=== PATIENT | male | born 1945 | race Caucasian/White ===

== ENCOUNTER → 2021-12-17 | Outpatient (CLI) | payer MEDICARE ==
--- NOTE | 2021-12-17 11:41 | XR ---
EXAMINATION TYPE: XR chest 2V DATE OF EXAM: 12/17/2021 11:12 AM COMPARISON: None TECHNIQUE: XR chest 2V Frontal and lateral views of the chest. CLINICAL INDICATION:Male, 76 years old with history of M545,M546,R05 LBP,THOR PAIN, COUGH; FINDINGS: Lungs/Pleura: There is no evidence of pleural effusion, focal consolidation, or pneumothorax. Pulmonary vascularity: Unremarkable. Heart/mediastinum: Cardiomediastinal silhouette is enlarged. Musculoskeletal: No acute osseous pathology. IMPRESSION: 1. No acute cardiopulmonary disease/process. 2. No evidence of fracture. 3. Mild cardiomegaly
--- NOTE | 2021-12-17 11:43 | XR ---
EXAMINATION TYPE: XR lumbar spine 2 or 3V DATE OF EXAM: 12/17/2021 11:12 AM INDICATION: Patient age:Male; 76 years old; Reason for study: M545,M546,R05 LBP,THOR PAIN,COUGH; . COMPARISON: None TECHNIQUE: Lateral and frontal view of the spine. FINDINGS: Post surgical changes to the lumbar spine with compensatory degeneration changes at T12-L2. Hardware extending from L3 to L5 appears intact. Discectomy changes at L3-L4. Mild levoscoliosis ape x L3. Multilevel disc space narrowing, osteophyte formation and facet joint arthropathy is present. N o evidence of acute fracture. IMPRESSION: Post fixation changes to the lower lumbar spine with compensatory degenerative changes changes from T 12 to L2 which is moderate to severe. Hardware appears intact.
--- NOTE | 2021-12-17 11:46 | XR ---
EXAMINATION TYPE: XR thoracic spine 2V DATE OF EXAM: 12/17/2021 11:12 AM INDICATION: Patient age:Male; 76 years old; Reason for study: M545,M546,R05 LBP,THOR PAIN, COUGH; COMPARISON: Same day radiographs TECHNIQUE: 2 views of the thoracic spine in Frontal and lateral projections. FINDINGS: Degeneration changes most pronounced from T12 to L2 which are felt to be compensatory from fixation hardware in the lower lumbar spine. No evidence of acute fracture. There is straightening of the thoracic spine with levoscoliosis of the lumbar spine. Multilevel disc space narrowing is presen t. IMPRESSION: Moderate to severe degeneration changes most pronounced at T12-L2 likely compensatory to lower lumbar spine fixation hardware. No evidence of acute fracture.
== END | disposition home or self-care (01) ==
LOC: RADXRYALE 10:41
PROVIDERS: ATTEND Physician Assistant
DX: M54.50 Low back pain, unspecified (principal); R05.4 Cough syncope; I51.7 Cardiomegaly; M51.35 Other intervertebral disc degeneration, thoracolumbar region
CPT/HCPCS: 71046; 72070; 72100

== ENCOUNTER → 2022-03-16 | Outpatient (CLI) | payer MEDICARE ==
--- NOTE | 2022-03-17 06:47 | MR ---
EXAMINATION TYPE: MR tspine/lspine wo con DATE OF EXAM: 03/16/2022 COMPARISON: Thoracic and lumbar spine x-rays December 17, 2021 HISTORY: LOW BACK PAIN, M546 THORACIC PAIN. Chronic mid and low back pain with history of prior surge ry for 2 years. Pain radiates into bilateral lower extremities. TECHNIQUE: Multiplanar, multisequence imaging of the thoracic and lumbar spine are performed without IV contrast. FINDINGS: T-SPINE: FINDINGS: Spinal cord shows normal course, caliber, and signal as it courses the thoracic spine. Slig ht scoliotic curvature on the coronal images most prominent near the thoracolumbar junction. Vertebra l body heights are satisfactory. Disc space heights fairly well maintained. There are small posterior disc herniation mildly effacing anterior thecal sac beginning at T7-T8 through the and T12-L1 level on sagittal image 9 for reference. Mild multilevel anterior spurring. Bone marrow signal intensity is maintained. Review of the axial images confirms disc herniations in the mid to lower thoracic spine mildly effaci ng the anterior thecal sac, largest are identified at T7-T8 level axial image 18 and T10-T11 level ax ial image 8. Some ligamentum flavum hypertrophy effaces posterior lateral thecal sac at T12-L1 level axial image 1. No suspicious incidental finding in the thorax or upper abdomen. IMPRESSION: Slight scoliotic curvature with multilevel degenerative changes in the mid to lower thora cic spine as detailed above. L-SPINE: Will use same counting system as plain films. There is persistent levoconvex scoliosis centered at L2 level with reactive dextroconvex scoliosis at the lumbosacral junction. Artifact from posterior inte rpedicular rods and screws at L3-L5 levels bilaterally is redemonstrated. Artifact from disc material at L3-L4 level is redemonstrated. Alignment remains straightened on sagittal images. There is grade 1 retrolisthesis L1 on L2 redemonstrated. There is slight grade 1 retrolisthesis L5 on S1 along poste rior vertebral body margin redemonstrated. Multilevel disc desiccation along with moderate to advance d disc space narrowing and spurring L1-L2 level. There is mild to moderate disc space narrowing L2-L3 level. There is moderate disc space narrowing with vacuum disc phenomenon at L5-S1 level. The conus medullaris is normal in position and signal ending superior L2 level. The bone marrow signal intens ity is within normal limits above and below surgical levels. Axial images are significantly degraded by artifact. Axial images at T12-L1 level grossly within norm al limits. Axial images at L1-L2 level show spondylolisthesis with right paracentral spur disc complex effacing the anterolateral thecal sac, there is asymmetric mild to moderate right-sided facet arthropathy liga ment flavum hypertrophy effacing posterior lateral thecal sac. Mild to Moderate right-sided neural fo raminal narrowing is present. Axial images at L2-L3 level show artifact from surgical change, there is subtle spondylolisthesis and right paracentral spur disc complex effacing right anterolateral thecal sac. Left-sided neural arcadio robert is patent. Right side is suboptimally evaluated due to artifact. Axial images at the L3-L4 level show posterior decompression changes with patent spinal canal and art ificial disc material. Right-sided neural foramen is patent. Axial images at L4-L5 level show artifact from surgical change. Posterior decompression changes noted . Spinal canal is preserved. Mild right-sided neural foraminal narrowing is seen. Left-sided neural f oramen is patent. Axial images at L5-S1 level show artifact from surgical change. There is uipa-yw-fynwuenl facet arthr opathy bilaterally. There is left paracentral disc protrusion effacing the anterolateral thecal sac a nd left lateral recess axial image 2. Bilateral neural foramina are patent. Paraspinal muscle bulk is preserved. IMPRESSION: Straightening of lumbar spine with scoliotic curvature. Postsurgical changes L3-L5 levels noted. Multilevel spondylolisthesis and degenerative changes are present as detailed above.
== END | disposition home or self-care (01) ==
LOC: RADMRIMAIN 08:54
PROVIDERS: ATTEND Family Medicine
DX: M54.50 Low back pain, unspecified (principal); M54.6 Pain in thoracic spine; G62.9 Polyneuropathy, unspecified
CPT/HCPCS: 72146; 72148

== ENCOUNTER → 2022-09-05 | Outpatient (CLI) | payer MEDICARE ==
--- NOTE | 2022-09-06 17:04 | MR ---
"EXAMINATION TYPE: MR brain wo con DATE OF EXAM: 09/05/2022 COMPARISON: None HISTORY: CVA. CONTRAST: Performed utilizing 0 mL intravenous Gadavist gadolinium contrast. TECHNIQUE: Multiplanar, multiecho imaging on a 3.0 Cintia magnet is performed through the brain. Stud y is performed within 24 hours of arrival to the hospital. The craniovertebral junction is normal. The pituitary is normal. Diffusion-weighted imaging is performed. There is a focus of hyperintensity within the right ramirez radiata can be compatible some acute ischemic change or lacunar infarct. Series 303 image 152, 160. T his area is hyperintense on T2-weighted sequences and measures approximately 1.0 cm. Series 401 image 20. Additional areas suspicious for acute ischemia are not evident. On inversion recovery weighted sequences there are some additional periventricular white matter hyper intensities may be old ischemic changes. Ventricles and sulci are prominent for the patient age. IMPRESSIONS: 1. 1 cm acute ischemic area or lacunar infarct posterior right ramirez radiata. 2. Additional mild chronic appearing periventricular white matter ischemic-type changes. A [place] level critical message alert has been initiated for Meño Reyez DO via the [employer] Communication [phone] | Critical Results System on 09/06/2022 5:01 PM. This message alert has been sent to Meño Reyez DO via the preferences provided by the clinician for the receipt of Radiology Critical Findings. [facility] ID [id number]."
== END | disposition home or self-care (01) ==
LOC: RADMRIMAIN 13:40
PROVIDERS: ATTEND Psychiatry & Neurology Neurology
DX: I63.81 Other cerebral infarction due to occlusion or stenosis of small artery (principal)
CPT/HCPCS: 70551

== ENCOUNTER 2022-09-07 17:22 | Inpatient (IN) | payer MEDICARE ==
--- NOTE | 2022-09-07 18:01 | ED ---
General Adult HPI - General Chief complaint: Neuro Symptoms/Deficit Stated complaint: abd labs Time Seen by Provider: 09/07/22 17:34 Source: patient Mode of arrival: ambulatory Limitations: no limitations - History of Present Illness Initial comments: This is a 77-year-old male with a past medical history including chronic back pain, previous PEs on Coumadin, hypertension presents emergency department from his neurologist for a positive finding on MRI scan. The patient had a large workup obtained by the neurologist over the last several weeks as he had decreased range of motion at home. Included in this workup, an MRI of the brain was obtained and was done on Wednesday. They received a phone call at home that the MRI was positive for an area on the right side of his brain so they were advised to come to the emergency department for further evaluation. The patient as well as his daughter was present and did state that there was no change the patient over the last several weeks including any weakness or altered mental status or confusion. The patient himself was an overall poor historian but was ANO 4. The patient denied any headache, blurry vision or any distress or pain. The patient was resting in bed comfortably. - Related Data Home Medications Medication Instructions Recorded Confirmed Atorvastatin [Lipitor] 10 mg PO DAILY 09/07/22 09/07/22 Carbidopa-Levodopa 25-100 mg 1 tab PO TID@0800,1300,1800 09/07/22 09/07/22 [Sinemet 25-100] Citalopram Hydrobromide 20 mg PO DAILY 09/07/22 09/07/22 [Citalopram HBr] DULoxetine HCL [Cymbalta] 60 mg PO DAILY 09/07/22 09/07/22 Diclofenac Sodium Gel [Voltaren 1 applic TOPICAL QID PRN 09/07/22 09/07/22 Gel] Donepezil [Aricept] 10 mg PO DAILY 09/07/22 09/07/22 Gabapentin 600 mg PO HS 09/07/22 09/07/22 HYDROcodone/APAP 5-325MG [Hinckley 1 tab PO TID PRN 09/07/22 09/07/22 5-325] Ibuprofen [Motrin] 800 mg PO Q8H PRN 09/07/22 09/07/22 Warfarin Sodium 2 mg PO DAILY 09/07/22 09/07/22 tiZANidine [Zanaflex] 4 mg PO DAILY PRN 09/07/22 09/07/22 Allergies Allergy/AdvReac Type Severity Reaction Status Date / Time No Known Allergies Allergy Verified 09/07/22 18:11 Review of Systems ROS Statement: Those systems with pertinent positive or pertinent negative responses have been documented in the HPI. ROS Other: All systems not noted in ROS Statement are negative. Past Medical History Past Medical History: CVA/TIA History of Any Multi-Drug Resistant Organisms: None Reported Past Surgical History: Back Surgery Smoking Status: Former smoker Past Alcohol Use History: None Reported Past Drug Use History: None Reported General Exam Limitations: no limitations, physical limitation (Decreased physical activity at baseline) General appearance: alert, in no apparent distress Head exam: Present: atraumatic, normocephalic, normal inspection Eye exam: Present: normal appearance, PERRL Pupils: Present: normal accommodation ENT exam: Present: normal exam, normal oropharynx, mucous membranes moist Neck exam: Present: normal inspection, full ROM Respiratory exam: Present: normal lung sounds bilaterally Cardiovascular Exam: Present: regular rate, normal rhythm, normal heart sounds GI/Abdominal exam: Present: soft, normal bowel sounds Extremities exam: Present: normal inspection, full ROM Back exam: Present: normal inspection, full ROM Neurological exam: Present: alert, oriented X3, CN II-XII intact Psychiatric exam: Present: normal mood, flat affect Skin exam: Present: warm, dry Course Vital Signs 09/07/22 17:28 Temperature 97.5 F L Pulse Rate 63 Respiratory 18 Rate Blood Pressure 134/74 O2 Sat by Pulse 96 Oximetry EKG Findings - EKG Comments: EKG Findings:: An EKG was obtained and was interpreted by myself showing a rate of 76, PA interval of 213, QR hinduism 174 and QTC of 449. This EKG did show a normal sinus rhythm with a first-degree block however there were also frequent PVCs and a right bundle branch block. There was no ST segment elevation or depression noted. Medical Decision Making - Medical Decision Making Was pt. sent in by a medical professional or institution (, PA, CLERK OPERATOR, urgent care, hospital, or alf...) When possible be specific @ -Yes, Dr. Perdue's office Did you speak to anyone other than the patient for history (EMS, parent, family, police, friend...)? What history was obtained from this source @ -Yes, patient's daughter Did you review nursing and triage notes (agree or disagree)? Why? @ -I reviewed and agree with nursing and triage notes Were old charts reviewed (outside hosp., previous admission, EMS record, old EKG, old radiological studies, urgent care reports/EKG's, alf records)? Report findings @ -Yes, outpatient MRI was reviewed Differential Diagnosis (chest pain, altered mental status, abdominal pain women, abdominal pain men, vaginal bleeding, weakness, fever, dyspnea, syncope, headache, dizziness, GI bleed, back pain, seizure, CVA, palpatations, mental health)? @ -CVA, UTI, failure to thrive EKG interpreted by me (3pts min.). @ -As above X-rays interpreted by me (1pt min.). @ -Chest x-ray was obtained and was interpreted by myself showing mild pulmonary for about acute changes. There is likely minimal subsegmental atelectasis the left lung base. There is no heart failure noted. CT interpreted by me (1pt min.). @ -None done U/S interpreted by me (1pt. min.). @ -None done What testing was considered but not performed or refused? (CT, X-rays, U/S, labs)? Why? @ -CTA of the head and neck was ordered per stroke pathway protocol was pending at this time. What meds were considered but not given or refused? Why? @ -None Did you discuss the management of the patient with other professionals (professionals i.e. DrSolis, PA, CLERK OPERATOR, lab, RT, psych nurse, delinquency prevention social worker, clinical study manager, teacher, tactical debriefer officer, casework manager)? Give summary @ -Admitting physician was contacted and accepted patient for admission. Was smoking cessation discussed for >3mins.? @ -No Was critical care preformed (if so, how long)? @ -No Were there social determinants of health that impacted care today? How? (Homelessness, low income, unemployed, alcoholism, drug addiction, tr ansportation, low edu. Level, literacy, decrease access to med. care, senior care, rehab)? @ -No Was there de-escalation of care discussed even if they declined (Discuss DNR or withdrawal of care, Hospice)? DNR status @ -No What co-morbidities impacted this encounter? (DM, HTN, Smoking, COPD, CAD, Cancer, CVA, ARF, Chemo, Hep., AIDS, mental health diagnosis, sleep apnea, morbid obesity)? @ -Decreased physical activity at home, hypertension, previous blood clots on Coumadin Was patient admitted / discharged? Hospital course, mention meds given and route, prescriptions, significant lab abnormalities, going to OR and other pertinent info. @ -The patient was seen and evaluated emergency department. Physical exam, the patient was resting in bed without any acute distress. Vital signs were stable. Per the family as well as the patient, there was no acute weakness, numbness or deficits noted. Due to the patient's MRI findings, the patient will be admitted under observation as the acuity of this CVA was unknown and the patient didn't have any active symptoms. The patient was accepted for observation by Dr. Jeffers and neurology was placed and consul. The family and patient was told of this plan and was agreeable. The patient was placed in observation in stable condition. Undiagnosed new problem with uncertain prognosis? @ -No Drug Therapy requiring intensive monitoring for toxicity (Heparin, Nitro, Insulin, Cardizem)? @ -No Were any procedures done? @ -No Diagnosis/symptom? @ -CVA, unknown acuity Acute, or Chronic, or Acute on Chronic? @ -Acute on chronic Uncomplicated (without systemic symptoms) or Complicated (systemic symptoms)? @ -Complicated Side effects of treatment? @ -No Exacerbation, Progression, or Severe Exacerbation? @ -No Poses a threat to life or bodily function? How? (Chest pain, [place], [place], pneumonia, PE, COPD, DKA, ARF, appy, cholecystitis, CVA, Diverticulitis, Homicidal, Suicidal, threat to staff... and all critical care pts) @ -Yes, acute CVA can lead to permanent damage and possible . - Lab Data Result diagrams: 09/07/22 18:11 09/07/22 18:11 Lab Results 09/07/22 09/07/22 Range/Units 18:11 18:11 WBC 7.6 (3.8-10.6) k/uL RBC 4.78 (4.30-5.90) m/uL Hgb 15.3 (13.0-17.5) gm/dL Hct 46.7 (39.0-53.0) % MCV 97.7 (80.0-100.0) fL MCH 32.0 (25.0-35.0) pg MCHC 32.8 (31.0-37.0) g/dL RDW 14.0 (11.5-15.5) % Plt Count 175 (150-450) k/uL MPV 8.7 Neutrophils % 65 % Lymphocytes % 22 % Monocytes % 7 % Eosinophils % 3 % Basophils % 1 % Neutrophils # 4.9 (1.3-7.7) k/uL Lymphocytes # 1.7 (1.0-4.8) k/uL Monocytes # 0.5 (0-1.0) k/uL Eosinophils # 0.2 (0-0.7) k/uL Basophils # 0.1 (0-0.2) k/uL Sodium 139 (137-145) mmol/L Potassium 4.6 (3.5-5.1) mmol/L Chloride 105 (98-107) mmol/L Carbon Dioxide 28 (22-30) mmol/L Anion Gap 6 mmol/L BUN 23 H (9-20) mg/dL Creatinine 0.89 (0.66-1.25) mg/dL Est GFR (CKD-EPI)AfAm >90 (>60 ml/min/1.73 sqM) Est GFR (CKD-EPI)NonAf 82 (>60 ml/min/1.73 sqM) Glucose 100 H (74-99) mg/dL Calcium 8.9 (8.4-10.2) mg/dL Magnesium 2.1 (1.6-2.3) mg/dL Total Bilirubin 0.5 (0.2-1.3) mg/dL AST 27 (17-59) U/L ALT 9 (4-49) U/L Alkaline Phosphatase 83 (38-126) U/L Total Protein 7.1 (6.3-8.2) g/dL Albumin 4.0 (3.5-5.0) g/dL Lipase 398 H (23-300) U/L Disposition Clinical Impression: Cerebrovascular accident (CVA) Disposition: ADMITTED IP TO THIS HOSP Condition: Stable Is patient prescribed a controlled substance at d/c from ED?: No Referrals: Starr Cardenas PAC [Primary Care Provider] - 1-2 days Time of Disposition: 17:30 Decision to Admit Reason: Admit from EC Decision Date: 09/07/22 (3) Decision Time: 17:30
[2022-09-07 18:23] LABS: Basophils # (A) 0.1 k/uL (0-0.2); Basophils % (A) 1 %; Eosinophils # (A) 0.2 k/uL (0-0.7); Eosinophils % (A) 3 %; HCT 46.7 % (39.0-53.0); HGB 15.3 gm/dL (13.0-17.5); Lymphocytes # (A) 1.7 k/uL (1.0-4.8); Lymphocytes % (A) 22 %; MCHC 32.8 g/dL (31.0-37.0); MCV 97.7 fL (80.0-100.0); Mean Platelet Volume 8.7; Monocytes # (A) 0.5 k/uL (0-1.0); Monocytes % (A) 7 %; Neutrophils # (A) 4.9 k/uL (1.3-7.7); Neutrophils % (A) 65 %; Platelet Count 175 k/uL (150-450); RBC 4.78 m/uL (4.30-5.90); WBC 7.6 k/uL (3.8-10.6)
[2022-09-07] MEDS ORDERED: NALOXONE 0.4 MG/ML 1 ML VIAL IV PRN (18:31)
[2022-09-07 18:32] LABS: ALT 9 U/L (4-49); AST 27 U/L (17-59); African American GFR (CKD) >90 (>60 ml/min/1.73 sqM); Alkaline Phosphatase 83 U/L (38-126); Anion Gap 6 mmol/L; Blood Urea Nitrogen 23 mg/dL (9-20); Calcium 8.9 mg/dL (8.4-10.2); Carbon Dioxide 28 mmol/L (22-30); Chloride 105 mmol/L (98-107); Glucose 100 mg/dL (74-99); Lipase 398 U/L (23-300); Magnesium 2.1 mg/dL (1.6-2.3); Non-African American GFR(CKD) 82 (>60 ml/min/1.73 sqM); Potassium 4.6 mmol/L (3.5-5.1); Sodium 139 mmol/L (137-145); Total Bilirubin 0.5 mg/dL (0.2-1.3); Total Protein 7.1 g/dL (6.3-8.2)
--- NOTE | 2022-09-07 18:33 | XR ---
EXAMINATION TYPE: XR chest 2V DATE OF EXAM: 09/07/2022 COMPARISON: 12/17/2021 HISTORY: Weakness TECHNIQUE: FINDINGS: There is no heart failure nor confluent pneumonic infiltrate. There is poor inspiration. No pleural effusion. There is mild coarsening of the interstitial markings. IMPRESSION: Mild pulmonary fibrotic changes. There is likely minimal subsegmental atelectasis left hosea ng base which is new compared to old exam. No heart failure.
--- NOTE | 2022-09-07 20:46 | CT ---
EXAMINATION TYPE: CT angio head neck DATE OF EXAM: 09/07/2022 COMPARISON: None HISTORY: ams, weakness. CT DLP: 1699.8 mGycm Automated exposure control for dose reduction was used. CONTRAST: Performed with IV Contrast, patient injected with 65ml mL of Isovue 370. Images obtained from the aortic arch to the vertex of the brain with the IV contrast. There are Three -D postprocessed images. There is normal branching pattern of the great vessels of the aortic arch. There is arterial flow in the subclavian arteries bilaterally. There is arterial flow in the common internal and external carot id arteries bilaterally. There is mild plaque formation at the carotid artery bifurcations without ev idence of stenosis. Lumen narrowing less than 5%. There is arterial flow in both vertebral arteries. There is arterial flow in the vertebral basilar artery system. Left vertebral artery is larger than t he right. There is no evidence of carotid or vertebral artery aneurysm or dissection. There is arterial flow in the anterior middle and posterior cerebral arteries bilaterally. No mass ef fect. No evidence of intracranial aneurysm or neovascularity. No evidence of hemodynamic stenosis. Th ere is normal enhancement of the venous sinuses. The noncontrast images show some cerebral atrophy. No mass effect or midline shift. No sign of intrac ranial hemorrhage. IMPRESSION: Cerebral atrophy. No acute intracranial abnormality. No significant angiographic abnormality of the head and neck.
[2022-09-07 21:18] LABS: Appearance,Urine Clear (Clear); Bilirubin,Urine Negative (Negative); Blood,Urine Negative (Negative); Color,Urine Yellow; Glucose,Urine (UA) Negative (Negative); Ketones,Urine Negative (Negative); Leukocyte Esterase,Urine Moderate (Negative); Mucus,Urine Rare /hpf; Nitrite,Urine Negative (Negative); PH, Urine 5.5 (5.0-8.0); Protein,Urine Negative (Negative); RBC,Urine 3 /hpf (0-5); Specific Gravity,Urine 1.037 (1.001-1.035); WBC,Urine 23 /hpf (0-5)
--- NOTE | 2022-09-08 00:24 | P.HPIM ---
History of Present Illness H&P Date: 09/07/22 The patient is a 77-year-old male with a PMH of chronic lower back pain, history of PE on Coumadin, hypertension, Parkinson's, and hyperlipidemia was sent to the emergency room for an abnormal MRI brain. The history was supplemented from the chart and from the ED provider at the patient was a poor historian. The patient was been following with a neurologist as an outpatient over the past several weeks underwent an MRI this past Wednesday. The patient was contacted and informed that his MRI was abnormal and that he needed to go to the emergency room. The patient states that he has been having difficulty walking over the past few weeks and now needs significant assistance which is new for him. He was slow to answer but was oriented 3. The patient denied any focal weakness. As per the family the patient reportedly had no acute weakness or significant changes. Denied visual disturbances or speech impairment. The patient underwent an extensive evaluation in the emergency room. CT angiogram of head and neck revealed cerebral atrophy but was otherwise unremarkable. Chest x-ray revealed mild pulmonary fibrotic changes. EKG revealed sinus rhythm with first-degree AV block with PVCs and a right bundle- branch block at 76 bpm as reviewed by me. Laboratory evaluation revealed a WBC count of 7.6, hemoglobin 15.3, platelets 175, sodium 139, potassium 4.6, BUN 23, creatinine 0.89, glucose 100, and lipase 398. Review of systems: Pertinent positives and negatives as discussed in HPI, a complete review of systems was performed and all other systems are negative. Physical examination: Vital signs reviewed General: non toxic, no distress, appears at stated age, normal weight Derm: no unusual rashes/lesions, warm Head: atraumatic, normocephalic, symmetric Eyes: EOMI, no lid lag, anicteric sclera, pupils equal round reactive to light ENT: Nose and ears atraumatic Neck: No cervical lymphadenopathy, trachea midline, supple Mouth: no lip lesion, mucus membranes moist Cardiovascular: S1S2 reg, no murmur, positive dorsalis pedis pulse bilateral, no edema Lungs: CTA bilateral, no rhonchi, no rales, no accessory muscle use Abdominal: soft, nontender to palpation, no guarding Ext: muscle strength 3 out of 5 of bilateral lower extremities, strength 4 out of 5 bilateral upper extremities, no gross muscle atrophy, no contractures Neuro: CN II-XI grossly intact, no gross focal neuro deficits Psych: Slow to answer, flat affect, oriented x3 Assessment: Abnormal MRI brain (not available for review in chart) Debility Chronic conditions: Parkinson's, history of PE, hypertension, hyperlipidemia Imaging: CT angiogram of head and neck revealed cerebral atrophy but was otherwise unremarkable. Chest x-ray revealed mild pulmonary fibrotic changes. EKG revealed sinus rhythm with first-degree AV block with PVCs and a right bundle- branch block at 76 bpm as reviewed by me. Data Review: Laboratory evaluation revealed a WBC count of 7.6, hemoglobin 15.3, platelets 175, sodium 139, potassium 4.6, BUN 23, creatinine 0.89, glucose 100, and lipase 398. Plan: Neurology consulted PT consult C/w home meds: -Coumadin 2 mg by mouth daily -Zanaflex 4 mg by mouth daily when necessary -Bland 5-325 3 times a day when necessary -Cymbalta 60 mg by mouth qd -Sinemet by mouth 3 times a day -Lipitor 10 mg by mouth daily DVT prophylaxis: Coumadin The patient is admitted with an anticipated less than 2 midnight stay for evaluation of Abnormal MRI CODE STATUS: Full Code Discussed with: Patient Anticipated discharge place: Home Past Medical History Past Medical History: CVA/TIA, Neurologic Disorder History of Any Multi-Drug Resistant Organisms: None Reported Past Surgical History: Back Surgery Past Anesthesia/Blood Transfusion Reactions: No Reported Reaction Past Psychological History: Depression Smoking Status: Former smoker Past Alcohol Use History: None Reported Past Drug Use History: Marijuana - Past Family History Father History Unknown: Yes Additional Family Medical History / Comment(s): pt and family is not aware of any past family medical history Medications and Allergies Home Medications Medication Instructions Recorded Confirmed Type Atorvastatin [Lipitor] 10 mg PO DAILY 09/07/22 09/07/22 History Carbidopa-Levodopa 25-100 mg 1 tab PO TID@0800,1300,1800 09/07/22 09/07/22 History [Sinemet 25-100] Citalopram Hydrobromide 20 mg PO DAILY 09/07/22 09/07/22 History [Citalopram HBr] DULoxetine HCL [Cymbalta] 60 mg PO DAILY 09/07/22 09/07/22 History Diclofenac Sodium Gel [Voltaren 1 applic TOPICAL QID PRN 09/07/22 09/07/22 History Gel] Donepezil [Aricept] 10 mg PO DAILY 09/07/22 09/07/22 History Gabapentin 600 mg PO HS 09/07/22 09/07/22 History HYDROcodone/APAP 5-325MG [Bland 1 tab PO TID PRN 09/07/22 09/07/22 History 5-325] Ibuprofen [Motrin] 800 mg PO Q8H PRN 09/07/22 09/07/22 History Warfarin Sodium 2 mg PO DAILY 09/07/22 09/07/22 History tiZANidine [Zanaflex] 4 mg PO DAILY PRN 09/07/22 09/07/22 History Allergies Allergy/AdvReac Type Severity Reaction Status Date / Time No Known Allergies Allergy Verified 09/07/22 18:11 Physical Exam Vitals: Vital Signs Temp Pulse Pulse Resp BP BP Pulse Ox 09/07/22 21:00 97.8 F 77 16 134/96 97 09/07/22 20:37 82 18 170/86 97 09/07/22 19:33 60 18 148/70 97 09/07/22 17:28 97.5 F L 63 18 134/74 96 Intake and Output 09/07/22 09/07/22 09/08/22 14:59 22:59 06:59 Other: Voiding Method External Catheter Weight 79.379 kg Results CBC & Chem 7: 09/07/22 18:11 09/07/22 18:11 Labs: Abnormal Lab Results - Last 24 Hours (Table) 09/07/22 09/07/22 Range/Units 17:50 18:11 BUN 23 H (9-20) mg/dL Glucose 100 H (74-99) mg/dL Lipase 398 H (23-300) U/L Ur Specific [place] 1.037 H (1.001-1.035) Ur Leukocyte Esterase Moderate H (Negative) Urine WBC 23 H (0-5) /hpf Urine Mucus Rare H (None) /hpf Thrombosis Risk Factor Assmnt - Choose All That Apply Any of the Below Risk Factors Present?: Yes Each Factor Represents 1 point: Obesity (BMI >25) Other Risk Factors: Yes Each Risk Factor Represents 3 Points: Age 75 years or older Each Risk Factor Represents 5 Points: Stroke (< 1 month) Thrombosis Risk Factor Assessment Total Risk Factor Score: 9 Thrombosis Risk Factor Assessment Level: High Risk
[2022-09-08] MEDS: HYDROcodone/APAP 5-325MG 1 EACH TAB PO PRN ×3 (01:04→20:16)
[2022-09-08] MEDS: tiZANidine 4 MG TAB PO PRN ×2 (03:47→17:35)
[2022-09-08 03:54] LABS: INR 1.3 (<1.2); Prothrombin Time 12.8 sec (9.0-12.0)
[2022-09-08] MEDS: ATORVASTATIN 10 MG TAB PO SCH (08:20)
[2022-09-08] MEDS: CARBIDOPA-LEVODOPA 25-100 MG 1 EACH TAB PO SCH ×3 (08:20→17:35)
[2022-09-08] MEDS: DONEPEZIL 10 MG TAB PO SCH (08:20)
[2022-09-08] MEDS: CITALOPRAM HYDROBROMIDE 20 MG TAB PO SCH (08:20)
[2022-09-08] MEDS: DULoxetine HCL 60 MG CAPSULE.DR PO SCH (08:20)
--- NOTE | 2022-09-08 11:27 | P.PN ---
Subjective Progress Note Date: 09/08/22 Hospital course: Patient is a very pleasant 77-year-old male with a past medical history of Parkinson's disease, chronic back pain, hypertension, and previous pulmonary emboli's on Coumadin. Documentation obtained from patient's chart as patient is a poor historian. Patient was reportedly sent to the emergency department from his neuropathy concerns of a acute/subacute ischemic stroke noted on MRI. Patient underwent full evaluation in the emergency department. CBC and BMP unre markable. Urinalysis negative for blood or infection. Coagulation profile revealed subtherapeutic INR of 1.3. EKG was completed showing sinus rhythm at 76 bpm with a first-degree AV block with PA interval of 213 ms and frequent PVCs. Chest x-ray completed in radiology report reviewed revealing mild pulmonary fibrotic changes with minimal subsegmental atelectasis at left lung base. CTA head revealed cerebral atrophy and negative for acute intercranial process. CTA neck showing no significant angiographic abnormality of the head or neck. Patient was admitted under our services with consultation to neurology. Reviewed MRI as outpatient visit completed on 09/05/22. MRI reporting a 1 cm acute ischemic area or lacunar infarct posterior right ramirez radiata and additional mild chronic appearing periventricular white matter ischemic type changes. Physical exam: Vital signs reviewed and stable. General: Nontoxic, no distress and appears stated age. Derm: Skin warm and dry, normal coloration for ethnicity. Head: Atraumatic, normocephalic and symmetric. Eyes: EOMs intact, no lid lag, and anicteric sclera Mouth: no lip lesions, mucus membranes moist Cardiovascular: regular rate and rhythm with normal S1S2, no murmur, positive posterior tibial pulses bilaterally, and cap refill < 2 seconds. Lungs: Respirations even, regular, and unlabored on room air. Lungs CTA bilaterally, no rhonchi, no rales, no wheezing, and no accessory muscle usage. Abdominal: soft, nontender to palpation, no guarding, no appreciable organomegaly Ext: Movement and sensation intact. No gross muscle atrophy, no edema, no contractures Neuro/Psych: Alert and oriented, slow to respond. Assessment and Plan of Care: Acute Lacunar ischemic infarct Parkinson's disease History of pulmonary emboli with subtherapeutic INR Chronic back pain Hypertension -Reviewed MRI as outpatient visit completed on 09/05/22. MRI reporting a 1 cm acute ischemic area or lacunar infarct posterior right ramirez radiata and additional mild chronic appearing periventricular white matter ischemic type changes. -Reviewed labs. INR subtherapeutic at 1.3. -Secondary to subtherapeutic INR Coumadin discontinued and patient started on anticoagulation with Eliquis to begin tonight. -Lipid profile to be completed -Echo -Discussed with neurologist, he recommends adding on aspirin 81 mg daily. -Continue carbidopa levodopa 25/100 mg tablets 3 times daily, Celexa 20 mg daily, Aricept 10 mg daily, Cymbalta 60 mg daily, and Neurontin 600 mg nightly. CODE STATUS: Full code DVT prophylaxis: Eliquis Discussed with: Patient, RN, and neurologist Anticipated discharge date: Clinical course to determine Patient was seen independently by Nurse Pracitioner. This document was prepared using [employer] 3D dictation software. Please allow for errors in director corporate, while rare they do occur. Objective - Vital Signs Vital signs: Vital Signs Temp 97.8 F 09/08/22 04:00 Pulse 67 09/08/22 04:00 Resp 18 09/08/22 04:00 BP 115/70 09/08/22 04:00 Pulse Ox 95 09/08/22 04:00 FiO2 Intake & Output 09/07/22 09/08/22 09/08/22 18:59 06:59 18:59 Output Total 300 Balance -300 Weight 79.379 kg 79.379 kg Output: Urine 300 Other: Voiding Method External Catheter - Labs CBC & Chem 7: 09/07/22 18:11 09/07/22 18:11 Labs: Abnormal Lab Results - Last 24 Hours (Table) 09/07/22 09/07/22 09/08/22 Range/Units 17:50 18:11 02:55 PT 12.8 H (9.0-12.0) sec INR 1.3 H (<1.2) BUN 23 H (9-20) mg/dL Glucose 100 H (74-99) mg/dL Lipase 398 H (23-300) U/L Ur Specific [place] 1.037 H (1.001-1.035) Ur Leukocyte Esterase Moderate H (Negative) Urine WBC 23 H (0-5) /hpf Urine Mucus Rare H (None) /hpf Microbiology - Last 24 Hours (Table) 09/07/22 17:50 Urine Culture - Preliminary Urine,Voided
--- NOTE | 2022-09-08 12:50 | P.CNNES ---
History of Present Illness Consult date: 09/08/22 Requesting physician: Ede Hodge Reason for Consult: CVA, unknown acuity History of Present Illness: This is a 77-year-old gentleman with history of old stroke about 10 years ago, Probable Parkinson's disease, pulmonary embolism on Coumadin, hypertension who presented to the emergency department as abnormal MRI. History is obtained from the patient's daughter was at bedside as well as medical record. It seems that the patient is following up with a neurologist, Dr. Reyez who ordered MRI of the brain because of the his workup for Parkinson's disease and the patient underwent MRI this past Wednesday and it seems that he there is abnormality on MRI and he was notified to come to the emergency department. According to the patient as well as the daughter the patient is a very slow but he's oriented 3 but no new focal deficits. It seems the MRI is reported as 1 cm acute ischemic area of lacunar infarct pos terior right ramirez radiata. Additional mild chronic-appearing periventricular white matter ischemic type changes. Current to the daughter she states the Coumadin has been fluctuating and that for 2 weeks was subtherapeutic but then was able to be normalized. He stated that his neurologist is modifying his carbidopa levodopa medication and currently on 25-100 1 tab tid. She did not get IV TPA in our facility since he presented with a stroke seen on imaging beyond window for tpa. Unknown last normal. The risk of given tpa outweigh the benefit. Some other workup during his hospital visit consisted of: CT angiography of the head and neck was reported as cerebral atrophy. No acute intracranial abnormality. No significant angiographic abnormality of the head and neck. Possibly the patient has underlying acute urinary tract infection. INR is 1.3 I Personally reviewed MRI of the brain that was done on 09/05/2022 and I feel it acute to subacute ischemic stroke lacunar over the right ramirez radiata. Review of Systems Review of system: The 12 point system was reviewed and apparent positive and negative per HPI. Past Medical History Past Medical History: CVA/TIA, Neurologic Disorder History of Any Multi-Drug Resistant Organisms: None Reported Past Surgical History: Back Surgery Past Anesthesia/Blood Transfusion Reactions: No Reported Reaction Past Psychological History: Depression Smoking Status: Former smoker Past Alcohol Use History: None Reported Past Drug Use History: Marijuana - Past Family History Father History Unknown: Yes Additional Family Medical History / Comment(s): pt and family is not aware of any past family medical history Medications and Allergies Home Medications Medication Instructions Recorded Confirmed Type Atorvastatin [Lipitor] 10 mg PO DAILY 09/07/22 09/07/22 History Carbidopa-Levodopa 25-100 mg 1 tab PO TID@0800,1300,1800 09/07/22 09/07/22 Histo ry [Sinemet 25-100] Citalopram Hydrobromide 20 mg PO DAILY 09/07/22 09/07/22 History [Citalopram HBr] DULoxetine HCL [Cymbalta] 60 mg PO DAILY 09/07/22 09/07/22 History Diclofenac Sodium Gel [Voltaren 1 applic TOPICAL QID PRN 09/07/22 09/07/22 History Gel] Donepezil [Aricept] 10 mg PO DAILY 09/07/22 09/07/22 History Gabapentin 600 mg PO HS 09/07/22 09/07/22 History HYDROcodone/APAP 5-325MG [[place] 1 tab PO TID PRN 09/07/22 09/07/22 History 5-325] Ibuprofen [Motrin] 800 mg PO Q8H PRN 09/07/22 09/07/22 History Warfarin Sodium 2 mg PO DAILY 09/07/22 09/07/22 History tiZANidine [Zanaflex] 4 mg PO DAILY PRN 09/07/22 09/07/22 History Allergies Allergy/AdvReac Type Severity Reaction Status Date / Time No Known Allergies Allergy Verified 09/07/22 18:11 Physical Examination - Vital Signs Vital Signs: Vital Signs Temp Pulse Pulse Pulse Resp BP BP 09/08/22 08:20 74 16 09/08/22 08:00 98.5 F 74 16 114/73 09/08/22 04:00 97.8 F 67 18 115/70 09/08/22 02:00 69 14 09/08/22 00:00 97.7 F 69 14 117/72 09/07/22 21:00 97.8 F 77 16 134/96 09/07/22 20:37 82 18 170/86 09/07/22 19:33 60 18 148/70 09/07/22 17:28 97.5 F L 63 18 134/74 Pulse Ox 09/08/22 08:20 09/08/22 08:00 93 L 09/08/22 04:00 95 09/08/22 02:00 09/08/22 00:00 96 09/07/22 21:00 97 09/07/22 20:37 97 09/07/22 19:33 97 09/07/22 17:28 96 Intake and Output 09/07/22 09/08/22 09/08/22 22:59 06:59 14:59 Output Total 300 Balance -300 Output: Urine 300 Other: Voiding Method External Catheter External Catheter External Catheter Weight 79.379 kg GENERAL: The patient is sitting in a recliner chair and is not in acute distress. CHEST: The heart rate is regular rate rhythm. No murmurs to auscultation. LUNG: Clear to auscultation bilaterally no wheezing noted throughout. Not l abored breathing. ABDOMEN/GI: Bowel sounds present in all 4 quadrants. No tenderness to palpation throughout. NEUROLOGICAL: Higher mental function: The patient is awake, alert, oriented to self, place and time. He is very slow responding (baseline). Patient is following commands but slow. No aphasia and no neglect. Cranial nerves: The pupils are round, equal and reactive to light and accommod ation. Visual dutta are full to confrontation throughout. Extraocular movement is intact no nystagmus is noted. Facial sensation is normal to touch throughout. Has mask like face but otherwise no facial weakness. . Hearing is mildly decrease bilaterally to hand rub. Tongue is midline and moved [id number] without any difficulty. No dysarthria is noted. Shoulder shrug is normal bilaterally. Motor: The strength is 5 over 5 throughout uppers. Lowers is limited but lifting above gravity and it seems lifting the left more the right (baseline). Normal tone. Cerebellum: Normal finger to nose bilaterally. Sensation: Sensation is normal to touch throughout. Reflexes (right/left): 1+ throughout. Plantars are mute bilaterally. Results - Laboratory Findings CBC and BMP: 09/07/22 18:11 09/07/22 18:11 Abnormal Lab Findings: Abnormal Labs 09/07/22 09/07/22 09/08/22 17:50 18:11 02:55 PT 12.8 H INR 1.3 H BUN 23 H Glucose 100 H Lipase 398 H Ur Specific [place] 1.037 H Ur Leukocyte Esterase Moderate H Urine WBC 23 H Urine Mucus Rare H Assessment and Plan Assessment: This is a 77-year-old gentleman who was sent by his neurologist because of abnormal MRI that revealed stroke on the right ramirez radiata on 09/05/2022 Subacute stroke (Right ramirez radiate on MRI on 09/05/22) and denies any focal weakness or other neurological deficit. His INR is subtherapeutic (1.3) History of stroke about 10 years ago Probable Parkinson's History of PE on Coumadin. But INR has been fluctuating according to daughter History of lower back pain Hypertension Plan: I recommend a possible switching the Coumadin to a different anticoagulation since his INR was subtherapeutic and he has been having issues with his INR. Can add aspirin 81 mg for 21 days after 21 days.. Is on Lipitor 10mg daily. 2-D echo, lipid panel is ordered pending Continue neuro checks PT OT are consulted We'll defer the rest of the medical management to primary team For DVT prophylaxis the patient is on Coumadin Upon discharge recommend the patient to follow-up with his neurologist as an outpatient within 1-2 weeks (Dr. Reyez). The plan was discussed with the patient's daughter was at bedside as well as the primary team. Thank you for the consult. Time with Patient: Greater than 30
[2022-09-08 14:58] LABS: Chol/HDL Ratio 2.83 Ratio; LDL Cholesterol,Calculated 60.4 mg/dL (0.0-131.0)
[2022-09-08] MEDS: ASPIRIN 81 MG PO SCH (17:35)
[2022-09-08] MEDS ORDERED: WARFARIN 3 MG TAB PO ONE (18:00)
[2022-09-08] MEDS ORDERED: WARFARIN 2.5 MG TAB PO SCH (18:00)
[2022-09-08] MEDS: APIXABAN 5 MG TAB PO SCH (20:16)
[2022-09-08] MEDS: GABAPENTIN 300 MG CAP PO SCH (20:16)
[2022-09-09] MEDS: HYDROcodone/APAP 5-325MG 1 EACH TAB PO PRN ×4 (04:05→20:23)
[2022-09-09 09:24] LABS: INR 1.2 (<1.2); Prothrombin Time 12.2 sec (9.0-12.0)
[2022-09-09] MEDS: ASPIRIN 81 MG PO SCH (09:28)
[2022-09-09] MEDS: APIXABAN 5 MG TAB PO SCH ×2 (09:28→20:23)
[2022-09-09] MEDS: CARBIDOPA-LEVODOPA 25-100 MG 1 EACH TAB PO SCH ×3 (09:28→17:13)
[2022-09-09] MEDS: ATORVASTATIN 10 MG TAB PO SCH (09:28)
[2022-09-09] MEDS: DONEPEZIL 10 MG TAB PO SCH (09:28)
[2022-09-09] MEDS: DULoxetine HCL 60 MG CAPSULE.DR PO SCH (09:28)
[2022-09-09] MEDS: CITALOPRAM HYDROBROMIDE 20 MG TAB PO SCH (09:28)
--- NOTE | 2022-09-09 09:54 | CA ---
Transthoracic Echo Report Name: Caesar Vines Age: 77 Gender: M : 1945 Exam Date: 09/09/2022 07:30 Exam Location: [facility] Ht (in): 68 Wt (lb): 175 Ordering Physician: Imtiaz Gonzalez Attending/Referring Phys: Starr Cardenas PAC Photocopier Technician Ottoniel Marx RDCS Procedure CPT: Indications: need echo for cva Cardiac Hx: Technical Quality: Fair Contrast 1: Total Dose (mL): Contrast 2: Total Dose (mL): MEASUREMENTS (Male / Female) Normal Values 2D ECHO LV Diastolic Diameter PLAX 4.6 cm 4.2 - 5.9 / 3.9 - 5.3 cm LV Systolic Diameter PLAX 3.4 cm LV Fractional Shortening PLAX 26.3 % IVS Diastolic Thickness 1.3 cm 0.6 - 1.0 / 0.6 - 0.9 cm IVS Systolic Thickness 1.9 cm LVPW Diastolic Thickness 1.3 cm 0.6 - 1.0 / 0.6 - 0.9 cm LVPW Systolic Thickness 1.7 cm LV Relative Wall Thickness 0.6 RV Internal Dim ED PLAX 3.0 cm LVOT Diameter 2.2 cm LA Systolic Diameter LX 3.6 cm 3.0 - 4.0 / 2.7 - 3.8 cm LV Diastolic Volume MOD BP 60.9 cm??? 67 - 155 / 56 - 104 cm??? LV Systolic Volume MOD BP 35.8 cm??? 22 - 58 / 19 - 49 cm??? LV Ejection Fraction MOD BP 41.2 % >= 55 % LV Stroke Volume MOD BP 25.1 cm??? LV Cardiac Output MOD BP 2160.6 cm???/min LV Cardiac Index MOD BP 1099.1 cm???/min???m??? LV Diastolic Volume MOD 4C 51.5 cm??? LV Systolic Volume MOD 4C 38.6 cm??? LV Ejection Fraction MOD 4C 25.1 % LV Stroke Volume MOD 4C 12.9 cm??? LV Cardiac Output MOD 4C 1112.0 cm???/min LV Cardiac Index MOD 4C 565.7 cm???/min???m??? LV Diastolic Length 4C 7.1 cm LV Systolic Length 4C 6.4 cm LV Diastolic Volume MOD 2C 71.3 cm??? LV Systolic Volume MOD 2C 30.7 cm??? LV Ejection Fraction MOD 2C 56.9 % LV Stroke Volume MOD 2C 40.6 cm??? LV Cardiac Output MOD 2C 3492.7 cm???/min LV Cardiac Index MOD 2C 1776.8 cm???/min???m??? LV Diastolic Length 2C 7.0 cm LV Systolic Length 2C 5.9 cm Ascending Aorta Diameter 3.4 cm M-MODE Aortic Root Diameter MM 3.8 cm LA Systolic Diameter MM 3.0 cm LA Ao Ratio MM 0.8 MV E Point Septal Separation 1.1 cm AV Cusp Separation MM 1.8 cm DOPPLER AV Peak Velocity 84.4 cm/s AV Peak Gradient 2.8 mmHg AI Peak Velocity 102.8 cm/s AI Peak Gradient 4.2 mmHg AI Deceleration Rooks 35.3 cm/s??? AI Pressure Half Time 845.9 ms MV Deceleration Rooks 155.8 cm/s??? Mitral E Point Velocity 37.8 cm/s Mitral A Point Velocity 59.7 cm/s Mitral E to A Ratio 0.6 MV Deceleration Time 242.7 ms MV E' Velocity 7.7 cm/s Mitral E to MV E' Ratio 4.9 TR Peak Velocity 118.9 cm/s TR Peak Gradient 5.7 mmHg Right Ventricular Systolic Press 10.7 mmHg PV Peak Velocity 93.9 cm/s PV Peak Gradient 3.5 mmHg FINDINGS Left Ventricle Borderline left ventricular hypertrophy. Grade 1 diastolic dysfunction. Reduced global left ventricular systolic function. Left ventricular ejection fraction is estimated at 40-45 %. Right Ventricle Mild right ventricular dilatation. Right Atrium Mild right atrial dilatation. Left Atrium Normal left atrial size. Mitral Valve Mitral valve thickened. Trace to mild mitral regurgitation. Aortic Valve Trileaflet aortic valve. Diffuse thickening (sclerosis) of the aortic valve cusps without reduced excursion. Trace to mild aortic regurgitation. Tricuspid Valve Trace to mild tricuspid regurgitation. Pulmonic Valve Trace to mild pulmonic regurgitation. Pericardium Small pericardial effusion. Aorta Mild aortic dilatation at the level of the sinuses of valsalva (root). Mild aortic dilatation at the level of the sinotubular junction. Mildly dilated proximal ascending aorta (tube). CONCLUSIONS Left ventricular ejection fraction 40-45% Borderline left ventricular hypertrophy Trace to mild mitral regurgitation Chest mild aortic regurgitation Trace to mild tricuspid regurgitation Small pericardial effusion Previewed by: Dr. Atul Pro DO (Electronically Signed) Final Date: 09 September 2022 09:53
--- NOTE | 2022-09-09 10:44 | P.PN ---
Subjective Progress Note Date: 09/09/22 Hospital Course: 77-year-old male with a past medical history of Parkinson's disease, chronic back pain, hypertension, and previous pulmonary emboli's on Coumadin. Patient was reportedly sent to the emergency department by his neurologist with concerns of a acute/subacute ischemic stroke noted on MRI. Initial CBC and BMP unremarkable. Urinalysis negative for blood or infection. Coagulation profile revealed subtherapeutic INR of 1.3. EKG was completed showing sinus rhythm at 76 bpm with a first-degree AV block with AK interval of 213 ms and frequent PVCs. Chest x-ray completed in radiology report reviewed revealing mild pulmonary fibrotic changes with minimal subsegmental atelectasis at left lung base. CTA head revealed cerebral atrophy and negative for acute intercranial process. CTA neck showing no significant angiographic abnormality of the head or neck. Patient was admitted under our services with consultation to neurology. Reviewed MRI as outpatient visit completed on 09/05/22. MRI reporting a 1 cm acute ischemic area or lacunar infarct posterior right ramirez radiata and additional mild chronic appearing periventricular white matter ischemic type changes. Echo did not show any significant valvular abnormalities, LVEF 40-45%. Subjective: Patient seen and examined at bedside. No acute events overnight. He denies any chest pain, shortness of breath, abdominal pain, nausea, vomiting, urinary complaints. He claims that he is constipated. He had 1 bowel movement yesterday. He is also complaining of difficulty swallowing. Pertinent positives and negatives as discussed above, a complete review of systems was performed and all other systems are negative. Vitals Signs Reviewed. General: nontoxic, no distress, appears at stated age Derm: warm, dry Head: atraumatic, normocephalic, symmetric Eyes: EOMI, no lid lag, anicteric sclera Mouth: no lip lesion, mucus membranes moist Cardiovascular: S1S2 reg, no murmur Lungs: CTA bilateral, no rhonchi, no rales , no accessory muscle use Abdominal: soft, nontender to palpation, no guarding, no appreciable organomegaly Ext: no gross muscle atrophy, no edema, no contractures, strength 5/5 in upper extremities, lower extremities left 4/5, right 3/5 strength Neuro: CN II-XI grossly intact, Psych: Alert, oriented, appropriate affect Data Reviewed Today: Pertinent Labs: Total cholesterol 141, LDL 60, triglycerides 154, INR 1.2 Echocardiogram report reviewed, shows LVEF 40-45%, borderline LVH, small pericardial effusion, mild MR, AR, TR Assessment and Plan: Subacute ischemic/embolic infarct, no significant deficits History of pulmonary emboli with subtherapeutic INR on warfarin Dysphagia, likely oropharyngeal Constipation -Neurology following, recommended aspirin 81 mg for 21 days -Anticoagulation switched from warfarin to Eliquis -Atorvastatin 10 mg daily -PT/OT -Speech therapy consult ordered -Senna 8.6 daily ordered Chronic: Chronic back pain Hypertension Parkinson's disease DVT ppx: Eliquis Code status: Full code Anticipated discharge place: Subacute rehab versus home with home care Anticipated discharge time: Pending clinical course Objective - Vital Signs Vital signs: Vital Signs Temp 97.9 F 09/09/22 08:00 Pulse 69 09/09/22 08:00 Resp 16 09/09/22 08:00 BP 127/65 09/09/22 08:00 Pulse Ox 94 L 09/09/22 08:00 FiO2 Intake & Output 09/08/22 09/09/22 09/09/22 18:59 06:59 18:59 Intake Total 118 Output Total 300 600 300 Balance -300 -600 -182 Intake: Oral 118 Output: Urine 300 600 300 Other: Voiding Method External Catheter External Catheter # Voids 1 # Bowel Movements 1 - Labs CBC & Chem 7: 09/07/22 18:11 09/07/22 18:11 Labs: Abnormal Lab Results - Last 24 Hours (Table) 09/08/22 09/09/22 Range/Units 08:32 08:57 PT 12.2 H (9.0-12.0) sec INR 1.2 H (<1.2) Triglycerides 154.00 H (0.00-149.00) mg/dL Microbiology - Last 24 Hours (Table) 09/07/22 17:50 Urine Culture - Final Urine,Voided
--- NOTE | 2022-09-09 12:38 | P.PN ---
Subjective Progress Note Date: 09/09/22 The patient was seen at bedside and he is accompanied by his daughter and granddaughter. They feel the patient is a about the same since yesterday. Objective - Vital Signs Vital signs: Vital Signs Temp 97.9 F 09/09/22 08:00 Pulse 69 09/09/22 08:00 Resp 16 09/09/22 08:00 BP 127/65 09/09/22 08:00 Pulse Ox 94 L 09/09/22 08:00 FiO2 Intake & Output 09/08/22 09/09/22 09/09/22 18:59 06:59 18:59 Intake Total 118 Output Total 300 600 300 Balance -300 -600 -182 Intake: Oral 118 Output: Urine 300 600 300 Other: Voiding Method External Catheter External Catheter # Voids 1 # Bowel Movements 1 - Exam GENERAL: The patient is laying in bed and is not in acute distress. NEUROLOGICAL: Higher mental function: The patient is awake, alert, oriented to self, place and time. He is very slow responding (baseline). Patient is following commands but slow. No aphasia and no neglect. Cranial nerves: The pupils are round, equal and reactive to light and accommodation. Visual dutta are full to confrontation throughout. Extraocular movement is intact no nystagmus is noted. Facial sensation is normal to touch throughout. Has mask like face but otherwise no facial weakness. . Hearing is mildly decrease bilaterally to hand rub. Tongue is midline and moved [id number] without any difficulty. No dysarthria is noted. Shoulder shrug is normal bilaterally. Motor: The strength is 5 over 5 throughout uppers. Lowers is limited but lifting above gravity and it seems lifting the left more the right (baseline). Normal tone. Cerebellum: Normal finger to nose bilaterally. Sensation: Sensation is normal to touch throughout. Reflexes (right/left): 1+ throughout. Plantars are mute bilaterally. Some other workup during his hospital visit consisted of: Lipid panels triglyceride 154, cholesterol 141, LDL 60 and HDL is 49. CT angiography of the head and neck was reported as cerebral atrophy. No acute intracranial abnormality. No significant angiographic abnormality of the head and neck. Possibly the patient has underlying acute urinary tract infection. INR is 1.3 on presentation. 2-D echo was reported as left ventricle ejection fraction of 40-45%. Trace to mild mitral regurgitation. Small pericardial effusion. - Labs CBC & Chem 7: 09/07/22 18:11 09/07/22 18:11 Labs: Abnormal Lab Results - Last 24 Hours (Table) 09/08/22 09/09/22 Range/Units 08:32 08:57 PT 12.2 H (9.0-12.0) sec INR 1.2 H (<1.2) Triglycerides 154.00 H (0.00-149.00) mg/dL Microbiology - Last 24 Hours (Table) 09/07/22 17:50 Urine Culture - Final Urine,Voided Assessment and Plan Assessment: This is a 77-year-old gentleman who was sent by his neurologist because of abnormal MRI that revealed stroke on the right ramirez radiata on 09/05/2022 Subacute stroke (Right ramirez radiate on MRI on 09/05/22) and denies any focal weakness or other neurological deficit. His INR is subtherapeutic (1.3) History of stroke about 10 years ago Probable Parkinson's History of PE on Coumadin. But INR has been fluctuating according to daughter History of lower back pain Hypertension Plan: I recommend a possible switching the Coumadin to a different anticoagulation since his INR was subtherapeutic and he has been having issues with his INR. Added aspirin 81 mg for 21 days after 21 days stop ASA. Is on Lipitor 10mg thor y. Continue neuro checks PT OT are consulted We'll defer the rest of the medical management to primary team For DVT prophylaxis the patient is on Coumadin Upon discharge recommend the patient to follow-up with his neurologist as an outpatient within 1-2 weeks (Dr. Reyez). The plan was discussed with the patient's daughter was at bedside Time with Patient: Less than 30
[2022-09-09] MEDS: SENNOSIDES 8.6 MG TAB PO SCH (12:46)
--- NOTE | 2022-09-09 14:45 | FL ---
EXAMINATION TYPE: FL barium swallow w video DATE OF EXAM: 09/09/2022 COMPARISON: NONE HISTORY: Failed bedside exam TECHNIQUE: Fluoroscopy. FINDINGS: Fluoroscopic guidance was provided for the procedure performed in conjunction with the [facility] pathology department. Please see complete report forthcoming from the Speech Pathology departmen t. Various consistencies from thin liquid to solids were administered. Fluoroscopy time 1 minute 55 seconds. Number of images: 0. The AP colon 199.85 Silent Aspiration occurred at the end of the examination with thin liquids. Delayed coughing with not ed. Note is made of free spill through the hypopharynx with filling of the vallecula and piriform sin uses. IMPRESSION: 1. Aspiration with thin liquids. 2. Mild pooling within the vallecula
[2022-09-09] MEDS: tiZANidine 4 MG TAB PO PRN (17:15)
[2022-09-09] MEDS: GABAPENTIN 300 MG CAP PO SCH (20:23)
[2022-09-10 04:11] VITALS: RESP 18
[2022-09-10 07:05] LABS: INR 1.1 (<1.2); Prothrombin Time 11.5 sec (9.0-12.0)
[2022-09-10 08:12] VITALS: TEMP 97.6
[2022-09-10] MEDS: DONEPEZIL 10 MG TAB PO SCH (08:13)
[2022-09-10] MEDS: CARBIDOPA-LEVODOPA 25-100 MG 1 EACH TAB PO SCH (08:13)
[2022-09-10] MEDS: CITALOPRAM HYDROBROMIDE 20 MG TAB PO SCH (08:13)
[2022-09-10] MEDS: SENNOSIDES 8.6 MG TAB PO SCH (08:13)
[2022-09-10] MEDS: APIXABAN 5 MG TAB PO SCH (08:13)
[2022-09-10] MEDS: ASPIRIN 81 MG PO SCH (08:13)
[2022-09-10] MEDS: DULoxetine HCL 60 MG CAPSULE.DR PO SCH (08:13)
[2022-09-10] MEDS ORDERED: ATORVASTATIN 20 MG TAB PO SCH (09:00)
[2022-09-10] MEDS: HYDROcodone/APAP 5-325MG 1 EACH TAB PO PRN (09:02)
[2022-09-10] MEDS ORDERED: CARBIDOPA-LEVODOPA 25-100 MG 1 EACH TAB PO SCH (12:00)
--- NOTE | 2022-09-10 12:00 | P.PN ---
Subjective Progress Note Date: 09/10/22 The patient seen at bedside and feels about the same. Denies of any other new neurological issues. Objective - Vital Signs Vital signs: Vital Signs Temp 97.6 F 09/10/22 08:11 Pulse 69 09/10/22 08:11 Resp 18 09/10/22 08:11 BP 112/79 09/10/22 08:11 Pulse Ox 96 09/10/22 08:11 FiO2 Intake & Output 09/09/22 09/10/22 09/10/22 18:59 06:59 18:59 Intake Total 704 128 Output Total 300 450 Balance 404 -450 128 Intake: IV 10 Invasive Line 1 10 Oral 704 118 Output: Urine 300 450 Other: Voiding Method External Catheter External Catheter External Catheter - Exam GENERAL: The patient is laying in bed and is not in acute distress. NEUROLOGICAL: Higher mental function: The patient is awake, alert, oriented to self, place and time. He is very slow responding (baseline). Patient is following commands but slow. No aphasia and no neglect. Cranial nerves: The pupils are round, equal and reactive to light and acco mmodation. Visual dutta are full to confrontation throughout. Extraocular movement is intact no nystagmus is noted. Facial sensation is normal to touch throughout. Has mask like face but otherwise no facial weakness. . Hearing is mildly decrease bilaterally to hand rub. Tongue is midline and moved [id number] without any difficulty. No dysarthria is noted. Shoulder shrug is normal bilaterally. Motor: The strength is 5 over 5 throughout uppers. Lowers is limited but lifting above gravity and it seems lifting the left more the right (baseline). Normal tone. Cerebellum: Normal finger to nose bilaterally. Sensation: Sensation is normal to touch throughout. Reflexes (right/left): 1+ throughout. Plantars are mute bilaterally. Some other workup during his hospital visit consisted of: Lipid panels triglyceride 154, cholesterol 141, LDL 60 and HDL is 49. CT angiography of the head and neck was reported as cerebral atrophy. No acute intracranial abnormality. No significant angiographic abnormality of the head and neck. Possibly the patient has underlying acute urinary tract infection. INR is 1.3 on presentation. 2-D echo was reported as left ventricle ejection fraction of 40-45%. Trace to mild mitral regurgitation. Small pericardial effusion. Serum study is reported as aspiration with the thin liquids. Mild pooling within the vallecula. - Labs CBC & Chem 7: 09/07/22 18:11 09/07/22 18:11 Labs: Microbiology - Last 24 Hours (Table) 09/07/22 17:50 Urine Culture - Final Urine,Voided Assessment and Plan Assessment: This is a 77-year-old gentleman who was sent by his neurologist because of abnormal MRI that revealed stroke on the right ramirez radiata on 09/05/2022 Subacute stroke (Right ramirez radiate on MRI on 09/05/22) and denies any focal weakness or other neurological deficit. His INR is subtherapeutic (1.3) History of stroke about 10 years ago Probable Parkinson's History of PE on Coumadin. But INR has been fluctuating according to daughter History of lower back pain Hypertension Plan: The patient was changed from Coumadin to Eliquis 5mg 1 tab bid by primary team since having fluctuation of INR and does not have diet modification. Added aspirin 81 mg for 21 days (today is day 09/01) after 21 days stop ASA. Is on Lipitor 10mg daily. I went on Sinemet from 1 tab tid to QID for his Parkinson's disease. If there is improvement but weaning effect then consider higher dose 25-250 tablet 1 tablet bid to tid. Continue neuro checks PT OT are consulted We'll defer the rest of the medical management to primary team For DVT prophylaxis the patient is on Eliquis Upon discharge recommend the patient to follow-up with his neurologist as an outpatient within 1-2 weeks (Dr. Reyez). Otherwise no additional neurological work-up. Time with Patient: Less than 30
--- NOTE | 2022-09-10 12:11 | P.DS ---
Providers Date of admission: 09/07/22 19:31 Expected date of discharge: 09/10/22 Attending physician: Sonu Jeffers MD Consults: 09/07/22 18:31 Consult Physician Routine Consulting Provider: Mac Amaya Consult Reason/Comments: CVA, unkown acuity Do you want consulting provider notified?: Yes, Notify in am [facility] Course: Discharge Diagnosis: Subacute CVA (right ramirez radiata on MRI) Dysphasia Probable Parkinson's disease Subtherapeutic INR, on Coumadin for prior pulmonary embolism History of low back pain Hypertension Hospital Course: Patient is a 77-year-old male with Parkinson's disease, chronic back pain, hypertension, and previous PE on Coumadin therapy who was sent by his neurologist to the emergency department due to concerns of stroke on MRI. In the ER he underwent an extensive evaluation. Laboratory analysis was remarkable for a subtherapeutic INR at 1.3. He was admitted for possible recent CVA. As outpatient MRI was reviewed which showed a 1 cm area of ischemic or lacunar infarct in the ramirez radiata. He was seen by neurology who recommended aspirin for 21 days and then continuing anticoagulation therapy. Due to difficulties with his INR over the past several weeks the decision was made to switch him from Coumadin to Eliquis. Echocardiogram did reveal a mildly decreased ejection fraction of 40-45%. He had a video swallow study completed which showed moderate impaired swallow and speech therapy recommended a mechanical soft diet with nectar thick liquids. He conitnued to do well and was determined stable for discharge. Imaging: Video swallow study: Aspiration with thin liquids, mild pooling in the vallecula Echocardiogram: Grade 1 diastolic dysfunction, reduced global left ventricular systolic function with ejection fraction 40-45% mild aortic dilatation CTA head and neck: Cerebral atrophy, no acute intracranial abnormality, no significant angiographic abnormality of the head and neck Chest x-ray: Mild pulmonary fibrotic changes with minimal subsegmental atelectasis EKG: Sinus rhythm with frequent PVCs consistent with ventricular trigeminy MRI brain from 09/05/22 as outpatient: 1 cm acute ischemic area or lacunar infarct posterior right carotid radiata, mild chronic appearing periventricular white matter ischemic type changes. Follow-up: Primary care practitioner upon discharge from rehab, Dr. Reyez in 1-2 weeks, he has been transitioned from Coumadin to Eliquis, he will continue with aspirin 81 mg for the next 21 days and can then stop. Mechanical soft diet with nectar thick liquids. Patient seen and examined at bedside with daughter present. He has no complaints and is feeling well. All questions answered Vital signs reviewed and stable. General: nontoxic, no distress, appears at stated age Derm: warm, dry Head: atraumatic, normocephalic, symmetric Eyes: EOMI, no lid lag, anicteric sclera Mouth: no lip lesion, mucus membranes moist Cardiovascular: S1S2 reg, no murmur, positive posterior tibial pulse bilateral, Lungs: CTA bilateral, no rhonchi, no rales , no accessory muscle use Abdominal: soft, nontender to palpation, no guarding, no appreciable organomegaly Ext: no gross muscle atrophy, no edema, no contractures Psych: Alert, oriented, Flat affect A total of 42 minutes of time were spent preparing this complex discharge summary. Patient was discharged on 09/10/22. This dictation was prepared using [employer] voice recognition software. Though every attempt is made to correct errors during during dictation some may still exist. Patient Condition at Discharge: Stable Plan - Discharge Summary Discharge Rx Participant: No New Discharge Prescriptions: New Aspirin 81 mg PO DAILY 21 Days tab Apixaban [Eliquis] 5 mg PO BID tab Atorvastatin [Lipitor] 20 mg PO DAILY tab Sennosides [Senokot] 8.6 mg PO DAILY tab Continue Donepezil [Aricept] 10 mg PO DAILY Ibuprofen [Motrin] 800 mg PO Q8H PRN PRN Reason: Pain Or Fever > 100.5 DULoxetine HCL [Cymbalta] 60 mg PO DAILY tiZANidine [Zanaflex] 4 mg PO DAILY PRN PRN Reason: Muscle Pain Gabapentin 600 mg PO HS #3 tab Diclofenac Sodium Gel [Voltaren Gel] 1 applic TOPICAL QID PRN PRN Reason: Pain Citalopram Hydrobromide [Citalopram HBr] 20 mg PO DAILY Carbidopa-Levodopa 25-100 mg [Sinemet 25-100 mg] 1 tab PO TID@0800,1300,1800 HYDROcodone/APAP 5-325MG [[place] 5-325] 1 tab PO TID PRN #9 tab PRN Reason: Pain Discontinued Atorvastatin [Lipitor] 10 mg PO DAILY Warfarin Sodium 2 mg PO DAILY Discharge Medication List Carbidopa-Levodopa 25-100 mg [Sinemet 25-100 mg] 1 tab PO TID@0800,1300,1800 09/07/22 [History] Citalopram Hydrobromide [Citalopram HBr] 20 mg PO DAILY 09/07/22 [History] DULoxetine HCL [Cymbalta] 60 mg PO DAILY 09/07/22 [History] Diclofenac Sodium Gel [Voltaren Gel] 1 applic TOPICAL QID PRN 09/07/22 [History] Donepezil [Aricept] 10 mg PO DAILY 09/07/22 [History] Ibuprofen [Motrin] 800 mg PO Q8H PRN 09/07/22 [History] tiZANidine [Zanaflex] 4 mg PO DAILY PRN 09/07/22 [History] Apixaban [Eliquis] 5 mg PO BID tab 09/10/22 [Rx] Aspirin 81 mg PO DAILY 21 Days tab 09/10/22 [Rx] Atorvastatin [Lipitor] 20 mg PO DAILY tab 09/10/22 [Rx] Gabapentin 600 mg PO HS #3 tab 09/10/22 [Rx] HYDROcodone/APAP 5-325MG [[place] 5-325] 1 tab PO TID PRN #9 tab 09/10/22 [Rx] Sennosides [Senokot] 8.6 mg PO DAILY tab 09/10/22 [Rx] Follow up Appointment(s)/Referral(s): Starr Cardenas PAC [REFERRING] - 1-2 days Meño Reyez DO [Family Provider] - 1 Week Activity/Diet/Wound Care/Special Instructions: Activity: As tolerated Fall precautions Diet: Heart healthy mechanical soft diet with nectar thick liquids
[2022-09-10 12:14] VITALS: BP 116/79; PULSE 79
== END 2022-09-10 15:21 | DRG 65 ==
LOC: EC 17:22 → 3SCARD 19:31 → OBSVTOIN 19:31 → 3SCARD 20:01
PROVIDERS: ADMIT Internal Medicine; ATTEND Internal Medicine
PROC: B246ZZ4 Ultrasonography of Right and Left Heart, Transesophageal (ICD-10-PCS; principal; 2022-09-09)
DX: I63.81 Other cerebral infarction due to occlusion or stenosis of small artery (principal); I31.39 Other pericardial effusion (noninflammatory); N39.0 Urinary tract infection, site not specified; G20 Parkinson's disease; I44.0 Atrioventricular block, first degree; E78.5 Hyperlipidemia, unspecified; G89.29 Other chronic pain; M54.9 Dorsalgia, unspecified; F32.A Depression, unspecified; G62.9 Polyneuropathy, unspecified; I08.3 Combined rheumatic disorders of mitral, aortic and tricuspid valves; I77.810 Thoracic aortic ectasia; I10 Essential (primary) hypertension; Z86.718 Personal history of other venous thrombosis and embolism; Z86.711 Personal history of pulmonary embolism; Z79.01 Long term (current) use of anticoagulants; F17.200 Nicotine dependence, unspecified, uncomplicated; K59.00 Constipation, unspecified; G31.89 Other specified degenerative diseases of nervous system; R13.12 Dysphagia, oropharyngeal phase; R79.1 Abnormal coagulation profile; Z79.899 Other long term (current) drug therapy; Z86.73 Personal history of transient ischemic attack (TIA), and cerebral infarction without residual deficits; R47.02 Dysphasia
CPT/HCPCS: 36415; 70496; 70498; 71046; 74230; 80053; 80061; 81001; 83690; 83735; 85025; 85610; 87086; 93005; 93306; 99285

== ENCOUNTER 2022-11-28 12:04 | Emergency (ER) | payer MEDICARE ==
--- NOTE | 2022-11-28 12:19 | ED ---
General Adult HPI - General Source: patient, EMS, RN notes reviewed, old records reviewed Mode of arrival: EMS <Molina Whitaker - Last Filed: 11/28/22 13:52> <Jona Rashid - Last Filed: 12/05/22 07:27> - General Chief complaint: Psychiatric Symptoms Stated complaint: overdose Time Seen by Provider: 11/28/22 12:10 - History of Present Illness Initial comments: This is a 77-year-old male who presents emergency department stating that he took at least 8 hydrocodone to try to attempt to kill himself. Patient states he feels he is too much of a bird on the people that take care of him. Patient states he felt tired but other night he feels it.Patient denies any physical complaintstoday. Patient denies any history of suicide. Patient states she still feels suicidal at this time per patient. Patient denies any recent fever or ch ills. Patient denies headache patient denies numbness weakness. Patient denies any back pain or abdominal pain. Patient states took the hydrocodone at 10:18 AM (Molina Whitaker) - Related Data Home Medications Medication Instructions Recorded Confirmed Carbidopa-Levodopa 25-100 mg 1 tab PO TID@0800,1300,1800 09/07/22 11/29/22 [Sinemet 25-100 mg] Citalopram Hydrobromide 20 mg PO DAILY 09/07/22 11/29/22 [Citalopram HBr] DULoxetine HCL [Cymbalta] 60 mg PO DAILY 09/07/22 11/29/22 Diclofenac Sodium Gel [Voltaren 1 applic TOPICAL QID PRN 09/07/22 11/29/22 Gel] Donepezil [Aricept] 10 mg PO DAILY 09/07/22 11/29/22 Ibuprofen [Motrin] 800 mg PO Q8H PRN 09/07/22 11/29/22 tiZANidine [Zanaflex] 4 mg PO DAILY PRN 09/07/22 11/29/22 Previous Rx's Medication Instructions Recorded Apixaban [Eliquis] 5 mg PO BID tab 09/10/22 Aspirin 81 mg PO DAILY 21 Days tab 09/10/22 Atorvastatin [Lipitor] 20 mg PO DAILY tab 09/10/22 Gabapentin 600 mg PO HS #3 tab 09/10/22 HYDROcodone/APAP 5-325MG [[place] 1 tab PO TID PRN #9 tab 09/10/22 5-325] Sennosides [Senokot] 8.6 mg PO DAILY tab 09/10/22 Allergies Allergy/AdvReac Type Severity Reaction Status Date / Time No Known Allergies Allergy Verified 11/28/22 12:15 Review of Systems ROS Other: All systems not noted in ROS Statement are negative. <Molina Whitaker - Last Filed: 11/28/22 13:52> ROS Other: All systems not noted in ROS Statement are negative. <Jona Rashid - Last Filed: 12/05/22 07:27> ROS Statement: Those systems with pertinent positive or pertinent negative responses have been documented in the HPI. Past Medical History Past Medical History: CVA/TIA, Neurologic Disorder History of Any Multi-Drug Resistant Organisms: None Reported Past Surgical History: Back Surgery Past Anesthesia/Blood Transfusion Reactions: No Reported Reaction Past Psychological History: Depression Smoking Status: Former smoker Past Alcohol Use History: None Reported Past Drug Use History: Marijuana - Past Family History Father History Unknown: Yes Additional Family Medical History / Comment(s): pt and family is not aware of any past family medical history <Molina Whitaker - Last Filed: 11/28/22 13:52> General Exam <Molina Whitaker - Last Filed: 11/28/22 13:52> - General Exam Comments Initial Comments: GENERAL: Patient is well-developed and well-nourished. Patient is nontoxic and well- hydrated and is in no acute distress. ENT: Neck is soft and supple. No significant lymphadenopathy is noted. Oropharynx is clear. Moist mucous membranes. Neck has full range of motion without eliciting any pain. EYES: The sclera were anicteric and conjunctiva were pink and moist. Extraocular movements were intact and pupils were equal round and reactive to light. Eyelids were unremarkable. PULMONARY: Unlabored respirations. Good breath sounds bilaterally. No audible rales rhonchi or wheezing was noted. CARDIOVASCULAR: There is a regular rate and rhythm without any murmurs gallops or rubs. ABDOMEN: Soft and nontender with normal bowel sounds. SKIN: Skin is clear with no lesions or rashes and otherwise unremarkable. NEUROLOGIC: Patient is alert and oriented x3. Cranial nerves II through XII are grossly intact. Motor and sensory are also intact. Normal speech, volume and content. Symmetrical smile. MUSCULOSKELETAL: Normal extremities with adequate strength and full range of motion. No lower extremity swelling or edema. No calf tenderness. LYMPHATICS: No significant lymphadenopathy is noted PSYCHIATRIC: Patient states he suicidal because the people he lives with her being overwhelmed taking care of him. (Molina Whitaker) Course Vital Signs 11/28/22 11/28/22 11/28/22 12:12 13:51 17:25 Temperature 98.9 F 98.2 F Pulse Rate 79 97 77 Respiratory 18 18 Rate Blood Pressure 164/73 154/90 115/81 O2 Sat by Pulse 96 93 L 92 L Oximetry 11/29/22 11/29/22 11/29/22 06:38 12:00 16:00 Temperature 98.0 F Pulse Rate 85 87 72 Respiratory 18 18 20 Rate Blood Pressure 131/75 168/92 116/80 O2 Sat by Pulse 96 97 97 Oximetry 11/29/22 11/29/22 11/29/22 17:09 17:17 21:00 Temperature 97.8 F 97.7 F 97.8 F Pulse Rate 82 87 87 Respiratory 20 20 20 Rate Blood Pressure 168/91 172/91 136/80 O2 Sat by Pulse 97 97 97 Oximetry 11/29/22 22:06 Temperature 97.8 F Pulse Rate 78 Respiratory 18 Rate Blood Pressure 113/84 O2 Sat by Pulse 98 Oximetry Medical Decision Making - Lab Data Result diagrams: 11/28/22 12:30 11/28/22 12:30 <Molina Whitaker - Last Filed: 11/28/22 13:52> - Lab Data Result diagrams: 11/28/22 12:30 11/28/22 12:30 <Jona Rashid - Last Filed: 12/05/22 07:27> - Medical Decision Making EKG as interpreted by myself. EKG shows sinus rhythm with occasional PVC at 74 bpm VA interval 2:30 QRS is 162 QT interval 420 QTC is 448. Patient's EKG shows no ST segment elevation or depression. Was pt. sent in by a medical professional or institution (, PA, WH[facility]ER, urgent care, hospital, or fdc...) When possible be specific @ -[No] Did you speak to anyone other than the patient for history (EMS, parent, family, police, friend...)? What history was obtained from this source @ -[No] Did you review nursing and triage notes (agree or disagree)? Why? @ -[I reviewed and agree with nursing and triage notes] Were old charts reviewed (outside hosp., previous admission, EMS record, old EKG, old radiological studies, urgent care reports/EKG's, fdc records)? Report findings @ -[No old charts were reviewed] Differential Diagnosis (chest pain, altered mental status, abdominal pain women, abdominal pain men, vaginal bleeding, weakness, fever, dyspnea, syncope, headache, dizziness, GI bleed, back pain, seizure, CVA, palpatations, mental health, musculoskeletal)? @ -Differential Mental Health Depression, anxiety, bipolar, psychosis, schizophrenia, borderline personality, situational depression, adjustment disorder, behavioral disorder, brain tumor, malingering, substance abuse, encephalopathy, medication reaction, dementia, hypothyroidism, degenerative neurologic disorder, lupus.... This is not meant to be all-inclusive list EKG interpreted by me (3pts min.). @ -[As above] X-rays interpreted by me (1pt min.). @ -[None done] CT interpreted by me (1pt min.). @ -[None done] U/S interpreted by me (1pt. min.). @ -[None done] What testing was considered but not performed or refused? (CT, X-rays, U/S, labs)? Why? @ -[None] What meds were considered but not given or refused? Why? @ -[None] Did you discuss the management of the patient with other professionals (professionals i.e. , PA, [facility]ER, lab, RT, psych nurse, social sciences department chair, barker peeler, teacher, chief informatics officer, case specialist)? Give summary @ -[No] Was smoking cessation discussed for >3mins.? @ -[No] Was critical care preformed (if so, how long)? @ -[No] Were there social determinants of health that impacted care today? How? (Homelessness, low income, unemployed, alcoholism, drug addiction, transportation, low edu. Level, literacy, decrease access to med. care, detention, rehab)? @ -[No] Was there de-escalation of care discussed even if they declined (Discuss DNR or withdrawal of care, Hospice)? DNR status @ -[No] What co-morbidities impacted this encounter? (DM, HTN, Smoking, COPD, CAD, Cancer, CVA, ARF, Chemo, Hep., AIDS, mental health diagnosis, sleep apnea, morbid obesity)? @ -[None] Was patient admitted / discharged? Hospital course, mention meds given and route, prescriptions, significant lab abnormalities, going to OR and other pertinent info. @ -He came in stating he took 8 hydrocodone we did the laboratory did show positive opioids and did show a Tylenol level of almost in therapeutic range. Patient was having no symptoms at this time he was still stating he was suicidal EPS is been contacted to evaluate the patient and the patient will be signed out to Dr. Rashid at 3 PM (Molina Whitaker) Patient signed out to me pending EPS evaluation. Patient attempted suicide by taking a hydrocodone tablets. Has no acute complaints but does seem depressed. Patient is medically cleared by the prior physician. I evaluated the patient, and he is currently in no distress. EPS evaluated the patient determined that he does meet inpatient criteria, however patient will be admitted to geriatric site and is pending placement. Clinical certificate was treated by myself. Petition was completed by family member. Patient was updated and in agreement w ith the plan. Undiagnosed new problem with uncertain prognosis? @ -No Drug Therapy requiring intensive monitoring for toxicity (Heparin, Nitro, Insulin, Cardizem)? @ -No Were any procedures done? @ -No Diagnosis/symptom? @ -Encounter for psychiatric evaluation, depression, suicidal Acute, or Chronic, or Acute on Chronic? @ -Acute Uncomplicated (without systemic symptoms) or Complicated (systemic symptoms)? @ -Complicated Side effects of treatment? @ -No Exacerbation, Progression, or Severe Exacerbation? @ -No Poses a threat to life or bodily function? How? (Chest pain, USA, MD, pneumonia, PE, COPD, DKA, ARF, appy, cholecystitis, CVA, Diverticulitis, Homicidal, Suicidal, threat to staff... and all critical care pts) @ -Yes (Jona Rashid) - Lab Data Lab Results 11/28/22 11/28/22 11/28/22 Range/Units 12:30 12:30 12:30 WBC 7.7 (3.8-10.6) k/uL RBC 4.49 (4.30-5.90) m/uL Hgb 14.4 (13.0-17.5) gm/dL Hct 45.6 (39.0-53.0) % MCV 101.6 H (80.0-100.0) fL MCH 32.0 (25.0-35.0) pg MCHC 31.5 (31.0-37.0) g/dL RDW 13.5 (11.5-15.5) % Plt Count 153 (150-450) k/uL MPV 9.1 Neutrophils % 73 % Lymphocytes % 18 % Monocytes % 6 % Eosinophils % 1 % Basophils % 0 % Neutrophils # 5.6 (1.3-7.7) k/uL Lymphocytes # 1.4 (1.0-4.8) k/uL Monocytes # 0.5 (0-1.0) k/uL Eosinophils # 0.1 (0-0.7) k/uL Basophils # 0.0 (0-0.2) k/uL Macrocytosis Slight Sodium 139 (137-145) mmol/L Potassium 4.7 (3.5-5.1) mmol/L Chloride 108 H (98-107) mmol/L Carbon Dioxide 27 (22-30) mmol/L Anion Gap 4 mmol/L BUN 24 H (9-20) mg/dL Creatinine 0.97 (0.66-1.25) mg/dL Est GFR (CKD-EPI)AfAm 86 (>60 ml/min/1.73 sqM) Est GFR (CKD-EPI)NonAf 75 (>60 ml/min/1.73 sqM) Glucose 106 H (74-99) mg/dL Calcium 8.7 (8.4-10.2) mg/dL Total Bilirubin 0.7 (0.2-1.3) mg/dL AST 19 (17-59) U/L ALT 16 (4-49) U/L Alkaline Phosphatase 77 (38-126) U/L Total Protein 6.6 (6.3-8.2) g/dL Albumin 3.8 (3.5-5.0) g/dL Salicylates <1.0 mg/dL Urine Opiates Screen Detected H (NotDetected) Ur Oxycodone Screen Not Detected (NotDetected) Urine Methadone Screen Not Detected (NotDetected) Ur Propoxyphene Screen Not Detected (NotDetected) Acetaminophen 31.4 ug/mL Ur Barbiturates Screen Not Detected (NotDetected) U Tricyclic Antidepress Not Detected (NotDetected) Ur Phencyclidine Scrn Not Detected (NotDetected) Ur Amphetamines Screen Detected H (NotDetected) U Methamphetamines Scrn Not Detected (NotDetected) U Benzodiazepines Scrn Not Detected (NotDetected) Urine Cocaine Screen Not Detected (NotDetected) U Marijuana (THC) Screen Not Detected (NotDetected) Serum Alcohol <10 mg/dL Coronavirus (PCR) (Not Detectd) 11/28/22 11/28/22 Range/Units 14:25 21:09 WBC (3.8-10.6) k/uL RBC (4.30-5.90) m/uL Hgb (13.0-17.5) gm/dL Hct (39.0-53.0) % MCV (80.0-100.0) fL MCH (25.0-35.0) pg MCHC (31.0-37.0) g/dL RDW (11.5-15.5) % Plt Count (150-450) k/uL MPV Neutrophils % % Lymphocytes % % Monocytes % % Eosinophils % % Basophils % % Neutrophils # (1.3-7.7) k/uL Lymphocytes # (1.0-4.8) k/uL Monocytes # (0-1.0) k/uL Eosinophils # (0-0.7) k/uL Basophils # (0-0.2) k/uL Macrocytosis Sodium (137-145) mmol/L Potassium (3.5-5.1) mmol/L Chloride (98-107) mmol/L Carbon Dioxide (22-30) mmol/L Anion Gap mmol/L BUN (9-20) mg/dL Creatinine (0.66-1.25) mg/dL Est GFR (CKD-EPI)AfAm (>60 ml/min/1.73 sqM) Est GFR (CKD-EPI)NonAf (>60 ml/min/1.73 sqM) Glucose (74-99) mg/dL Calcium (8.4-10.2) mg/dL Total Bilirubin (0.2-1.3) mg/dL AST (17-59) U/L ALT (4-49) U/L Alkaline Phosphatase (38-126) U/L Total Protein (6.3-8.2) g/dL Albumin (3.5-5.0) g/dL Salicylates mg/dL Urine Opiates Screen (NotDetected) Ur Oxycodone Screen (NotDetected) Urine Methadone Screen (NotDetected) Ur Propoxyphene Screen (NotDetected) Acetaminophen 25.3 ug/mL Ur Barbiturates Screen (NotDetected) U Tricyclic Antidepress (NotDetected) Ur Phencyclidine Scrn (NotDetected) Ur Amphetamines Screen (NotDetected) U Methamphetamines Scrn (NotDetected) U Benzodiazepines Scrn (NotDetected) Urine Cocaine Screen (NotDetected) U Marijuana (THC) Screen (NotDetected) Serum Alcohol mg/dL Coronavirus (PCR) Not Detected (Not Detectd) Disposition <Molina Whitaker - Last Filed: 11/28/22 13:52> <Jona Rashid - Last Filed: 12/05/22 07:27> Clinical Impression: Depression, Suicidal ideation, Encounter for psychological evaluation Disposition: TRANSFER TO PSYCH HOSP/UNIT Condition: Stable Referrals: Charlie Yanez DO [Primary Care Provider] - 1-2 days
[2022-11-28 12:38] LABS: Basophils % (A) 0 %; Eosinophils # (A) 0.1 k/uL (0-0.7); Eosinophils % (A) 1 %; HCT 45.6 % (39.0-53.0); HGB 14.4 gm/dL (13.0-17.5); Lymphocytes # (A) 1.4 k/uL (1.0-4.8); Lymphocytes % (A) 18 %; MCHC 31.5 g/dL (31.0-37.0); MCV 101.6 fL (80.0-100.0); Macrocytosis Slight; Mean Platelet Volume 9.1; Monocytes # (A) 0.5 k/uL (0-1.0); Monocytes % (A) 6 %; Neutrophils # (A) 5.6 k/uL (1.3-7.7); Neutrophils % (A) 73 %; Platelet Count 153 k/uL (150-450); RBC 4.49 m/uL (4.30-5.90); RDW 13.5 % (11.5-15.5); WBC 7.7 k/uL (3.8-10.6)
[2022-11-28 12:51] LABS: ALT 16 U/L (4-49); AST 19 U/L (17-59); Acetaminophen 31.4 ug/mL; African American GFR (CKD) 86 (>60 ml/min/1.73 sqM); Albumin 3.8 g/dL (3.5-5.0); Alcohol <10 mg/dL; Alkaline Phosphatase 77 U/L (38-126); Anion Gap 4 mmol/L; Blood Urea Nitrogen 24 mg/dL (9-20); Calcium 8.7 mg/dL (8.4-10.2); Carbon Dioxide 27 mmol/L (22-30); Chloride 108 mmol/L (98-107); Glucose 106 mg/dL (74-99); Non-African American GFR(CKD) 75 (>60 ml/min/1.73 sqM); Potassium 4.7 mmol/L (3.5-5.1); Salicylate <1.0 mg/dL; Sodium 139 mmol/L (137-145); Total Bilirubin 0.7 mg/dL (0.2-1.3); Total Protein 6.6 g/dL (6.3-8.2)
[2022-11-28 13:10] LABS: Amphetamine Screen,Urine Detected (NotDetected); Barbiturate Screen,Urine Not Detected (NotDetected); Benzodiazepines Screen,Urine Not Detected (NotDetected); Cocaine Screen,Urine Not Detected (NotDetected); Methadone Screen, Urine Not Detected (NotDetected); Opiate Screen,Urine Detected (NotDetected); Oxycodone Screen, Urine Not Detected (NotDetected); Phencyclidine Screen,Urine Not Detected (NotDetected); Tricyclic Antidepressant,Urine Not Detected (NotDetected); Urn Cannabinoid Scrn Not Detected (NotDetected)
[2022-11-29] MEDS ORDERED: HYDROcodone/APAP 5-325MG 1 EACH TAB PO PRN (08:41)
[2022-11-29] MEDS ORDERED: IBUPROFEN 800 MG TAB PO PRN (08:41)
[2022-11-29] MEDS ORDERED: tiZANidine 4 MG TAB PO PRN (08:41)
[2022-11-29] MEDS ORDERED: ASPIRIN 81 MG PO SCH (09:00)
[2022-11-29] MEDS ORDERED: DONEPEZIL 10 MG TAB PO SCH (09:00)
[2022-11-29] MEDS ORDERED: SENNOSIDES 8.6 MG TAB PO SCH (09:00)
[2022-11-29] MEDS ORDERED: DULoxetine HCL 60 MG CAPSULE.DR PO SCH (09:00)
[2022-11-29] MEDS ORDERED: ATORVASTATIN 20 MG TAB PO SCH (09:00)
[2022-11-29] MEDS ORDERED: CITALOPRAM HYDROBROMIDE 20 MG TAB PO SCH (09:00)
[2022-11-29] MEDS: CARBIDOPA-LEVODOPA 25-100 MG 1 EACH TAB PO SCH ×2 (17:08→20:59)
[2022-11-29] MEDS ORDERED: GABAPENTIN 300 MG CAP PO SCH (21:00)
[2022-11-29 22:12] VITALS: BP 113/84; PULSE 78; RESP 18; TEMP 97.8
== END 2022-11-29 22:36 ==
LOC: EC 12:04
DX: Z00.8 Encounter for other general examination (principal); R45.851 Suicidal ideations; F32.A Depression, unspecified; Z86.73 Personal history of transient ischemic attack (TIA), and cerebral infarction without residual deficits; Z87.891 Personal history of nicotine dependence; F12.90 Cannabis use, unspecified, uncomplicated; Z79.899 Other long term (current) drug therapy; Z20.822 Contact with and (suspected) exposure to COVID-19
CPT/HCPCS: 36415; 80053; 80143; 80179; 80306; 80320; 82075; 85025; 87635; 93005; 99285

== ENCOUNTER 2023-05-12 20:33 | Emergency (ER) | payer MEDICARE ==
[2023-05-12 20:43] VITALS: TEMP 97.5
[2023-05-12] MEDS ORDERED: SODIUM CHLORIDE 0.9% 1,000 ML IV ONE (21:26)
[2023-05-12 21:32] LABS: Glucose,Whole Blood 109 mg/dL (70-110)
--- NOTE | 2023-05-12 21:48 | ED ---
General Adult HPI - General Chief complaint: Neuro Symptoms/Deficit Stated complaint: Fall Time Seen by Provider: 05/12/23 21:11 Source: family, RN notes reviewed, old records reviewed Mode of arrival: ambulatory Limitations: no limitations - History of Present Illness Initial comments: Patient is a 78-year-old male who presents emergency Department with his family for an episode of unresponsiveness at home. Has a history of stroke. Her to. Of time at home earlier today that lasted approximately 5-10 minutes. Received his medications at 6:45 PM by a family member. When they went to check on him at approximate 7 PM, he was standing over the bed and was not talking. Was supporting himself. Ultimately on the bed and then he became back to baseline. He currently is at his baseline. Patient is on blood thinners. May have hit his head. Denies any fevers or chills. Has a history of Parkinson's and recently had medication changes. No history of seizures. Patient has a history of multiple strokes, with residual bilateral weakness, somewhat left worse than right particularly in his legs. He lives with a walker at baseline. Family is at bedside and states he is currently at his baseline. No other acute complaints at this time. Denies chest pain or shortness of breath. Denies fevers or chills. Denies any cough, congestion. Presents for further evaluation. - Related Data Home Medications Medication Instructions Recorded Confirmed Diclofenac Sodium Gel [Voltaren 1% 1 applic TOPICAL QID PRN 09/07/22 05/12/23 Gel] Donepezil [Aricept] 10 mg PO DAILY 09/07/22 05/12/23 Ibuprofen [Motrin] 800 mg PO BID PRN 09/07/22 05/12/23 Atorvastatin [Lipitor] 20 mg PO HS 05/12/23 05/12/23 Carbidopa-Levodopa 25-250 mg 1 tab PO TID@0730,1230,1730 05/12/23 05/12/23 [Sinemet 25-250 mg] DULoxetine HCL [Cymbalta] 90 mg PO DAILY 05/12/23 05/12/23 Previous Rx's Medication Instructions Recorded Apixaban [Eliquis] 5 mg PO BID tab 09/10/22 Gabapentin 600 mg PO HS #3 tab 09/10/22 HYDROcodone/APAP 5-325MG [[facility]ia 1 tab PO TID PRN #9 tab 09/10/22 5-325] Allergies Allergy/AdvReac Type Severity Reaction Status Date / Time No Known Allergies Allergy Verified 05/12/23 22:22 Review of Systems ROS Statement: Those systems with pertinent positive or pertinent negative responses have been documented in the HPI. Review of Systems: CONST: Denies fever EYES: Denies blurry vision ENT: Denies nasal congestion C/V: Denies Chest pain RESP: Denies shortness of breath GI: Denies abdominal pain : Denies dysuria SKIN: Denies rash. MSK: Denies joint pain. NEURO: Denies headache ROS Other: All systems not noted in ROS Statement are negative. Past Medical History Past Medical History: CVA/TIA, Neurologic Disorder History of Any Multi-Drug Resistant Organisms: None Reported Past Surgical History: Back Surgery Past Anesthesia/Blood Transfusion Reactions: No Reported Reaction Past Psychological History: Depression Smoking Status: Former smoker Past Alcohol Use History: None Reported Past Drug Use History: Marijuana - Past Family History Father History Unknown: Yes Additional Family Medical History / Comment(s): pt and family is not aware of any past family medical history General Exam - General Exam Comments Initial Comments: General: Appears in no acute distress. HEAD: Normal with no signs of head trauma. Negative sterling sign. Negative ra ccoon eyes. EYES: PERRLA, EOMI, conjunctiva normal, no discharge. Pupils are 2 mm and equal bilaterally. ENT: Hearing grossly intact, normal oropharynx. RESPIRATORY: Clear breath sounds bilaterally. No wheezes, rales, or rhonchi. C/V: Regular rate and rhythm. S1 and S2 auscultated, peripheral pulses 2+ and intact throughout ABD: Abd is soft, nontender, nondistended EXT: Normal range of motion, no obvious deformity SKIN: No rashes or lesions observed on exposed skin. NEURO: Alert and oriented x 4. Cranial nerves II-XII intact. No acute focal sensory or strength deficits. NIH is 0 for new symptoms. Has chronic lower extremity weakness bilaterally, left slightly worse than right. He rates with a walker at baseline. Normal cerebellar function as evident by normal finger to nose testing. Patient has a chronic baseline stutter. Limitations: no limitations Course Vital Signs 05/12/23 05/12/23 05/12/23 20:36 21:04 21:10 Temperature 97.5 F L Pulse Rate 40 L 75 84 Respiratory 16 18 14 Rate Blood Pressure 165/77 182/81 182/81 O2 Sat by Pulse 98 Oximetry 05/12/23 05/12/23 05/12/23 21:30 22:00 22:30 Temperature Pulse Rate 75 77 76 Respiratory 19 15 10 L Rate Blood Pressure 165/103 171/103 172/78 O2 Sat by Pulse Oximetry 05/12/23 23:00 Temperature Pulse Rate 74 Respiratory 9 L Rate Blood Pressure 171/87 O2 Sat by Pulse Oximetry Medical Decision Making - Medical Decision Making Was pt. sent in by a medical professional or institution (, [facility], [facility], urgent care, hospital, or senior living...) When possible be specific @ -No Did you speak to anyone other than the patient for history (EMS, parent, family, police, friend...)? What history was obtained from this source @ -Only provides additional information regarding the patient's baseline as well as past medical history and recent mental status change Did you review nursing and triage notes (agree or disagree)? Why? @ -I reviewed and agree with nursing and triage notes Were old charts reviewed (outside hosp., previous admission, EMS record, old EKG, old radiological studies, urgent care reports/EKG's, senior living records)? Report findings @ -Old charts reviewed Differential Diagnosis (chest pain, altered mental status, abdominal pain women, abdominal pain men, vaginal bleeding, weakness, fever, dyspnea, syncope, headache, dizziness, GI bleed, back pain, seizure, CVA, palpatations, mental health, musculoskeletal)? @ -Differential Altered Mental Status: Hypoglycemia, DKA, hypercapnia, ETOH, overdose, CO poisoning, trauma, myxedema coma, HTN encephalopathy, infection, encephalitis, psychosis, intercranial hemorrhage, hepatic encephalopathy, meningitis, CVA, this is not meant to be an all-inclusive list EKG interpreted by me (3pts min.). @ -As above X-rays interpreted by me (1pt min.). @ -Patient's chest x-ray shows no obvious acute cardio pulmonary process. CT interpreted by me (1pt min.). @ -CT brain reveals no obvious acute intracranial process. U/S interpreted by me (1pt. min.). @ -None done What testing was considered but not performed or refused? (CT, X-rays, U/S, labs)? Why? @ -None What meds were considered but not given or refused? Why? @ -None Did you discuss the management of the patient with other professionals (professionals i.e. , [facility], [facility], lab, RT, psych nurse, social service director, day haul or farm charter bus driver, teacher, consular officer, case advocate)? Give summary @ -No Was smoking cessation discussed for >3mins.? @ -No Was critical care preformed (if so, how long)? @ -No Were there social determinants of health that impacted care today? How? (Homelessness, low income, unemployed, alcoholism, drug addiction, transportation, low edu. Level, literacy, decrease access to med. care, prison, rehab)? @ -No Was there de-escalation of care discussed even if they declined (Discuss DNR or withdrawal of care, Hospice)? DNR status @ -No What co-morbidities impacted this encounter? (DM, HTN, Smoking, COPD, CAD, Cancer, CVA, ARF, Chemo, Hep., AIDS, mental health diagnosis, sleep apnea, morbid obesity)? @ -None Was patient admitted / discharged? Hospital course, mention meds given and route, prescriptions, significant lab abnormalities, going to OR and other pertinent info. @ -Patient is an 78-year-old male who had a transient episode of altered mental status at home earlier this evening. Currently is at baseline. Has a history of Parkinson's. Family believes symptoms may be related to recent change in medications however brought him in for further evaluation. Patient currently at his baseline. We will obtain altered mental status workup. He will receive a 1 L fluid bolus. Vital signs within acceptable limits. Patient agreement this plan. EKG shows no signs of acute ischemia.Imaging unremarkable. Patient's laboratory studies are also unremarkable. UDS positive for opiates the patient is prescribed Arcadia. On reevaluation, patient remains unchanged. At his baseline. Discussed with family as well as patient and he would like to go home. I did offer admission for observation however patient like to go home at this time. I do believe this is reasonable. They will follow-up with their neurologist. If they did serous changes Parkinson's medication doses today, we discussed going back to old dosing which they will do until he can follow-up with the patient's neurologist. Strict return precautions discussed. I instructed the patient to follow up with their PCP in the next 1-3 days. I explained that the patient should return to the emergency department if they experience any worsening symptoms. Strict return precautions were discussed with the patient. The patient expressed understanding of these instructions. I answered all questions that the patient had. The patient was discharged home in good condition with their prescriptions and follow up information. Undiagnosed new problem with uncertain prognosis? @ -No Drug Therapy requiring intensive monitoring for toxicity (Heparin, Nitro, Insulin, Cardizem)? @ -No Were any procedures done? @ -No Diagnosis/symptom? @ -Confusion episode Acute, or Chronic, or Acute on Chronic? @ -Acute Uncomplicated (without systemic symptoms) or Complicated (systemic symptoms)? @ -Complicated Side effects of treatment? @ -none Exacerbation, Progression, or Severe Exacerbation] @ -no Poses a threat to life or bodily function? @ -Unlikely Diagnosis/symptom? @ -Parkinson's disease Acute, or Chronic, or Acute on Chronic? @ -Chronic Uncomplicated (without systemic symptoms) or Complicated (systemic symptoms)? @ -Complicated Side effects of treatment? @ -none Exacerbation, Progression, or Severe Exacerbation] @ -no Poses a threat to life or bodily function? @ -no - Lab Data Result diagrams: 05/12/23 21:26 05/12/23 22:11 Lab Results 05/12/23 05/12/23 05/12/23 Range/Units 21:26 21:26 21:31 WBC 10.9 H (3.8-10.6) k/uL RBC 4.60 (4.30-5.90) m/uL Hgb 15.1 (13.0-17.5) gm/dL Hct 46.7 (39.0-53.0) % MCV 101.7 H (80.0-100.0) fL MCH 32.8 (25.0-35.0) pg MCHC 32.2 (31.0-37.0) g/dL RDW 13.4 (11.5-15.5) % Plt Count 140 L (150-450) k/uL MPV 9.8 Neutrophils % 76 % Lymphocytes % 15 % Monocytes % 6 % Eosinophils % 1 % Basophils % 0 % Neutrophils # 8.3 H (1.3-7.7) k/uL Lymphocytes # 1.7 (1.0-4.8) k/uL Monocytes # 0.6 (0-1.0) k/uL Eosinophils # 0.1 (0-0.7) k/uL Basophils # 0.0 (0-0.2) k/uL Hypochromasia Slight Macrocytosis Slight PT 11.4 (10.0-12.5) sec INR 1.1 (<1.2) APTT 27.2 (22.0-30.0) sec Sodium (137-145) mmol/L Potassium (3.5-5.1) mmol/L Chloride (98-107) mmol/L Carbon Dioxide (22-30) mmol/L Anion Gap mmol/L BUN (9-20) mg/dL Creatinine (0.66-1.25) mg/dL Est GFR (CKD-EPI)AfAm (>60 ml/min/1.73 sqM) Est GFR (CKD-EPI)NonAf (>60 ml/min/1.73 sqM) Glucose (74-99) mg/dL POC Glucose (mg/dL) 109 (70-110) mg/dL POC Glu Low Pressure Firer ID Sherley Pritchard Plasma Lactic Acid Wil (0.7-2.0) mmol/L Calcium (8.4-10.2) mg/dL Total Bilirubin (0.2-1.3) mg/dL AST (17-59) U/L ALT (4-49) U/L Alkaline Phosphatase (38-126) U/L Total Protein (6.3-8.2) g/dL Albumin (3.5-5.0) g/dL Urine Color Urine Appearance (Clear) Urine pH (5.0-8.0) Ur Specific [place] (1.001-1.035) Urine Protein (Negative) Urine Glucose (UA) (Negative) Urine Ketones (Negative) Urine Blood (Negative) Urine Nitrite (Negative) Urine Bilirubin (Negative) Urine Urobilinogen (<2.0) mg/dL Ur Leukocyte Esterase (Negative) Urine Opiates Screen (NotDetected) Ur Oxycodone Screen (NotDetected) Urine Methadone Screen (NotDetected) Ur Propoxyphene Screen (NotDetected) Ur Barbiturates Screen (NotDetected) U Tricyclic Antidepress (NotDetected) Ur Phencyclidine Scrn (NotDetected) Ur Amphetamines Screen (NotDetected) U Methamphetamines Scrn (NotDetected) U Benzodiazepines Scrn (NotDetected) Urine Cocaine Screen (NotDetected) U Marijuana (THC) Screen (NotDetected) Serum Alcohol mg/dL Influenza Type A (PCR) (Not Detectd) Influenza Type B (PCR) (Not Detectd) RSV (PCR) (Not Detectd) SARS-CoV-2 (PCR) (Not Detectd) 05/12/23 05/12/23 05/12/23 Range/Units 21:33 21:33 21:33 WBC (3.8-10.6) k/uL RBC (4.30-5.90) m/uL Hgb (13.0-17.5) gm/dL Hct (39.0-53.0) % MCV (80.0-100.0) fL MCH (25.0-35.0) pg MCHC (31.0-37.0) g/dL RDW (11.5-15.5) % Plt Count (150-450) k/uL MPV Neutrophils % % Lymphocytes % % Monocytes % % Eosinophils % % Basophils % % Neutrophils # (1.3-7.7) k/uL Lymphocytes # (1.0-4.8) k/uL Monocytes # (0-1.0) k/uL Eosinophils # (0-0.7) k/uL Basophils # (0-0.2) k/uL Hypochromasia Macrocytosis PT (10.0-12.5) sec INR (<1.2) APTT (22.0-30.0) sec Sodium (137-145) mmol/L Potassium (3.5-5.1) mmol/L Chloride (98-107) mmol/L Carbon Dioxide (22-30) mmol/L Anion Gap mmol/L BUN (9-20) mg/dL Creatinine (0.66-1.25) mg/dL Est GFR (CKD-EPI)AfAm (>60 ml/min/1.73 sqM) Est GFR (CKD-EPI)NonAf (>60 ml/min/1.73 sqM) Glucose (74-99) mg/dL POC Glucose (mg/dL) (70-110) mg/dL POC Glu Low Pressure Firer ID Plasma Lactic Acid Wil (0.7-2.0) mmol/L Calcium (8.4-10.2) mg/dL Total Bilirubin (0.2-1.3) mg/dL AST (17-59) U/L ALT (4-49) U/L Alkaline Phosphatase (38-126) U/L Total Protein (6.3-8.2) g/dL Albumin (3.5-5.0) g/dL Urine Color Light Yellow Urine Appearance Clear (Clear) Urine pH 6.5 (5.0-8.0) Ur Specific [place] 1.017 (1.001-1.035) Urine Protein Negative (Negative) Urine Glucose (UA) Negative (Negative) Urine Ketones Negative (Negative) Urine Blood Negative (Negative) Urine Nitrite Negative (Negative) Urine Bilirubin Negative (Negative) Urine Urobilinogen <2.0 (<2.0) mg/dL Ur Leukocyte Esterase Negative (Negative) Urine Opiates Screen Detected H (NotDetected) Ur Oxycodone Screen Not Detected (NotDetected) Urine Methadone Screen Not Detected (NotDetected) Ur Propoxyphene Screen Not Detected (NotDetected) Ur Barbiturates Screen Not Detected (NotDetected) U Tricyclic Antidepress Not Detected (NotDetected) Ur Phencyclidine Scrn Not Detected (NotDetected) Ur Amphetamines Screen Not Detected (NotDetected) U Methamphetamines Scrn Not Detected (NotDetected) U Benzodiazepines Scrn Not Detected (NotDetected) Urine Cocaine Screen Not Detected (NotDetected) U Marijuana (THC) Screen Not Detected (NotDetected) Serum Alcohol mg/dL Influenza Type A (PCR) Not Detected (Not Detectd) Influenza Type B (PCR) Not Detected (Not Detectd) RSV (PCR) Not Detected (Not Detectd) SARS-CoV-2 (PCR) Not Detected (Not Detectd) 05/12/23 05/12/23 Range/Units 22:11 22:11 WBC (3.8-10.6) k/uL RBC (4.30-5.90) m/uL Hgb (13.0-17.5) gm/dL Hct (39.0-53.0) % MCV (80.0-100.0) fL MCH (25.0-35.0) pg MCHC (31.0-37.0) g/dL RDW (11.5-15.5) % Plt Count (150-450) k/uL MPV Neutrophils % % Lymphocytes % % Monocytes % % Eosinophils % % Basophils % % Neutrophils # (1.3-7.7) k/uL Lymphocytes # (1.0-4.8) k/uL Monocytes # (0-1.0) k/uL Eosinophils # (0-0.7) k/uL Basophils # (0-0.2) k/uL Hypochromasia Macrocytosis PT (10.0-12.5) sec INR (<1.2) APTT (22.0-30.0) sec Sodium 140 (137-145) mmol/L Potassium 4.6 (3.5-5.1) mmol/L Chloride 106 (98-107) mmol/L Carbon Dioxide 24 (22-30) mmol/L Anion Gap 10 mmol/L BUN 25 H (9-20) mg/dL Creatinine 1.02 (0.66-1.25) mg/dL Est GFR (CKD-EPI)AfAm 80 (>60 ml/min/1.73 sqM) Est GFR (CKD-EPI)NonAf 69 (>60 ml/min/1.73 sqM) Glucose 92 (74-99) mg/dL POC Glucose (mg/dL) (70-110) mg/dL POC Glu Low Pressure Firer ID Plasma Lactic Acid Wil 1.7 (0.7-2.0) mmol/L Calcium 9.1 (8.4-10.2) mg/dL Total Bilirubin 0.5 (0.2-1.3) mg/dL AST 26 (17-59) U/L ALT 9 (4-49) U/L Alkaline Phosphatase 96 (38-126) U/L Total Protein 6.9 (6.3-8.2) g/dL Albumin 4.0 (3.5-5.0) g/dL Urine Color Urine Appearance (Clear) Urine pH (5.0-8.0) Ur Specific [place] (1.001-1.035) Urine Protein (Negative) Urine Glucose (UA) (Negative) Urine Ketones (Negative) Urine Blood (Negative) Urine Nitrite (Negative) Urine Bilirubin (Negative) Urine Urobilinogen (<2.0) mg/dL Ur Leukocyte Esterase (Negative) Urine Opiates Screen (NotDetected) Ur Oxycodone Screen (NotDetected) Urine Methadone Screen (NotDetected) Ur Propoxyphene Screen (NotDetected) Ur Barbiturates Screen (NotDetected) U Tricyclic Antidepress (NotDetected) Ur Phencyclidine Scrn (NotDetected) Ur Amphetamines Screen (NotDetected) U Methamphetamines Scrn (NotDetected) U Benzodiazepines Scrn (NotDetected) Urine Cocaine Screen (NotDetected) U Marijuana (THC) Screen (NotDetected) Serum Alcohol <10 mg/dL Influenza Type A (PCR) (Not Detectd) Influenza Type B (PCR) (Not Detectd) RSV (PCR) (Not Detectd) SARS-CoV-2 (PCR) (Not Detectd) - EKG Data -: EKG Interpreted by Me EKG Comments: 12-lead Electrocardiogram Interpretation Note EKG was reviewed and interpreted by myself. 12-lead ECG performed at 2125 is interpreted by me as revealing normal sinus rhythm with first-degree AV block and frequent PVCs at a rate of 82 beats per minute.. Left axis deviation. TX interval is 247 ms, QRS durations 156 ms, QTc is 451 ms.. There were no ST or T wave abnormalities to suggest myocardial ischemia or injury. R wave progression across the precordium was satisfactory. By my interpretation this EKG is non- diagnostic for acute ischemia. Disposition Clinical Impression: Confusion, Parkinsons disease Disposition: HOME SELF-CARE Condition: Good Is patient prescribed a controlled substance at d/c from ED?: No Referrals: Charlie Yanez DO [Primary Care Provider] - 1-2 days Time of Disposition: 23:48
[2023-05-12 21:50] LABS: Basophils % (A) 0 %; Eosinophils # (A) 0.1 k/uL (0-0.7); Eosinophils % (A) 1 %; HCT 46.7 % (39.0-53.0); HGB 15.1 gm/dL (13.0-17.5); Hypochromasia Slight; Lymphocytes # (A) 1.7 k/uL (1.0-4.8); Lymphocytes % (A) 15 %; MCH 32.8 pg (25.0-35.0); MCHC 32.2 g/dL (31.0-37.0); MCV 101.7 fL (80.0-100.0); Macrocytosis Slight; Mean Platelet Volume 9.8; Monocytes # (A) 0.6 k/uL (0-1.0); Monocytes % (A) 6 %; Neutrophils # (A) 8.3 k/uL (1.3-7.7); Neutrophils % (A) 76 %; Platelet Count 140 k/uL (150-450); RDW 13.4 % (11.5-15.5); WBC 10.9 k/uL (3.8-10.6)
--- NOTE | 2023-05-12 21:58 | CT ---
EXAMINATION TYPE: CT brain wo con CT DLP: 1109.4 mGycm, Automated exposure control for dose reduction was used. DATE OF EXAM: 05/12/2023 9:46 PM COMPARISON: 09/07/2022. CLINICAL INDICATION:Male, 78 years old with history of Altered mental status, AMS TECHNIQUE: Brain: Axial CT images of the brain were obtained with coronal and sagittal reformats created and rev iewed. Contrast used: None. Oral contrast used: None. FINDINGS: Brain: Extra-axial spaces: No abnormal extra-axial fluid collections. Ventricular system: Dilatation in proportion to cerebral atrophy. Cerebral parenchyma: Cerebral atrophy. No acute intraparenchymal hemorrhage or mass effect. The vences -white junction is well differentiated. Scattered hypoattenuating areas are seen within the white mat ter. Cerebellum: Unremarkable. Mass effect: No evidence of midline shift. Intracranial vasculature: Atherosclerotic calcifications of the intracranial vessels. Soft tissues: Normal. Calvarium/osseous structures: No depressed skull fracture. Paranasal sinuses and mastoid air cells: Mild scattered paranasal sinus disease. Visualized orbits: Orbital contents are intact. IMPRESSION: 1. No acute intracranial process. 2. Nonspecific white matter changes, likely secondary to chronic small vessel ischemic disease.
--- NOTE | 2023-05-12 22:03 | XR ---
EXAMINATION TYPE: XR chest 2V DATE OF EXAM: 05/12/2023 9:51 PM CLINICAL INDICATION:Male, 78 years old with history of altered mental status; COMPARISON: Chest radiographs from 09/07/2022 TECHNIQUE: XR chest 2V Frontal and lateral views of the chest. FINDINGS: Lungs/Pleura: Prominent interstitial lung markings are seen scattered throughout the lungs. No eviden ce of focal consolidation, pneumothorax or pleural effusion. Pulmonary vascularity: Unremarkable. Heart/mediastinum: Cardiomediastinal silhouette is unremarkable. Musculoskeletal: No acute osseous pathology. IMPRESSION: Chronic changes without acute pulmonary process. No significant change from prior.
[2023-05-12 22:20] LABS: INR 1.1 (<1.2); Partial Thromboplastin Time 27.2 sec (22.0-30.0); Prothrombin Time 11.4 sec (10.0-12.5)
[2023-05-12 22:47] LABS: ALT 9 U/L (4-49); AST 26 U/L (17-59); African American GFR (CKD) 80 (>60 ml/min/1.73 sqM); Alcohol <10 mg/dL; Alkaline Phosphatase 96 U/L (38-126); Anion Gap 10 mmol/L; Blood Urea Nitrogen 25 mg/dL (9-20); Calcium 9.1 mg/dL (8.4-10.2); Carbon Dioxide 24 mmol/L (22-30); Chloride 106 mmol/L (98-107); Glucose 92 mg/dL (74-99); Non-African American GFR(CKD) 69 (>60 ml/min/1.73 sqM); Potassium 4.6 mmol/L (3.5-5.1); Sodium 140 mmol/L (137-145); Total Bilirubin 0.5 mg/dL (0.2-1.3); Total Protein 6.9 g/dL (6.3-8.2)
[2023-05-12 23:31] LABS: Appearance,Urine Clear (Clear); Bilirubin,Urine Negative (Negative); Blood,Urine Negative (Negative); Color,Urine Light Yellow; Glucose,Urine (UA) Negative (Negative); Ketones,Urine Negative (Negative); Leukocyte Esterase,Urine Negative (Negative); Nitrite,Urine Negative (Negative); PH, Urine 6.5 (5.0-8.0); Protein,Urine Negative (Negative); Specific Gravity,Urine 1.017 (1.001-1.035); Urobilinogen,Urine <2.0 mg/dL (<2.0)
[2023-05-12 23:43] LABS: Amphetamine Screen,Urine Not Detected (NotDetected); Barbiturate Screen,Urine Not Detected (NotDetected); Benzodiazepines Screen,Urine Not Detected (NotDetected); Cocaine Screen,Urine Not Detected (NotDetected); Methadone Screen, Urine Not Detected (NotDetected); Opiate Screen,Urine Detected (NotDetected); Oxycodone Screen, Urine Not Detected (NotDetected); Phencyclidine Screen,Urine Not Detected (NotDetected); Tricyclic Antidepressant,Urine Not Detected (NotDetected); Urn Cannabinoid Scrn Not Detected (NotDetected)
[2023-05-12] MEDS ORDERED: HYDROcodone/APAP 5-325MG 1 EACH TAB PO STA (23:52)
[2023-05-13 00:33] VITALS: BP 173/83; PULSE 88; RESP 18
== END 2023-05-13 00:30 | disposition home or self-care (01) ==
LOC: EC 20:33
DX: R41.0 Disorientation, unspecified (principal); G20.A1 Parkinson's disease without dyskinesia, without mention of fluctuations; I44.0 Atrioventricular block, first degree; Z86.73 Personal history of transient ischemic attack (TIA), and cerebral infarction without residual deficits; F32.A Depression, unspecified; Z87.891 Personal history of nicotine dependence; F12.90 Cannabis use, unspecified, uncomplicated; Z79.899 Other long term (current) drug therapy; W19.XXXA Unspecified fall, initial encounter; Z20.822 Contact with and (suspected) exposure to COVID-19
CPT/HCPCS: 36415; 70450; 71046; 80053; 80306; 80320; 81003; 83605; 85025; 85610; 85730; 87636; 93005; 96360; 96361; 99285

== ENCOUNTER 2024-04-14 21:13 | Inpatient (IN) | payer MEDICARE ==
[2024-04-14] MEDS: MORPHINE SULFATE 4 MG/ML SYRINGE IVP STA (22:06)
--- NOTE | 2024-04-14 22:24 | XR ---
EXAMINATION TYPE: XR Hip Complete LT DATE OF EXAM: 04/14/2024 CLINICAL HISTORY: Fall with pain TECHNIQUE: AP and frogleg views of the left hip are obtained. COMPARISON: None. FINDINGS: Osseous structures are demineralized. There is acute displaced comminuted basicervical fra cture through the femoral neck of the left hip. Advanced narrowing is present without dislocation. Pa rtial visualization of surgical change in the lumbar spine is noted. Pubic symphysis is intact. IMPRESSION: There is acute comminuted impacted displaced basicervical fracture through the femoral n kaylie of the left hip. [facility], , 04/14/2024 10:22 PM
--- NOTE | 2024-04-14 22:29 | ED ---
Fall HPI - General Chief Complaint: Fall Stated Complaint: Fall, Hip Injury Time Seen by Provider: 04/14/24 21:30 Source: EMS Mode of arrival: EMS - History of Present Illness Initial Comments: This is an 79-year-old male with a history of CVA on Eliquis presenting to the emergency department via EMS for chief complaint of a fall. It is reported that patient was using the restroom when he went to stand up and his legs gave way and he fell onto his left hip. Patient denies hitting his head at the time of this event. He denies loss of consciousness. Patient's daughter is at bedside and states that she called EMS after this fall. Currently patient is endorsing left hip pain. He denies headache, blurry or double vision, chest pain, heart palpitations, dizziness or lightheadedness. Patient denies presyncopal symptoms before time of the fall. States that his legs gave way and he fell. - Related Data Home Medications Medication Instructions Recorded Confirmed Diclofenac Sodium Gel [Voltaren 1% 1 applic TOPICAL QID PRN 09/07/22 05/12/23 Gel] Donepezil [Aricept] 10 mg PO DAILY 09/07/22 05/12/23 Ibuprofen [Motrin] 800 mg PO BID PRN 09/07/22 05/12/23 Atorvastatin [Lipitor] 20 mg PO HS 05/12/23 05/12/23 Carbidopa-Levodopa 25-250 mg 1 tab PO TID@0730,1230,1730 05/12/23 05/12/23 [Sinemet 25-250 mg] DULoxetine HCL [Cymbalta] 90 mg PO DAILY 05/12/23 05/12/23 Previous Rx's Medication Instructions Recorded Apixaban [Eliquis] 5 mg PO BID tab 09/10/22 Gabapentin 600 mg PO HS #3 tab 09/10/22 HYDROcodone/APAP 5-325MG [[place] 1 tab PO TID PRN #9 tab 09/10/22 5-325] Allergies Allergy/AdvReac Type Severity Reaction Status Date / Time No Known Allergies Allergy Verified 05/12/23 22:22 Review of Systems ROS Statement: Those systems with pertinent positive or pertinent negative responses have been documented in the HPI. ROS Other: All systems not noted in ROS Statement are negative. Past Medical History Past Medical History: CVA/TIA, Neurologic Disorder History of Any Multi-Drug Resistant Organisms: None Reported Past Surgical History: Back Surgery Past Anesthesia/Blood Transfusion Reactions: No Reported Reaction Past Psychological History: Depression Smoking Status: Former smoker Past Alcohol Use History: None Reported Past Drug Use History: Marijuana - Past Family History Father History Unknown: Yes Additional Family Medical History / Comment(s): pt and family is not aware of any past family medical history General Exam Limitations: no limitations, physical limitation (mild global weakness due to history TIA/CVA) Head exam: Present: atraumatic, normocephalic, normal inspection Eye exam: Present: normal appearance, PERRL, EOMI. Absent: scleral icterus, conjunctival injection, periorbital swelling Neck exam: Present: normal inspection. Absent: tenderness, meningismus, lymphadenopathy Respiratory exam: Present: normal lung sounds bilaterally. Absent: respiratory distress, wheezes, rales, rhonchi, stridor Cardiovascular Exam: Present: regular rate, normal rhythm, normal heart sounds. Absent: systolic murmur, diastolic murmur, rubs, gallop, clicks GI/Abdominal exam: Present: soft, normal bowel sounds. Absent: distended, tenderness, guarding, rebound, rigid Left Hip exam: Present: tenderness, swelling, deformity. Absent: normal inspection, full ROM Neurovascular tendon exam: Present: no vascular compromise. Absent: pulse deficit Gait: not tested/not observed Back exam: Present: normal inspection Skin exam: Present: warm, dry, intact, normal color. Absent: rash Course Vital Signs 04/14/24 04/14/24 04/15/24 21:24 23:52 01:30 Temperature 97.2 F L Pulse Rate 80 90 52 L Respiratory 18 18 18 Rate Blood Pressure 164/80 129/82 96/75 O2 Sat by Pulse 97 93 L 96 Oximetry 04/15/24 02:08 Temperature Pulse Rate 50 L Respiratory 18 Rate Blood Pressure 119/83 O2 Sat by Pulse 92 L Oximetry Medical Decision Making - Medical Decision Making Was pt. sent in by a medical professional or institution (, PA, PERFORMANCE TEST ENGINEER, urgent care, hospital, or skilled nursing...) When possible be specific @ -No Did you speak to anyone other than the patient for history (EMS, parent, family, police, friend...)? What history was obtained from this source @ -No Did you review nursing and triage notes (agree or disagree)? Why? @ -I reviewed and agree with nursing and triage notes Were old charts reviewed (outside hosp., previous admission, EMS record, old EKG, old radiological studies, urgent care reports/EKG's, skilled nursing records)? Report findings @ -No old charts were reviewed Differential Diagnosis (chest pain, altered mental status, abdominal pain women, abdominal pain men, vaginal bleeding, weakness, fever, dyspnea, syncope, headache, dizziness, GI bleed, back pain, seizure, CVA, palpatations, mental health, musculoskeletal)? @ -Differential Musculoskeletal Muscular strain, contusion, ligament sprain, fracture, arthritis, septic arthritis, bursitis, cellulitis, muscle spasm, nerve compression, DVT, arterial occlusion, herpes zoster, electrolyte abnormality, tumor.... This is not meant to be in all inclusive list EKG interpreted by me (3pts min.). @ -compleated at 2258 sinus tachycardia with frequent PVCs, ventricular 100, DE interval 204, QRS 174, QTc 457. X-rays interpreted by me (1pt min.). @ -chest X-ray reveals chronic changes with mild cardiomegaly without acute pulmonary process X-ray of the left hip reveals a acute comminuted impacted displaced cervical fracture through the femoral neck of the left hip CT interpreted by me (1pt min.). @ -CT of the brain and C-spine without contrast reveals no evidence of intracranial hemorrhage or acute fracture of the cervical spine U/S interpreted by me (1pt. min.). @ -None done What testing was considered but not performed or refused? (CT, X-rays, U/S, labs)? Why? @ -None What meds were considered but not given or refused? Why? @ -None Did you discuss the management of the patient with other professionals (professionals i.e. , PA, PERFORMANCE TEST ENGINEER, lab, RT, psych nurse, social problems specialist, air press operator, teacher, data officer, case management assistant)? Give summary @ -i spoke with director of consumer affairs ortho specialist, Dr. Dawkins, in regard to the patient's hip x-ray concerning for a fracture through the femoral neck. Patient is accepted for admission with internal medicine on consult for presurgical clearance. I spoke with on-call internal medicine physician with [facility], Dr. Rodriguez, who agrees to accept the patient for admission Was smoking cessation discussed for >3mins.? @ -No Was critical care preformed (if so, how long)? @ -No Were there social determinants of health that impacted care today? How? (Homelessness, low income, unemployed, alcoholism, drug addiction, transportation, low edu. Level, literacy, decrease access to med. care, [facility], rehab)? @ -No Was there de-escalation of care discussed even if they declined (Discuss DNR or withdrawal of care, Hospice)? DNR status @ -No What co-morbidities impacted this encounter? (DM, HTN, Smoking, COPD, CAD, Ca ncer, CVA, ARF, Chemo, Hep., AIDS, mental health diagnosis, sleep apnea, morbid obesity)? @ -CVA Was patient admitted / discharged? Hospital course, mention meds given and route, prescriptions, significant lab abnormalities, going to OR and other pertinent info. @ -Admitted. 79-year-old male with mechanical fall. On my evaluation the patient he is noted to have a c-collar in place from EMS. He states that this c-collar is bothering him. Patient is endorsing left hip pain. He is neuro vastly intact to the left lower extremity. There is deformity of the left hip. Patient is provided with pain medication. CT of the brain and C-spine negative, chest x-ray reveals chronic changes, x-ray left hip reveals a fracture through the femoral neck. Patient will be admitted to internal medicine with orthopedics on consult for further evaluation. Case discussed with my attending Dr. Pearl Undiagnosed new problem with uncertain prognosis? @ -No Drug Therapy requiring intensive monitoring for toxicity (Heparin, Nitro, Insulin, Cardizem)? @ -No Were any procedures done? @ -No Diagnosis/symptom? @ -mechanical fall, left femoral neck fracture Acute, or Chronic, or Acute on Chronic? @ -acute Uncomplicated (without systemic symptoms) or Complicated (systemic symptoms)? @ -uncomplicated Side effects of treatment? @ -No Exacerbation, Progression, or Severe Exacerbation? @ -No Poses a threat to life or bodily function? How? (Chest pain, [place], HI, pneumonia, PE, COPD, DKA, ARF, appy, cholecystitis, CVA, Diverticulitis, Homicidal, Suicidal, threat to staff... and all critical care pts) @ -No - Lab Data Result diagrams: 04/14/24 23:01 04/14/24 23:01 Lab Results 04/14/24 04/14/24 04/14/24 Range/Units 23:01 23:01 23:50 WBC 12.9 H (3.8-10.6) k/uL RBC 4.30 (4.30-5.90) m/uL Hgb 13.8 (13.0-17.5) gm/dL Hct 44.0 (39.0-53.0) % MCV 102.2 H (80.0-100.0) fL MCH 32.1 (25.0-35.0) pg MCHC 31.5 (31.0-37.0) g/dL RDW 13.9 (11.5-15.5) % Plt Count 168 (150-450) k/uL MPV 8.6 Neutrophils % 85 % Lymphocytes % 10 % Monocytes % 4 % Eosinophils % 1 % Basophils % 0 % Neutrophils # 11.0 H (1.3-7.7) k/uL Lymphocytes # 1.2 (1.0-4.8) k/uL Monocytes # 0.5 (0-1.0) k/uL Eosinophils # 0.1 (0-0.7) k/uL Basophils # 0.0 (0-0.2) k/uL Hypochromasia Slight Macrocytosis Slight PT 11.9 (10.0-12.5) sec INR 1.1 (<1.2) APTT 28.3 (22.0-30.0) sec Sodium 140 (137-145) mmol/L Potassium 4.6 (3.5-5.1) mmol/L Chloride 110 H (98-107) mmol/L Carbon Dioxide 27 (22-30) mmol/L Anion Gap 3 mmol/L BUN 32 H (9-20) mg/dL Creatinine 0.93 (0.66-1.25) mg/dL Est GFR (CKD-EPI)AfAm 89 (>60 ml/min/1.73 sqM) Est GFR (CKD-EPI)NonAf 77 (>60 ml/min/1.73 sqM) Glucose 127 H (74-99) mg/dL Calcium 8.5 (8.4-10.2) mg/dL Magnesium (1.6-2.3) mg/dL Total Bilirubin 0.4 (0.2-1.3) mg/dL AST 31 (17-59) U/L ALT 7 (4-49) U/L Alkaline Phosphatase 96 (38-126) U/L Troponin I (0.000-0.034) ng/mL Total Protein 6.0 L (6.3-8.2) g/dL Albumin 3.3 L (3.5-5.0) g/dL 04/14/24 04/14/24 Range/Units 23:50 23:55 WBC (3.8-10.6) k/uL RBC (4.30-5.90) m/uL Hgb (13.0-17.5) gm/dL Hct (39.0-53.0) % MCV (80.0-100.0) fL MCH (25.0-35.0) pg MCHC (31.0-37.0) g/dL RDW (11.5-15.5) % Plt Count (150-450) k/uL MPV Neutrophils % % Lymphocytes % % Monocytes % % Eosinophils % % Basophils % % Neutrophils # (1.3-7.7) k/uL Lymphocytes # (1.0-4.8) k/uL Monocytes # (0-1.0) k/uL Eosinophils # (0-0.7) k/uL Basophils # (0-0.2) k/uL Hypochromasia Macrocytosis PT (10.0-12.5) sec INR (<1.2) APTT (22.0-30.0) sec Sodium (137-145) mmol/L Potassium (3.5-5.1) mmol/L Chloride (98-107) mmol/L Carbon Dioxide (22-30) mmol/L Anion Gap mmol/L BUN (9-20) mg/dL Creatinine (0.66-1.25) mg/dL Est GFR (CKD-EPI)AfAm (>60 ml/min/1.73 sqM) Est GFR (CKD-EPI)NonAf (>60 ml/min/1.73 sqM) Glucose (74-99) mg/dL Calcium (8.4-10.2) mg/dL Magnesium 2.0 (1.6-2.3) mg/dL Total Bilirubin (0.2-1.3) mg/dL AST (17-59) U/L ALT (4-49) U/L Alkaline Phosphatase (38-126) U/L Troponin I 0.034 (0.000-0.034) ng/mL Total Protein (6.3-8.2) g/dL Albumin (3.5-5.0) g/dL Disposition Clinical Impression: Hip fracture, left Disposition: ADMITTED IP TO THIS [facility] Condition: Serious Decision to Admit Reason: Admit from EC Decision Date: 04/15/24 Decision Time: 01:21
--- NOTE | 2024-04-14 22:57 | XR ---
EXAMINATION TYPE: XR chest 1V portable DATE OF EXAM: 04/14/2024 COMPARISON: Prior chest x-rays May 12, 2023 HISTORY: Surgical clearance. TECHNIQUE: Single frontal view of the chest is obtained. FINDINGS: There is chronic parenchymal changes bilaterally without suspicious new focal air space op acity, pleural effusion, or pneumothorax seen. Mild cardiomegaly with ectatic thoracic aorta is rede monstrated. Osseous structures are demineralized. IMPRESSION: Chronic changes and mild cardiomegaly without acute pulmonary process. [facility], , 04/14/2024 10:54 PM
--- NOTE | 2024-04-14 23:07 | CT ---
EXAMINATION TYPE: CT brain mindy sánchez DATE OF EXAM: 04/14/2024 COMPARISON: CT brain May 12, 2023 HISTORY: In by EMS reporting a fall at home 90 minutes prior to arrival. Patient is AOx4, states he w as in the bathroom getting off the toilet when his left hip "gave out". Patient fell to floor, denies hitting head, loss of consciousness. Patient is taking eliquis daily. History of CVA per EMS. EMS re ports initial oxygen saturation was in the mid 80s, patient upper 90s on 2LPM via [place] CT DLP: 1421.1 mGycm. Automated Exposure Control for Dose Reduction was Utilized. TECHNIQUE: CT scan of the head and cervical spine are performed without contrast. FINDINGS: There is no acute intracranial hemorrhage or midline shift identified. Mild to moderate v entricular and sulcal prominence. Mild to moderate low-attenuation in the periventricular white matte r is redemonstrated. Bilateral scleral calcifications are redemonstrated. The calvarium is intact. Th e paranasal sinuses are grossly clear Cervical spine is visualized in its entirety from C1 through upper thoracic levels and demonstrates c onvex scoliotic curvature positioning centered in the upper thoracic spine with grade 1 retrolisthesi s C3 on C4. Prevertebral soft tissue appears within normal limits. The C1-C2 articulation is within normal limits on the coronal images. Vertebral body heights are maintained. Moderate to severe mult ilevel disc space narrowing most prominent at C6-C7 level. Axial images show multilevel uncovertebral facet degenerative changes bilaterally. Thyroid gland appears within normal limits. Lung apices show emphysematous change along with scattered bilateral small calcified nodules are benign granulomas an d posterior left apical calcified pleural plaque. Correlate for prior asbestos exposure. IMPRESSION: 1. There is no acute fracture or dislocation evident in the cervical spine. 2. No acute intracranial hemorrhage or midline shift is seen. [facility], , 04/14/2024 11:05 PM
[2024-04-14 23:26] LABS: Basophils % (A) 0 %; Eosinophils # (A) 0.1 k/uL (0-0.7); Eosinophils % (A) 1 %; HGB 13.8 gm/dL (13.0-17.5); Hypochromasia Slight; Lymphocytes # (A) 1.2 k/uL (1.0-4.8); Lymphocytes % (A) 10 %; MCH 32.1 pg (25.0-35.0); MCHC 31.5 g/dL (31.0-37.0); MCV 102.2 fL (80.0-100.0); Macrocytosis Slight; Mean Platelet Volume 8.6; Monocytes # (A) 0.5 k/uL (0-1.0); Monocytes % (A) 4 %; Neutrophils % (A) 85 %; Platelet Count 168 k/uL (150-450); RDW 13.9 % (11.5-15.5); WBC 12.9 k/uL (3.8-10.6)
[2024-04-14] MEDS: MAGNESIUM SULFATE-D5W PMX 1 GM in DEXTROSE/WATER 1 100ML.BAG IVPB SCH (23:59)
[2024-04-15 00:06] LABS: ALT 7 U/L (4-49); AST 31 U/L (17-59); African American GFR (CKD) 89 (>60 ml/min/1.73 sqM); Albumin 3.3 g/dL (3.5-5.0); Alkaline Phosphatase 96 U/L (38-126); Anion Gap 3 mmol/L; Blood Urea Nitrogen 32 mg/dL (9-20); Calcium 8.5 mg/dL (8.4-10.2); Carbon Dioxide 27 mmol/L (22-30); Chloride 110 mmol/L (98-107); Glucose 127 mg/dL (74-99); Non-African American GFR(CKD) 77 (>60 ml/min/1.73 sqM); Potassium 4.6 mmol/L (3.5-5.1); Sodium 140 mmol/L (137-145); Total Bilirubin 0.4 mg/dL (0.2-1.3)
[2024-04-15 00:16] LABS: INR 1.1 (<1.2); Partial Thromboplastin Time 28.3 sec (22.0-30.0); Prothrombin Time 11.9 sec (10.0-12.5)
[2024-04-15] MEDS: MORPHINE SULFATE 4 MG/ML SYRINGE IVP STA (00:19)
[2024-04-15] MEDS ORDERED: NALOXONE 0.4 MG/ML 1 ML VIAL IV PRN (01:21)
[2024-04-15] MEDS ORDERED: ACETAMINOPHEN TAB 325 MG TAB PO PRN (01:21)
--- NOTE | 2024-04-15 01:52 | P.CONS ---
History of Present Illness - Reason for Consult Consult date: 04/15/24 Medical management - History of Present Illness Reason for consult: Medical management History of present illness; 79-year-old male with a history of CVA/TIA (on Eliquis) who is presenting status post mechanical fall onto his left side. Patient reports he was getting off the toilet and fell onto his left side when he felt significant pain in his left hip. Patient states he came to the ED where he received a hip x-ray showing an acute impacted displaced fracture through the femoral neck of the left hip. Patient is now preop and pending medical clearance. Patient is laying in bed resting with no current complaints of pain. Patient reports absence of fever, chills, weight loss, chest pain, palpitations, diaphoresis, dyspnea, cough, nausea, vomiting, constipation, diarrhea, abdominal pain, weakness, myalgia, dizziness, headache, and dysuria. Internal medicine was consulted for medical management. Chest x-ray done independently interpreted in the ER showed chronic changes and mild cardiomegaly without acute pulmonary process. CT head and cervical spine: No acute fracture or dislocation evident in the cervical spine, and no acute intracranial hemorrhage or midline shift seen. REVIEW OF SYSTEMS: All systems reviewed, pertinent positives and negatives noted in HPI. All other symptoms are negative. PHYSICAL EXAMINATION: Vitals reviewed GENERAL: No acute distress. Well developed, well nourished. HEENT: Pupils are round and equally reacting to light, No scleral icterus. Normocephalic, atraumatic CARDIOVASCULAR: S1 and S2 present. No murmurs, rubs, or gallops. PULMONARY: Chest is clear to auscultation, no wheezing, rhonchi, or crackles. ABDOMEN: Soft, nontender, nondistended, normoactive bowel sounds. No palpable organomegaly. MUSCULOSKELETAL: No apparent joint swelling Significant tenderness in the left hip. EXTREMITIES: No apparent cyanosis, clubbing, or pedal edema. NEUROLOGICAL: The patient is alert and oriented x3, Gross neurological examination did not reveal any focal deficits. SKIN: No apparent rashes. Assessment and plan patient is 79 year old Male/Female, presetned with left hip pain after a fall resulting in left femoral neck fracture . Patient denies any recent history or symptoms of congestive heart failure, mycardial infarction, syncope, arrhythmia, palpitation, or exertional dyspnea. Patient reports history of stroke , denies any history of CAD, CHF, CKD, or DM. unable to assess functional capacity due to sedantry life style and walker Patient labs reviewed, EKG reviewed showing frequent PVCs , right bundle branch block and first degree AV block unchanged compared to before Patient is scheduled for orthopedic surgery to fix left hip fracture. This is of moderate risk, patient has history of CVA and advanced age, puts him at moderate high risk (6%) for perioperative cardiovascular risk . Patient can proceed to s urgery with moderately-high but acceptable perioperative cardiovascular risk factors. This has been explained to the patient , all questions answered, patient verbalized understanding and agreement. Cr 0.93 K 4.6 Mg 2.0 unremarkable patient is not on any BB at home. keep NPO IVF with normal saline ordered Hold ELiquis Chronic Medical Conditions #History of CVA/TIA Hold Eliquis for surgery in the morning # Left hip femoral neck fracture -Pain management and DVT prophylaxis per primary surgical team F: 75 cc / hr NaCl 0.9% E: Replete as needed N: NPO DVT ppx: per primary surgical team Code status: Full code Past Medical History Past Medical History: CVA/TIA, Neurologic Disorder History of Any Multi-Drug Resistant Organisms: None Reported Past Surgical History: Back Surgery Past Anesthesia/Blood Transfusion Reactions: No Reported Reaction Past Psychological History: Depression Smoking Status: Former smoker Past Alcohol Use History: None Reported Past Drug Use History: Marijuana - Past Family History Father History Unknown: Yes Additional Family Medical History / Comment(s): pt and family is not aware of any past family medical history Medications and Allergies Home Medications Medication Instructions Recorded Confirmed Type Diclofenac Sodium Gel [Voltaren 1% 1 applic TOPICAL QID PRN 09/07/22 05/12/23 History Gel] Donepezil [Aricept] 10 mg PO DAILY 09/07/22 05/12/23 History Ibuprofen [Motrin] 800 mg PO BID PRN 09/07/22 05/12/23 History Apixaban [Eliquis] 5 mg PO BID tab 09/10/22 05/12/23 Rx Gabapentin 600 mg PO HS #3 tab 09/10/22 05/12/23 Rx HYDROcodone/APAP 5-325MG [[place] 1 tab PO TID PRN #9 tab 09/10/22 05/12/23 Rx 5-325] Atorvastatin [Lipitor] 20 mg PO HS 05/12/23 05/12/23 History Carbidopa-Levodopa 25-250 mg 1 tab PO TID@0730,1230,1730 05/12/23 05/12/23 History [Sinemet 25-250 mg] DULoxetine HCL [Cymbalta] 90 mg PO DAILY 05/12/23 05/12/23 History Allergies Allergy/AdvReac Type Severity Reaction Status Date / Time No Known Allergies Allergy Verified 05/12/23 22:22 Physical Exam Vitals: Vital Signs Temp Pulse Resp BP Pulse Ox 04/15/24 01:30 52 L 18 96/75 96 04/14/24 23:52 90 18 129/82 93 L 04/14/24 21:24 97.2 F L 80 18 164/80 97 Intake and Output 04/14/24 04/14/24 04/15/24 14:59 22:59 06:59 Other: Weight 68.039 kg Results CBC & Chem 7: 04/14/24 23:01 04/14/24 23:01 Labs: Abnormal Lab Results - Last 24 Hours (Table) 04/14/24 04/14/24 Range/Units 23:01 23:01 WBC 12.9 H (3.8-10.6) k/uL MCV 102.2 H (80.0-100.0) fL Neutrophils # 11.0 H (1.3-7.7) k/uL Chloride 110 H (98-107) mmol/L BUN 32 H (9-20) mg/dL Glucose 127 H (74-99) mg/dL Total Protein 6.0 L (6.3-8.2) g/dL Albumin 3.3 L (3.5-5.0) g/dL Assessment and Plan Assessment: I have seen and evaluated the patient today. I Discussed the case with the re sident and agree with the resident's findings I edited the assessment and plan as necessary as documented in the resident's note.
[2024-04-15] MEDS: MORPHINE SULFATE 4 MG/ML SYRINGE IV PRN (02:16)
[2024-04-15] MEDS: SODIUM CHLORIDE 0.9% 1,000 ML IV SCH (04:38)
[2024-04-15] MEDS: CARBIDOPA-LEVODOPA 25-250 MG 1 EACH TAB PO SCH (10:30)
--- NOTE | 2024-04-15 11:22 | CT ---
EXAMINATION TYPE: CT hip LT wo con DATE OF EXAM: 04/15/2024 11:05 AM COMPARISON: . Extremity radiograph 04/14/2024 CLINICAL INDICATION: Male, 79 years old with history of fracture; PHH, fracture, pt unable to extend leg TECHNIQUE: Axial images were obtained of the CT hip LT wo con, Additional coronal and sagittal reform atted images and soft tissue and bone window were obtained for review. 3-D reconstruction was created on a separate workstation. Contrast used: mL of , (None if empty) Oral contrast used: (None if empty) CT DLP: 355.5 mGycm, Automated exposure control for dose reduction was used. FINDINGS: Acute left proximal femur basicervical fracture with varus deformity. No additional fractur es. Moderate degeneration with joint space narrowing and osteophyte formation. I discussed the arteri al vasculature. IMPRESSION: Acute left basicervical femoral neck fracture. [facility], , 04/15/2024 11:19 AM
[2024-04-15] MEDS ORDERED: NA PHOS,M-B/NA PHOS,DI-BA 133 ML ENEMA RECTAL PRN (12:38)
[2024-04-15] MEDS ORDERED: HYDROmorphone 0.5 MG/0.5 ML SYRINGE IVP PRN ×2 (12:38)
[2024-04-15] MEDS ORDERED: ONDANSETRON 4 MG/2 ML VIAL IVP PRN (12:38)
[2024-04-15] MEDS ORDERED: MAGNESIUM HYDROXIDE 2,400 MG/30 ML CUP PO PRN (12:38)
[2024-04-15] MEDS ORDERED: bisacodyL 10 MG SUPP RECTAL PRN (12:38)
[2024-04-15] MEDS: diazePAM 5 MG TAB PO PRN (13:16)
[2024-04-15] MEDS: HYDROmorphone 0.5 MG/0.5 ML SYRINGE IVP PRN (13:16)
--- NOTE | 2024-04-15 13:41 | P.CNOR ---
History of Present Illness - [facility] Consult date: 04/15/24 Consult reason: fracture History of present illness: Left femoral neck fracture s/p fall Patient is an 79-year-old male seen at bedside today with his daughter present. He has a history of CVA on Eliquis and presented to the emergency department via EMS for chief complaint of a fall last evening 04/14/24. It is reported that patient was using the restroom when he went to stand up and his legs gave way and he fell onto his left hip. Patient denies hitting his head at the time of this event. He denies loss of consciousness. Patient's daughter is at bedside and states that she called EMS after this fall. He complains of left hip pain. He denies numbness. He denies headache, blurry or double vision, chest pain, heart palpitations, dizziness or lightheadedness. Patient denies presyncopal symptoms before time of the fall. Review of Systems All systems: negative Constitutional: Denies chills, Denies fever Eyes: denies blurred vision, denies pain Ears, nose, mouth and throat: Denies headache, Denies sore throat Cardiovascular: Denies chest pain, Denies shortness of breath Respiratory: Denies cough Gastrointestinal: Denies abdominal pain, Denies diarrhea, Denies nausea, Denies vomiting Musculoskeletal: Denies myalgias Integumentary: Denies pruritus, Denies rash Neurological: Denies numbness, Denies weakness Psychiatric: Denies anxiety, Denies depression Endocrine: Denies fatigue, Denies weight change Past Medical History Past Medical History: CVA/TIA, Neurologic Disorder History of Any Multi-Drug Resistant Organisms: None Reported Past Surgical History: Back Surgery Past Anesthesia/Blood Transfusion Reactions: No Reported Reaction Past Psychological History: Depression Smoking Status: Former smoker Past Alcohol Use History: None Reported Past Drug Use History: Marijuana - Past Family History Father History Unknown: Yes Additional Family Medical History / Comment(s): pt and family is not aware of any past family medical history Medications and Allergies Home Medications Medication Instructions Recorded Confirmed Type Diclofenac Sodium Gel [Voltaren 1% 2 - 4 gm TOPICAL QID PRN 09/07/22 04/15/24 History Gel] Donepezil [Aricept] 10 mg PO DAILY 09/07/22 04/15/24 History Apixaban [Eliquis] 5 mg PO BID tab 09/10/22 04/15/24 Rx Gabapentin 600 mg PO HS #3 tab 09/10/22 04/15/24 Rx HYDROcodone/APAP 5-325MG [[place] 1 tab PO TID PRN #9 tab 09/10/22 04/15/24 Rx 5-325] Atorvastatin [Lipitor] 20 mg PO HS 05/12/23 04/15/24 History Carbidopa-Levodopa 25-250 mg 1 tab PO TID@0730,1230,1730 05/12/23 04/15/24 History [Sinemet 25-250 mg] DULoxetine HCL [Cymbalta] 90 mg PO DAILY 05/12/23 04/15/24 History Meloxicam [Mobic] 7.5 mg PO DAILY 04/15/24 04/15/24 History Meloxicam [Mobic] 7.5 mg PO DAILY PRN 04/15/24 04/15/24 History tiZANidine [Zanaflex] 4 mg PO DAILY PRN 04/15/24 04/15/24 History Allergies Allergy/AdvReac Type Severity Reaction Status Date / Time No Known Allergies Allergy Verified 04/15/24 10:45 Physical Examination GEN:Uncomfortable but NAD, AOx3 Inspection of the lower extremities shows a shortened externally rotated left lower extremity. There are no wounds, erythema or ecchymoses. The knee is nontender without effusion. He has painless range of motion of the knee, ankle, foot and toes. Range of motion of the left hip is not tested due to fracture. Neurovascular status is intact throughout the lower extremity with motor and sensation fully intact. Calf is soft and nontender. 2+ dorsalis pedis pulse and less than 2 second cap refill is present. Results - Labs Labs: Abnormal Lab Results - Last 24 Hours (Table) 04/14/24 04/14/24 Range/Units 23:01 23:01 WBC 12.9 H (3.8-10.6) k/uL MCV 102.2 H (80.0-100.0) fL Neutrophils # 11.0 H (1.3-7.7) k/uL Chloride 110 H (98-107) mmol/L BUN 32 H (9-20) mg/dL Glucose 127 H (74-99) mg/dL Total Protein 6.0 L (6.3-8.2) g/dL Albumin 3.3 L (3.5-5.0) g/dL H & H 04/14/24 Range/Units 23:01 Hgb 13.8 (13.0-17.5) gm/dL Hct 44.0 (39.0-53.0) % Coagulation 04/14/24 Range/Units 23:50 INR 1.1 (<1.2) Result Diagrams: 04/14/24 23:01 04/14/24 23:01 - Diagnostic results Hip x-ray: report reviewed, image reviewed (left basicervical femoral neck fracture) Assessment and Plan (1) Hip fracture, left Narrative/Plan: Patient has been reviewed with Dr. Guerrero and Dr. Rizvi. Plan is to proceed with Left hip hemiarthroplasty 04/16/24 in am. He is to be NPO after MN. Continue Pain control, medical management, DVT prophylaxis. Current Visit: Yes Status: Acute Priority: Medium Code(s): S72.002A - FRACTURE OF UNSP PART OF NECK OF LEFT FEMUR, INIT SNOMED Code(s): 384757329 Time with Patient: Less than 30
[2024-04-15] MEDS: ATORVASTATIN 20 MG TAB PO SCH (20:38)
[2024-04-15] MEDS: SENNOSIDES-DOCUSATE SODIUM 1 EACH TAB PO SCH (20:38)
[2024-04-15] MEDS: HYDROcodone/APAP 10-325MG 1 EACH TAB PO PRN (23:38)
[2024-04-16] MEDS ORDERED: guaiFENesin SYRUP 100MG/5ML 200 MG/10 ML CUP PO PRN (00:11)
--- NOTE | 2024-04-16 08:36 | P.CRDCN ---
History of Present Illness Consult date: 04/16/24 History of present illness: This is an 79-year-old gentleman who is known to our service from before with a past medical history significant for cardiomyopathy with an echo was performed in 2022 showing an EF between 40 to 45% as well as history of stroke who with subsequent impairment functional capacity and the patient walks using a walker at home and currently he is on oral anticoagulation because of stroke. Beside that he does have dyslipidemia. The patient is a somewhat poor historian and history was taken from the daughter. Apparently we requested to see the patient for an urgent consult for preop cardiac assessment before noncardiac surgery including left hip surgery/fracture. The patient was walking earlier today and he fell and fractured his left hip. We consulted to see the patient for preop cardiac assessment. The patient does have extremely poor functional capacity but up to the level of activity is doing he reports no cardiovascular symptoms of any pain in the chest or shortness of breath or any dizziness or lightheadedness or any feeling of heart racing or fluttering or presyncope or syncope. During this episode when he fractured his hip he did not have any change in mental status. He underwent further evaluation including an EKG and that showed sinus mechanism with frequent PVCs and also short runs of nonsustained ventricular tachycardia. History of CAD or any hospital admission recently with heart failure and no documentation of any cardiac arrhythmia at this point including any atrial fibrillation or atrial flutter. He has been maintaining normal sinus mechanism during his hospital stay. 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 We will continue following up with the patient Past Medical History Past Medical History: CVA/TIA, Neurologic Disorder History of Any Multi-Drug Resistant Organisms: None Reported Past Surgical History: Back Surgery Past Anesthesia/Blood Transfusion Reactions: No Reported Reaction Past Psychological History: Depression Smoking Status: Former smoker Past Alcohol Use History: None Reported Past Drug Use History: Marijuana - Past Family History Father History Unknown: Yes Additional Family Medical History / Comment(s): pt and family is not aware of any past family medical history Medications and Allergies Home Medications Medication Instructions Recorded Confirmed Type Diclofenac Sodium Gel [Voltaren 1% 2 - 4 gm TOPICAL QID PRN 09/07/22 04/15/24 History Gel] Donepezil [Aricept] 10 mg PO DAILY 09/07/22 04/15/24 History Apixaban [Eliquis] 5 mg PO BID tab 09/10/22 04/15/24 Rx Gabapentin 600 mg PO HS #3 tab 09/10/22 04/15/24 Rx HYDROcodone/APAP 5-325MG [[place] 1 tab PO TID PRN #9 tab 09/10/22 04/15/24 Rx 5-325] Atorvastatin [Lipitor] 20 mg PO HS 05/12/23 04/15/24 History Carbidopa-Levodopa 25-250 mg 1 tab PO TID@0730,1230,1730 05/12/23 04/15/24 History [Sinemet 25-250 mg] DULoxetine HCL [Cymbalta] 90 mg PO DAILY 05/12/23 04/15/24 History Meloxicam [Mobic] 7.5 mg PO DAILY 04/15/24 04/15/24 History Meloxicam [Mobic] 7.5 mg PO DAILY PRN 04/15/24 04/15/24 History tiZANidine [Zanaflex] 4 mg PO DAILY PRN 04/15/24 04/15/24 History Allergies Allergy/AdvReac Type Severity Reaction Status Date / Time No Known Allergies Allergy Verified 04/15/24 10:45 Physical Exam Vitals: Vital Signs Temp Pulse Resp BP Pulse Ox 04/16/24 07:00 52 L 16 118/72 90 L 04/16/24 01:48 EDT 98.9 F 65 16 107/65 93 L 04/15/24 19:05 98.3 F 51 L 17 103/68 92 L 04/15/24 14:38 97.7 F 46 L 18 118/78 92 L Intake and Output 04/15/24 04/16/24 04/16/24 23:59 06:59 14:59 Intake Total Output Total Balance Intake: Intake, IV Titration Amount Sodium Chloride 0.9% 1, 000 ml @ 75 mls/hr IV . [id number] [facility] Rx#:[id number] Output: Urine Other: Voiding Method Results 04/14/24 23:01 04/14/24 23:01 Current Medications Generic Name Dose Route Start Last Admin Trade Name Freq PRN Reason Stop Dose Admin Acetaminophen 650 mg 04/15/24 01:21 Acetaminophen Tab 325 Mg Tab PO Q6HR PRN Mild Pain or Fever > 100.5 Hydrocodone Bitart/Acetaminophen 1 each 04/15/24 12:38 Hydrocodone/Apap 5-325mg 1 Each Tab PO Q6HR PRN Pain Scale 1 to 5 Hydrocodone Bitart/Acetaminophen 1 each 04/15/24 12:38 04/15/24 23:38 Hydrocodone/Apap 10-325mg 1 Each Tab PO 1 each Q6H PRN Administration Pain Scale 6 to 10 Atorvastatin Calcium 20 mg 04/15/24 21:00 04/15/24 20:38 Atorvastatin 20 Mg Tab PO 20 mg HS [facility] Administration Bisacodyl 10 mg 04/15/24 12:38 Bisacodyl 10 Mg Supp RECTAL DAILY PRN Constipation Carbidopa/Levodopa 1 each 04/15/24 07:30 04/16/24 07:38 Carbidopa-Levodopa 25-250 Mg 1 Each Tab PO Not Given TID@0730,1230,1730 [facility] Diazepam 2.5 mg 04/15/24 12:38 04/16/24 01:50 EST Diazepam 5 Mg Tab PO 2.5 mg Q8HR PRN Administration Mild Spasms Donepezil HCl 10 mg 04/16/24 09:00 Donepezil 10 Mg Tab PO DAILY [facility] Duloxetine HCl 90 mg 04/16/24 09:00 Duloxetine Hcl 30 Mg Capsule.Dr PO DAILY [facility] Guaifenesin 200 mg 04/16/24 00:11 Guaifenesin Syrup 100mg/5ml 200 Mg/10 Ml Cup PO Q6HR PRN Cough Hydromorphone HCl 0.125 mg 04/15/24 12:38 Hydromorphone 0.5 Mg/0.5 Ml Syringe IVP Q3HR PRN Pain Scale 1 to 3 Hydromorphone HCl 0.5 mg 04/15/24 12:38 04/16/24 06:45 Hydromorphone 0.5 Mg/0.5 Ml Syringe IVP 0.5 mg Q3HR PRN Administration Pain Scale 7 to 10 Hydromorphone HCl 0.25 mg 04/15/24 12:38 Hydromorphone 0.5 Mg/0.5 Ml Syringe IVP Q3HR PRN Pain Scale 4 to 6 Sodium Chloride 1,000 mls @ 75 mls/hr 04/15/24 04:45 04/16/24 06:46 Saline 0.9% IV 75 mls/hr .[id number] [place] Administration Magnesium Hydroxide 2,400 mg 04/15/24 12:38 Magnesium Hydroxide 2,400 Mg/30 Ml Cup PO DAILY PRN Constipation Morphine Sulfate 4 mg 04/15/24 01:21 04/15/24 10:29 Morphine Sulfate 4 Mg/Ml Syringe IV 4 mg Q4HR PRN Administration Severe Pain (Scale 7 to 10) Multivitamins 1 each 04/16/24 12:00 Multivitamins, Thera 1 Each Tab PO DAILY@1200 [facility] Naloxone HCl 0.2 mg 04/15/24 01:21 Naloxone 0.4 Mg/Ml 1 Ml Vial IV Q2M PRN Opioid Reversal Ondansetron HCl 4 mg 04/15/24 12:38 Ondansetron 4 Mg/2 Ml Vial IVP Q8HR PRN Nausea And Vomiting Senna/Docusate Sodium 2 each 04/15/24 21:00 04/15/24 20:38 Sennosides-Docusate Sodium 1 Each Tab PO 2 each HS [facility] Administration Sodium Biphosphate/Sodium Phosphate 133 ml 04/15/24 12:38 Na Phos,M-B/Na Phos,Di-Ba 133 Ml Enema RECTAL DAILY PRN Constipation Tramadol HCl 50 mg 04/15/24 12:38 Tramadol 50 Mg Tab PO Q6HR PRN Pain Scale 1 to 5 Intake and Output 04/15/24 04/16/24 04/16/24 23:59 06:59 14:59 Intake Total Output Total Balance Intake: Intake, IV Titration Amount Sodium Chloride 0.9% 1, 000 ml @ 75 mls/hr IV . [id number] [facility] Rx#:[id number] Output: Urine Other: Voiding Method 04/14/24 23:01 04/14/24 23:01
[2024-04-16 09:09] LABS: ALT 9 U/L (10-49); AST 21 U/L (14-35); Albumin 3.4 g/dL (3.8-4.9); Albumin/Globulin Ratio 1.42 Ratio (1.60-3.17); Alkaline Phosphatase 83 U/L (41-126); BUN/Creat Ratio 23.64 Ratio (12.00-20.00); Basophils # (A) 0.08 X 10*3/uL (0.00-0.10); Basophils % (A) 0.5 %; Calcium 8.5 mg/dL (8.7-10.3); Carbon Dioxide 21.2 mmol/L (21.6-31.8); Chloride 110 mmol/L (96-109); Eosinophils # (A) 0.29 X 10*3/uL (0.04-0.35); Eosinophils % (A) 1.9 %; Globulin 2.4 g/dL (1.6-3.3); Glucose 124 mg/dL (70-110); HCT 40.6 % (39.6-50.0); Lymphocytes # (A) 1.14 X 10*3/uL (0.90-5.00); Lymphocytes % (A) 7.5 %; MCH 32.1 pg (27.0-32.0); MCV 100.2 FL (80.0-97.0); Mean Platelet Volume 11.6 FL (9.5-12.2); Monocytes % (A) 7.2 %; NRBC Per 100 WBC 0 X 10*3/uL (0.00-0.01); Neutrophils # (A) 12.55 X 10*3/uL (1.80-7.70); Neutrophils % (A) 82.4 %; Platelet Count 141 X 10*3/uL (140-440); Potassium 4.6 mmol/L (3.5-5.5); RBC 4.05 X 10*6/uL (4.40-5.60); RDW 14.1 % (11.5-14.5); Sodium 143 mmol/L (135-145); Total Bilirubin 0.8 mg/dL (0.3-1.2); Total Protein 5.8 g/dL (6.2-8.2); WBC 15.23 X 10*3/uL (4.50-10.00)
[2024-04-16] MEDS: MULTIVITAMINS, THERA 1 EACH TAB PO SCH (11:22)
[2024-04-16] MEDS: DULoxetine HCL 30 MG CAPSULE.DR PO SCH (11:22)
[2024-04-16] MEDS: DONEPEZIL 10 MG TAB PO SCH (11:22)
--- NOTE | 2024-04-16 11:49 | P.PN ---
Subjective Progress Note Date: 04/16/24 Hospital course 79-year-old male with a history of CVA/TIA (on Eliquis) who is presenting status post mechanical fall onto his left side. Patient reports he was getting off the toilet and fell onto his left side when he felt significant pain in his left hip. Patient states he came to the ED where he received a hip x-ray showing an acute impacted displaced fracture through the femoral neck of the left hip. Patient seen by cardiology who cleared the patient with intermediate to high risk. Patient is scheduled for surgery today. Patient seen this morning. He is a poor historian. Daughter was at bedside. Daughter states that she is aware that her father is intermediate to high risk. Patient currently complaining of hip pain. 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 daily History of CVA Hold Eliquis for surgery and restart once cleared by primary team Continue with atorvastatin 20 mg p.o. at bedtime History of cardiomyopathy Echocardiogram in 2022 showed an EF around 40% Patient currently appears euvolemic Patient is not on any diuretics at home Anxiety and depression Continue with Cymbalta 90 mg p.o. daily Chronic pain Hold gabapentin and tizanidine as patient is receiving IV pain medications. Left hip femoral neck fracture Avoid opioids in elderly patients with dementia Patient scheduled for surgery today DVT prophylaxis: As per primary team Objective - Vital Signs Vital signs: Vital Signs Temp 98.9 F 04/16/24 01:48 EDT Pulse 52 L 04/16/24 07:00 Resp 16 04/16/24 07:00 BP 118/72 04/16/24 07:00 Pulse Ox 90 L 04/16/24 07:00 FiO2 Intake & Output 04/15/24 04/16/24 04/16/24 19:59 06:59 18:59 Intake Total Output Total Balance Intake: Intake, IV Titration Amount Sodium Chloride 0.9% 1, 000 ml @ 75 mls/hr IV . [id number] [facility] Rx#:[id number] Output: Urine Other: Voiding Method Indwelling Catheter - Labs CBC & Chem 7: 04/16/24 04:51 04/16/24 04:51 Labs: Abnormal Lab Results - Last 24 Hours (Table) 04/16/24 04/16/24 Range/Units 04:51 04:51 WBC 15.23 H (4.50-10.00) X 10*3/uL RBC 4.05 L (4.40-5.60) X 10*6/uL MCV 100.2 H (80.0-97.0) FL MCH 32.1 H (27.0-32.0) pg Immature Gran # 0.07 H (0.00-0.04) X 10*3/uL Neutrophils # 12.55 H (1.80-7.70) X 10*3/uL Monocytes # 1.10 H (0.20-1.00) X 10*3/uL Chloride 110 H (96-109) mmol/L Carbon Dioxide 21.2 L (21.6-31.8) mmol/L BUN/Creatinine Ratio 23.64 H (12.00-20.00) Ratio Glucose 124 H (70-110) mg/dL Calcium 8.5 L (8.7-10.3) mg/dL ALT 9 L (10-49) U/L Total Protein 5.8 L (6.2-8.2) g/dL Albumin 3.4 L (3.8-4.9) g/dL Albumin/Globulin Ratio 1.42 L (1.60-3.17) Ratio
[2024-04-16] MEDS ORDERED: KETAMINE HCL IN 0.9 % NACL 50 MG/5 ML SYRINGE ONE (13:08)
[2024-04-16] MEDS ORDERED: PHENYLEPHRINE 10 MG/ML VIAL ONE (13:08)
[2024-04-16] MEDS: LACTATED RINGERS 1,000 ML IV ONE (13:11)
[2024-04-16] MEDS: SODIUM CHLORIDE 0.9% 1,000 ML IV ONE (13:11)
[2024-04-16] MEDS: SODIUM CHLORIDE 0.9% 100 ML with ceFAZolin 2,000 MG IV ONE (13:40)
--- NOTE | 2024-04-16 14:47 | FL ---
Fluoroscopy INDICATION: Left hip IT nail FINDINGS: Fluoroscopy time: 55.6 seconds. Total dose area product (DAP) in uGy*m?, mGy*cm? (or similar): 1.8375 Images obtained: 5. Sequential images demonstrate left hip placement. IMPRESSION: 1. Documentation of fluoroscopy. [facility], Workstation: [facility], 04/16/2024 2:45 PM
--- NOTE | 2024-04-16 15:20 | XR ---
EXAMINATION TYPE: XR Hip Limited LT DATE OF EXAM: 04/16/2024 COMPARISON: None HISTORY: Postop alignment TECHNIQUE: AP left hip FINDINGS: There is a hip pin with medullary rosario fixating a intertrochanteric fracture. Postsurgical s oft tissue changes are evident. IMPRESSION: 1. No new fracture post left hip intertrochanteric fracture repair [facility], Workstation: [facility], 04/16/2024 3:18 PM
[2024-04-16] MEDS: FUROSEMIDE 10 MG/ML 4 ML VIAL IV STA (16:09)
[2024-04-16] MEDS: IPRATROPIUM-ALBUTEROL 3 ML NEB INHALATION STA (16:11)
--- NOTE | 2024-04-16 16:28 | XR ---
EXAMINATION TYPE: XR chest 1V portable DATE OF EXAM: 04/16/2024 COMPARISON: 04/14/2024 INDICATION: Short of breath Higher O2 requirements TECHNIQUE: Single frontal view of the chest is obtained. FINDINGS: The heart size is normal. The pulmonary vasculature is normal. Mild diffuse increased lung markings are present. This is nonspecific and can be related to pulmonary fibrosis. Findings appear similar to comparison IMPRESSION: 1. No acute pulmonary process. 2. Chronic appearing pulmonary fibrosis type changes upper lung dutta. Some emphysematous change may be present. [facility], Workstation: [facility], 04/16/2024 4:26 PM
[2024-04-16] MEDS: FUROSEMIDE 10 MG/ML 2 ML VIAL IV STA (17:07)
[2024-04-16] MEDS: ASPIRIN 81 MG PO SCH (20:56)
[2024-04-17 08:06] LABS: Basophils % (A) 0 %; Eosinophils # (A) 0.1 k/uL (0-0.7); Eosinophils % (A) 0 %; HCT 41.2 % (39.0-53.0); HGB 13.1 gm/dL (13.0-17.5); Hypochromasia Slight; Lymphocytes # (A) 0.8 k/uL (1.0-4.8); Lymphocytes % (A) 5 %; MCH 32.5 pg (25.0-35.0); MCHC 31.7 g/dL (31.0-37.0); MCV 102.3 fL (80.0-100.0); Macrocytosis Slight; Mean Platelet Volume 9.4; Monocytes # (A) 0.8 k/uL (0-1.0); Monocytes % (A) 5 %; Neutrophils # (A) 16.2 k/uL (1.3-7.7); Neutrophils % (A) 90 %; Platelet Count 116 k/uL (150-450); RBC 4.03 m/uL (4.30-5.90)
[2024-04-17 09:38] LABS: African American GFR (CKD) 72 (>60 ml/min/1.73 sqM); Anion Gap 7 mmol/L; Blood Urea Nitrogen 33 mg/dL (9-20); Calcium 8.4 mg/dL (8.4-10.2); Carbon Dioxide 25 mmol/L (22-30); Chloride 110 mmol/L (98-107); Glucose 143 mg/dL (74-99); Non-African American GFR(CKD) 62 (>60 ml/min/1.73 sqM); Potassium 4.2 mmol/L (3.5-5.1); Sodium 142 mmol/L (137-145)
--- NOTE | 2024-04-17 09:46 | P.PN ---
Subjective Progress Note Date: 04/17/24 Principal diagnosis: Status post left hip IT nail This is an 79 year-old male post left hip IT nail. This is post-op day 1. The patient was evaluated at the bedside today. The patient denies nausea, vomiting, abdominal pain, chest pain, or shortness of breath this morning. He states his pain is moderately controlled at this time. The patient has not been up with physical therapy yet this morning. He is currently on high flow O2, previously in bipap overnight. Objective - Vital Signs Vital signs: Vital Signs Temp 98.0 F 04/17/24 09:00 Pulse 99 04/17/24 09:00 Resp 18 04/17/24 09:00 BP 118/81 04/17/24 09:00 Pulse Ox 98 04/17/24 09:09 FiO2 45 04/17/24 03:39 Intake & Output 04/16/24 04/17/24 04/17/24 18:59 06:59 18:59 Intake Total 500 30 60 Output Total 450 600 Balance 50 -570 60 Intake: IV 500 30 Invasive Line 2 20 Invasive Line 3 10 Oral 0 60 Output: Urine 250 600 Estimated Blood Loss 200 Other: Voiding Method Indwelling Catheter Indwelling Catheter - Exam The patient does not appear in acute distress. Alert and orientated x1. Dressings are clean dry and intact. Incision appears fine with no erythema or active drainage. Calf is soft and nontender. Good foot and ankle motion without difficulty. Sensation and circulatory status is intact. - Labs CBC & Chem 7: 04/17/24 07:45 04/17/24 09:00 Labs: Abnormal Lab Results - Last 24 Hours (Table) 04/17/24 04/17/24 Range/Units 07:45 09:00 WBC 18.0 H (3.8-10.6) k/uL RBC 4.03 L (4.30-5.90) m/uL MCV 102.3 H (80.0-100.0) fL Plt Count 116 L (150-450) k/uL Neutrophils # 16.2 H (1.3-7.7) k/uL Lymphocytes # 0.8 L (1.0-4.8) k/uL Chloride 110 H (98-107) mmol/L BUN 33 H (9-20) mg/dL Glucose 143 H (74-99) mg/dL Assessment and Plan (1) Status post hip surgery Current Visit: Yes Status: Acute Code(s): Z98.890 - OTHER SPECIFIED POSTPROCEDURAL STATES SNOMED Code(s): 081833857 (2) Hip fracture, left Current Visit: Yes Status: Acute Priority: Medium Code(s): S72.002A - FRACTURE OF UNSP PART OF NECK OF LEFT FEMUR, INIT SNOMED Code(s): 677414725 Plan: 1. Continue pain control 2. Anticoagulation with Eliquis, restart today. 3. Start physical therapy and ambulation when medically stable. Weightbearing as tolerated. 4. Anticipate discharge to skilled rehab most likely.
--- NOTE | 2024-04-17 12:12 | P.OP ---
Date of Procedure: 04/16/24 Preoperative Diagnosis: Left basicervical femoral neck fracture Postoperative Diagnosis: same Procedure(s) Performed: Left hip IM nail Implants: Cher Short Gamma nail with 100mm lag screw, static locked [id number] Anesthesia: spinal Surgeon: Mimi Dawkins Recycling Operations Manager #1: Jalen Rizvi Estimated Blood Loss (ml): 200 Pathology: none sent Condition: stable Disposition: PACU Indications for Procedure: The patient had a ground level fall sustaining a left hip fracture. It is a basicervical femoral neck fracture that is displaced. We discussed treatment options and have decided to proceed with IMN. Description of Procedure: The patient, operative extremity, and procedure were identified in the pre-op holding area. After informed consent was obtained. The patient was brought back to the OR. The patient was then positioned on the [place] table. Both feet were placed in well padded boots and the well leg was scissored with traction unlocked. All bony prominences were well padded. A reduction was performed with abduction and traction followed by adduction and internal rotation. This was confirmed on fluoroscopy. The operative site was then prepped and draped in normal sterile fashion. A 5cm incision was made posterior and proximal to the greater trochanter. The awl was introduced and used to hold the start point for the guide wire. The guide wire was then inserted. The position of the guide wire was confirmed on orthogonal views. The awl was substituted for the opening reamer. The ball tip guide wire was then introduced across the fracture and once placement was confirmed, the 12.5mm reamer was threaded over the wire and removed. The short nail was then placed over the wire and seated to the proper depth. The guide wire was removed. The triple cannula was then utilized to place the femoral neck guide pin. An incision was made to seat the triple cannula. Wire placement was checked on orthogonal views. The measuring guide showed that a 100mm screw would be appropriate for a tip to apex distance of less than 25mm. A anti-rotational guide wire was placed. The reamer was set and utilized. The lag screw was then inserted. The superior locking screw was then tightened and loosened a quarter turn. The triple sleeve was removed and the jig was reset for the locking screw distally. The triple sleeve was inserted through an incision through skin and IT band. The hole was drilled and a 37.5mm screw was selected and inserted. Final views showed acceptable reduction and placement of the hardware. Wounds were irrigated and closed with 2.0 vycril and 4.0 monocryl and skin glue. Wounds were dressed with dry dressings. Patient was aroused by the anesthesia team and brought back to PACU in stable condition.
--- NOTE | 2024-04-17 12:37 | P.PN ---
Subjective Progress Note Date: 04/17/24 66 year old M with PMH of CVA/TIA, Parkinsons, Dementia presents to the ED after a mechanical fall. He underwent extensive workup in the ED. BP 164/80, HR 80, T 97.2F, RR 18, 97% on 3L NC. CBC, Coag panel, CMP significant for WBC 12.9, MCV 102.2, Cl 110, BUN 32, glu 127, alb 3.3. Trop 0.034. Mag 2. Hip XR acute displaced fracture through the femoral neck of the left hip. CXR chronic changes and mild cardiomegaly. CT brain and C-spine negative for acute pathology. EKG sinus tachycardia with PVCs and RBBB. Hip CT confirmed femoral neck facture. Cardiology consulted, intermediate to high risk perioperative cardiovascular complication. Patient underwent surgery on 04/16. 04/17: Patient was seen and examined. RN reports coughing with thickened liquids. CBC WBC 18, RBC 4.03, MCV 102.3, Plt 116. BMP Cl 110, BUN 33, glu 143. POD 1 Left hip IM nail. General: non toxic, no distress, appears at stated age Derm: warm, dry Head: atraumatic, normocephalic, symmetric Eyes: EOMI, no lid lag, anicteric sclera Mouth: no lip lesion, mucus membranes moist Cardiovascular: S1S2 reg, no murmur Lungs: Clear to auscultation bilaterally, no rhonchi, no rales , no accessory muscle use Neuro: no focal neuro deficits Psych: Alert, oriented, appropriate affect Based on my assessment of this patient, this patient meets a high complexity level of care. Leukocytosis: Likely reactive. No obvious signs of infection. Monitor fever profile. Dysphagia: Speech consult for formal swallow eval. Macrocytosis: Check B12 and Folate. Parkinson's disease: Continue with Sinemet 1 tab 3 times daily Parkinson's dementia: Continue with Aricept 10 mg p.o. daily History of CVA: Continue with atorvastatin 20 mg p.o. at bedtime. Unsure when patient is on Eliquis to be restarted by primary team once cleared. History of cardiomyopathy: Echocardiogram in 2022 showed an EF around 40%. Patient currently appears euvolemic. Patient is not on any diuretics at home Anxiety and depression: Continue with Cymbalta 90 mg p.o. daily Chronic pain: Hold gabapentin and tizanidine as patient is receiving IV pain medications. Left hip femoral neck fracture: Fall precautions. Management per Ortho. CODE STATUS: FULL CODE. DVT Prophylaxis: ASA 81 mg PO BID. GI Prophylaxis: Designated medical POA if patient is not able to make medical decisions for themselves: I have reviewed the following bi consultant notes: Operative note. I have reviewed the results of the following tests: CBC, BMP. I have ordered the following tests: I have discussed the care of this patient with the following independent historian: RN. Case management. Family. I have independently interpreted the following test below: I have discussed the management of this patient with the following physician: Objective - Vital Signs Vital signs: Vital Signs Temp 98.5 F 04/17/24 03:20 Pulse 78 04/17/24 03:20 Resp 36 H 04/17/24 03:20 BP 128/81 04/17/24 03:20 Pulse Ox 96 04/17/24 03:20 FiO2 45 04/17/24 03:39 Intake & Output 04/16/24 04/17/24 04/17/24 18:59 06:59 18:59 Intake Total 500 30 60 Output Total 450 600 Balance 50 -570 60 Intake: IV 500 30 Invasive Line 2 20 Invasive Line 3 10 Oral 0 60 Output: Urine 250 600 Estimated Blood Loss 200 Other: Voiding Method Indwelling Catheter Indwelling Catheter - Labs CBC & Chem 7: 04/17/24 07:45 04/17/24 09:00 Labs: Abnormal Lab Results - Last 24 Hours (Table) 04/16/24 04/16/24 04/17/24 Range/Units 04:51 04:51 07:45 WBC 15.23 H 18.0 H (4.50-10.00) X 10*3/uL RBC 4.05 L 4.03 L (4.40-5.60) X 10*6/uL MCV 100.2 H 102.3 H (80.0-97.0) FL MCH 32.1 H (27.0-32.0) pg Plt Count 116 L (150-450) k/uL Immature Gran # 0.07 H (0.00-0.04) X 10*3/uL Neutrophils # 12.55 H 16.2 H (1.80-7.70) X 10*3/uL Lymphocytes # 0.8 L (1.0-4.8) k/uL Monocytes # 1.10 H (0.20-1.00) X 10*3/uL Chloride 110 H (96-109) mmol/L Carbon Dioxide 21.2 L (21.6-31.8) mmol/L BUN/Creatinine Ratio 23.64 H (12.00-20.00) Ratio Glucose 124 H (70-110) mg/dL Calcium 8.5 L (8.7-10.3) mg/dL ALT 9 L (10-49) U/L Total Protein 5.8 L (6.2-8.2) g/dL Albumin 3.4 L (3.8-4.9) g/dL Albumin/Globulin Ratio 1.42 L (1.60-3.17) Ratio
[2024-04-17] MEDS: HYDROcodone/APAP 5-325MG 1 EACH TAB PO PRN (13:41)
--- NOTE | 2024-04-17 14:44 | P.PN ---
Subjective Progress Note Date: 04/17/24 History of present illness: This is an 79-year-old gentleman who is known to our service from before with a past medical history significant for cardiomyopathy with an echo was performed in 2022 showing an EF between 40 to 45% as well as history of stroke who with subsequent impairment functional capacity and the patient walks using a walker at home and currently he is on oral anticoagulation because of stroke. Beside that he does have dyslipidemia. The patient is a somewhat poor historian and history was taken from the daughter. Apparently we requested to see the patient for an urgent consult for preop cardiac assessment before noncardiac surgery including left hip surgery/fracture. The patient was walking earlier today and he fell and fractured his left hip. We consulted to see the patient for preop cardiac assessment. The patient does have extremely poor functional capacity but up to the level of activity is doing he reports no cardiovascular symptoms of any pain in the chest or shortness of breath or any dizziness or lightheadedness or any feeling of heart racing or fluttering or presyncope or syncope. During this episode when he fractured his hip he did not have any change in mental status. He underwent further evaluation including an EKG and that showed sinus mechanism with frequent PVCs and also short runs of nonsustained ventricular tachycardia. History of CAD or any hospital admission recently with heart failure and no documentation of any cardiac arrhythmia at this point including any atrial fibrillation or atrial flutter. He has been maintaining normal sinus mechanism during his hospital stay. Examination is remarkable for very distant heart sounds with clear breathing sounds bilaterally and no edema was noted in the lower extremities 04/17 Patient is seen and examined. Yesterday he underwent left hip IM nail. Orthopedics has ordered for Eliquis to be resumed this evening. Blood pressure 128/81, heart rate 78, pulse ox 96% on 10 L high flow nasal cannula. Yesterday afternoon and through the evening, oxygen need was increased and patient was placed on BiPAP and transition to high flow nasal cannula this morning. 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 Patient will follow-up with Dr. Smith. Cardiology will sign off this case and follow on an as-needed basis. Please r econsult for any new concerns. Patient may follow-up in the office in one to 2 weeks. Nurse practitioner note has been reviewed, I agree with documented findings and plan of care. Patient was seen and examined. Objective - Vital Signs Vital signs: Vital Signs Temp 98.5 F 04/17/24 03:20 Pulse 78 04/17/24 03:20 Resp 36 H 04/17/24 03:20 BP 128/81 04/17/24 03:20 Pulse Ox 96 04/17/24 03:20 FiO2 45 04/17/24 03:39 Intake & Output 04/16/24 04/17/24 04/17/24 18:59 06:59 18:59 Intake Total 500 30 60 Output Total 450 600 Balance 50 -570 60 Intake: IV 500 30 Invasive Line 2 20 Invasive Line 3 10 Oral 0 60 Output: Urine 250 600 Estimated Blood Loss 200 Other: Voiding Method Indwelling Catheter Indwelling Catheter - Labs CBC & Chem 7: 04/17/24 07:45 04/17/24 09:00 Labs: Abnormal Lab Results - Last 24 Hours (Table) 04/16/24 04/16/24 04/17/24 Range/Units 04:51 04:51 07:45 WBC 15.23 H 18.0 H (4.50-10.00) X 10*3/uL RBC 4.05 L 4.03 L (4.40-5.60) X 10*6/uL MCV 100.2 H 102.3 H (80.0-97.0) FL MCH 32.1 H (27.0-32.0) pg Plt Count 116 L (150-450) k/uL Immature Gran # 0.07 H (0.00-0.04) X 10*3/uL Neutrophils # 12.55 H 16.2 H (1.80-7.70) X 10*3/uL Lymphocytes # 0.8 L (1.0-4.8) k/uL Monocytes # 1.10 H (0.20-1.00) X 10*3/uL Chloride 110 H (96-109) mmol/L Carbon Dioxide 21.2 L (21.6-31.8) mmol/L BUN/Creatinine Ratio 23.64 H (12.00-20.00) Ratio Glucose 124 H (70-110) mg/dL Calcium 8.5 L (8.7-10.3) mg/dL ALT 9 L (10-49) U/L Total Protein 5.8 L (6.2-8.2) g/dL Albumin 3.4 L (3.8-4.9) g/dL Albumin/Globulin Ratio 1.42 L (1.60-3.17) Ratio
[2024-04-17] MEDS: APIXABAN 5 MG TAB PO SCH (20:22)
[2024-04-18 03:55] LABS: Glucose,Whole Blood 126 mg/dL (70-110)
[2024-04-18 07:35] LABS: Basophils % (A) 0 %; Eosinophils # (A) 0.4 k/uL (0-0.7); Eosinophils % (A) 2 %; HGB 12.7 gm/dL (13.0-17.5); Hypochromasia Moderate; Lymphocytes # (A) 1.1 k/uL (1.0-4.8); Lymphocytes % (A) 7 %; MCH 32.8 pg (25.0-35.0); MCHC 31.6 g/dL (31.0-37.0); MCV 103.9 fL (80.0-100.0); Macrocytosis Slight; Mean Platelet Volume 9.9; Monocytes # (A) 0.8 k/uL (0-1.0); Monocytes % (A) 5 %; Neutrophils % (A) 84 %; Platelet Count 117 k/uL (150-450); RBC 3.85 m/uL (4.30-5.90); RDW 14.1 % (11.5-15.5); WBC 15.4 k/uL (3.8-10.6)
[2024-04-18 10:14] LABS: African American GFR (CKD) >90 (>60 ml/min/1.73 sqM); Anion Gap 3 mmol/L; Blood Urea Nitrogen 30 mg/dL (9-20); Carbon Dioxide 24 mmol/L (22-30); Chloride 113 mmol/L (98-107); Glucose 117 mg/dL (74-99); Non-African American GFR(CKD) 82 (>60 ml/min/1.73 sqM); Potassium 4.1 mmol/L (3.5-5.1); Sodium 140 mmol/L (137-145)
--- NOTE | 2024-04-18 10:22 | XR ---
EXAMINATION TYPE: XR chest 1V portable DATE OF EXAM: 04/18/2024 9:24 AM COMPARISON: 04/16/2024 CLINICAL INDICATION: Male, 79 years old with history of hypoxia, TECHNIQUE: XR chest 1V portable view(s) obtained. FINDINGS: The heart size is normal. The pulmonary vasculature is prominent. Increased lung markings are right upper lung field. Correlate for pulmonary fibrosis. IMPRESSION: 1. Correlate for mild volume overload. 2. Right upper lobe infiltrate may be present. Correlate for [place] fibrosis. [facility], , 04/18/2024 10:19 AM
--- NOTE | 2024-04-18 10:24 | P.PN ---
Subjective Progress Note Date: 04/18/24 Principal diagnosis: Status post left hip IT nail This is an 79 year-old male post left hip IT nail. This is post-op day 2. The patient was evaluated at the bedside today with his daughter present. The patient denies nausea, vomiting, abdominal pain, chest pain, or shortness of breath this morning. The daughter states his pain is better controlled today. The patient has not been up with physical therapy yet this morning. He is currently on high flow O2, previously on bipap again overnight. Objective - Vital Signs Vital signs: Vital Signs Temp 98.4 F 04/18/24 07:25 Pulse 91 04/18/24 07:25 Resp 18 04/18/24 07:25 BP 134/76 04/18/24 07:25 Pulse Ox 94 L 04/18/24 07:25 FiO2 45 04/17/24 23:51 Intake & Output 04/17/24 04/18/24 04/18/24 18:59 06:59 18:59 Intake Total 160 20 Output Total 400 Balance 160 -380 Weight 93.2 kg Intake: IV 20 Invasive Line 3 20 Oral 160 Output: Urine 400 Other: Voiding Method Indwelling Catheter Indwelling Catheter Indwelling Catheter - Exam The patient does not appear in acute distress. Alert and orientated x1. Dressings are clean dry and intact. Incision appears fine with no erythema or active drainage. Calf is soft and nontender. Good foot and ankle motion without difficulty. Sensation and circulatory status is intact. - Labs CBC & Chem 7: 04/18/24 05:50 04/18/24 09:30 Labs: Abnormal Lab Results - Last 24 Hours (Table) 04/18/24 04/18/24 04/18/24 Range/Units 03:54 05:50 09:30 WBC 15.4 H (3.8-10.6) k/uL RBC 3.85 L (4.30-5.90) m/uL Hgb 12.7 L (13.0-17.5) gm/dL MCV 103.9 H (80.0-100.0) fL Plt Count 117 L (150-450) k/uL Neutrophils # 13.0 H (1.3-7.7) k/uL Chloride 113 H (98-107) mmol/L BUN 30 H (9-20) mg/dL Glucose 117 H (74-99) mg/dL POC Glucose (mg/dL) 126 H (70-110) mg/dL Calcium 8.0 L (8.4-10.2) mg/dL Assessment and Plan (1) Status post hip surgery Current Visit: Yes Status: Acute Code(s): Z98.890 - OTHER SPECIFIED POSTPROCEDURAL STATES SNOMED Code(s): 284567747 (2) Hip fracture, left Current Visit: Yes Status: Acute Priority: Medium Code(s): S72.002A - FRACTURE OF UNSP PART OF NECK OF LEFT FEMUR, INIT SNOMED Code(s): 037222407 Plan: 1. Continue pain control 2. Anticoagulation with Eliquis. 3. Start physical therapy and ambulation today hopefull. Weightbearing as tolerated. 4. Anticipate discharge to skilled rehab when medically stable. He is orthopedically stable for discharge.
--- NOTE | 2024-04-18 16:57 | P.PN ---
Subjective Progress Note Date: 04/18/24 66 year old M with PMH of CVA/TIA, Parkinsons, Dementia presents to the ED after a mechanical fall. He underwent extensive workup in the ED. BP 164/80, HR 80, T 97.2F, RR 18, 97% on 3L NC. CBC, Coag panel, CMP significant for WBC 12.9, MCV 102.2, Cl 110, BUN 32, glu 127, alb 3.3. Trop 0.034. Mag 2. Hip XR acute displaced fracture through the femoral neck of the left hip. CXR chronic changes and mild cardiomegaly. CT brain and C-spine negative for acute pathology. EKG sinus tachycardia with PVCs and RBBB. Hip CT confirmed femoral neck facture. Cardiology consulted, intermediate to high risk perioperative cardiovascular complication. Patient underwent surgery on 04/16. 04/17 Patient was seen and examined. RN reports coughing with thickened liquids. CBC WBC 18, RBC 4.03, MCV 102.3, Plt 116. BMP Cl 110, BUN 33, glu 143. POD 1 Left hip IM nail. 04/18 Patient was seen and examined. Currently on 6L NC, he was 87% overnight. Given reports of coughing with thickened liquids, CXR is ordered. ST evaluated, recommends NDD2, upright positioning, no straws. CBC WBC 15.4, RBC 3.85, Hg 12.7, MCV 103.9, Plt 117. BMP Cl 113, BUN 30, glu 117, Ca 8. General: non toxic, no distress, appears at stated age Derm: warm, dry Head: atraumatic, normocephalic, symmetric Eyes: EOMI, no lid lag, anicteric sclera Mouth: no lip lesion, mucus membranes moist Cardiovascular: S1S2 reg, no murmur Lungs: Clear to auscultation bilaterally, no rhonchi, no rales , no accessory muscle use Neuro: no focal neuro deficits Psych: Alert, oriented, appropriate affect Based on my assessment of this patient, this patient meets a high complexity level of care. SIRS with hypoxia: Possibly reactive. Leukocytosis, tachycardia, hypoxia. CXR ordered this morning shows signs of fluid overload and possible R sided infiltrate. Start Zosyn 3.75g IV TID. One dose of Lasix 40 mg IV x 1 today. Obtain Pro-elba. Dysphagia: Due to Parkinsons. ST evaluated, recommends NDD2, upright positioning, no straws. Macrocytosis: Check B12 and Folate. Parkinson's disease: Continue with Sinemet 1 tab PO TID. Parkinson's dementia: Continue with Aricept 10 mg PO QD. History of CVA: Continue with atorvastatin 20 mg PO QHS. Unsure when patient is on Eliquis to be restarted by primary team once cleared. History of cardiomyopathy: Echocardiogram in 2022 showed an EF around 40%. Patient currently appears euvolemic. Patient is not on any diuretics at home Anxiety and depression: Continue with Cymbalta 90 mg PO QD. Chronic pain: Hold gabapentin and tizanidine as patient is receiving IV pain medications. Left hip femoral neck fracture: Fall precautions. Management per Ortho. CODE STATUS: FULL CODE. DVT Prophylaxis: ASA 81 mg PO BID. GI Prophylaxis: Designated medical POA if patient is not able to make medical decisions for themselves: I have reviewed the following product development consultant notes: Cardiology note, outpatient 7 day Holter monitor. I have reviewed the results of the following tests: CBC. I have ordered the following tests: BMP, B12, Folate, Procal. I have discussed the care of this patient with the following independent historian: I have independently interpreted the following test below: CXR I have discussed the management of this patient with the following physician: Objective - Vital Signs Vital signs: Vital Signs Temp 98.4 F 04/18/24 07:25 Pulse 91 04/18/24 07:25 Resp 18 04/18/24 07:25 BP 134/76 04/18/24 07:25 Pulse Ox 94 L 04/18/24 07:25 FiO2 45 04/17/24 23:51 Intake & Output 04/17/24 04/18/24 04/18/24 18:59 06:59 18:59 Intake Total 160 20 Output Total 400 Balance 160 -380 Weight 93.2 kg Intake: IV 20 Invasive Line 3 20 Oral 160 Output: Urine 400 Other: Voiding Method Indwelling Catheter Indwelling Catheter - Labs CBC & Chem 7: 04/18/24 05:50 04/18/24 09:30 Labs: Abnormal Lab Results - Last 24 Hours (Table) 04/17/24 04/18/24 04/18/24 Range/Units 09:00 03:54 05:50 WBC 15.4 H (3.8-10.6) k/uL RBC 3.85 L (4.30-5.90) m/uL Hgb 12.7 L (13.0-17.5) gm/dL MCV 103.9 H (80.0-100.0) fL Plt Count 117 L (150-450) k/uL Neutrophils # 13.0 H (1.3-7.7) k/uL Chloride 110 H (98-107) mmol/L BUN 33 H (9-20) mg/dL Glucose 143 H (74-99) mg/dL POC Glucose (mg/dL) 126 H (70-110) mg/dL
[2024-04-18] MEDS: PIPERACILLIN-TAZOBACTAM 3.375 GM in SODIUM CHLORIDE 0.9% 100 ML IVPB SCH (17:31)
[2024-04-18] MEDS: FUROSEMIDE 10 MG/ML 4 ML VIAL IV STA (17:31)
[2024-04-19 07:58] LABS: Basophils % (A) 0 %; Eosinophils # (A) 0.4 k/uL (0-0.7); Eosinophils % (A) 3 %; HCT 38.8 % (39.0-53.0); HGB 12.1 gm/dL (13.0-17.5); Hypochromasia Slight; Lymphocytes % (A) 9 %; MCH 31.9 pg (25.0-35.0); MCHC 31.3 g/dL (31.0-37.0); Macrocytosis Slight; Mean Platelet Volume 9.2; Monocytes # (A) 0.7 k/uL (0-1.0); Monocytes % (A) 6 %; Neutrophils # (A) 9.1 k/uL (1.3-7.7); Neutrophils % (A) 80 %; Platelet Count 145 k/uL (150-450); RDW 14.1 % (11.5-15.5); WBC 11.3 k/uL (3.8-10.6)
[2024-04-19 08:11] LABS: African American GFR (CKD) 80 (>60 ml/min/1.73 sqM); Anion Gap 4 mmol/L; Blood Urea Nitrogen 29 mg/dL (9-20); Calcium 8.2 mg/dL (8.4-10.2); Carbon Dioxide 30 mmol/L (22-30); Chloride 107 mmol/L (98-107); Glucose 113 mg/dL (74-99); Non-African American GFR(CKD) 69 (>60 ml/min/1.73 sqM); Potassium 3.9 mmol/L (3.5-5.1); Sodium 141 mmol/L (137-145)
--- NOTE | 2024-04-19 10:19 | P.PN ---
Subjective Progress Note Date: 04/19/24 Principal diagnosis: Status post left hip IT nail This is an 79 year-old male post left hip IT nail. This is post-op day 3. The patient was evaluated at the bedside today with a sitter present. The patient is currently sleeping and on bipap at this time. Objective - Vital Signs Vital signs: Vital Signs Temp 98.1 F 04/19/24 09:02 Pulse 70 04/19/24 07:40 Resp 14 04/19/24 07:40 BP 125/67 04/19/24 07:40 Pulse Ox 99 04/19/24 07:40 FiO2 45 04/19/24 04:31 Intake & Output 04/18/24 04/19/24 04/19/24 18:59 06:59 18:59 Intake Total 180 Output Total 550 1925 Balance -370 -1925 Weight 70 kg Intake: Oral 180 Output: Urine 550 1925 Other: Voiding Method Indwelling Catheter Indwelling Catheter - Exam The patient does not appear in acute distress. He is sleeping. Dressings are clean dry and intact. - Labs CBC & Chem 7: 04/19/24 06:59 04/19/24 06:59 Labs: Abnormal Lab Results - Last 24 Hours (Table) 04/19/24 04/19/24 Range/Units 06:59 06:59 WBC 11.3 H (3.8-10.6) k/uL RBC 3.80 L (4.30-5.90) m/uL Hgb 12.1 L (13.0-17.5) gm/dL Hct 38.8 L (39.0-53.0) % MCV 102.0 H (80.0-100.0) fL Plt Count 145 L (150-450) k/uL Neutrophils # 9.1 H (1.3-7.7) k/uL BUN 29 H (9-20) mg/dL Glucose 113 H (74-99) mg/dL Calcium 8.2 L (8.4-10.2) mg/dL Assessment and Plan (1) Status post hip surgery Current Visit: Yes Status: Acute Code(s): Z98.890 - OTHER SPECIFIED POSTPROCEDURAL STATES SNOMED Code(s): 030704597 (2) Hip fracture, left Current Visit: Yes Status: Acute Priority: Medium Code(s): S72.002A - FRACTURE OF UNSP PART OF NECK OF LEFT FEMUR, INIT SNOMED Code(s): 809990305 Plan: 1. Continue pain control 2. Anticoagulation with Eliquis. 3. Continue physical therapy and ambulation today hopefull. Weightbearing as tolerated. 4. Anticipate discharge to skilled rehab when medically stable. He is orthopedically stable for discharge. We will continue to follow peripherally.
--- NOTE | 2024-04-19 13:31 | P.PN ---
Subjective Progress Note Date: 04/19/24 66 year old M with PMH of CVA/TIA, Parkinsons, Dementia presents to the ED after a mechanical fall. He underwent extensive workup in the ED. BP 164/80, HR 80, T 97.2F, RR 18, 97% on 3L NC. CBC, Coag panel, CMP significant for WBC 12.9, MCV 102.2, Cl 110, BUN 32, glu 127, alb 3.3. Trop 0.034. Mag 2. Hip XR acute displaced fracture through the femoral neck of the left hip. CXR chronic changes and mild cardiomegaly. CT brain and C-spine negative for acute pathology. EKG sinus tachycardia with PVCs and RBBB. Hip CT confirmed femoral neck facture. Cardiology consulted, intermediate to high risk perioperative cardiovascular complication. Patient underwent surgery on 04/16. 04/17 Patient was seen and examined. RN reports coughing with thickened liquids. CBC WBC 18, RBC 4.03, MCV 102.3, Plt 116. BMP Cl 110, BUN 33, glu 143. POD 1 Left hip IM nail. 04/18 Patient was seen and examined. Currently on 6L NC, he was 87% overnight. Given reports of coughing with thickened liquids, CXR is ordered. ST evaluated, recommends NDD2, upright positioning, no straws. CBC WBC 15.4, RBC 3.85, Hg 12.7, MCV 103.9, Plt 117. BMP Cl 113, BUN 30, glu 117, Ca 8. 04/19 Patient was seen and examined. Currently on 6L NC saturating high 90s. Yesterday, CXR was done which showed a possible right sided infiltrate and he was started on Zosyn. He was also given a dose of Lasix 40 mg IV x 1. His procal is 0.28, aspiration is less likely. He does have an EF of 40-45%. Today, I started him on Lasix 40 mg IV QD and ordered BNP + Echo. CBC and BMP significant for WBC 11.3, RBC 3.8, Hg 12.1, Hc 38.8, MCV 102, BUN 29, glu 113, Ca 8.2. General: non toxic, no distress, appears at stated age Derm: warm, dry Head: atraumatic, normocephalic, symmetric Eyes: EOMI, no lid lag, anicteric sclera Mouth: no lip lesion, mucus membranes moist Cardiovascular: S1S2 reg, no murmur Lungs: Decreased BS bilaterally, no rhonchi, no rales , no accessory muscle use Neuro: no focal neuro deficits Psych: Alert, oriented, appropriate affect No lower extremity edema Based on my assessment of this patient, this patient meets a high complexity level of care. SIRS with hypoxia: Possibly reactive. Leukocytosis, tachycardia, hypoxia. CXR ordered this morning shows signs of fluid overload and possible R sided infiltrate. Procal negative, discontinue Zosyn. Started on Lasix 40 mg IV QD and BNP + Echo ordered. Systolic CHF exacerbation: Management as above. Daily monitoring of renal function and electrolytes while on Lasix. Dysphagia: Due to Parkinsons. ST evaluated, recommends NDD2, upright positioning, no straws. Macrocytosis: B12 546, Folate 7.9. Parkinson's disease: Continue with Sinemet 1 tab PO TID. Parkinson's dementia: Continue with Aricept 10 mg PO QD. History of CVA: Continue with atorvastatin 20 mg PO QHS. Unsure when patient is on Eliquis to be restarted by primary team once cleared. Anxiety and depression: Continue with Cymbalta 90 mg PO QD. Chronic pain: Hold gabapentin and tizanidine as patient is receiving IV pain medications. Left hip femoral neck fracture: Fall precautions. Management per Ortho. CODE STATUS: FULL CODE. DVT Prophylaxis: Eliquis. GI Prophylaxis: Designated medical POA if patient is not able to make medical decisions for themselves: I have reviewed the following program evaluation consultant notes: Ortho note. I have reviewed the results of the following tests: CBC, BMP, Procal, B12, Folate. I have ordered the following tests: BMP in the AM. BNP. Echo. I have discussed the care of this patient with the following independent historian: Family at bedside, RN to attempt to wean O2. I have independently interpreted the following test below: I have discussed the management of this patient with the following physician: Objective - Vital Signs Vital signs: Vital Signs Temp 98.2 F 04/19/24 10:40 Pulse 67 04/19/24 10:40 Resp 16 04/19/24 10:40 BP 127/82 04/19/24 10:40 Pulse Ox 99 04/19/24 10:40 FiO2 45 04/19/24 04:31 Intake & Output 1104/19/24 04/19/24 18:59 06:59 18:59 Intake Total 180 Output Total 550 1925 200 Balance -370 -1925 -200 Weight 70 kg Intake: Oral 180 Output: Urine 550 1925 200 [place] ([place]) 200 Other: Voiding Method Indwelling Catheter Indwelling Catheter Indwelling Catheter - Labs CBC & Chem 7: 04/19/24 06:59 04/19/24 06:59 Labs: Abnormal Lab Results - Last 24 Hours (Table) 04/19/24 04/19/24 Range/Units 06:59 06:59 WBC 11.3 H (3.8-10.6) k/uL RBC 3.80 L (4.30-5.90) m/uL Hgb 12.1 L (13.0-17.5) gm/dL Hct 38.8 L (39.0-53.0) % MCV 102.0 H (80.0-100.0) fL Plt Count 145 L (150-450) k/uL Neutrophils # 9.1 H (1.3-7.7) k/uL BUN 29 H (9-20) mg/dL Glucose 113 H (74-99) mg/dL Calcium 8.2 L (8.4-10.2) mg/dL
[2024-04-19] MEDS: FUROSEMIDE 10 MG/ML 4 ML VIAL IV SCH (15:09)
--- NOTE | 2024-04-20 16:12 | P.PN ---
Subjective Progress Note Date: 04/20/24 66 year old M with PMH of CVA/TIA, Parkinsons, Dementia presents to the ED after a mechanical fall. He underwent extensive workup in the ED. BP 164/80, HR 80, T 97.2F, RR 18, 97% on 3L NC. CBC, Coag panel, CMP significant for WBC 12.9, MCV 102.2, Cl 110, BUN 32, glu 127, alb 3.3. Trop 0.034. Mag 2. Hip XR acute displaced fracture through the femoral neck of the left hip. CXR chronic changes and mild cardiomegaly. CT brain and C-spine negative for acute pathology. EKG sinus tachycardia with PVCs and RBBB. Hip CT confirmed femoral neck facture. Cardiology consulted, intermediate to high risk perioperative cardiovascular complication. Patient underwent surgery on 04/16. 04/17 Patient was seen and examined. RN reports coughing with thickened liquids. CBC WBC 18, RBC 4.03, MCV 102.3, Plt 116. BMP Cl 110, BUN 33, glu 143. POD 1 Left hip IM nail. 04/18 Patient was seen and examined. Currently on 6L NC, he was 87% overnight. Given reports of coughing with thickened liquids, CXR is ordered. ST evaluated, recommends NDD2, upright positioning, no straws. CBC WBC 15.4, RBC 3.85, Hg 12.7, MCV 103.9, Plt 117. BMP Cl 113, BUN 30, glu 117, Ca 8. 04/19 Patient was seen and examined. Currently on 6L NC saturating high 90s. Yesterday, CXR was done which showed a possible right sided infiltrate and he was started on Zosyn. He was also given a dose of Lasix 40 mg IV x 1. His procal is 0.28, aspiration is less likely. He does have an EF of 40-45%. Today, I started him on Lasix 40 mg IV QD and ordered BNP + Echo. CBC and BMP significant for WBC 11.3, RBC 3.8, Hg 12.1, Hc 38.8, MCV 102, BUN 29, glu 113, Ca 8.2. 04/20 Patient was seen and examined. Currently on 2.5L [place]. [place] [address]12, Lasix increased to 40 mg IV BID, Echo ordered and Cardiology reconsulted. No new labs done today. General: non toxic, no distress, appears at stated age Derm: warm, dry Head: atraumatic, normocephalic, symmetric Eyes: EOMI, no lid lag, anicteric sclera Mouth: no lip lesion, mucus membranes moist Cardiovascular: S1S2 reg, no murmur Lungs: Decreased BS bilaterally, no rhonchi, no rales , no accessory muscle use Neuro: no focal neuro deficits Psych: Alert, oriented, appropriate affect No lower extremity edema Based on my assessment of this patient, this patient meets a high complexity level of care. SIRS with hypoxia: Possibly reactive. Leukocytosis, tachycardia, hypoxia. CXR ordered this morning shows signs of fluid overload and possible R sided infiltrate. Procal negative, discontinue Zosyn. BNP elevated, started on Lasix 40 mg IV BID + Echo ordered. Systolic CHF exacerbation: Management as above. Daily monitoring of renal function and electrolytes while on Lasix. Dysphagia: Due to Parkinsons. ST evaluated, recommends NDD2, upright positioning, no straws. Macrocytosis: B12 546, Folate 7.9. Parkinson's disease: Continue with Sinemet 1 tab PO TID. Parkinson's dementia: Continue with Aricept 10 mg PO QD. History of CVA: Continue with atorvastatin 20 mg PO QHS. Unsure when patient is on Eliquis to be restarted by primary team once cleared. Anxiety and depression: Continue with Cymbalta 90 mg PO QD. Chronic pain: Hold gabapentin and tizanidine as patient is receiving IV pain medications. Left hip femoral neck fracture: Fall precautions. Management per Ortho. CODE STATUS: FULL CODE. DVT Prophylaxis: Eliquis. GI Prophylaxis: Designated medical POA if patient is not able to make medical decisions for themselves: I have reviewed the following customer care voice consultant notes: I have reviewed the results of the following tests: BNP. I have ordered the following tests: BMP and Mag in the AM. Echo. I have discussed the care of this patient with the following independent historian: Family at bedside, RN to attempt to wean O2. I have independently interpreted the following test below: I have discussed the management of this patient with the following physician: Objective - Vital Signs Vital signs: Vital Signs Temp 97.9 F 04/20/24 11:05 Pulse 84 04/20/24 14:00 Resp 21 04/20/24 14:00 BP 96/57 04/20/24 11:05 Pulse Ox 96 04/20/24 11:05 FiO2 45 04/20/24 04:45 Intake & Output 04/19/24 04/20/24 04/20/24 18:59 06:59 18:59 Intake Total 118 Output Total 1250 3400 900 Balance -1250 -1710 -782 Weight 71 kg Intake: Oral 118 Output: Urine 1250 3400 900 Uretheral (West) 400 2100 Other: Voiding Method Indwelling Catheter Indwelling Catheter Indwelling Catheter - Labs CBC & Chem 7: 04/19/24 06:59 04/19/24 06:59
--- NOTE | 2024-04-20 17:32 | CA ---
Transthoracic Echo Report Name: Caesar Vines Age: 79 Gender: M : 1945 Exam Date: 04/20/2024 09:26 Exam Location: [facility] Ht (in): 68 Wt (lb): 154 Ordering Physician: Florecita Bergman MD Attending/Referring Phys: [employer]lic Fabricator Natalie Dillon RDCS Procedure CPT: Indications: chf Cardiac Hx: Technical Quality: Fair Contrast 1: Total Dose (mL): Contrast 2: Total Dose (mL): MEASUREMENTS (Male / Female) Normal Values 2D ECHO LV Diastolic Diameter PLAX 5.5 cm 4.2 - 5.9 / 3.9 - 5.3 cm LV Systolic Diameter PLAX 4.4 cm IVS Diastolic Thickness 1.0 cm 0.6 - 1.0 / 0.6 - 0.9 cm LVPW Diastolic Thickness 1.0 cm 0.6 - 1.0 / 0.6 - 0.9 cm LV Relative Wall Thickness 0.4 RV Internal Dim ED PLAX 1.9 cm LA Systolic Diameter LX 3.2 cm 3.0 - 4.0 / 2.7 - 3.8 cm LV Diastolic Volume MOD BP 47.6 cm??? 67 - 155 / 56 - 104 cm??? LV Systolic Volume MOD BP 26.9 cm??? 22 - 58 / 19 - 49 cm??? LV Ejection Fraction MOD BP 43.6 % >= 55 % LV Cardiac Index MOD BP 1108.4 cm???/min???m??? LV Diastolic Volume MOD 4C 59.0 cm??? LV Systolic Volume MOD 4C 37.0 cm??? LV Ejection Fraction MOD 4C 37.2 % LV Cardiac Index MOD 4C 1172.0 cm???/min???m??? LV Diastolic Length 4C 7.4 cm LV Systolic Length 4C 6.4 cm LV Diastolic Volume MOD 2C 30.1 cm??? LV Systolic Volume MOD 2C 16.5 cm??? LV Ejection Fraction MOD 2C 45.0 % LV Cardiac Index MOD 2C 723.3 cm???/min???m??? LV Diastolic Length 2C 5.8 cm LV Systolic Length 2C 5.2 cm M-MODE Aortic Root Diameter MM 3.7 cm LA Systolic Diameter MM 3.1 cm LA Ao Ratio MM 0.8 AV Cusp Separation MM 2.3 cm DOPPLER AI Peak Velocity 224.5 cm/s AI Peak Gradient 20.2 mmHg AI Pressure Half Time 1001.0 ms MV Area PHT 3.6 cm??? Mitral E Point Velocity 48.2 cm/s Mitral A Point Velocity 75.4 cm/s Mitral E to A Ratio 0.6 MV Deceleration Time 210.5 ms TR Peak Velocity 177.9 cm/s TR Peak Gradient 12.7 mmHg Right Ventricular Systolic Press 17.7 mmHg FINDINGS Left Ventricle Left ventricular ejection fraction is estimated at 30-35 %. Moderately decreased left ventricular ejection fraction. Left ventricular cavity size normal. Left ventricular wall thickness normal. Moderately reduced global left ventricular systolic function. Right Ventricle Moderate right ventricular dilatation. Right ventricular systolic pressure within normal limits. Right Atrium Normal right atrial size. Left Atrium Normal left atrial size. Mitral Valve Structurally normal mitral valve. Mild mitral regurgitation. No mitral stenosis. Aortic Valve Trileaflet aortic valve. Mild aortic regurgitation. No aortic stenosis. Tricuspid Valve Structurally normal tricuspid valve. Mild tricuspid regurgitation. No tricuspid stenosis. Pulmonic Valve Structurally normal pulmonic valve. Trace pulmonic regurgitation. No pulmonic stenosis. Pericardium No pericardial or pleural effusion. Aorta Aorta at upper limits of normal. CONCLUSIONS Severe LV systolic dysfunction with an ejection fraction of 30-35% Mild mitral and tricuspid regurgitation Previewed by: Dr. Mario Curtis MD (Electronically Signed) Final Date: 20 April 2024 17:32
[2024-04-20] MEDS: FUROSEMIDE 10 MG/ML 4 ML VIAL IV SCH (20:56)
--- NOTE | 2024-04-21 07:54 | XR ---
EXAMINATION TYPE: XR chest 1V portable DATE OF EXAM: 04/21/2024 6:34 AM COMPARISON: None. CLINICAL INDICATION: Male, 79 years old with history of CHF, TECHNIQUE: XR chest 1V portable view(s) obtained. FINDINGS: The heart size is normal. The pulmonary vasculature is normal. Diffuse increased lung might present. This may be slightly greater along the right lateral lung. Kelsea elate for pneumonia. Consider atypical pneumonia. IMPRESSION: 1. Continued follow up lung infiltrates. Consider pneumonia and atypical pneumonia. Atypical pulmonar y edema is considered less likely. [facility], , 04/21/2024 7:51 AM
[2024-04-21 08:12] LABS: African American GFR (CKD) 81 (>60 ml/min/1.73 sqM); Anion Gap 5 mmol/L; Blood Urea Nitrogen 25 mg/dL (9-20); Calcium 8.6 mg/dL (8.4-10.2); Carbon Dioxide 35 mmol/L (22-30); Chloride 100 mmol/L (98-107); Glucose 111 mg/dL (74-99); Magnesium 1.8 mg/dL (1.6-2.3); Non-African American GFR(CKD) 70 (>60 ml/min/1.73 sqM); Potassium 3.6 mmol/L (3.5-5.1); Sodium 140 mmol/L (137-145)
[2024-04-21] MEDS: traMADol 50 MG TAB PO PRN (08:47)
[2024-04-21 08:49] LABS: HCT 41.5 % (39.0-53.0); HGB 13.2 gm/dL (13.0-17.5); Hypochromasia Slight; MCH 32.4 pg (25.0-35.0); MCHC 31.7 g/dL (31.0-37.0); Macrocytosis Slight; Platelet Count 202 k/uL (150-450); RBC 4.06 m/uL (4.30-5.90); WBC 12.1 k/uL (3.8-10.6)
[2024-04-21] MEDS: PIPERACILLIN-TAZOBACTAM 3.375 GM in SODIUM CHLORIDE 0.9% 100 ML IVPB SCH (08:54)
[2024-04-21] MEDS: METOPROLOL SUCCINATE (ER) 25 MG TAB.ER.24H PO SCH (09:30)
[2024-04-21] MEDS: MAGNESIUM OXIDE 400 MG TAB PO SCH (09:30)
--- NOTE | 2024-04-21 11:52 | P.PN ---
Subjective Progress Note Date: 04/21/24 History of present illness: This is an 79-year-old gentleman who is known to our service from before with a past medical history significant for cardiomyopathy with an echo was performed in 2022 showing an EF between 40 to 45% as well as history of stroke who with subsequent impairment functional capacity and the patient walks using a walker at home and currently he is on oral anticoagulation because of stroke. Beside that he does have dyslipidemia. The patient is a somewhat poor historian and history was taken from the daughter. Apparently we requested to see the patient for an urgent consult for preop cardiac assessment before noncardiac surgery including left hip surgery/fracture. The patient was walking earlier today and he fell and fractured his left hip. We consulted to see the patient for preop cardiac assessment. The patient does have extremely poor functional capacity but up to the level of activity is doing he reports no cardiovascular symptoms of any pain in the chest or shortness of breath or any dizziness or lightheadedness or any feeling of heart racing or fluttering or presyncope or syncope. During this episode when he fractured his hip he did not have any change in mental status. He underwent further evaluation including an EKG and that showed sinus mechanism with frequent PVCs and also short runs of nonsustained ventricular tachycardia. History of CAD or any hospital admission recently with heart failure and no documentation of any cardiac arrhythmia at this point including any atrial fibrillation or atrial flutter. He has been maintaining normal sinus mechanism during his hospital stay. Examination is remarkable for very distant heart sounds with clear breathing sounds bilaterally and no edema was noted in the lower extremities 04/17 Patient is seen and examined. Yesterday he underwent left hip IM nail. Orthopedics has ordered for Eliquis to be resumed this evening. Blood pressure 128/81, heart rate 78, pulse ox 96% on 10 L high flow nasal cannula. Yesterday afternoon and through the evening, oxygen need was increased and patient was placed on BiPAP and transition to high flow nasal cannula this morning. 04/21 Cardiology signed off this case on 04/17. We have been asked to reevaluate the patient for CHF. Patient has been started on IV Lasix 40 mg every 12 hours. Blood pressure 105/65, heart rate 76, pulse ox 94% on 2 L nasal cannula. Patient has a negative fluid balance and documented weight loss. Patient's daughter is at the bedside and states that he slept all night for the first time last night. She feels that he is eating and drinking okay. He did wake up with more pain but she was glad that he slept well. Telemetry reviewed and patient has sinus rhythm with ectopy. Chest x-ray reviewed and no significant change from prior. 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 Patient will follow-up with Dr. Smith. Nurse practitioner note has been reviewed, I agree with documented findings and plan of care. Patient was seen and examined. Objective - Vital Signs Vital signs: Vital Signs Temp 97.6 F 04/21/24 07:28 Pulse 74 04/21/24 07:28 Resp 24 04/21/24 08:33 BP 157/77 04/21/24 07:28 Pulse Ox 95 04/21/24 08:33 FiO2 45 04/20/24 04:45 Intake & Output 04/20/24 04/21/24 04/21/24 18:59 06:59 18:59 Intake Total 118 Output Total 1225 1525 300 Balance -1107 -1525 -300 Weight 66.5 kg Intake: Oral 118 Output: Urine 1225 1525 300 Other: Voiding Method Indwelling Catheter Indwelling Catheter Indwelling Catheter - Labs CBC & Chem 7: 04/21/24 06:52 04/21/24 06:52 Labs: Abnormal Lab Results - Last 24 Hours (Table) 04/21/24 04/21/24 Range/Units 06:52 06:52 WBC 12.1 H (3.8-10.6) k/uL RBC 4.06 L (4.30-5.90) m/uL MCV 102.0 H (80.0-100.0) fL Carbon Dioxide 35 H (22-30) mmol/L BUN 25 H (9-20) mg/dL Glucose 111 H (74-99) mg/dL
--- NOTE | 2024-04-21 13:16 | P.PN ---
Subjective Progress Note Date: 04/21/24 66 year old M with PMH of CVA/TIA, Parkinsons, Dementia presents to the ED after a mechanical fall. He underwent extensive workup in the ED. BP 164/80, HR 80, T 97.2F, RR 18, 97% on 3L NC. CBC, Coag panel, CMP significant for WBC 12.9, MCV 102.2, Cl 110, BUN 32, glu 127, alb 3.3. Trop 0.034. Mag 2. Hip XR acute displaced fracture through the femoral neck of the left hip. CXR chronic changes and mild cardiomegaly. CT brain and C-spine negative for acute pathology. EKG sinus tachycardia with PVCs and RBBB. Hip CT confirmed femoral neck facture. Cardiology consulted, intermediate to high risk perioperative cardiovascular complication. Patient underwent surgery on 04/16. Post operatively patient was no luis carlos to be hypoxic. He did have episodes of coughing with thickened liquids giving concerns for aspiration. CXR showed concerns of pneumonia. Patient was started on Zosyn and Lasix IV. Echocardiogram was ordered which showed EF 30-35% with mild MR/TR. 04/17 Patient was seen and examined. RN reports coughing with thickened liquids. CBC WBC 18, RBC 4.03, MCV 102.3, Plt 116. BMP Cl 110, BUN 33, glu 143. POD 1 Left hip IM nail. 04/18 Patient was seen and examined. Currently on 6L NC, he was 87% overnight. Given reports of coughing with thickened liquids, CXR is ordered. ST evaluated, recommends NDD2, upright positioning, no straws. CBC WBC 15.4, RBC 3.85, Hg 12.7, MCV 103.9, Plt 117. BMP Cl 113, BUN 30, glu 117, Ca 8. 04/19 Patient was seen and examined. Currently on 6L NC saturating high 90s. Ye sterday, CXR was done which showed a possible right sided infiltrate and he was started on Zosyn. He was also given a dose of Lasix 40 mg IV x 1. His procal is 0.28, aspiration is less likely. He does have an EF of 40-45%. Today, I started him on Lasix 40 mg IV QD and ordered BNP + Echo. CBC and BMP significant for WBC 11.3, RBC 3.8, Hg 12.1, Hc 38.8, MCV 102, BUN 29, glu 113, Ca 8.2. 04/20 Patient was seen and examined. Currently on 2.5L [place] [id number], Lasix increased to 40 mg IV BID, Echo ordered and Cardiology reconsulted. No new labs done today. 04/21 Patient was seen and examined. Currently on 3L NC. CXR done today shows increased right sided infiltrate. Echo shows ED 30-35% decreased from 40-45% previously. Cardiology is reconsulted and Pulmonary is consulted. BMP shows bicarb 35, BUN 25, glu 111. Mag 1.8. CBC is pending. General: non toxic, no distress, appears at stated age Derm: warm, dry Head: atraumatic, normocephalic, symmetric Eyes: EOMI, no lid lag, anicteric sclera Mouth: no lip lesion, mucus membranes moist Cardiovascular: S1S2 reg, no murmur Lungs: Decreased BS bilaterally, no rhonchi, no rales , no accessory muscle use Neuro: no focal neuro deficits Psych: Alert, oriented, appropriate affect No lower extremity edema Based on my assessment of this patient, this patient meets a high complexity level of care. SIRS with hypoxia: Leukocytosis, possibly reactive, trending down. Leukocytosis, tachycardia, tachpnea, hypoxia. CXR ordered this morning shows signs of fluid overload and possible R sided infiltrate. Procal negative but concerns for aspiration, continue Zosyn 3.75 g IV TID. BNP elevated, EF 30-35%, continued on Lasix 40 mg IV BID, Cardiology consulted. Systolic CHF exacerbation: Management as above. Daily monitoring of renal function and electrolytes while on Lasix. Dysphagia: Due to Parkinsons. ST evaluated, recommends NDD2, upright posit ioning, no straws. Metabolic alkalosis and prerenal azotemia due to forced diuresis. Acute blood loss anemia: Expected result of surgery. B12 546, Folate 7.9. Transfuse if Hg < 7. Parkinson's disease: Continue with Sinemet 1 tab PO TID. Parkinson's dementia: Continue with Aricept 10 mg PO QD. History of CVA: Continue with atorvastatin 20 mg PO QHS. Eliquis 5 mg PO BID. Anxiety and depression: Continue with Cymbalta 90 mg PO QD. Chronic pain: Hold gabapentin and tizanidine as patient is receiving IV pain medications. Left hip femoral neck fracture: Fall precautions. Management per Ortho. CODE STATUS: FULL CODE. DVT Prophylaxis: Eliquis. GI Prophylaxis: Designated medical POA if patient is not able to make medical decisions for themselves: I have reviewed the following supply chain consultant notes: Ortho note. I have reviewed the results of the following tests: BMP, Mag, Echo. I have ordered the following tests: CBC pending. BMP in the AM. I have discussed the care of this patient with the following independent historian: Daughter. I have independently interpreted the following test below: CXR. I have discussed the management of this patient with the following physician: Objective - Vital Signs Vital signs: Vital Signs Temp 97.6 F 04/21/24 07:28 Pulse 74 04/21/24 07:28 Resp 44 H 04/21/24 07:30 BP 157/77 04/21/24 07:28 Pulse Ox 95 04/21/24 07:28 FiO2 45 04/20/24 04:45 Intake & Output 04/20/24 04/21/24 04/21/24 18:59 06:59 18:59 Intake Total 118 Output Total 1225 1525 Balance -1107 -1525 Weight 66.5 kg Intake: Oral 118 Output: Urine 1225 1525 Other: Voiding Method Indwelling Catheter Indwelling Catheter Indwelling Catheter - Labs CBC & Chem 7: 04/21/24 06:52 04/21/24 06:52
[2024-04-21 14:19] VITALS: BMI 22.3
--- NOTE | 2024-04-21 15:08 | P.CNPUL ---
History of Present Illness Consult date: 04/21/24 Reason for consult: dyspnea History of present illness: This is a 79-year-old female patient who has been in the hospital following a fall and a hip fracture. The patient was taken to the operating room on 04/17/2024 and the patient had a left hip IM nailing for a femoral neck fracture. Currently, the patient is on 2 L of oxygen by nasal cannula and this was weaned down to 2 L and I was asked to evaluate this patient for pneumonia. He has a weak cough. Is not producing any sputum. I reviewed the chest x-ray and shows some pulm vessel congestion. The white cell count is at 12.1. Rest of the electrolytes are all within normal limits. He has a serum bicarb of 35 and the patient has developed some metabolic alkalosis probably due to diuresis. BUN is 25 with a creatinine of 1.0. proBNP level is 13,200. Procalcitonin level is at 0.28. The echocardiogram was done on 04/20/2024 and the patient was found to have impaired LV function with an ejection fraction of 30 to 35%, there is moderate reduced global LV function. Mild mitral regurgitation was also noted. The patient was started on antibiotics with IV Zosyn. He is also on Lasix 20 mg p.o. daily. He is on tramadol for pain control. He remains on anticoagulation with Eliquis 5 mg p.o. twice daily. His cardiac rhythm is sinus and the patient is having multiple frequent premature ectopies. 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 He has history of coronary artery disease. He has previous history of cardiac arrhythmias including frequent PVCs and NSVT. He is status post stroke x 2. Overall performance status is extremely poor. He is an ex-smoker. He quit smoking many years back. No home O2. No maintenance respiratory medications on outpatient basis. No reported aspiration. Review of Systems Constitutional: Reports fatigue, Reports weakness Eyes: denies as per HPI, denies blurred vision, denies bulging eye, denies decreased vision, denies diplopia, denies discharge, denies dry eye, denies irritation, denies itching, denies pain, denies photophobia, denies loss of peripheral vision, denies loss of vision, denies tunnel vision/blind spots Ears: deny: decreased hearing, ear discharge, earache, tinnitus Ears, nose, mouth and throat: Reports as per HPI Breasts: absent: as per HPI, gynecomastia Cardiovascular: Reports decreased exercise tolerance, Reports irregular heart beat Respiratory: Reports as per HPI Gastrointestinal: Reports as per HPI Genitourinary: Reports as per HPI Musculoskeletal: Reports as per HPI (Fall and left femur fracture) Musculoskeletal: absent: ankle pain, ankle stiffness, ankle swelling, as per HPI, elbow pain, elbow stiffness, elbow swelling, foot pain, foot stiffness, foot swelling, hand pain, hand stiffness, hand swelling, hip pain, hip stiffness, hip swelling, knee pain, knee stiffness, knee swelling, shoulder pain, shoulder stiffness, shoulder swelling, wrist pain, wrist stiffness, wrist swelling Integumentary: Reports as per HPI Neurological: Reports balance difficulties, Reports gait dysfunction, Reports weakness Psychiatric: Reports as per HPI Endocrine: Reports as per HPI Hematologic/Lymphatic: Reports as per HPI Allergic/Immunologic: Reports as per HPI Past Medical History Past Medical History: Coronary Artery Disease (CAD), Heart Failure, CVA/TIA, Hyperlipidemia, Neurologic Disorder (Parkinson's disease, dementia) History of Any Multi-Drug Resistant Organisms: None Reported Past Surgical History: Back Surgery Past Anesthesia/Blood Transfusion Reactions: No Reported Reaction Past Psychological History: Depression Smoking Status: Former smoker Past Alcohol Use History: None Reported Past Drug Use History: Marijuana - Past Family History Father History Unknown: Yes Additional Family Medical History / Comment(s): pt and family is not aware of any past family medical history Medications and Allergies Home Medications Medication Instructions Recorded Confirmed Type Diclofenac Sodium Gel [Voltaren 1% 2 - 4 gm TOPICAL QID PRN 09/07/22 04/15/24 History Gel] Donepezil [Aricept] 10 mg PO DAILY 09/07/22 04/15/24 History Apixaban [Eliquis] 5 mg PO BID tab 09/10/22 04/15/24 Rx Gabapentin 600 mg PO HS #3 tab 09/10/22 04/15/24 Rx HYDROcodone/APAP 5-325MG [Horicon 1 tab PO TID PRN #9 tab 09/10/22 04/15/24 Rx 5-325] Atorvastatin [Lipitor] 20 mg PO HS 05/12/23 04/15/24 History Carbidopa-Levodopa 25-250 mg 1 tab PO TID@0730,1230,1730 05/12/23 04/15/24 History [Sinemet 25-250 mg] DULoxetine HCL [Cymbalta] 90 mg PO DAILY 05/12/23 04/15/24 History Meloxicam [Mobic] 7.5 mg PO DAILY 04/15/24 04/15/24 History Meloxicam [Mobic] 7.5 mg PO DAILY PRN 04/15/24 04/15/24 History tiZANidine [Zanaflex] 4 mg PO DAILY PRN 04/15/24 04/15/24 History HYDROcodone/APAP 10-325MG [Horicon 1 tab PO Q4-6H PRN #20 tab 04/18/24 Rx 10-325] Sennosides-Docusate Sodium 2 tab PO DAILY #30 tablet 04/19/24 Rx [Senokot-S] Allergies Allergy/AdvReac Type Severity Reaction Status Date / Time No Known Allergies Allergy Verified 04/15/24 10:45 Physical Exam Vitals: Vital Signs Temp Pulse Resp BP BP Pulse Ox 04/21/24 10:56 98.1 F 76 24 105/65 94 L 04/21/24 08:33 24 95 04/21/24 08:18 94 L 04/21/24 07:30 44 H 04/21/24 07:28 97.6 F 74 44 H 157/77 95 04/21/24 04:31 98.7 F 89 20 134/75 91 L 04/20/24 23:39 97.5 F L 65 20 121/60 95 04/20/24 20:07 97.8 F 77 20 141/84 97 04/20/24 16:18 97.8 F 93 20 132/60 93 L 04/20/24 14:00 84 21 Intake and Output 04/20/24 04/21/24 04/21/24 22:59 06:59 14:59 Output Total 1025 825 300 Balance -1025 -825 -300 Output: Urine 1025 825 300 Other: Voiding Method Indwelling Catheter Indwelling Catheter Indwelling Catheter Weight 66.5 kg The patient appeared well nourished and normally developed. Vital signs as documented. Comfortable on 2 L of oxygen by nasal cannula Head exam is unremarkable. No scleral icterus or corneal arcus noted. Neck is positive jugular venous distension, thyromegaly, or carotid bruits. Carotid upstrokes are brisk bilaterally. Lungs are clear to auscultation and percussion. Crackles in the lung bases more so on the right lung base. Cardiac exam reveals the PMI to be normally sized and situated. Irregular with frequent ectopies. First and second heart sounds normal. No murmurs, rubs or gallops. Abdominal exam reveals normal bowel sounds, no masses, no organomegaly and no aortic enlargement. Extremities are nonedematous and both femoral and pedal pulses are normal. The surgical wound site over the left hip area is dry clean and intact Examination of the skin revealed no evidence of significant rashes, suspicious appearing nevi or other concerning lesions. Neurologically, the patient is awake and alert and the patient does not have any focal neurological deficit. Cranial nerves are essentially intact. The patient is weak and has difficulty with mobility and gait. He has motor weakness in lower extremities bilaterally. He may have also an underlying dementia. Some resting tremors are also present. Results - Laboratory Findings CBC and BMP: 04/21/24 06:52 04/21/24 06:52 PT/INR, D-dimer PT 11.9 sec (10.0-12.5) 04/14/24 23:50 INR 1.1 (<1.2) 04/14/24 23:50 Abnormal lab findings: Abnormal Labs 04/14/24 04/14/24 04/16/24 23:01 23:01 04:51 WBC 12.9 H 15.23 H RBC 4.05 L Hgb Hct MCV 102.2 H 100.2 H MCH 32.1 H Plt Count Immature Gran # 0.07 H Neutrophils # 11.0 H 12.55 H Lymphocytes # Monocytes # 1.10 H Chloride 110 H Carbon Dioxide BUN 32 H BUN/Creatinine Ratio Glucose 127 H POC Glucose (mg/dL) Calcium ALT Total Protein 6.0 L Albumin 3.3 L Albumin/Globulin Ratio 04/16/24 04/17/24 04/17/24 04:51 07:45 09:00 WBC 18.0 H RBC 4.03 L Hgb Hct MCV 102.3 H MCH Plt Count 116 L Immature Gran # Neutrophils # 16.2 H Lymphocytes # 0.8 L Monocytes # Chloride 110 H 110 H Carbon Dioxide 21.2 L BUN 33 H BUN/Creatinine Ratio 23.64 H Glucose 124 H 143 H POC Glucose (mg/dL) Calcium 8.5 L ALT 9 L Total Protein 5.8 L Albumin 3.4 L Albumin/Globulin Ratio 1.42 L 04/18/24 04/18/24 04/18/24 03:54 05:50 09:30 WBC 15.4 H RBC 3.85 L Hgb 12.7 L Hct MCV 103.9 H MCH Plt Count 117 L Immature Gran # Neutrophils # 13.0 H Lymphocytes # Monocytes # Chloride 113 H Carbon Dioxide BUN 30 H BUN/Creatinine Ratio Glucose 117 H POC Glucose (mg/dL) 126 H Calcium 8.0 L ALT Total Protein Albumin Albumin/Globulin Ratio 04/19/24 04/19/24 04/21/24 06:59 06:59 06:52 WBC 11.3 H RBC 3.80 L Hgb 12.1 L Hct 38.8 L MCV 102.0 H MCH Plt Count 145 L Immature Gran # Neutrophils # 9.1 H Lymphocytes # Monocytes # Chloride Carbon Dioxide 35 H BUN 29 H 25 H BUN/Creatinine Ratio Glucose 113 H 111 H POC Glucose (mg/dL) Calcium 8.2 L ALT Total Protein Albumin Albumin/Globulin Ratio 04/21/24 06:52 WBC 12.1 H RBC 4.06 L Hgb Hct MCV 102.0 H MCH Plt Count Immature Gran # Neutrophils # Lymphocytes # Monocytes # Chloride Carbon Dioxide BUN BUN/Creatinine Ratio Glucose POC Glucose (mg/dL) Calcium ALT Total Protein Albumin Albumin/Globulin Ratio - Diagnostic Findings Chest x-ray: image reviewed Assessment and Plan Plan: Acute hypoxic respiratory failure, currently on 2 L of oxygen by nasal cannula. Highly doubt pneumonia. The pulmonary infiltrates noted on the chest x-ray are more consistent with pulm vascular congestion and CHF. No airspace disease. No consolidation. No reported aspiration. No sputum production. Procalcitonin level is low. No leukocytosis. CHF with systolic heart failure with an EF of around 30 to 35% Irregular heartbeat with premature ventricular beats and ectopies, current rhythm is sinus Parkinson's disease Dementia Weak cough History of CVA Hyperlipidemia Chronic pain Chronic anxiety/depression Fall with a left femoral neck fracture status post ORIF Chronic debility and generalized weakness and increased risk of falling Plan Antibiotic coverage essentially empiric Continue weaning down the FiO2 as tolerated to maintain saturation above 90% Aspiration precautions Provide incentive spirometer May discontinue antibiotics as there is no clear indication for underlying pneumonia Work with physical therapy Continue diuretics and the patient is better on Lasix 20 mg p.o. daily Patient is chronically debilitated. No signs of sepsis or pneumonia at this point in time.
--- NOTE | 2024-04-21 15:46 | XR ---
KUB. HISTORY: Constipation. COMPARISON: None. TECHNIQUE: 2 supine views of the abdomen and pelvis are obtained. FINDINGS: There are postsurgical changes of laminectomy and fusion in the lower lumbar spine. There is advanced degenerative disc disease at the L1 to an L2-3 levels with advanced disc space narrowing and vacuum phenomena. There is moderate levoscoliosis of the lumbar spine. Bowel gas pattern is nonspecific and there is no evidence of obstruction. There is moderate to marked dense stool within the rectum. No suspicious abdominal or pelvic calcifications are seen. The lung bases are clear. There are postsurgical changes of open reduction internal fixation of a left intertrochanteric fractu re. IMPRESSION: 1. Post surgical changes as described above. 2. nonspecific bowel gas pattern. 3. Moderate to marked dense stool within the rectum. [facility], Workstation: [email or web address] 04/21/2024 3:43 PM
--- NOTE | 2024-04-22 08:40 | P.PN ---
Subjective Progress Note Date: 04/22/24 66 year old M with PMH of CVA/TIA, Parkinsons, Dementia presents to the ED after a mechanical fall. He underwent extensive workup in the ED. BP 164/80, HR 80, T 97.2F, RR 18, 97% on 3L NC. CBC, Coag panel, CMP significant for WBC 12.9, MCV 102.2, Cl 110, BUN 32, glu 127, alb 3.3. Trop 0.034. Mag 2. Hip XR acute displaced fracture through the femoral neck of the left hip. CXR chronic changes and mild cardiomegaly. CT brain and C-spine negative for acute pathology. EKG sinus tachycardia with PVCs and RBBB. Hip CT confirmed femoral neck facture. Cardiology consulted, intermediate to high risk perioperative cardiovascular complication. Patient underwent surgery on 04/16. Post operatively patient was no luis carlos to be hypoxic. He did have episodes of coughing with thickened liquids giving concerns for aspiration. CXR showed concerns of pneumonia. Patient was started on Zosyn and Lasix IV. Echocardiogram was ordered which showed EF 30-35% with mild MR/TR. Cardiology re-consulted, switched to PO Lasix on 04/21. Pulmonary consulted, antibiotics discontinued, low concerns for pneumonia. 04/22 Patient was seen and examined. Currently on 3L NC. KUB done yesterday shows moderate stool in the rectum. Cardiology switched Lasix to PO yesterday. Pulmonary discontinued Zosyn yesterday. CBC and BMP pending this morning. General: non toxic, no distress, appears at stated age Derm: warm, dry Head: atraumatic, normocephalic, symmetric Eyes: EOMI, no lid lag, anicteric sclera Mouth: no lip lesion, mucus membranes moist Cardiovascular: S1S2 reg, no murmur Lungs: Decreased BS bilaterally, no rhonchi, no rales , no accessory muscle use Neuro: no focal neuro deficits Psych: Alert, oriented, appropriate affect No lower extremity edema Based on my assessment of this patient, this patient meets a high complexity level of care. SIRS with hypoxia: Leukocytosis, possibly reactive, trending down. Leukocytosis, tachycardia, tachpnea, hypoxia. CXR shows signs of fluid overload and possible R sided infiltrate. Procal negative, Zosyn discontinued by Pulmonary 04/21. BNP elevated, EF 30-35%, diuresed with Lasix IV, switched to PO by Cardiology 04/21. Systolic CHF exacerbation: Management as above. Patient would benefit from ACEi + potassium sparing diuretic + beta shahana. Will defer to Cardiology. Constipation: Start Miralax daily. Per RN having BM today. Dysphagia: Due to Parkinsons. ST evaluated, recommends NDD2, upright positioning, no straws. Metabolic alkalosis and prerenal azotemia due to forced diuresis. Acute blood loss anemia: Expected result of surgery. B12 546, Folate 7.9. Transfuse if Hg < 7. Parkinson's disease: Continue with Sinemet 1 tab PO TID. Parkinson's dementia: Continue with Aricept 10 mg PO QD. History of CVA: Continue with atorvastatin 20 mg PO QHS. Eliquis 5 mg PO BID. Anxiety and depression: Continue with Cymbalta 90 mg PO QD. Chronic pain: Hold gabapentin and tizanidine as patient is receiving IV pain medications. Left hip femoral neck fracture: Fall precautions. Management per Ortho. CODE STATUS: FULL CODE. DVT Prophylaxis: Eliquis. GI Prophylaxis: Designated medical POA if patient is not able to make medical decisions for themselves: I have reviewed the following wound care center consultant notes: Cardiology, Pulmonary note. I have reviewed the results of the following tests: I have ordered the following tests: CBC and BMP pending this morning. I have discussed the care of this patient with the following independent historian: Daughter. I have independently interpreted the following test below: KUB. I have discussed the management of this patient with the following physician: Objective - Vital Signs Vital signs: Vital Signs Temp 97.8 F 04/22/24 04:00 Pulse 61 04/22/24 04:00 Resp 21 04/22/24 04:00 BP 104/93 04/22/24 04:00 Pulse Ox 95 04/22/24 04:00 FiO2 45 04/20/24 04:45 Intake & Output 04/21/24 04/21/24 04/22/24 06:59 18:59 06:59 Intake Total 140 Output Total 1525 1075 Balance -6735 -866 Weight 66.5 kg 66.5 kg 70 kg Intake: Oral 140 Output: Urine 1525 1075 Other: Voiding Method Indwelling Catheter Indwelling Catheter Indwelling Catheter # Bowel Movements 6 - Labs CBC & Chem 7: 04/21/24 06:52 04/21/24 06:52 Labs: Abnormal Lab Results - Last 24 Hours (Table) 04/21/24 04/21/24 Range/Units 06:52 06:52 WBC 12.1 H (3.8-10.6) k/uL RBC 4.06 L (4.30-5.90) m/uL MCV 102.0 H (80.0-100.0) fL Carbon Dioxide 35 H (22-30) mmol/L BUN 25 H (9-20) mg/dL Glucose 111 H (74-99) mg/dL
[2024-04-22] MEDS: polyethylene glycoL 3350 17 GM POWD.PACK PO SCH (08:49)
[2024-04-22] MEDS: FUROSEMIDE 20 MG TAB PO SCH (08:50)
[2024-04-22 09:28] LABS: HCT 39.5 % (39.0-53.0); HGB 12.4 gm/dL (13.0-17.5); Hypochromasia Slight; MCHC 31.4 g/dL (31.0-37.0); Macrocytosis Slight; Mean Platelet Volume 8.7; Platelet Count 204 k/uL (150-450); RBC 3.87 m/uL (4.30-5.90); RDW 14.2 % (11.5-15.5); WBC 12.9 k/uL (3.8-10.6)
[2024-04-22 09:43] LABS: African American GFR (CKD) 80 (>60 ml/min/1.73 sqM); Anion Gap 5 mmol/L; Blood Urea Nitrogen 27 mg/dL (9-20); Calcium 8.6 mg/dL (8.4-10.2); Carbon Dioxide 34 mmol/L (22-30); Chloride 100 mmol/L (98-107); Glucose 122 mg/dL (74-99); Non-African American GFR(CKD) 69 (>60 ml/min/1.73 sqM); Potassium 3.5 mmol/L (3.5-5.1); Sodium 139 mmol/L (137-145)
--- NOTE | 2024-04-22 14:35 | P.PN ---
Subjective Progress Note Date: 04/22/24 This is a 79-year-old female patient who has been in the hospital following a fall and a hip fracture. The patient was taken to the operating room on 04/17/2024 and the patient had a left hip IM nailing for a femoral neck fracture. Currently, the patient is on 2 L of oxygen by nasal cannula and this was weaned down to 2 L and I was asked to evaluate this patient for pneumonia. He has a weak cough. Is not producing any sputum. I reviewed the chest x-ray and shows some pulm vessel congestion. The white cell count is at 12.1. Rest of the electrolytes are all within normal limits. He has a serum bicarb of 35 and the patient has developed some metabolic alkalosis probably due to diuresis. BUN is 25 with a creatinine of 1.0. proBNP level is 13,200. Procalcitonin level is at 0.28. The echocardiogram was done on 04/20/2024 and the patient was found to have impaired LV function with an ejection fraction of 30 to 35%, there is moderate reduced global LV function. Mild mitral regurgitation was also noted. The patient was started on antibiotics with IV Zosyn. He is also on Lasix 20 mg p.o. daily. He is on tramadol for pain control. He remains on anticoagulation with Eliquis 5 mg p.o. twice daily. His cardiac rhythm is sinus and the patient is having multiple frequent premature ectopies. 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 He has history of coronary artery disease. He has previous history of cardiac arrhythmias including frequent PVCs and NSVT. He is status post stroke x 2. Overall performance status is extremely poor. He is an ex-smoker. He quit smoking many years back. No home O2. No maintenance respiratory medications on outpatient basis. No reported aspiration. On 04/22/2024, the patient remains on oxygen at 3 L/min nasal cannula. No cough. No sputum production. Procalcitonin level is at 0.28. Electrolytes are stable, BUN is 27 with a creatinine of 1.02 and the white cell count of 12.9 with a hemoglobin of 12.4. A KUB from yesterday showed postsurgical changes and nonspecific bowel gas pattern and there is stool in the rectum. Objective - Vital Signs Vital signs: Vital Signs Temp 97.6 F 04/22/24 08:48 Pulse 50 L 04/22/24 08:48 Resp 17 04/22/24 08:48 BP 156/74 04/22/24 08:48 Pulse Ox 94 L 04/22/24 08:48 FiO2 45 04/20/24 04:45 Intake & Output 04/21/24 04/22/24 04/22/24 18:59 06:59 18:59 Intake Total 140 110 Output Total 1075 Balance -935 110 Weight 66.5 kg 70 kg Intake: IV 10 Invasive Line 3 10 Oral 140 100 Output: Urine 1075 Other: Voiding Method Indwelling Catheter Indwelling Catheter Indwelling Catheter # Bowel Movements 6 1 - Exam The patient appeared well nourished and normally developed. Vital signs as documented. Comfortable on 3L of oxygen by nasal cannula Head exam is unremarkable. No scleral icterus or corneal arcus noted. Neck is positive jugular venous distension, thyromegaly, or carotid bruits. Carotid upstrokes are brisk bilaterally. Lungs are clear to auscultation and percussion. Crackles in the lung bases more so on the right lung base. Cardiac exam reveals the PMI to be normally sized and situated. Irregular with frequent ectopies. First and second heart sounds normal. No murmurs, rubs or gallops. Abdominal exam reveals normal bowel sounds, no masses, no organomegaly and no aortic enlargement. Extremities are nonedematous and both femoral and pedal pulses are normal. The surgical wound site over the left hip area is dry clean and intact Examination of the skin revealed no evidence of significant rashes, suspicious appearing nevi or other concerning lesions. Neurologically, the patient is awake and alert and the patient does not have any focal neurological deficit. Cranial nerves are essentially intact. The patient is weak and has difficulty with mobility and gait. He has motor weakness in lower extremities bilaterally. He may have also an underlying dementia. Some resting tremors are also present. - Labs CBC & Chem 7: 04/22/24 08:56 04/22/24 08:56 Labs: Abnormal Lab Results - Last 24 Hours (Table) 04/22/24 04/22/24 Range/Units 08:56 08:56 WBC 12.9 H (3.8-10.6) k/uL RBC 3.87 L (4.30-5.90) m/uL Hgb 12.4 L (13.0-17.5) gm/dL MCV 102.0 H (80.0-100.0) fL Carbon Dioxide 34 H (22-30) mmol/L BUN 27 H (9-20) mg/dL Glucose 122 H (74-99) mg/dL Assessment and Plan Plan: Acute hypoxic respiratory failure, currently on3 L of oxygen by nasal cannula. Highly doubt pneumonia. The pulmonary infiltrates noted on the chest x-ray are more consistent with pulm vascular congestion and CHF. No airspace disease. No consolidation. No reported aspiration. No sputum production. Procalcitonin level is low. No leukocytosis. CHF with systolic heart failure with an EF of around 30 to 35% Irregular heartbeat with premature ventricular beats and ectopies, current rhythm is sinus Parkinson's disease Dementia Weak cough History of CVA Hyperlipidemia Chronic pain Chronic anxiety/depression Fall with a left femoral neck fracture status post ORIF Chronic debility and generalized weakness and increased risk of falling Plan Antibiotic coverage essentially empiric, it can be discontinued Continue weaning down the FiO2 as tolerated to maintain saturation above 90% Aspiration precautions Provide incentive spirometer Work with physical therapy Continue diuretics and the patient is better on Lasix 20 mg p.o. daily Patient is chronically debilitated. No signs of sepsis or pneumonia at this point in time.
[2024-04-22] MEDS: ZINC OXIDE PASTE (Z-GUARD) 1 APPLIC TOPICAL SCH (20:14)
[2024-04-23 08:43] LABS: HCT 37.5 % (39.0-53.0); HGB 11.7 gm/dL (13.0-17.5); Hypochromasia Moderate; MCH 31.8 pg (25.0-35.0); MCHC 31.2 g/dL (31.0-37.0); Macrocytosis Slight; Mean Platelet Volume 8.1; Platelet Count 213 k/uL (150-450); RBC 3.68 m/uL (4.30-5.90); RDW 13.9 % (11.5-15.5); WBC 11.9 k/uL (3.8-10.6)
[2024-04-23 08:55] LABS: African American GFR (CKD) >90 (>60 ml/min/1.73 sqM); Anion Gap 5 mmol/L; Blood Urea Nitrogen 21 mg/dL (9-20); Calcium 8.5 mg/dL (8.4-10.2); Carbon Dioxide 33 mmol/L (22-30); Chloride 102 mmol/L (98-107); Glucose 121 mg/dL (74-99); Non-African American GFR(CKD) 80 (>60 ml/min/1.73 sqM); Potassium 3.1 mmol/L (3.5-5.1); Sodium 140 mmol/L (137-145)
--- NOTE | 2024-04-23 09:37 | P.PN ---
Subjective Progress Note Date: 04/23/24 Principal diagnosis: Status post left hip IT nail This is an 79 year-old male post left hip IT nail. This is post-op day 7. The patient was evaluated in the recliner chair at the bedside. The patient denies nausea, vomiting, abdominal pain, shortness of breath, and chest pain this morning. He states his pain is moderately controlled at this time. The patient has been up with physical therapy. Objective - Vital Signs Vital signs: Vital Signs Temp 98.1 F 04/23/24 08:42 Pulse 59 L 04/23/24 08:42 Resp 17 04/23/24 08:42 BP 124/58 04/23/24 08:42 Pulse Ox 95 04/23/24 08:42 FiO2 45 04/20/24 04:45 Intake & Output 04/22/24 04/23/24 04/23/24 18:59 06:59 18:59 Intake Total 468 10 Output Total 500 400 Balance -32 -400 10 Weight 65.4 kg Intake: IV 10 10 Invasive Line 3 10 Invasive Line 4 10 Oral 458 Output: Urine 500 400 Other: Voiding Method Indwelling Catheter Indwelling Catheter # Bowel Movements 2 2 - Exam The patient does not appear in acute distress. Alert and orientated x2. Incisions appears fine with no erythema or active drainage. Calf is soft and nontender. Good foot and ankle motion without difficulty. Sensation and circulatory status is intact. - Labs CBC & Chem 7: 04/23/24 07:57 04/23/24 07:57 Labs: Abnormal Lab Results - Last 24 Hours (Table) 04/22/24 04/23/24 04/23/24 Range/Units 08:56 07:57 07:57 WBC 11.9 H (3.8-10.6) k/uL RBC 3.68 L (4.30-5.90) m/uL Hgb 11.7 L (13.0-17.5) gm/dL Hct 37.5 L (39.0-53.0) % MCV 102.0 H (80.0-100.0) fL Potassium 3.1 L (3.5-5.1) mmol/L Carbon Dioxide 34 H 33 H (22-30) mmol/L BUN 27 H 21 H (9-20) mg/dL Glucose 122 H 121 H (74-99) mg/dL Assessment and Plan (1) Status post hip surgery Current Visit: Yes Status: Acute Code(s): Z98.890 - OTHER SPECIFIED POSTPROC EDURAL STATES SNOMED Code(s): 450430727 (2) Hip fracture, left Current Visit: Yes Status: Acute Priority: Medium Code(s): S72.002A - FRACTURE OF UNSP PART OF NECK OF LEFT FEMUR, INIT SNOMED Code(s): 231877535 Plan: 1. Continue pain control 2. Anticoagulation with Eliquis. 3. Continue physical therapy and ambulation.Weightbearing as tolerated. 4. Anticipate discharge to skilled rehab when medically stable. He is orthopedically stable for discharge. We will continue to follow peripherally.
[2024-04-23] MEDS: POTASSIUM CHLORIDE ER 20 MEQ TAB.ER PO STA (09:46)
--- NOTE | 2024-04-23 11:40 | P.PN ---
Subjective Progress Note Date: 04/23/24 66 year old M with PMH of CVA/TIA, Parkinsons, Dementia presents to the ED after a mechanical fall. He underwent extensive workup in the ED. BP 164/80, HR 80, T 97.2F, RR 18, 97% on 3L NC. CBC, Coag panel, CMP significant for WBC 12.9, MCV 102.2, Cl 110, BUN 32, glu 127, alb 3.3. Trop 0.034. Mag 2. Hip XR acute displaced fracture through the femoral neck of the left hip. CXR chronic changes and mild cardiomegaly. CT brain and C-spine negative for acute pathology. EKG sinus tachycardia with PVCs and RBBB. Hip CT confirmed femoral neck facture. Cardiology consulted, intermediate to high risk perioperative cardiovascular complication. Patient underwent surgery on 04/16. Post operatively patient was no luis carlos to be hypoxic. He did have episodes of coughing with thickened liquids giving concerns for aspiration. CXR showed concerns of pneumonia. Patient was started on Zosyn and Lasix IV. Echocardiogram was ordered which showed EF 30-35% with mild MR/TR. Cardiology re-consulted, switched to PO Lasix on 04/21. Pulmonary consulted, antibiotics discontinued, low concerns for pneumonia. 04/23 Patient was seen and examined. Currently on RA. Sleeping comfortably. He has been having multiple bowel movements since 04/21. CBC and BMP done yesterday shows WBC 11.9, RBC 3.68, Hg 11.7, Hct 37.5, MCV 102, K 3.1, bicarb 33, BUN 21, glu 121. General: non toxic, no distress, appears at stated age Derm: warm, dry Head: atraumatic, normocephalic, symmetric Eyes: EOMI, no lid lag, anicteric sclera Mouth: no lip lesion, mucus membranes moist Cardiovascular: S1S2 reg, no murmur Lungs: Decreased BS bilaterally, no rhonchi, no rales , no accessory muscle use Neuro: no focal neuro deficits Psych: Alert, oriented, appropriate affect No lower extremity edema Based on my assessment of this patient, this patient meets a moderate complexity level of care. SIRS with hypoxia: Leukocytosis, possibly reactive, trending down. Leukocytosis, tachycardia, tachpnea, hypoxia. CXR shows signs of fluid overload and possible R sided infiltrate. Procal negative, Zosyn discontinued by Pulmonary 11/[place] [address], EF 30-35%, diuresed with Lasix IV, switched to PO by Cardiology 04/21. Systolic CHF exacerbation: Management as above. Patient would benefit from ACEi + potassium sparing diuretic + beta shahana. Will defer to Cardiology. Dysphagia: Due to Parkinsons. ST evaluated, recommends NDD2, upright positi oning, no straws. Aspiration precautions. Elevated HOB. Hypokalemia: KCl 40 meq PO x 1 todays. Repeat BMP and Mag tomorrow. Metabolic alkalosis and prerenal azotemia due to forced diuresis. Acute blood loss anemia: Expected result of surgery. B12 546, Folate 7.9. Transfuse if Hg < 7. Parkinson's disease: Continue with Sinemet 1 tab PO TID. Parkinson's dementia: Continue with Aricept 10 mg PO QD. History of CVA: Continue with atorvastatin 20 mg PO QHS. Eliquis 5 mg PO BID. Anxiety and depression: Continue with Cymbalta 90 mg PO QD. Chronic pain: Hold gabapentin and tizanidine as patient is receiving IV pain medications. Left hip femoral neck fracture status post Left hip IM nail with Dr. Dawkins on 04/17/2024: Fall precautions. Management per Ortho. Resolved: Constipation. CODE STATUS: FULL CODE. DVT Prophylaxis: Eliquis. GI Prophylaxis: Designated medical POA if patient is not able to make medical decisions for themselves: I have reviewed the following corporate consultant notes: Pulmonary note. I have reviewed the results of the following tests: CBC, BMP. I have ordered the following tests: CBC, BMP, Mag in the AM. I have discussed the care of this patient with the following independent hist orian: Daughter. I have independently interpreted the following test below: I have discussed the management of this patient with the following physician: Patient has been weaned off oxygen. Having bowel movements. Appears quite debilitated. Hopeful discharge to SNF tomorrow. Objective - Vital Signs Vital signs: Vital Signs Temp 98.1 F 04/23/24 08:42 Pulse 59 L 04/23/24 08:42 Resp 17 04/23/24 08:42 BP 124/58 04/23/24 08:42 Pulse Ox 95 04/23/24 08:42 FiO2 45 04/20/24 04:45 Intake & Output 04/22/24 04/23/2424 18:59 06:59 18:59 Intake Total 468 Output Total 500 400 Balance -32 -400 Weight 65.4 kg Intake: IV 10 Invasive Line 3 10 Oral 458 Output: Urine 500 400 Other: Voiding Method Indwelling Catheter Indwelling Catheter # Bowel Movements 2 2 - Labs CBC & Chem 7: 04/23/24 07:57 04/23/24 07:57 Labs: Abnormal Lab Results - Last 24 Hours (Table) 04/22/24 04/22/24 04/23/24 Range/Units 08:56 08:56 07:57 WBC 12.9 H 11.9 H (3.8-10.6) k/uL RBC 3.87 L 3.68 L (4.30-5.90) m/uL Hgb 12.4 L 11.7 L (13.0-17.5) gm/dL Hct 37.5 L (39.0-53.0) % MCV 102.0 H 102.0 H (80.0-100.0) fL Potassium (3.5-5.1) mmol/L Carbon Dioxide 34 H (22-30) mmol/L BUN 27 H (9-20) mg/dL Glucose 122 H (74-99) mg/dL 04/23/24 Range/Units 07:57 WBC (3.8-10.6) k/uL RBC (4.30-5.90) m/uL Hgb (13.0-17.5) gm/dL Hct (39.0-53.0) % MCV (80.0-100.0) fL Potassium 3.1 L (3.5-5.1) mmol/L Carbon Dioxide 33 H (22-30) mmol/L BUN 21 H (9-20) mg/dL Glucose 121 H (74-99) mg/dL
--- NOTE | 2024-04-23 12:05 | P.PN ---
Subjective Progress Note Date: 04/23/24 This is a 79-year-old female patient who has been in the hospital following a fall and a hip fracture. The patient was taken to the operating room on 04/17/2024 and the patient had a left hip IM nailing for a femoral neck fracture. Currently, the patient is on 2 L of oxygen by nasal cannula and this was weaned down to 2 L and I was asked to evaluate this patient for pneumonia. He has a weak cough. Is not producing any sputum. I reviewed the chest x-ray and shows some pulm vessel congestion. The white cell count is at 12.1. Rest of the electrolytes are all within normal limits. He has a serum bicarb of 35 and the patient has developed some metabolic alkalosis probably due to diuresis. BUN is 25 with a creatinine of 1.0. proBNP level is 13,200. Procalcitonin level is at 0.28. The echocardiogram was done on 04/20/2024 and the patient was found to have impaired LV function with an ejection fraction of 30 to 35%, there is moderate reduced global LV function. Mild mitral regurgitation was also noted. The patient was started on antibiotics with IV Zosyn. He is also on Lasix 20 mg p.o. daily. He is on tramadol for pain control. He remains on anticoagulation with Eliquis 5 mg p.o. twice daily. His cardiac rhythm is sinus and the patient is having multiple frequent premature ectopies. 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 He has history of coronary artery disease. He has previous history of cardiac arrhythmias including frequent PVCs and NSVT. He is status post stroke x 2. Overall performance status is extremely poor. He is an ex-smoker. He quit smoking many years back. No home O2. No maintenance respiratory medications on outpatient basis. No reported aspiration. On 04/22/2024, the patient remains on oxygen at 3 L/min nasal cannula. No cough. No sputum production. Procalcitonin level is at 0.28. Electrolytes are stable, BUN is 27 with a creatinine of 1.02 and the white cell count of 12.9 with a hemoglobin of 12.4. A KUB from yesterday showed postsurgical changes and nonspecific bowel gas pattern and there is stool in the rectum. On 04/23/2024, the patient is resting comfortably on a chair, is on room air oxygen. Denies having any specific complaints. WBC count is 11.9, hemoglobin 11.7 and platelet count is 213. BUN is 20 with a creatinine of 0.8 and a sodium levels at 140. No other significant events overnight. The patient is postop day #1 following a left hip IT nailing. No sputum production. Remains overall weak. Objective - Vital Signs Vital signs: Vital Signs Temp 98.1 F 04/23/24 08:42 Pulse 59 L 04/23/24 08:42 Resp 17 04/23/24 08:42 BP 124/58 04/23/24 08:42 Pulse Ox 95 04/23/24 08:42 FiO2 45 04/20/24 04:45 Intake & Output 04/22/24 04/23/24 04/23/24 18:59 06:59 18:59 Intake Total 468 10 Output Total 500 400 Balance -32 -400 10 Weight 65.4 kg Intake: IV 10 10 Invasive Line 3 10 Invasive Line 4 10 Oral 458 Output: Urine 500 400 Other: Voiding Method Indwelling Catheter Indwelling Catheter Indwelling Catheter # Bowel Movements 2 2 - Exam The patient appeared well nourished and normally developed. Vital signs as documented. Comfortable on 3L of oxygen by nasal cannula Head exam is unremarkable. No scleral icterus or corneal arcus noted. Neck is positive jugular venous distension, thyromegaly, or carotid bruits. Carotid upstrokes are brisk bilaterally. Lungs are clear to auscultation and percussion. Crackles in the lung bases more so on the right lung base. Cardiac exam reveals the PMI to be normally sized and situated. Irregular with frequent ectopies. First and second heart sounds normal. No murmurs, rubs or g allops. Abdominal exam reveals normal bowel sounds, no masses, no organomegaly and no aortic enlargement. Extremities are nonedematous and both femoral and pedal pulses are normal. The surgical wound site over the left hip area is dry clean and intact Examination of the skin revealed no evidence of significant rashes, suspicious appearing nevi or other concerning lesions. Neurologically, the patient is awake and alert and the patient does not have any focal neurological deficit. Cranial nerves are essentially intact. The patient is weak and has difficulty with mobility and gait. He has motor weakness in lower extremities bilaterally. He may have also an underlying dementia. Some resting tremors are also present. - Labs CBC & Chem 7: 04/23/24 07:57 04/23/24 07:57 Labs: Abnormal Lab Results - Last 24 Hours (Table) 04/23/24 04/23/24 Range/Units 07:57 07:57 WBC 11.9 H (3.8-10.6) k/uL RBC 3.68 L (4.30-5.90) m/uL Hgb 11.7 L (13.0-17.5) gm/dL Hct 37.5 L (39.0-53.0) % MCV 102.0 H (80.0-100.0) fL Potassium 3.1 L (3.5-5.1) mmol/L Carbon Dioxide 33 H (22-30) mmol/L BUN 21 H (9-20) mg/dL Glucose 121 H (74-99) mg/dL Assessment and Plan Plan: Acute hypoxic respiratory failure, currently improved on room air oxygen. Highly doubt pneumonia. The pulmonary infiltrates noted on the chest x-ray are more consistent with pulm vascular congestion and CHF. No airspace disease. No consolidation. No reported aspiration. No sputum production. Procalcitonin level is low. No leukocytosis. CHF with systolic heart failure with an EF of around 30 to 35% Irregular heartbeat with premature ventricular beats and ectopies, current rhythm is sinus Parkinson's disease Dementia Weak cough History of CVA Hyperlipidemia Chronic pain Chronic anxiety/depression Fall with a left femoral neck fracture status post ORIF Chronic debility and generalized weakness and increased risk of falling Plan Oxygenation is improved and the patient is currently on room air oxygen Antibiotic were discontinued Aspiration precautions Provide incentive spirometer Work with physical therapy Continue diuretics and the patient is better on Lasix 20 mg p.o. daily Patient is chronically debilitated. No signs of sepsis or pneumonia at this point in time. Follow-up with the medical team and neurosurgical team
--- NOTE | 2024-04-23 14:01 | P.PN ---
Subjective Progress Note Date: 04/23/24 This is an 79-year-old gentleman who is known to our service from before with a past medical history significant for cardiomyopathy with an echo was performed in 2022 showing an EF between 40 to 45% as well as history of stroke who with subsequent impairment functional capacity and the patient walks using a walker at home and currently he is on oral anticoagulation because of stroke. Beside that he does have dyslipidemia. The patient is a somewhat poor historian and history was taken from the daughter. Apparently we requested to see the patient for an urgent consult for preop cardiac assessment before noncardiac surgery including left hip surgery/fracture. The patient was walking earlier today and he fell and fractured his left hip. We consulted to see the patient for preop cardiac assessment. The patient does have extremely poor functional capacity but up to the level of activity is doing he reports no cardiovascular symptoms of any pain in the chest or shortness of breath or any dizziness or lightheadedness or any feeling of heart racing or fluttering or presyncope or syncope. During this episode when he fractured his hip he did not have any change in mental status. He underwent further evaluation including an EKG and that showed sinus mechanism with frequent PVCs and also short runs of nonsustained ventricular tachycardia. History of CAD or any hospital admission recently with heart failure and no documentation of any cardiac arrhythmia at this point including any atrial fibrillation or atrial flutter. He has been maintaining normal sinus mechanism during his hospital stay. Examination is remarkable for very distant heart sounds with clear breathing sounds bilaterally and no edema was noted in the lower extremities 04/17 Patient is seen and examined. Yesterday he underwent left hip IM nail. Orthopedics has ordered for Eliquis to be resumed this evening. Blood pressure 128/81, heart rate 78, pulse ox 96% on 10 L high flow nasal cannula. Yesterday afternoon and through the evening, oxygen need was increased and patient was placed on BiPAP and transition to high flow nasal cannula this morning. 04/21 Cardiology signed off this case on 04/17. We have been asked to reevaluate the patient for CHF. Patient has been started on IV Lasix 40 mg every 12 hours. Blood pressure 105/65, heart rate 76, pulse ox 94% on 2 L nasal cannula. Patient has a negative fluid balance and documented weight loss. Patient's daughter is at the bedside and states that he slept all night for the first time last night. She feels that he is eating and drinking okay. He did wake up with more pain but she was glad that he slept well. Telemetry reviewed and patient has sinus rhythm with ectopy. Chest x-ray reviewed and no significant change from prior. April 23, 2024 Patient is seen and examined at bedside this a.m. Patient is coming along well. Tolerating p.o. blood pressure and heart rate is optimally controlled. 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 Patient will follow-up with Dr. Smith. At this time patient is stable from cardiac standpoint. Cardiology team will sign off. Please reconsult us in case of any questions Objective - Vital Signs Vital signs: Vital Signs Temp 98.1 F 04/23/24 12:00 Pulse 60 04/23/24 12:00 Resp 16 04/23/24 12:00 BP 112/62 04/23/24 12:00 Pulse Ox 95 04/23/24 12:00 FiO2 45 04/20/24 04:45 Intake & Output 04/22/24 04/23/24 04/23/24 18:59 06:59 18:59 Intake Total 468 10 Output Total 500 400 Balance -32 -400 10 Weight 65.4 kg Intake: IV 10 10 Invasive Line 3 10 Invasive Line 4 10 Oral 458 Output: Urine 500 400 Other: Voiding Method Indwelling Catheter Indwelling Catheter Indwelling Catheter # Bowel Movements 2 2 1 - Labs CBC & Chem 7: 04/23/24 07:57 04/23/24 07:57 Labs: Abnormal Lab Results - Last 24 Hours (Table) 04/23/24 04/23/24 Range/Units 07:57 07:57 WBC 11.9 H (3.8-10.6) k/uL RBC 3.68 L (4.30-5.90) m/uL Hgb 11.7 L (13.0-17.5) gm/dL Hct 37.5 L (39.0-53.0) % MCV 102.0 H (80.0-100.0) fL Potassium 3.1 L (3.5-5.1) mmol/L Carbon Dioxide 33 H (22-30) mmol/L BUN 21 H (9-20) mg/dL Glucose 121 H (74-99) mg/dL
[2024-04-24 02:28] VITALS: RESP 18
[2024-04-24 03:53] LABS: African American GFR (CKD) >90 (>60 ml/min/1.73 sqM); Anion Gap 2 mmol/L; Blood Urea Nitrogen 19 mg/dL (9-20); Calcium 8.6 mg/dL (8.4-10.2); Carbon Dioxide 33 mmol/L (22-30); Chloride 104 mmol/L (98-107); Glucose 114 mg/dL (74-99); Magnesium 2.1 mg/dL (1.6-2.3); Non-African American GFR(CKD) 80 (>60 ml/min/1.73 sqM); Potassium 3.6 mmol/L (3.5-5.1); Sodium 139 mmol/L (137-145)
[2024-04-24 03:55] LABS: HCT 38.2 % (39.0-53.0); HGB 12.3 gm/dL (13.0-17.5); Hypochromasia Moderate; MCH 32.3 pg (25.0-35.0); MCHC 32.1 g/dL (31.0-37.0); MCV 100.7 fL (80.0-100.0); Macrocytosis Slight; Mean Platelet Volume 8.3; Platelet Count 203 k/uL (150-450); RBC 3.79 m/uL (4.30-5.90); WBC 10.1 k/uL (3.8-10.6)
--- NOTE | 2024-04-24 09:16 | CDI ---
Documentation Clarification Form Date: 04/24/1014 From: Melissa Castillo RN CCDS Phone: [phone] Admit Date: 04/15/2024 01:23:00 AM Patient Name: Caesar Vines Visit Number: [id number] Discharge Date: ATTENTION: The Clinical Documentation Specialists (CDI) and [facility] Coding Staff appreciate your assistance in clarifying documentation. Please respond to the clarification below the line at the bottom and electronically sign. The CDI & [facility] Coding staff will review the response and follow-up if needed. Please note: Queries are made part of the Legal Health Record. If you have any questions, please contact the author of this message via ITS. Dr. Ana Farnsworth MD: Respiratory failure post operatively is documented in the IM progress note 04/21. Additional clarification regarding the cause of the post op respiratory failure is requested. History/Risk Factors: 79-year-old male with a history of ex-smoker, CAD, CVA/TIA, Parkinson's, Dementia who presented after fall and found to have acute displaced fracture of the left hip, s/p IM nail on 04/16 Clinical Indicators: 04/14 Triage VS: 164/80, 97.2, 80, 18, 97% on 3 liters nasal cannula 04/17 IM PN, Subjective: SIRS with hypoxia" 04/21 IM PN: Patient underwent surgery on 04/16.Post operatively patient was noted to be hypoxic. He did have episodes of coughing with thickened liquids giving concerns for aspiration. CXR showed concerns of pneumonia. Patient was started on Zosyn and Lasix IV. Systolic CHF exacerbation." 04/21 Pulmonology Consult, Plan: "Acute hypoxic respiratory failure, currently on 2 L of oxygen by nasal cannula. Highly doubt pneumonia. The pulmonary infiltrates noted on the chest x-ray are more consistent with pulm vascular congestion and CHF. No airspace disease. No consolidation. No reported aspiration. No sputum production." 04/14, 04/16, 04/17-04/19, 04/21-04/24 Carbon dioxide: 27, 21.2, 25.24, 30, 35, 34, 33, 33 04/19 BNP: 13,200 04/19 Procalcitonin: 0.28 04/20 ECHO, EF: 30-35% 11/3 Chest X Ray, Impression: "1. No acute pulmonary process." 04/18 Chest X Ray, Impression: "1. Correlated for mild volume overload" 04/21 Chest X Ray, Impression: "1. Continued follow up lung infiltrates. Consider pneumonia and atypical pneumonia. Atypical pulmonary edema is considered less likely." Treatment: O2 per nasal cannula 04/15-04/16, switched to Nonrebreather 04/16, then Bipap on 04/16-04/17, then high flow nasal cannula morning of 04/17 with BiPAP used at night until 04/19 Room air 04/22-04/24 Lasix 10mg IV once 04/16 then 40mg IV once 04/18 then daily 04/19-04/20 Lasix 40mg IV [id number] 04/20-04/21 Lasix 20mg oral daily start 04/22 Zosyn 3.375gram IV [id number] 04/21-04/22 Please clarify the documentation related to post op respiratory failure, if known: [ ] Acute respiratory failure is a complication of the surgical procedure [ x ] Acute respiratory failure is related to patients co-morbidities of Systolic CHF & not a complication of the procedure [ x ] Acute respiratory failure is an expected outcome of the patients procedure [ ] Other please specify [ ] Unable to determine MTDD
--- NOTE | 2024-04-24 11:48 | P.DS ---
Providers Date of admission: 04/15/24 01:23 Expected date of discharge: 04/24/24 Attending physician: Damaso Rodriguez MD Consults: 04/15/24 01:50 Consult Physician Routine Consulting Provider: Mimi Dawkins Consult Reason/Comments: fracture left hip Do you want consulting provider notified?: Yes, Notify in am 04/16/24 07:52 Consult Physician Urgent Consulting Provider: Mateo Slater Consult Reason/Comments: CARDIAC CLEARANCE FOR SURGERY TODAY, MULTIPLE PVC'S Do you want consulting provider notified?: Yes 04/20/24 12:26 Consult Physician Routine Consulting Provider: Josh Sparrow Consult Reason/Comments: CHF Do you want consulting provider notified?: Yes 04/21/24 08:07 Consult Physician Routine Consulting Provider: Ana Farnsworth Consult Reason/Comments: PNA Do you want consulting provider notified?: Yes Primary care physician: [facility] Course: 66 year old M with PMH of CVA/TIA, Parkinsons, Dementia presents to the ED after a mechanical fall. He underwent extensive workup in the ED. BP 164/80, HR 80, T 97.2F, RR 18, 97% on 3L NC. CBC, Coag panel, CMP significant for WBC 12.9, MCV 102.2, Cl 110, BUN 32, glu 127, alb 3.3. Trop 0.034. Mag 2. Hip XR acute displaced fracture through the femoral neck of the left hip. CXR chronic changes and mild cardiomegaly. CT brain and C-spine negative for acute pathology. EKG sinus tachycardia with PVCs and RBBB. Hip CT confirmed femoral neck facture. Cardiology consulted, intermediate to high risk perioperative cardiovascular complication. Patient underwent surgery on 04/16. Post operatively patient was noted to be hypoxic. He did have episodes of coughing with thickened liquids giving concerns for aspiration. CXR showed concerns of pneumonia. Patient was started on Zosyn and Lasix IV. Echocardiogram was ordered which showed EF 30-35% with mild MR/TR. Cardiology re-consulted, switched to PO Lasix on 04/21. Pulmonary consulted, antibiotics discontinued, low concerns for pneumonia. KUB done 04/21 showed moderate stool in the rectum. He has had multiple bowel movements since. 04/24 Patient was seen and examined. Currently on RA. No complaints. Hopeful plans for SNF today. Plans to discontinue [facility] and attempt voiding trial. Discharge Plans: Diet: NDD2, upright positioning, no straws. Aspiration precautions. Elevated HOB. Weightbearing as tolerated with a walker. May shower with incision uncovered No soaking incisions for 2 weeks. Follow up with Dr. Dawkins in 4 weeks. Follow up with PCP within 1-2 days of discharge. Follow up with Dr. Smith (Cardiology) within 1 week of discharge. General: non toxic, no distress, appears at stated age Derm: warm, dry Head: atraumatic, normocephalic, symmetric Eyes: EOMI, no lid lag, anicteric sclera Mouth: no lip lesion, mucus membranes moist Cardiovascular: S1S2 reg, no murmur Lungs: Decreased BS bilaterally, no rhonchi, no rales , no accessory muscle use Neuro: no focal neuro deficits Psych: Alert, oriented, appropriate affect No lower extremity edema Discharge Diagnosis: SIRS with hypoxia Systolic CHF exacerbation Dysphagia Hypokalemia Constipation Metabolic alkalosis and prerenal azotemia due to forced diuresis. Acute blood loss anemia Parkinson's disease Parkinson's dementia History of CVA Anxiety and depression Chronic pain Left hip femoral neck fracture status post Left hip IM nail with Dr. Dawkins on 04/17/2024 This complex discharge took 35 minutes to complete. Patient Condition at Discharge: Stable Plan - Discharge Summary Discharge Rx Participant: No New Discharge Prescriptions: New HYDROcodone/APAP 10-325MG [[place] 10-325] 1 tab PO Q4-6H PRN #20 tab PRN Reason: Pain Sennosides-Docusate Sodium [Senokot-S] 2 tab PO DAILY #30 tablet Furosemide [Lasix] 20 mg PO DAILY tab Metoprolol Succinate (ER) [Toprol XL] 25 mg PO DAILY tab Magnesium Oxide [Mag-Ox] 400 mg PO BID tab polyethylene glycoL 3350 [Miralax] 17 gm PO DAILY packet Acetaminophen Tab [Tylenol] 650 mg PO Q6HR PRN tab PRN Reason: Mild Pain Or Fever > 100.5 Continue Donepezil [Aricept] 10 mg PO DAILY Apixaban [Eliquis] 5 mg PO BID tab Gabapentin 600 mg PO HS #3 tab Carbidopa-Levodopa 25-250 mg [Sinemet 25-250 mg] 1 tab PO TID@0730,1230,1730 Atorvastatin [Lipitor] 20 mg PO HS Diclofenac Sodium Gel [Voltaren 1% Gel] 2 - 4 gm TOPICAL QID PRN PRN Reason: Pain HYDROcodone/APAP 5-325MG [[place] 5-325] 1 tab PO TID PRN #9 tab PRN Reason: Pain DULoxetine HCL [Cymbalta] 90 mg PO DAILY tiZANidine [Zanaflex] 4 mg PO DAILY PRN PRN Reason: Muscle Spasm Discontinued Meloxicam [Mobic] 7.5 mg PO DAILY PRN PRN Reason: Pain Meloxicam [Mobic] 7.5 mg PO DAILY Discharge Medication List Diclofenac Sodium Gel [Voltaren 1% Gel] 2 - 4 gm TOPICAL QID PRN 09/07/22 [History] Donepezil [Aricept] 10 mg PO DAILY 09/07/22 [History] Apixaban [Eliquis] 5 mg PO BID tab 09/10/22 [Rx] Gabapentin 600 mg PO HS #3 tab 09/10/22 [Rx] HYDROcodone/APAP 5-325MG [[place] 5-325] 1 tab PO TID PRN #9 tab 09/10/22 [Rx] Atorvastatin [Lipitor] 20 mg PO HS 05/12/23 [History] Carbidopa-Levodopa 25-250 mg [Sinemet 25-250 mg] 1 tab PO TID@0730,1230,1730 05/12/23 [History] DULoxetine HCL [Cymbalta] 90 mg PO DAILY 05/12/23 [History] tiZANidine [Zanaflex] 4 mg PO DAILY PRN 04/15/24 [History] HYDROcodone/APAP 10-325MG [[place] 10-325] 1 tab PO Q4-6H PRN #20 tab 04/18/24 [Rx] Sennosides-Docusate Sodium [Senokot-S] 2 tab PO DAILY #30 tablet 04/19/24 [Rx] Acetaminophen Tab [Tylenol] 650 mg PO Q6HR PRN tab 04/24/24 [Rx] Furosemide [Lasix] 20 mg PO DAILY tab 04/24/24 [Rx] Magnesium Oxide [Mag-Ox] 400 mg PO BID tab 04/24/24 [Rx] Metoprolol Succinate (ER) [Toprol XL] 25 mg PO DAILY tab 04/24/24 [Rx] polyethylene glycoL 3350 [Miralax] 17 gm PO DAILY packet 04/24/24 [Rx] Follow up Appointment(s)/Referral(s): Jose Smith MD [STAFF PHYSICIAN] - 2 Weeks Mimi Dawkins DO [Doctor of Osteopathic Medicine] - 4 Weeks Charlie Yanez DO [Primary Care Provider] - 1-2 days Activity/Diet/Wound Care/Special Instructions: Weightbearing as tolerated with a walker. May shower with incision uncovered No soaking incisions for 2 weeks. Follow up with Dr. Dawkins in 4 weeks. Call [facility] with any questions or concerns, . Discharge Disposition: TRANSFER TO SNF/ECF
[2024-04-24 15:34] VITALS: BP 120/60; PULSE 43; TEMP 97.4
[2024-04-25] MEDS ORDERED: lisinopriL 5 MG TAB PO SCH (09:00)
== END 2024-04-24 16:39 | DRG 480 ==
LOC: EC 21:13 → 4SSUR 04-15 01:23 → 3SCARD 04-16 16:16 → 4SSUR 04-23 17:07
PROVIDERS: ADMIT Internal Medicine; ATTEND Internal Medicine
PROC: 0QH706Z Insertion of Intramedullary Internal Fixation Device into Left Upper Femur, Open Approach (ICD-10-PCS; principal; 2024-04-16 12:00)
PROC: 5A09357 Assistance with Respiratory Ventilation, Less than 24 Consecutive Hours, Continuous Positive Airway Pressure (ICD-10-PCS; 2024-04-17)
PROC: 5A09357 Assistance with Respiratory Ventilation, Less than 24 Consecutive Hours, Continuous Positive Airway Pressure (ICD-10-PCS; 2024-04-18)
PROC: 5A09357 Assistance with Respiratory Ventilation, Less than 24 Consecutive Hours, Continuous Positive Airway Pressure (ICD-10-PCS; 2024-04-19)
DX: S72.092A Other fracture of head and neck of left femur, initial encounter for closed fracture (principal); I50.23 Acute on chronic systolic (congestive) heart failure; J96.01 Acute respiratory failure with hypoxia; I42.9 Cardiomyopathy, unspecified; F02.84 Dementia in other diseases classified elsewhere, unspecified severity, with anxiety; R65.10 Systemic inflammatory response syndrome (SIRS) of non-infectious origin without acute organ dysfunction; E87.3 Alkalosis; F02.83 Dementia in other diseases classified elsewhere, unspecified severity, with mood disturbance; G20.A1 Parkinson's disease without dyskinesia, without mention of fluctuations; E78.5 Hyperlipidemia, unspecified; G89.29 Other chronic pain; I44.0 Atrioventricular block, first degree; I45.10 Unspecified right bundle-branch block; D75.89 Other specified diseases of blood and blood-forming organs; E87.6 Hypokalemia; F32.A Depression, unspecified; I25.10 Atherosclerotic heart disease of native coronary artery without angina pectoris; I69.328 Other speech and language deficits following cerebral infarction; K59.00 Constipation, unspecified; W01.0XXA Fall on same level from slipping, tripping and stumbling without subsequent striking against object, initial encounter; Y92.002 Bathroom of unspecified non-institutional (private) residence as the place of occurrence of the external cause; Y99.8 Other external cause status; Z79.01 Long term (current) use of anticoagulants; Z79.1 Long term (current) use of non-steroidal anti-inflammatories (NSAID); Z79.899 Other long term (current) drug therapy; Z87.891 Personal history of nicotine dependence
CPT/HCPCS: 36415; 70450; 71045; 72125; 73501; 73502; 74018; 80048; 80053; 82607; 82746; 83735; 83880; 84145; 84484; 85025; 85027; 85610; 85730; 93005; 93306; 94660; 94760; 96365; 96375; 96376; 99285

== ENCOUNTER 2024-05-04 15:29 | Inpatient (IN) | payer MEDICARE ==
[2024-05-04 15:55] LABS: Glucose,Whole Blood 157 mg/dL (70-110)
--- NOTE | 2024-05-04 16:04 | ED ---
General Adult HPI - General Chief complaint: Altered Mental Status Stated complaint: AMS Time Seen by Provider: 05/04/24 15:31 Source: patient, EMS, RN notes reviewed, old records reviewed Mode of arrival: EMS Limitations: altered mental status - History of Present Illness Initial comments: 79-year-old male presents from long-term for evaluation of dyspnea, hypoxia, and increasing confusion. Baseline mental status is not known by the paramedics transporting the patient. Patient does state he is bedbound and is able to answer simple questions. He denies pain complaints. He does report cough and was noted to be hypoxic requiring supplemental oxygen during transport. Paramedics report patient has low-grade fever. - Related Data Home Medications Medication Instructions Recorded Confirmed Diclofenac Sodium Gel [Voltaren 1% 2 - 4 gm TOPICAL QID PRN 09/07/22 04/15/24 Gel] Donepezil [Aricept] 10 mg PO DAILY 09/07/22 04/15/24 Atorvastatin [Lipitor] 20 mg PO HS 05/12/23 04/15/24 Carbidopa-Levodopa 25-250 mg 1 tab PO TID@0730,1230,1730 05/12/23 04/15/24 [Sinemet 25-250 mg] DULoxetine HCL [Cymbalta] 90 mg PO DAILY 05/12/23 04/15/24 tiZANidine [Zanaflex] 4 mg PO DAILY PRN 04/15/24 04/15/24 Previous Rx's Medication Instructions Recorded Apixaban [Eliquis] 5 mg PO BID tab 09/10/22 Gabapentin 600 mg PO HS #3 tab 09/10/22 HYDROcodone/APAP 5-325MG [[place] 1 tab PO TID PRN #9 tab 09/10/22 5-325] HYDROcodone/APAP 10-325MG [[place] 1 tab PO Q4-6H PRN #20 tab 04/18/24 10-325] Sennosides-Docusate Sodium 2 tab PO DAILY #30 tablet 04/19/24 [Senokot-S] Acetaminophen Tab [Tylenol] 650 mg PO Q6HR PRN tab 04/24/24 Furosemide [Lasix] 20 mg PO DAILY tab 04/24/24 Magnesium Oxide [Mag-Ox] 400 mg PO BID tab 04/24/24 Metoprolol Succinate (ER) [Toprol 25 mg PO DAILY tab 04/24/24 XL] lisinopriL [Zestril] 5 mg PO DAILY tab 04/24/24 polyethylene glycoL 3350 [Miralax] 17 gm PO DAILY packet 04/24/24 Allergies Allergy/AdvReac Type Severity Reaction Status Date / Time No Known Allergies Allergy Verified 05/04/24 15:40 Review of Systems ROS Statement: Those systems with pertinent positive or pertinent negative responses have been documented in the HPI. ROS Other: All systems not noted in ROS Statement are negative. Past Medical History Past Medical History: Coronary Artery Disease (CAD), Heart Failure, CVA/TIA, Hyperlipidemia, Neurologic Disorder History of Any Multi-Drug Resistant Organisms: None Reported Past Surgical History: Back Surgery Past Anesthesia/Blood Transfusion Reactions: No Reported Reaction Past Psychological History: Depression Smoking Status: Former smoker Past Alcohol Use History: None Reported Past Drug Use History: Marijuana - Past Family History Father History Unknown: Yes Additional Family Medical History / Comment(s): pt and family is not aware of any past family medical history General Exam Limitations: altered mental status General appearance: lethargic Head exam: Present: atraumatic, normocephalic Eye exam: Present: normal appearance, PERRL Respiratory exam: Present: rhonchi, decreased breath sounds. Absent: respiratory distress Cardiovascular Exam: Present: regular rate, irregular rhythm GI/Abdominal exam: Present: soft. Absent: distended, tenderness Extremities exam: Present: pedal edema. Absent: calf tenderness Neurological exam: Present: alert. Absent: oriented X3 Psychiatric exam: Present: normal affect, normal mood Skin exam: Present: pallor Course Vital Signs 05/04/24 15:32 Temperature 98.6 F Pulse Rate 62 Respiratory 20 Rate Blood Pressure 109/90 O2 Sat by Pulse 94 L Oximetry Medical Decision Making - Medical Decision Making Was pt. sent in by a medical professional or institution (, PA, TERRAZZO TILE SETTER, urgent care, hospital, or long-term...) When possible be specific @ -No Did you speak to anyone other than the patient for history (EMS, parent, family, police, friend...)? What history was obtained from this source @ -No Did you review nursing and triage notes (agree or disagree)? Why? @ -I reviewed and agree with nursing and triage notes Were old charts reviewed (outside hosp., previous admission, EMS record, old EKG, old radiological studies, urgent care reports/EKG's, long-term records)? Report findings @ -No old charts were reviewed Differential Diagnosis (chest pain, altered mental status, abdominal pain women, abdominal pain men, vaginal bleeding, weakness, fever, dyspnea, syncope, headache, dizziness, GI bleed, back pain, seizure, CVA, palpatations, mental health, musculoskeletal)? @ -Not applicable EKG interpreted by me (3pts min.). @ -Underlying sinus rhythm with frequent PVC right bundle branch block, no ST segment elevation, rate of 64, NV interval 254, QRS duration 161, QTc 472 X-rays interpreted by me (1pt min.). @ -Chest x-ray concerning for right midlung opacity, consolidated pneumonia CT interpreted by me (1pt min.). @ -None done U/S interpreted by me (1pt. min.). @ -None done What testing was considered but not performed or refused? (CT, X-rays, U/S, labs)? Why? @ -None What meds were considered but not given or refused? Why? @ -None Did you discuss the management of the patient with other professionals (professionals i.e. , PA, TERRAZZO TILE SETTER, lab, RT, psych nurse, social work program coordinator, thinner sprayer, teacher, evp and chief operating officer, counseling case manager)? Give summary @[facility] physician group, Dr. Davey will admit Was smoking cessation discussed for >3mins.? @ -No Was critical care preformed (if so, how long)? @ -Yes, 35 minutes, sepsis, pneumonia, hypoxia Were there social determinants of health that impacted care today? How? (Homelessness, low income, unemployed, alcoholism, drug addiction, transportation, low edu. Level, literacy, decrease access to med. care, long-term, rehab)? @ -No Was there de-escalation of care discussed even if they declined (Discuss DNR or withdrawal of care, Hospice)? DNR status @ -No What co-morbidities impacted this encounter? (DM, HTN, Smoking, COPD, CAD, Cancer, CVA, ARF, Chemo, Hep., AIDS, mental health diagnosis, sleep apnea, morbid obesity)? @ -None Was patient admitted / discharged? Hospital course, mention meds given and route, prescriptions, significant lab abnormalities, going to OR and other pertinent info. @ -79-year-old male presenting with confusion, dyspnea, hypoxia. Patient has right-sided pneumonia with significant leukocytosis and lactic acidosis. He st arted on IV fluids and IV antibiotics in the emergency department. Patient admitted to internal medicine with pulmonology on consult. Undiagnosed new problem with uncertain prognosis? @ -No Drug Therapy requiring intensive monitoring for toxicity (Heparin, Nitro, Insulin, Cardizem)? @ -No Were any procedures done? @ -No Diagnosis/symptom? @ -[Pneumonia, sepsis, hypoxia Acute, or Chronic, or Acute on Chronic? @Acute Uncomplicated (without systemic symptoms) or Complicated (systemic symptoms)? @ -Default Side effects of treatment? @ -No Exacerbation, Progression, or Severe Exacerbation? @ -No Poses a threat to life or bodily function? How? (Chest pain, [place], [place], pneumonia, PE, COPD, DKA, ARF, appy, cholecystitis, CVA, Diverticulitis, Homicidal, Suicidal, threat to staff... and all critical care pts) @ -Yes, sepsis, respiratory failure, hypoxia - Lab Data Result diagrams: 05/04/24 15:38 05/04/24 15:38 Lab Results 05/04/24 05/04/24 05/04/24 Range/Units 15:38 15:38 15:38 WBC 19.8 H (3.8-10.6) k/uL RBC 3.76 L (4.30-5.90) m/uL Hgb 11.8 L (13.0-17.5) gm/dL Hct 37.7 L (39.0-53.0) % MCV 100.5 H (80.0-100.0) fL MCH 31.5 (25.0-35.0) pg MCHC 31.4 (31.0-37.0) g/dL RDW 14.5 (11.5-15.5) % Plt Count 256 (150-450) k/uL MPV 8.8 Neutrophils % 89 % Lymphocytes % 4 % Monocytes % 6 % Eosinophils % 0 % Basophils % 0 % Neutrophils # 17.6 H (1.3-7.7) k/uL Lymphocytes # 0.8 L (1.0-4.8) k/uL Monocytes # 1.2 H (0-1.0) k/uL Eosinophils # 0.1 (0-0.7) k/uL Basophils # 0.0 (0-0.2) k/uL Hypochromasia Slight Macrocytosis Slight PT 13.9 H (10.0-12.5) sec INR 1.3 H (<1.2) APTT 31.9 H (22.0-30.0) sec Sodium 135 L (137-145) mmol/L Potassium 5.8 H (3.5-5.1) mmol/L Chloride 108 H (98-107) mmol/L Carbon Dioxide 22 (22-30) mmol/L Anion Gap 5 mmol/L BUN 62 H (9-20) mg/dL Creatinine 1.43 H (0.66-1.25) mg/dL Est GFR (CKD-EPI)AfAm 53 (>60 ml/min/1.73 sqM) Est GFR (CKD-EPI)NonAf 46 (>60 ml/min/1.73 sqM) Glucose 158 H (74-99) mg/dL POC Glucose (mg/dL) (70-110) mg/dL POC Glu Public Relations Intern ID Plasma Lactic Acid Wil (0.7-2.0) mmol/L Calcium 8.0 L (8.4-10.2) mg/dL Magnesium 2.6 H (1.6-2.3) mg/dL Total Bilirubin 1.3 (0.2-1.3) mg/dL AST 26 (17-59) U/L ALT 10 (4-49) U/L Alkaline Phosphatase 119 (38-126) U/L NT-Pro-B Natriuret Pep 9840 pg/mL Total Protein 5.9 L (6.3-8.2) g/dL Albumin 2.9 L (3.5-5.0) g/dL 05/04/24 05/04/24 Range/Units 15:38 15:53 WBC (3.8-10.6) k/uL RBC (4.30-5.90) m/uL Hgb (13.0-17.5) gm/dL Hct (39.0-53.0) % MCV (80.0-100.0) fL MCH (25.0-35.0) pg MCHC (31.0-37.0) g/dL RDW (11.5-15.5) % Plt Count (150-450) k/uL MPV Neutrophils % % Lymphocytes % % Monocytes % % Eosinophils % % Basophils % % Neutrophils # (1.3-7.7) k/uL Lymphocytes # (1.0-4.8) k/uL Monocytes # (0-1.0) k/uL Eosinophils # (0-0.7) k/uL Basophils # (0-0.2) k/uL Hypochromasia Macrocytosis PT (10.0-12.5) sec INR (<1.2) APTT (22.0-30.0) sec Sodium (137-145) mmol/L Potassium (3.5-5.1) mmol/L Chloride (98-107) mmol/L Carbon Dioxide (22-30) mmol/L Anion Gap mmol/L BUN (9-20) mg/dL Creatinine (0.66-1.25) mg/dL Est GFR (CKD-EPI)AfAm (>60 ml/min/1.73 sqM) Est GFR (CKD-EPI)NonAf (>60 ml/min/1.73 sqM) Glucose (74-99) mg/dL POC Glucose (mg/dL) 157 H (70-110) mg/dL POC Glu Public Relations Intern ID Cyril Daley Plasma Lactic Acid Wil 3.2 H* (0.7-2.0) mmol/L Calcium (8.4-10.2) mg/dL Magnesium (1.6-2.3) mg/dL Total Bilirubin (0.2-1.3) mg/dL AST (17-59) U/L ALT (4-49) U/L Alkaline Phosphatase (38-126) U/L NT-Pro-B Natriuret Pep pg/mL Total Protein (6.3-8.2) g/dL Albumin (3.5-5.0) g/dL Critical Care Time Critical Care Time: Yes Total Critical Care Time: 35 Disposition Clinical Impression: Delirium due to general medical condition, Pneumonia Disposition: ADMITTED IP TO THIS HOSP Condition: Serious Is patient prescribed a controlled substance at d/c from ED?: No Referrals: Charlie Yanez DO [Primary Care Provider] - 1-2 days Time of Disposition: 17:03
[2024-05-04 16:06] LABS: INR 1.3 (<1.2); Partial Thromboplastin Time 31.9 sec (22.0-30.0); Prothrombin Time 13.9 sec (10.0-12.5)
[2024-05-04 16:10] LABS: ALT 10 U/L (4-49); African American GFR (CKD) 53 (>60 ml/min/1.73 sqM); Albumin 2.9 g/dL (3.5-5.0); Anion Gap 5 mmol/L; Blood Urea Nitrogen 62 mg/dL (9-20); Carbon Dioxide 22 mmol/L (22-30); Chloride 108 mmol/L (98-107); Glucose 158 mg/dL (74-99); Magnesium 2.6 mg/dL (1.6-2.3); Non-African American GFR(CKD) 46 (>60 ml/min/1.73 sqM); Sodium 135 mmol/L (137-145); Total Bilirubin 1.3 mg/dL (0.2-1.3); Total Protein 5.9 g/dL (6.3-8.2)
[2024-05-04 16:15] LABS: Basophils % (A) 0 %; Eosinophils # (A) 0.1 k/uL (0-0.7); Eosinophils % (A) 0 %; HCT 37.7 % (39.0-53.0); HGB 11.8 gm/dL (13.0-17.5); Hypochromasia Slight; Lymphocytes # (A) 0.8 k/uL (1.0-4.8); Lymphocytes % (A) 4 %; MCH 31.5 pg (25.0-35.0); MCHC 31.4 g/dL (31.0-37.0); MCV 100.5 fL (80.0-100.0); Macrocytosis Slight; Mean Platelet Volume 8.8; Monocytes # (A) 1.2 k/uL (0-1.0); Monocytes % (A) 6 %; Neutrophils # (A) 17.6 k/uL (1.3-7.7); Neutrophils % (A) 89 %; Platelet Count 256 k/uL (150-450); RBC 3.76 m/uL (4.30-5.90); RDW 14.5 % (11.5-15.5); WBC 19.8 k/uL (3.8-10.6)
--- NOTE | 2024-05-04 16:16 | XR ---
EXAMINATION TYPE: XR chest 1V portable DATE OF EXAM: 05/04/2024 3:59 PM COMPARISON: Chest radiographs from 04/21/2024 CLINICAL INDICATION: Male, 79 years old with history of fever/cherelle; [facility] TECHNIQUE: XR chest 1V portable Frontal view of the chest. FINDINGS: Lungs/Pleura: Airspace opacities in the right midlung. There is no evidence of pleural effusion, foca l consolidation, or pneumothorax. Pulmonary vascularity: Unremarkable. Heart/mediastinum: Cardiomediastinal silhouette is unremarkable. Musculoskeletal: No acute osseous pathology. Other findings: None IMPRESSION: Right midlung airspace opacities correlate for pneumonia. [facility], , 05/04/2024 4:14 PM
[2024-05-04 16:19] LABS: NT-Pro-B-Type Natriuretic Pept 9840 pg/mL
[2024-05-04 16:44] LABS: Potassium 5.8 mmol/L (3.5-5.1)
[2024-05-04 16:45] LABS: AST 26 U/L (17-59); Alkaline Phosphatase 119 U/L (38-126)
[2024-05-04] MEDS: SODIUM CHLORIDE 0.9% 1,000 ML IV SCH (16:54)
[2024-05-04] MEDS: SODIUM CHLORIDE 0.9% 500 ML 500 ML IV ONE (16:55)
[2024-05-04] MEDS ORDERED: PNEUMONIA PROTOCOL UTILIZED 1 EACH MISC PO PRN (17:00)
--- NOTE | 2024-05-04 18:20 | P.HPIM ---
History of Present Illness H&P Date: 05/04/24 Patient is a 79-year-old male with reduced ejection fraction CHF (30 to 35% EF in echo 04/20/2024 on GDMT), hyperlipidemia, CVA (on Eliquis), CAD who came in via EMS on nonrebreather for altered mental status. Per daughter, patient was having shortness of breath for the past 2 days and was being treated with breathing treatments at [facility]. However today, patient was short of breat h with O2 saturations were at the 80s which led them to seek care. Per patient, he denied fevers, sweats, leg swelling, calf tenderness, productive cough, chest pain, palpitations, focal weakness, facial asymmetry, changes in vision, diarrhea, constipation, nausea or vomiting, or recent sick contacts. Patient was recently admitted in 04/15 for left femoral neck fracture which was complicated by hypoxia and aspiration pneumonia post left hip intertrochanteric nail placement which was treated with Zosyn empirically. In the ED, chest x-ray showed right midlung opacities and some congestion. EKG showed sinus rhythm with a rate of 64 with multiple PVCs prolonged PA interval of 154 MS and prolonged QRS interval of [address]-T changes WBC 9.8 hemoglobin 11.8 platelet count 2 56,000 PT 13.9 INR 1.3 PTT 31.9 sodium 135 potassium 5.8 BUN 62 creatinine 1.43 glucose 158 plasma lactic acid 3.2 calcium 0.8 magnesium 2.6 albumin 2.9. Influenza, RSV, COVID not detected On admission patient was afebrile at 98.6 pulse rate 62 respiratory rate 20 blood pressure 109/90 oxygen saturation 94% on nonrebreather Review of systems: Pertinent positives and negatives as discussed in HPI, a complete review of systems was performed and all other systems are negative. Physical examination: Vital signs reviewed General: Lethargic no distress, on nonrebreather Derm: no unusual rashes/lesions, warm Head: atraumatic, normocephalic, symmetric Eyes: EOMI, anicteric sclera, pupils equal round reactive to light ENT: Nose and ears atraumatic Neck: No cervical lymphadenopathy, trachea midline, supple Mouth: no lip lesion, mucus membranes moist Cardiovascular: S1S2 reg, no murmur Lungs: Diffuse crackles in all lung dutta, no accessory muscle use Abdominal: soft, nondistended, nontender to palpation, no guarding Ext: muscle strength 5 out of 5 in all 4 extremities grossly, no gross muscle atrophy, no contractures, positive dorsalis pedis pulse bilateral, no extremity edema Neuro: CN II-XI grossly intact, no gross focal neuro deficits Psych: Alert and oriented x 3, appropriate affect and mood Assessment/Plan: 79-year-old male with history of aspiration pneumonia, reduced ejection fraction CHF and CVA (on Eliquis) who came in for sepsis secondary to aspiration pneumonia. #. Severe sepsis secondary to aspiration pneumonia #. Acute respiratory hypoxemic respiratory failure secondary to above Cardiac monitoring Supportive oxygen as needed Chest x-ray showed right midlung opacities and some congestion. Blood cultures pending Urine Legionella pending CBC and procalcitonin in the a.m. Echocardiogram done recently 0.9% normal saline 130 cc/h Azithromycin 500 mg IVPB and ceftriaxone 2 g IVPB daily initiated in the ED Continue with Zithromax 500 mg IVPB daily Continue with ceftriaxone 2 g IVPB daily Swallow evaluation Speech therapy consult #. Prerenal EDUAR secondary to above Continue with IV fluids BMP in the a.m. Chronic Conditions: #. Parkinson's #. Reduced ejection fraction CHF (30 to 35% EF in echo 04/20/2024 on GDMT) #. History of CVA/TIA #. Hyperlipidemia #. History of CAD Unknown cause for use of Eliquis. But continue for now Hold furosemide 20 mg p.o. for now Continue with donepezil, and Aricept Will reevaluate home medications once patient is more stable F: 0.9 normal saline 130 cc/h E: None for now N: Regular diet A: Fall precaution. Needs assistance with ambulation DVT ppx: On Eliquis 5 mg p.o. GI ppx: Protonix 40 mg IV daily Dispo: The patient is admitted with an anticipated greater than 2 midnight stay for evaluation of severe sepsis Discussed with: Patient and patient's daughter Anticipated discharge place: [facility] Margarette Gramajo MD PGY-1 IM Dictation was produced using [employer] dictation software. please excuse any grammatical, word or spelling errors. A total of 65 minutes was spent on the care of this complex patient more than 50% of the time was spent in counseling and care coordination. I have seen and evaluated the patient today. Discussed with the resident and agree with the residents finding and plan as documented in the resident's note. Changes highlighted in blue font. Past Medical History Past Medical History: Coronary Artery Disease (CAD), Heart Failure, CVA/TIA, Hyperlipidemia, Neurologic Disorder History of Any Multi-Drug Resistant Organisms: None Reported Past Surgical History: Back Surgery Past Anesthesia/Blood Transfusion Reactions: No Reported Reaction Past Psychological History: Depression Smoking Status: Former smoker Past Alcohol Use History: None Reported Past Drug Use History: Marijuana - Past Family History Father History Unknown: Yes Additional Family Medical History / Comment(s): pt and family is not aware of any past family medical history Medications and Allergies Home Medications Medication Instructions Recorded Confirmed Type Diclofenac Sodium Gel [Voltaren 1% 2 - 4 gm TOPICAL QID PRN 09/07/22 05/04/24 History Gel] Donepezil [Aricept] 10 mg PO HS 09/07/22 05/04/24 History Apixaban [Eliquis] 5 mg PO BID tab 09/10/22 05/04/24 Rx Gabapentin 600 mg PO HS #3 tab 09/10/22 05/04/24 Rx Carbidopa-Levodopa 25-250 mg 1 tab PO TID@0700,1300,1900 05/12/23 05/04/24 History [Sinemet 25-250 mg] tiZANidine [Zanaflex] 4 mg PO DAILY PRN 04/15/24 05/04/24 History HYDROcodone/APAP 10-325MG [[place] 1 tab PO Q4-6H PRN #20 tab 04/18/24 05/04/24 Rx 10-325] Furosemide [Lasix] 20 mg PO DAILY tab 04/24/24 05/04/24 Rx Magnesium Oxide [Mag-Ox] 400 mg PO BID tab 04/24/24 05/04/24 Rx Metoprolol Succinate (ER) [Toprol 25 mg PO DAILY tab 04/24/24 05/04/24 Rx XL] lisinopriL [Zestril] 5 mg PO DAILY tab 04/24/24 05/04/24 Rx polyethylene glycoL 3350 [Miralax] 17 gm PO DAILY packet 04/24/24 05/04/24 Rx Acetaminophen [Tylenol 8 Hour] 650 mg PO Q6H PRN 05/04/24 05/04/24 History Amino Acids/Protein Hydrolys 30 ml PO BID 05/04/24 05/04/24 History [Pro-Stat Awc Liquid] Docusate [Colace] 100 mg PO DAILY 05/04/24 05/04/24 History Ipratropium-Albuterol Nebulize 3 ml INHALATION RT-Q4H PRN 05/04/24 05/04/24 History [Duoneb 0.5 mg-3 mg/3 ml Soln] Naloxone HCl 0.4 mg IM DIRECTED PRN 05/04/24 05/04/24 History Naloxone HCl [Narcan] 4 mg NASAL DIRECTED PRN 05/04/24 05/04/24 History Potassium Chloride [Klor-Con M20] 20 meq PO DAILY 05/04/24 05/04/24 History Sennosides-Docusate Sodium 2 tab PO HS 05/04/24 05/04/24 History [Senokot-S] Allergies Allergy/AdvReac Type Severity Reaction Status Date / Time No Known Allergies Allergy Verified 05/04/24 18:07 Physical Exam Vitals: Vital Signs Temp Pulse Resp BP Pulse Ox 05/04/24 15:32 98.6 F 62 20 109/90 94 L Intake and Output 05/04/24 05/04/24 05/04/24 06:59 14:59 22:59 Other: Weight 68.039 kg Results CBC & Chem 7: 05/04/24 15:38 05/04/24 15:38 Labs: Abnormal Lab Results - Last 24 Hours (Table) 05/04/24 05/04/24 05/04/24 Range/Units 15:38 15:38 15:38 WBC 19.8 H (3.8-10.6) k/uL RBC 3.76 L (4.30-5.90) m/uL Hgb 11.8 L (13.0-17.5) gm/dL Hct 37.7 L (39.0-53.0) % MCV 100.5 H (80.0-100.0) fL Neutrophils # 17.6 H (1.3-7.7) k/uL Lymphocytes # 0.8 L (1.0-4.8) k/uL Monocytes # 1.2 H (0-1.0) k/uL PT 13.9 H (10.0-12.5) sec INR 1.3 H (<1.2) APTT 31.9 H (22.0-30.0) sec Sodium 135 L (137-145) mmol/L Potassium 5.8 H (3.5-5.1) mmol/L Chloride 108 H (98-107) mmol/L BUN 62 H (9-20) mg/dL Creatinine 1.43 H (0.66-1.25) mg/dL Glucose 158 H (74-99) mg/dL POC Glucose (mg/dL) (70-110) mg/dL Plasma Lactic Acid Wil (0.7-2.0) mmol/L Calcium 8.0 L (8.4-10.2) mg/dL Magnesium 2.6 H (1.6-2.3) mg/dL Total Protein 5.9 L (6.3-8.2) g/dL Albumin 2.9 L (3.5-5.0) g/dL 05/04/24 05/04/24 Range/Units 15:38 15:53 WBC (3.8-10.6) k/uL RBC (4.30-5.90) m/uL Hgb (13.0-17.5) gm/dL Hct (39.0-53.0) % MCV (80.0-100.0) fL Neutrophils # (1.3-7.7) k/uL Lymphocytes # (1.0-4.8) k/uL Monocytes # (0-1.0) k/uL PT (10.0-12.5) sec INR (<1.2) APTT (22.0-30.0) sec Sodium (137-145) mmol/L Potassium (3.5-5.1) mmol/L Chloride (98-107) mmol/L BUN (9-20) mg/dL Creatinine (0.66-1.25) mg/dL Glucose (74-99) mg/dL POC Glucose (mg/dL) 157 H (70-110) mg/dL Plasma Lactic Acid Wil 3.2 H* (0.7-2.0) mmol/L Calcium (8.4-10.2) mg/dL Magnesium (1.6-2.3) mg/dL Total Protein (6.3-8.2) g/dL Albumin (3.5-5.0) g/dL
[2024-05-04] MEDS ORDERED: IPRATROPIUM-ALBUTEROL 3 ML NEB INHALATION PRN (19:01)
[2024-05-04] MEDS: AZITHROMYCIN 500 MG in SODIUM CHLORIDE 0.9% 250 ML IVPB STA (19:21)
[2024-05-04] MEDS: IPRATROPIUM 0.5 MG/2.5 ML NEBU INHALATION STA (19:50)
[2024-05-04] MEDS: ALBUTEROL NEBULIZED 2.5 MG/3 ML INHALATION STA (19:50)
[2024-05-04] MEDS: GABAPENTIN 300 MG CAP PO SCH (21:42)
[2024-05-04] MEDS: APIXABAN 5 MG TAB PO SCH (21:42)
[2024-05-04] MEDS: MAGNESIUM OXIDE 400 MG TAB PO SCH (21:43)
[2024-05-04] MEDS: ATORVASTATIN 20 MG TAB PO SCH (21:43)
[2024-05-05 07:45] LABS: Basophils % (A) 0 %; Eosinophils # (A) 0.1 k/uL (0-0.7); Eosinophils % (A) 0 %; Hypochromasia Marked; Lymphocytes # (A) 0.9 k/uL (1.0-4.8); Lymphocytes % (A) 5 %; MCH 31.9 pg (25.0-35.0); MCHC 30.9 g/dL (31.0-37.0); MCV 103.3 fL (80.0-100.0); Macrocytosis Slight; Mean Platelet Volume 8.2; Monocytes # (A) 0.7 k/uL (0-1.0); Monocytes % (A) 4 %; Neutrophils # (A) 15.9 k/uL (1.3-7.7); Neutrophils % (A) 90 %; Platelet Count 232 k/uL (150-450); RBC 4.06 m/uL (4.30-5.90); WBC 17.7 k/uL (3.8-10.6)
--- NOTE | 2024-05-05 07:45 | XR ---
EXAMINATION TYPE: XR chest 1V portable DATE OF EXAM: 05/05/2024 CLINICAL HISTORY: Difficulty breathing progress study. TECHNIQUE: Single AP portable upright view of the chest is obtained. COMPARISON: Chest x-ray from one day earlier FINDINGS: Persistent infiltrate right mid and right lower lung zone. Scattered senescent parenchymal changes. Hyperinflation compatible with COPD. Cardiomediastinal silhouette is stable. IMPRESSION: Overall stable findings, [facility], , 05/05/2024 7:43 AM
[2024-05-05 08:05] LABS: African American GFR (CKD) 77 (>60 ml/min/1.73 sqM); Anion Gap 5 mmol/L; Blood Urea Nitrogen 51 mg/dL (9-20); Calcium 8.5 mg/dL (8.4-10.2); Carbon Dioxide 28 mmol/L (22-30); Chloride 106 mmol/L (98-107); Glucose 118 mg/dL (74-99); Magnesium 2.7 mg/dL (1.6-2.3); Non-African American GFR(CKD) 67 (>60 ml/min/1.73 sqM); Sodium 139 mmol/L (137-145)
[2024-05-05] MEDS ORDERED: FUROSEMIDE 20 MG TAB PO SCH (09:00)
[2024-05-05] MEDS: DONEPEZIL 10 MG TAB PO SCH (09:46)
[2024-05-05] MEDS: DULoxetine HCL 30 MG CAPSULE.DR PO SCH (09:46)
[2024-05-05] MEDS: DOCUSATE 100 MG CAP PO SCH (09:46)
[2024-05-05] MEDS: CARBIDOPA-LEVODOPA 25-250 MG 1 EACH TAB PO SCH (09:46)
[2024-05-05] MEDS: METOPROLOL SUCCINATE (ER) 25 MG TAB.ER.24H PO SCH (09:49)
[2024-05-05] MEDS ORDERED: ZINC OXIDE PASTE (Z-GUARD) 1 APPLIC TOPICAL PRN (11:39)
--- NOTE | 2024-05-05 12:53 | P.CNPUL ---
History of Present Illness Consult date: 05/05/24 Requesting physician: Ricco Davey Reason for consult: dyspnea, cough, hypoxemia, pneumonia, abnormal CXR/CT Chief complaint: Pneumonia. History of present illness: Pulmonary consult dated May 05, 2024. 79-year-old male who is seen in the emergency department, room 3. The patient apparently was seen in the emergency department, for mental status changes. The patient is a very poor historian, and we can get very little history from him. The patient is currently on saline at about 75 cc an hour, and nasal oxygen at 5 L. He apparently was admitted with a diagnosis of possible right-sided pneumonia. Again, the patient was even short while he was in the hospital. He apparently has a history of coronary artery disease, heart failure, CVA, hyperlipidemia, and possibly dementia. In addition he has a history of depression, and has a history of previous tobacco use. White count 17.7, hemoglobin 13, hematocrit 42, platelet count normal. Sodium 139, potassium 5, chlorides 106, CO2 28, BUN 51, creatinine 1.05. Lactic acid was 2.2. Procalcitonin level was elevated at 10.2. Chest x-ray shows a right sided infiltrate. Review of Systems REVIEW OF SYSTEMS: The patient is a very poor historian, and could not give us any indication or reason why he was in the hospital. CONSTITUTIONAL: [Negative.] NEUROLOGIC: [ Negative.] HEENT: [ Negative.] CARDIAC: [Negative.] PULMONARY: [Negative.] GI: [Negative.] : [Negative.] RHEUMATOLOGIC: [ Negative.] IMMUNOLOGIC: [ Negative.] ENDOCRINE: [Negative. ] DERMATOLOGIC: [Negative.] Past Medical History Past Medical History: Coronary Artery Disease (CAD), Heart Failure, CVA/TIA, Hyperlipidemia, Neurologic Disorder History of Any Multi-Drug Resistant Organisms: None Reported Past Surgical History: Back Surgery Past Anesthesia/Blood Transfusion Reactions: No Reported Reaction Past Psychological History: Depression Smoking Status: Former smoker Past Alcohol Use History: None Reported Past Drug Use History: Marijuana - Past Family History Father History Unknown: Yes Additional Family Medical History / Comment(s): pt and family is not aware of any past family medical history Medications and Allergies Home Medications Medication Instructions Recorded Confirmed Type Diclofenac Sodium Gel [Voltaren 1% 2 - 4 gm TOPICAL QID PRN 09/07/22 05/04/24 History Gel] Donepezil [Aricept] 10 mg PO HS 09/07/22 05/04/24 History Apixaban [Eliquis] 5 mg PO BID tab 09/10/22 05/04/24 Rx Gabapentin 600 mg PO HS #3 tab 09/10/22 05/04/24 Rx Carbidopa-Levodopa 25-250 mg 1 tab PO TID@0700,1300,1900 05/12/23 05/04/24 History [Sinemet 25-250 mg] tiZANidine [Zanaflex] 4 mg PO DAILY PRN 04/15/24 05/04/24 History HYDROcodone/APAP 10-325MG [[place] 1 tab PO Q4-6H PRN #20 tab 04/18/24 05/04/24 Rx 10-325] Furosemide [Lasix] 20 mg PO DAILY tab 04/24/24 05/04/24 Rx Magnesium Oxide [Mag-Ox] 400 mg PO BID tab 04/24/24 05/04/24 Rx Metoprolol Succinate (ER) [Toprol 25 mg PO DAILY tab 04/24/24 05/04/24 Rx XL] lisinopriL [Zestril] 5 mg PO DAILY tab 04/24/24 05/04/24 Rx polyethylene glycoL 3350 [Miralax] 17 gm PO DAILY packet 04/24/24 05/04/24 Rx Acetaminophen [Tylenol 8 Hour] 650 mg PO Q6H PRN 05/04/24 05/04/24 History Amino Acids/Protein Hydrolys 30 ml PO BID 05/04/24 05/04/24 History [Pro-Stat Awc Liquid] Docusate [Colace] 100 mg PO DAILY 05/04/24 05/04/24 History Ipratropium-Albuterol Nebulize 3 ml INHALATION RT-Q4H PRN 05/04/24 05/04/24 History [Duoneb 0.5 mg-3 mg/3 ml Soln] Naloxone HCl 0.4 mg IM DIRECTED PRN 05/04/24 05/04/24 History Naloxone HCl [Narcan] 4 mg NASAL DIRECTED PRN 05/04/24 05/04/24 History Potassium Chloride [Klor-Con M20] 20 meq PO DAILY 05/04/24 05/04/24 History Sennosides-Docusate Sodium 2 tab PO HS 05/04/24 05/04/24 History [Senokot-S] Allergies Allergy/AdvReac Type Severity Reaction Status Date / Time No Known Allergies Allergy Verified 05/04/24 18:07 Physical Exam Osteopathic Statement: *. No significant issues noted on an osteopathic structural exam other than those noted in the History and Physical/Consult. Vitals: Vital Signs Temp Pulse Resp BP Pulse Ox 05/05/24 09:34 97.9 F 82 32 H 96/60 95 05/05/24 06:00 64 18 129/61 94 L 05/05/24 04:00 59 L 16 108/69 93 L 05/05/24 02:00 97.1 F L 56 L 12 104/58 95 05/05/24 00:00 97.8 F 58 L 18 99/52 93 L 05/04/24 21:45 97.6 F 58 L 18 99/52 95 05/04/24 20:01 62 05/04/24 20:00 98.6 F 56 L 22 88/51 93 L 05/04/24 19:53 56 L 05/04/24 15:32 98.6 F 62 20 109/90 94 L Intake and Output 05/04/24 05/05/24 05/05/24 22:59 06:59 14:59 Output Total 200 Balance -200 Output: Urine 200 Other: # Voids 1 Weight 68.039 kg No acute distress, or historian, currently on 5 L nasal cannula. HEENT examination is grossly unremarkable. Mucous membranes are moist. No oral lesions. Neck supple. Full range of motion. No adenopathy thyromegaly or neck vein distention. Cardiovascular examination reveals regular rhythm rate. S1-S2 normal. No S3 or S4. No discernible murmur noted. Heart sounds are distant. Lungs reveal bilateral scattered rhonchi. Minimal wheezes. No crackles. Breath sounds equal. Abdomen soft bowel sounds are heard. No masses or tenderness. Extremities are intact. No cyanosis clubbing or edema. Skin is without rash or lesion. Neurologic examination is brief but nonfocal. Results - Laboratory Findings CBC and BMP: 05/05/24 07:22 05/05/24 07:22 PT/INR, D-dimer PT 13.9 sec (10.0-12.5) H 05/04/24 15:38 INR 1.3 (<1.2) H 05/04/24 15:38 Abnormal lab findings: Abnormal Labs 05/04/24 05/04/24 05/04/24 15:38 15:38 15:38 WBC 19.8 H RBC 3.76 L Hgb 11.8 L Hct 37.7 L MCV 100.5 H MCHC Neutrophils # 17.6 H Lymphocytes # 0.8 L Monocytes # 1.2 H PT 13.9 H INR 1.3 H APTT 31.9 H Sodium 135 L Potassium 5.8 H Chloride 108 H BUN 62 H Creatinine 1.43 H Glucose 158 H POC Glucose (mg/dL) Plasma Lactic Acid Wil Calcium 8.0 L Magnesium 2.6 H Total Protein 5.9 L Albumin 2.9 L Procalcitonin 05/04/24 05/04/24 05/04/24 15:38 15:53 19:45 WBC RBC Hgb Hct MCV MCHC Neutrophils # Lymphocytes # Monocytes # PT INR APTT Sodium Potassium Chloride BUN Creatinine Glucose POC Glucose (mg/dL) 157 H Plasma Lactic Acid Wil 3.2 H* 3.4 H* Calcium Magnesium Total Protein Albumin Procalcitonin 05/04/24 05/05/24 05/05/24 23:09 01:49 07:22 WBC RBC Hgb Hct MCV MCHC Neutrophils # Lymphocytes # Monocytes # PT INR APTT Sodium Potassium Chloride BUN Creatinine Glucose POC Glucose (mg/dL) Plasma Lactic Acid Wil 2.8 H* 2.5 H* Calcium Magnesium Total Protein Albumin Procalcitonin 10.20 H 05/05/24 05/05/24 05/05/24 07:22 07:22 07:22 WBC 17.7 H RBC 4.06 L Hgb Hct MCV 103.3 H MCHC 30.9 L Neutrophils # 15.9 H Lymphocytes # 0.9 L Monocytes # PT INR APTT Sodium Potassium Chloride BUN 51 H Creatinine Glucose 118 H POC Glucose (mg/dL) Plasma Lactic Acid Wil 2.2 H* Calcium Magnesium 2.7 H Total Protein Albumin Procalcitonin 05/05/24 10:29 WBC RBC Hgb Hct MCV MCHC Neutrophils # Lymphocytes # Monocytes # PT INR APTT Sodium Potassium Chloride BUN Creatinine Glucose POC Glucose (mg/dL) Plasma Lactic Acid Wil 2.2 H* Calcium Magnesium Total Protein Albumin Procalcitonin - Diagnostic Findings Chest x-ray: image reviewed Assessment and Plan Assessment: Acute mental status changes, possibly related to underlying sepsis/pneumonia, involving the right lung. History of coronary artery disease. History of CHF. History of CVA. History of hyperlipidemia. History of Parkinson's disease. History of dementia. History of depression. Prior history of tobacco use. Plan: Plan dated May 05, 2024. The patient is seen in the emergency department, room 3. Unfortunately, we could not get any significant history from this patient. He is on saline at 75 cc an hour, and nasal oxygen at 5 L. Chest x-ray shows a right midlung and right lower lobe infiltrate. His procalcitonin level is elevated. The patient is currently on azithromycin, and Rocephin, for community-acquired pneumonia. In addition, he is getting breathing treatments. No additional recommendations are made. We will continue to follow. The patient is a very poor historian. Time with Patient: Greater than 30
[2024-05-05] MEDS: AZITHROMYCIN 500 MG in SODIUM CHLORIDE 0.9% 250 ML IVPB SCH (13:03)
--- NOTE | 2024-05-05 13:14 | P.PN ---
Subjective Progress Note Date: 05/05/24 Patient is a 79-year-old male with reduced ejection fraction CHF (30 to 35% EF in echo 04/20/2024 on GDMT), hyperlipidemia, CVA (on Eliquis), CAD who came in via EMS on nonrebreather for altered mental status. Per daughter, patient was having shortness of breath for the past 2 days and was being treated with breathing treatments at half-way. However today, patient was short of breath with O2 saturations were at the 80s which led them to seek care. Per patient, he denied fevers, sweats, leg swelling, calf tenderness, productive cough, chest pain, palpitations, focal weakness, facial asymmetry, changes in vision, diarrhea, constipation, nausea or vomiting, or recent sick contacts. Patient was recently admitted in 04/15 for left femoral neck fracture which was complicated by hypoxia and aspiration pneumonia post left hip intertrochanteric nail placement which was treated with Zosyn empirically. In the ED, chest x-ray showed right midlung opacities and some congestion. EKG showed sinus rhythm with a rate of 64 with multiple PVCs prolonged ID interval of 154 MS and prolonged QRS interval of [address]-T changes WBC 9.8 hemoglobin 11.8 platelet count 2 56,000 PT 13.9 INR 1.3 PTT 31.9 sodium 135 potassium 5.8 BUN 62 creatinine 1.43 glucose 158 plasma lactic acid 3.2 calcium 0.8 magnesium 2.6 albumin 2.9. Influenza, RSV, COVID not detected On admission patient was afebrile at 98.6 pulse rate 62 respiratory rate 20 blood pressure 109/90 oxygen saturation 94% on nonrebreather 05/05/2024 patient seen and examined at bedside. Patient reported that he feels better and is more alert but still experiences pain on his left hip from recent surgery. Per daughter patient is more alert and wakeful. WBC 17.7 hemoglobin 13 platelet count 232,000 sodium 139 potassium 5 chloride 106 BUN 51 creatinine 1.05 glucose 118 lactic acid 2.2 calcium 8.5 magnesium 2.7 procalcitonin 10.2 Review of systems: Pertinent positives and negatives as discussed in HPI, a complete review of systems was performed and all other systems are negative. Pertinent imaging and labs reviewed. Physical examination: Vital signs reviewed General: non toxic, no distress, appears at stated age Derm: no unusual rashes/lesions, warm Head: atraumatic, normocephalic, symmetric Eyes: EOMI, anicteric sclera, pupils equal round reactive to light ENT: Nose and ears atraumatic Neck: No cervical lymphadenopathy, trachea midline, supple Mouth: no lip lesion, mucus membranes moist Cardiovascular: S1S2 reg, no murmur Lungs: Bibasilar crackles, no rhonchi, no rales, no accessory muscle use Abdominal: soft, nontender to palpation, no guarding Ext: muscle strength 5 out of 5 in all 4 extremities grossly, no gross muscle atrophy, no contractures, positive dorsalis pedis pulse bilateral, no extremity edema Neuro: CN II-XI grossly intact, no gross focal neuro deficits Psych: Alert and oriented x3, appropriate affect and mood Assessment/Plan: 79-year-old male with history of aspiration pneumonia, reduced ejection fraction CHF and CVA (on Eliquis) who came in for sepsis secondary to aspiration pneumonia. #. Severe sepsis secondary to aspiration pneumonia #. Acute respiratory hypoxemic respiratory failure secondary to above #. Lactic acidosis secondary to above Cardiac monitoring Supportive oxygen as needed Chest x-ray showed right midlung opacities and some congestion. Blood cultures pending Urine Legionella negative CBC and BMP in the a.m. Procalcitonin 10.2 Echocardiogram done recently 0.9% normal saline 130 cc/h Azithromycin 500 mg IVPB and ceftriaxone 2 g IVPB daily initiated in the ED Discontinue with Zithromax 500 mg IVPB daily Continue with ceftriaxone 2 g IVPB daily day 2 of 4 Swallow evaluation done. Barium swallow pending Speech therapy following #. Prerenal EDUAR secondary to above Continue with IV fluids BMP in the a.m. Chronic Conditions: #. Parkinson's #. Reduced ejection fraction CHF (30 to 35% EF in echo 04/20/2024 on GDMT) #. History of CVA/TIA #. Hyperlipidemia #. History of CAD Unknown cause for use of Eliquis. But continue for now Hold furosemide 20 mg p.o. for now Hold magnesium oxide for now Continue with donepezil, and Aricept Will reevaluate home medications once patient is more stable F: 0.9 normal saline 130 cc/h E: None for now N: N.p.o. A: Fall precaution. Needs assistance with ambulation DVT ppx: On Eliquis 5 mg p.o. GI ppx: Protonix 40 mg IV daily Margarette Gramajo MD PGY-1/[employer] Dictation was produced using [employer] dictation software. please excuse any grammatical, word or spelling errors. I have seen and evaluated the patient today. Discussed with the resident and agree with the residents finding and plan as documented in the resident's note. Changes highlighted in blue font. Objective - Vital Signs Vital signs: Vital Signs Temp 98.3 F 05/05/24 12:49 Pulse 69 05/05/24 12:49 Resp 28 H 05/05/24 12:49 BP 90/73 05/05/24 12:49 Pulse Ox 94 L 05/05/24 12:49 FiO2 Intake & Output 05/04/24 05/05/24 05/05/24 18:59 06:59 18:59 Output Total 200 Balance -200 Weight 68.039 kg Output: Urine 200 Other: # Voids 1 - Labs CBC & Chem 7: 05/05/24 07:22 05/05/24 07:22 Labs: Abnormal Lab Results - Last 24 Hours (Table) 05/04/24 05/04/24 05/04/24 Range/Units 15:38 15:38 15:38 WBC 19.8 H (3.8-10.6) k/uL RBC 3.76 L (4.30-5.90) m/uL Hgb 11.8 L (13.0-17.5) gm/dL Hct 37.7 L (39.0-53.0) % MCV 100.5 H (80.0-100.0) fL MCHC (31.0-37.0) g/dL Neutrophils # 17.6 H (1.3-7.7) k/uL Lymphocytes # 0.8 L (1.0-4.8) k/uL Monocytes # 1.2 H (0-1.0) k/uL PT 13.9 H (10.0-12.5) sec INR 1.3 H (<1.2) APTT 31.9 H (22.0-30.0) sec Sodium 135 L (137-145) mmol/L Potassium 5.8 H (3.5-5.1) mmol/L Chloride 108 H (98-107) mmol/L BUN 62 H (9-20) mg/dL Creatinine 1.43 H (0.66-1.25) mg/dL Glucose 158 H (74-99) mg/dL POC Glucose (mg/dL) (70-110) mg/dL Plasma Lactic Acid Wil (0.7-2.0) mmol/L Calcium 8.0 L (8.4-10.2) mg/dL Magnesium 2.6 H (1.6-2.3) mg/dL Total Protein 5.9 L (6.3-8.2) g/dL Albumin 2.9 L (3.5-5.0) g/dL Procalcitonin (0.02-0.50) ng/mL 05/04/24 05/04/24 05/04/24 Range/Units 15:38 15:53 19:45 WBC (3.8-10.6) k/uL RBC (4.30-5.90) m/uL Hgb (13.0-17.5) gm/dL Hct (39.0-53.0) % MCV (80.0-100.0) fL MCHC (31.0-37.0) g/dL Neutrophils # (1.3-7.7) k/uL Lymphocytes # (1.0-4.8) k/uL Monocytes # (0-1.0) k/uL PT (10.0-12.5) sec INR (<1.2) APTT (22.0-30.0) sec Sodium (137-145) mmol/L Potassium (3.5-5.1) mmol/L Chloride (98-107) mmol/L BUN (9-20) mg/dL Creatinine (0.66-1.25) mg/dL Glucose (74-99) mg/dL POC Glucose (mg/dL) 157 H (70-110) mg/dL Plasma Lactic Acid Wil 3.2 H* 3.4 H* (0.7-2.0) mmol/L Calcium (8.4-10.2) mg/dL Magnesium (1.6-2.3) mg/dL Total Protein (6.3-8.2) g/dL Albumin (3.5-5.0) g/dL Procalcitonin (0.02-0.50) ng/mL 05/04/24 05/05/24 05/05/24 Range/Units 23:09 01:49 07:22 WBC (3.8-10.6) k/uL RBC (4.30-5.90) m/uL Hgb (13.0-17.5) gm/dL Hct (39.0-53.0) % MCV (80.0-100.0) fL MCHC (31.0-37.0) g/dL Neutrophils # (1.3-7.7) k/uL Lymphocytes # (1.0-4.8) k/uL Monocytes # (0-1.0) k/uL PT (10.0-12.5) sec INR (<1.2) APTT (22.0-30.0) sec Sodium (137-145) mmol/L Potassium (3.5-5.1) mmol/L Chloride (98-107) mmol/L BUN (9-20) mg/dL Creatinine (0.66-1.25) mg/dL Glucose (74-99) mg/dL POC Glucose (mg/dL) (70-110) mg/dL Plasma Lactic Acid Wil 2.8 H* 2.5 H* (0.7-2.0) mmol/L Calcium (8.4-10.2) mg/dL Magnesium (1.6-2.3) mg/dL Total Protein (6.3-8.2) g/dL Albumin (3.5-5.0) g/dL Procalcitonin 10.20 H (0.02-0.50) ng/mL 05/05/24 05/05/24 05/05/24 Range/Units 07:22 07:22 07:22 WBC 17.7 H (3.8-10.6) k/uL RBC 4.06 L (4.30-5.90) m/uL Hgb (13.0-17.5) gm/dL Hct (39.0-53.0) % MCV 103.3 H (80.0-100.0) fL MCHC 30.9 L (31.0-37.0) g/dL Neutrophils # 15.9 H (1.3-7.7) k/uL Lymphocytes # 0.9 L (1.0-4.8) k/uL Monocytes # (0-1.0) k/uL PT (10.0-12.5) sec INR (<1.2) APTT (22.0-30.0) sec Sodium (137-145) mmol/L Potassium (3.5-5.1) mmol/L Chloride (98-107) mmol/L BUN 51 H (9-20) mg/dL Creatinine (0.66-1.25) mg/dL Glucose 118 H (74-99) mg/dL POC Glucose (mg/dL) (70-110) mg/dL Plasma Lactic Acid Wil 2.2 H* (0.7-2.0) mmol/L Calcium (8.4-10.2) mg/dL Magnesium 2.7 H (1.6-2.3) mg/dL Total Protein (6.3-8.2) g/dL Albumin (3.5-5.0) g/dL Procalcitonin (0.02-0.50) ng/mL 05/05/24 Range/Units 10:29 WBC (3.8-10.6) k/uL RBC (4.30-5.90) m/uL Hgb (13.0-17.5) gm/dL Hct (39.0-53.0) % MCV (80.0-100.0) fL MCHC (31.0-37.0) g/dL Neutrophils # (1.3-7.7) k/uL Lymphocytes # (1.0-4.8) k/uL Monocytes # (0-1.0) k/uL PT (10.0-12.5) sec INR (<1.2) APTT (22.0-30.0) sec Sodium (137-145) mmol/L Potassium (3.5-5.1) mmol/L Chloride (98-107) mmol/L BUN (9-20) mg/dL Creatinine (0.66-1.25) mg/dL Glucose (74-99) mg/dL POC Glucose (mg/dL) (70-110) mg/dL Plasma Lactic Acid Wil 2.2 H* (0.7-2.0) mmol/L Calcium (8.4-10.2) mg/dL Magnesium (1.6-2.3) mg/dL Total Protein (6.3-8.2) g/dL Albumin (3.5-5.0) g/dL Procalcitonin (0.02-0.50) ng/mL
--- NOTE | 2024-05-05 13:58 | FL ---
Modified barium swallow. HISTORY: Dysphagia. Modified barium swallow was performed with the department of speech pathology. The patient was prese nted with various consistencies of barium. Aspiration is noted with thin and nectar thick barium. Full report is to follow from the department o f speech pathology. Impression: Aspiration X-Ray Russell Shen, , 05/05/2024 1:56 PM
[2024-05-06 10:40] LABS: Basophils % (A) 0 %; Eosinophils % (A) 0 %; HCT 38.5 % (39.0-53.0); HGB 11.7 gm/dL (13.0-17.5); Hypochromasia Marked; Lymphocytes # (A) 0.8 k/uL (1.0-4.8); Lymphocytes % (A) 7 %; MCH 31.6 pg (25.0-35.0); MCHC 30.4 g/dL (31.0-37.0); MCV 103.9 fL (80.0-100.0); Macrocytosis Slight; Mean Platelet Volume 8.8; Monocytes # (A) 0.5 k/uL (0-1.0); Monocytes % (A) 4 %; Neutrophils # (A) 10.9 k/uL (1.3-7.7); Neutrophils % (A) 88 %; Platelet Count 215 k/uL (150-450); RDW 13.9 % (11.5-15.5); WBC 12.4 k/uL (3.8-10.6)
--- NOTE | 2024-05-06 10:51 | P.PN ---
Subjective Progress Note Date: 05/06/24 Principal diagnosis: Pneumonia. Pulmonary consult dated May 05, 2024. 79-year-old male who is seen in the emergency department, room 3. The patient apparently was seen in the emergency department, for mental status changes. The patient is a very poor historian, and we can get very little history from him. The patient is currently on saline at about 75 cc an hour, and nasal oxygen at 5 L. He apparently was admitted with a diagnosis of possible right-sided pneumonia. Again, the patient was even short while he was in the hospital. He apparently has a history of coronary artery disease, heart failure, CVA, hyperlipidemia, and possibly dementia. In addition he has a history of depression, and has a history of previous tobacco use. White count 17.7, hemoglobin 13, hematocrit 42, platelet count normal. Sodium 139, potassium 5, chlorides 106, CO2 28, BUN 51, creatinine 1.05. Lactic acid was 2.2. Procalcitonin level was elevated at 10.2. Chest x-ray shows a right sided infiltrate. Progress note dated May 06, 2024. 79-year-old male who is seen in room 361. The patient was seen in the emergency department, was diagnosed as having right sided pneumonia. The patient is a very poor historian. Currently, she is on 4 L nasal cannula. His procalcitonin level was elevated at 10.2. He is getting saline at 130 cc an hour. He continues on Rocephin and azithromycin. White count 12.4, hemoglobin 1.7, hematocrit 38.5, platelet count normal. Objective - Vital Signs Vital signs: Vital Signs Temp 97.8 F 05/06/24 04:00 Pulse 72 05/06/24 10:01 Resp 18 05/06/24 10:01 BP 134/58 05/06/24 08:37 Pulse Ox 99 05/06/24 08:52 FiO2 Intake & Output 05/05/24 05/06/24 05/06/24 18:59 06:59 18:59 Intake Total 120 Output Total 300 0 Balance -300 120 Weight 68.039 kg 65 kg Intake: Oral 120 Output: Gastric Drainage 0 Urine 300 0 Stool 0 Urine/Stool Mix 0 Emesis 0 Oral Regurgitation 0 Other 0 Other: # Voids 0 3 0 # Bowel Movements 0 0 - Exam No acute distress, or historian, currently on 4 L nasal cannula. HEENT examination is grossly unremarkable. Mucous membranes are moist. No oral lesions. Neck supple. Full range of motion. No adenopathy thyromegaly or neck vein distention. Cardiovascular examination reveals regular rhythm rate. S1-S2 normal. No S3 or S4. No discernible murmur noted. Heart sounds are distant. Lungs reveal bilateral scattered rhonchi. Minimal wheezes. No crackles. Breath sounds equal. Abdomen soft bowel sounds are heard. No masses or tenderness. Extremities are intact. No cyanosis clubbing or edema. Skin is without rash or lesion. Neurologic examination is brief but nonfocal. - Labs CBC & Chem 7: 05/06/24 10:08 05/05/24 07:22 Labs: Abnormal Lab Results - Last 24 Hours (Table) 05/05/24 05/05/24 05/05/24 Range/Units 07:22 10:29 14:01 WBC (3.8-10.6) k/uL RBC (4.30-5.90) m/uL Hgb (13.0-17.5) gm/dL Hct (39.0-53.0) % MCV (80.0-100.0) fL MCHC (31.0-37.0) g/dL Neutrophils # (1.3-7.7) k/uL Lymphocytes # (1.0-4.8) k/uL Plasma Lactic Acid Wil 2.2 H* 2.7 H* (0.7-2.0) mmol/L Procalcitonin 10.20 H (0.02-0.50) ng/mL 05/05/24 05/05/24 05/06/24 Range/Units 18:11 20:48 10:08 WBC 12.4 H (3.8-10.6) k/uL RBC 3.70 L (4.30-5.90) m/uL Hgb 11.7 L (13.0-17.5) gm/dL Hct 38.5 L (39.0-53.0) % MCV 103.9 H (80.0-100.0) fL MCHC 30.4 L (31.0-37.0) g/dL Neutrophils # 10.9 H (1.3-7.7) k/uL Lymphocytes # 0.8 L (1.0-4.8) k/uL Plasma Lactic Acid Wil 2.2 H* 2.6 H* (0.7-2.0) mmol/L Procalcitonin (0.02-0.50) ng/mL Microbiology - Last 24 Hours (Table) 05/04/24 15:48 Blood Culture - Preliminary Blood Assessment and Plan Assessment: Acute mental status changes, possibly related to underlying sepsis/pneumonia, involving the right lung. History of coronary artery disease. History of CHF. History of CVA. History of hyperlipidemia. History of Parkinson's disease. History of dementia. History of depression. Prior history of tobacco use. Plan: Plan dated May 05, 2024. The patient is seen in the emergency department, room 3. Unfortunately, we could not get any significant history from this patient. He is on saline at 75 cc an hour, and nasal oxygen at 5 L. Chest x-ray shows a right midlung and right lower lobe infiltrate. His procalcitonin level is elevated. The patient is currently on azithromycin, and Rocephin, for community-acquired pneumonia. In addition, he is getting breathing treatments. No additional recommendations are made. We will continue to follow. The patient is a very poor historian. Plan dated May 06, 2024. The patient is seen in room 361. He continues on O2 at 4 L. He is getting saline at 130 cc an hour. He continues on Rocephin and azithromycin, for right sided pneumonia. Procalcitonin level was elevated at 10.2. Labs, x-rays, and all medications are reviewed. We will continue to follow and make recommendations where appropriate. Prognosis is guarded. Dictation was produced using [employer] software. Please excuse any grammatical, word or spelling errors. Time with Patient: Less than 30
[2024-05-06 11:11] LABS: African American GFR (CKD) >90 (>60 ml/min/1.73 sqM); Anion Gap 6 mmol/L; Blood Urea Nitrogen 31 mg/dL (9-20); Calcium 8.4 mg/dL (8.4-10.2); Carbon Dioxide 26 mmol/L (22-30); Chloride 110 mmol/L (98-107); Glucose 152 mg/dL (74-99); Non-African American GFR(CKD) 83 (>60 ml/min/1.73 sqM); Potassium 4.1 mmol/L (3.5-5.1); Sodium 142 mmol/L (137-145)
--- NOTE | 2024-05-06 13:59 | P.PN ---
Subjective Progress Note Date: 05/06/24 Patient is a 79-year-old male with reduced ejection fraction CHF (30 to 35% EF in echo 04/20/2024 on GDMT), hyperlipidemia, CVA (on Eliquis), CAD who came in via EMS on nonrebreather for altered mental status. Per daughter, patient was having shortness of breath for the past 2 days and was being treated with breathing treatments at long-term. However today, patient was short of breath with O2 saturations were at the 80s which led them to seek care. Per patient, he denied fevers, sweats, leg swelling, calf tenderness, productive cough, chest pain, palpitations, focal weakness, facial asymmetry, changes in vision, diarrhea, constipation, nausea or vomiting, or recent sick contacts. Patient was recently admitted in 04/15 for left femoral neck fracture which was complicated by hypoxia and aspiration pneumonia post left hip intertrochanteric nail placement which was treated with Zosyn empirically. In the ED, chest x-ray showed right midlung opacities and some congestion. EKG showed sinus rhythm with a rate of 64 with multiple PVCs prolonged NM interval of 154 MS and prolonged QRS interval of [address]-T changes WBC 9.8 hemoglobin 11.8 platelet count 2 56,000 PT 13.9 INR 1.3 PTT 31.9 sodium 135 potassium 5.8 BUN 62 creatinine 1.43 glucose 158 plasma lactic acid 3.2 calcium 0.8 magnesium 2.6 albumin 2.9. Influenza, RSV, COVID not detected On admission patient was afebrile at 98.6 pulse rate 62 respiratory rate 20 blood pressure 109/90 oxygen saturation 94% on nonrebreather 05/05/2024 patient seen and examined at bedside. Patient reported that he feels better and is more alert but still experiences pain on his left hip from recent surgery. Per daughter patient is more alert and wakeful. WBC 17.7 hemoglobin 13 platelet count 232,000 sodium 139 potassium 5 chloride 106 BUN 51 creatinine 1.05 glucose 118 lactic acid 2.2 calcium 8.5 magnesium 2.7 procalcitonin 10.2 05/06/2024 patient seen and examined at bedside. Patient reported that he feels the same as yesterday and his pain control has improved. Still requires 5 L of O2 support nasal cannula. WBC 12.4 hemoglobin 11 platelet count 215,000 sodium 142 potassium 4.1 chloride 110 bicarb 26 BUN 31 creatinine 0.81 glucose 152 calcium 8.4 Review of systems: Pertinent positives and negatives as discussed in HPI, a complete review of systems was performed and all other systems are negative. Pertinent imaging and labs reviewed. Physical examination: Vital signs reviewed General: non toxic, no distress, on 5 L nasal cannula Derm: no unusual rashes/lesions, warm Head: atraumatic, normocephalic, symmetric Eyes: EOMI, anicteric sclera, pupils equal round reactive to light ENT: Nose and ears atraumatic Neck: No cervical lymphadenopathy, trachea midline, supple Mouth: no lip lesion, mucus membranes moist Cardiovascular: S1S2 reg, no murmur Lungs: Bibasilar crackles, no rhonchi, no rales, no accessory muscle use Abdominal: soft, nontender to palpation, no guarding Ext: muscle strength 5 out of 5 in all 4 extremities grossly, no gross muscle atrophy, no contractures, positive dorsalis pedis pulse bilateral, no extremity edema Neuro: CN II-XI grossly intact, no gross focal neuro deficits Psych: Alert and oriented x3, appropriate affect and mood Assessment/Plan: 79-year-old male with history of aspiration pneumonia, reduced ejection fraction CHF and CVA (on Eliquis) who came in for sepsis secondary to aspiration pneumonia. #. Severe sepsis secondary to aspiration pneumonia #. Acute respiratory hypoxemic respiratory failure secondary to above #. Lactic acidosis secondary to above Cardiac monitoring Wean off oxygen as tolerated Chest x-ray showed right midlung opacities and some congestion. Blood cultures pending Urine Legionella negative CBC and BMP in the a.m. Procalcitonin 10.2 Echocardiogram done recently 0.9% normal saline 130 cc/h Azithromycin 500 mg IVPB and ceftriaxone 2 g IVPB daily initiated in the ED Discontinue with Zithromax 500 mg IVPB daily Continue with ceftriaxone 2 g IVPB daily day 3 of 4 Swallow evaluation done. Barium swallow was positive for aspiration Speech therapy following #. Prerenal EDUAR secondary to above Continue with IV fluids BMP in the a.m. Chronic Conditions: #. Parkinson's #. Reduced ejection fraction CHF (30 to 35% EF in echo 04/20/2024 on GDMT) #. History of CVA/TIA #. Hyperlipidemia #. History of CAD Unknown cause for use of Eliquis. But continue for now Hold furosemide 20 mg p.o. for now Hold magnesium oxide for now Continue with donepezil, and Aricept F: 0.9 normal saline 130 cc/h E: None for now N: N.p.o. A: Fall precaution. Needs assistance with ambulation DVT ppx: On Eliquis 5 mg p.o. GI ppx: Protonix 40 mg IV daily Margarette Gramajo MD PGY-1/[employer] Dictation was produced using [employer] dictation software. please excuse any grammatical, word or spelling errors. I have seen and evaluated the patient today. Discussed with the resident and agree with the residents finding and plan as documented in the resident's note. Changes highlighted in blue font. Objective - Vital Signs Vital signs: Vital Signs Temp 97.8 F 05/06/24 04:00 Pulse 85 05/06/24 11:25 Resp 18 05/06/24 11:25 BP 133/71 05/06/24 11:25 Pulse Ox 96 05/06/24 11:25 FiO2 Intake & Output 05/05/24 05/06/24 05/06/24 18:59 06:59 18:59 Intake Total 120 Output Total 300 0 Balance -300 120 Weight 68.039 kg 65 kg Intake: Oral 120 Output: Gastric Drainage 0 Urine 300 0 Stool 0 Urine/Stool Mix 0 Emesis 0 Oral Regurgitation 0 Other 0 Other: # Voids 0 3 0 # Bowel Movements 0 0 - Labs CBC & Chem 7: 05/06/24 10:08 05/06/24 10:08 Labs: Abnormal Lab Results - Last 24 Hours (Table) 05/05/24 05/05/24 05/05/24 Range/Units 14:01 18:11 20:48 WBC (3.8-10.6) k/uL RBC (4.30-5.90) m/uL Hgb (13.0-17.5) gm/dL Hct (39.0-53.0) % MCV (80.0-100.0) fL MCHC (31.0-37.0) g/dL Neutrophils # (1.3-7.7) k/uL Lymphocytes # (1.0-4.8) k/uL Chloride (98-107) mmol/L BUN (9-20) mg/dL Glucose (74-99) mg/dL Plasma Lactic Acid Wil 2.7 H* 2.2 H* 2.6 H* (0.7-2.0) mmol/L 05/06/24 05/06/24 Range/Units 10:08 10:08 WBC 12.4 H (3.8-10.6) k/uL RBC 3.70 L (4.30-5.90) m/uL Hgb 11.7 L (13.0-17.5) gm/dL Hct 38.5 L (39.0-53.0) % MCV 103.9 H (80.0-100.0) fL MCHC 30.4 L (31.0-37.0) g/dL Neutrophils # 10.9 H (1.3-7.7) k/uL Lymphocytes # 0.8 L (1.0-4.8) k/uL Chloride 110 H (98-107) mmol/L BUN 31 H (9-20) mg/dL Glucose 152 H (74-99) mg/dL Plasma Lactic Acid Wil (0.7-2.0) mmol/L Microbiology - Last 24 Hours (Table) 05/04/24 15:48 Blood Culture - Preliminary Blood
[2024-05-07 08:35] LABS: Basophils % (A) 0 %; Eosinophils # (A) 0.1 k/uL (0-0.7); Eosinophils % (A) 1 %; HGB 11.2 gm/dL (13.0-17.5); Hypochromasia Marked; Lymphocytes % (A) 8 %; MCH 31.1 pg (25.0-35.0); MCHC 30.4 g/dL (31.0-37.0); MCV 102.2 fL (80.0-100.0); Macrocytosis Slight; Monocytes # (A) 0.5 k/uL (0-1.0); Monocytes % (A) 4 %; Neutrophils # (A) 10.4 k/uL (1.3-7.7); Neutrophils % (A) 86 %; Platelet Count 200 k/uL (150-450); RBC 3.62 m/uL (4.30-5.90); RDW 13.9 % (11.5-15.5); WBC 12.1 k/uL (3.8-10.6)
[2024-05-07 08:46] LABS: African American GFR (CKD) >90 (>60 ml/min/1.73 sqM); Anion Gap 7 mmol/L; Blood Urea Nitrogen 16 mg/dL (9-20); Calcium 8.5 mg/dL (8.4-10.2); Carbon Dioxide 22 mmol/L (22-30); Chloride 112 mmol/L (98-107); Glucose 124 mg/dL (74-99); Non-African American GFR(CKD) 90 (>60 ml/min/1.73 sqM); Potassium 3.7 mmol/L (3.5-5.1); Sodium 141 mmol/L (137-145)
--- NOTE | 2024-05-07 10:41 | P.PN ---
Subjective Progress Note Date: 05/07/24 Principal diagnosis: Pneumonia. Pulmonary consult dated May 05, 2024. 79-year-old male who is seen in the emergency department, room 3. The patient apparently was seen in the emergency department, for mental status changes. The patient is a very poor historian, and we can get very little history from him. The patient is currently on saline at about 75 cc an hour, and nasal oxygen at 5 L. He apparently was admitted with a diagnosis of possible right-sided pneumonia. Again, the patient was even short while he was in the hospital. He apparently has a history of coronary artery disease, heart failure, CVA, hyperlipidemia, and possibly dementia. In addition he has a history of depression, and has a history of previous tobacco use. White count 17.7, hemoglobin 13, hematocrit 42, platelet count normal. Sodium 139, potassium 5, chlorides 106, CO2 28, BUN 51, creatinine 1.05. Lactic acid was 2.2. Procalcitonin level was elevated at 10.2. Chest x-ray shows a right sided infiltrate. Progress note dated May 06, 2024. 79-year-old male who is seen in room 361. The patient was seen in the emergency department, was diagnosed as having right sided pneumonia. The patient is a very poor historian. Currently, she is on 4 L nasal cannula. His procalcitonin level was elevated at 10.2. He is getting saline at 130 cc an hour. He continues on Rocephin and azithromycin. White count 12.4, hemoglobin 1.7, hematocrit 38.5, platelet count normal. Progress note dated May 07, 2024. 79-year-old male seen today in room 361. The patient is currently on 3 L of oxygen. He is getting saline at 130 cc an hour, which will be reduced down to 50 cc an hour. A chest x-ray is ordered for the morning. Clinically, the patient sitting in a chair next to his hospital bed. He is awake and alert. He is not having any distress. Current labs are good white count 12.1, hemoglobin 11.2, macro 37, platelet count of 200,000. Sodium 141, potassium 3.7, chlorides 112, CO2 22, BUN 16, creatinine 0.68. Calcium is 8.5. Objective - Vital Signs Vital signs: Vital Signs Temp 98.0 F 05/07/24 08:50 Pulse 71 05/07/24 09:55 Resp 17 05/07/24 09:55 BP 157/70 05/07/24 08:50 Pulse Ox 94 L 05/07/24 08:50 FiO2 Intake & Output 05/06/24 05/07/24 05/07/24 18:59 06:59 18:59 Intake Total 660 10 476 Output Total 0 Balance 660 10 476 Weight 65 kg Intake: IV 10 Invasive Line 1 10 Oral 660 476 Output: Gastric Drainage 0 Urine 0 Stool 0 Urine/Stool Mix 0 Emesis 0 Oral Regurgitation 0 Other 0 Other: Voiding Method Incontinent Incontinent # Voids 0 2 1 # Bowel Movements 3 1 - Exam No acute distress, or historian, currently on 3 L nasal cannula. HEENT examination is grossly unremarkable. Mucous membranes are moist. No oral lesions. Neck supple. Full range of motion. No adenopathy thyromegaly or neck vein d istention. Cardiovascular examination reveals regular rhythm rate. S1-S2 normal. No S3 or S4. No discernible murmur noted. Heart sounds are distant. Lungs reveal bilateral scattered rhonchi. Minimal wheezes. No crackles. Breath sounds equal. Abdomen soft bowel sounds are heard. No masses or tenderness. Extremities are intact. No cyanosis clubbing or edema. Skin is without rash or lesion. Neurologic examination is brief but nonfocal. - Labs CBC & Chem 7: 05/07/24 08:00 05/07/24 08:00 Labs: Abnormal Lab Results - Last 24 Hours (Table) 05/06/24 05/06/24 05/07/24 Range/Units 10:08 10:08 08:00 WBC 12.4 H 12.1 H (3.8-10.6) k/uL RBC 3.70 L 3.62 L (4.30-5.90) m/uL Hgb 11.7 L 11.2 L (13.0-17.5) gm/dL Hct 38.5 L 37.0 L (39.0-53.0) % MCV 103.9 H 102.2 H (80.0-100.0) fL MCHC 30.4 L 30.4 L (31.0-37.0) g/dL Neutrophils # 10.9 H 10.4 H (1.3-7.7) k/uL Lymphocytes # 0.8 L (1.0-4.8) k/uL Chloride 110 H (98-107) mmol/L BUN 31 H (9-20) mg/dL Glucose 152 H (74-99) mg/dL 05/07/24 Range/Units 08:00 WBC (3.8-10.6) k/uL RBC (4.30-5.90) m/uL Hgb (13.0-17.5) gm/dL Hct (39.0-53.0) % MCV (80.0-100.0) fL MCHC (31.0-37.0) g/dL Neutrophils # (1.3-7.7) k/uL Lymphocytes # (1.0-4.8) k/uL Chloride 112 H (98-107) mmol/L BUN (9-20) mg/dL Glucose 124 H (74-99) mg/dL Microbiology - Last 24 Hours (Table) 05/04/24 15:48 Blood Culture - Preliminary Blood Assessment and Plan Assessment: Acute mental status changes, possibly related to underlying sepsis/pneumonia, involving the right lung. History of coronary artery disease. History of CHF. History of CVA. History of hyperlipidemia. History of Parkinson's disease. History of dementia. History of depression. Prior history of tobacco use. Plan: Plan dated May 05, 2024. The patient is seen in the emergency department, room 3. Unfortunately, we could not get any significant history from this patient. He is on saline at 75 cc an hour, and nasal oxygen at 5 L. Chest x-ray shows a right midlung and right lower lobe infiltrate. His procalcitonin level is elevated. The patient is currently on azithromycin, and Rocephin, for community-acquired pneumonia. In addition, he is getting breathing treatments. No additional recommendations are made. We will continue to follow. The patient is a very poor historian. Plan dated May 06, 2024. The patient is seen in room 361. He continues on O2 at 4 L. He is getting saline at 130 cc an hour. He continues on Rocephin and azithromycin, for right sided pneumonia. Procalcitonin level was elevated at 10.2. Labs, x-rays, and all medications are reviewed. We will continue to follow and make recommendations where appropriate. Prognosis is guarded. Dictation was produced using [employer] dictation software. Please excuse any grammatical, word or spelling errors. Plan dated May 07, 2024. The patient appears to be doing relatively well. The patient continues on O2 at 3 L by nasal cannula. Saturations are in the mid to high 90s. His saline IVs running at 130 cc an hour, is reduced on the 50 cc an hour. The patient is eating and drinking. The patient will have a chest x-ray in the morning. We will continue to follow make recommendations. Prognosis is guarded. No additional recommendations at this time. Time with Patient: Less than 30
--- NOTE | 2024-05-07 15:47 | P.PN ---
Subjective Progress Note Date: 05/07/24 Subjective: Patient seen and examined at bedside. No acute events overnight. Pertinent positives and negatives as discussed above, a complete review of systems was performed and all other systems are negative. Vitals Signs Reviewed. General: Nontoxic, no distress, appears at stated age Derm: Warm, dry Head: Atraumatic, normocephalic, symmetric Eyes: EOMI, no lid lag, anicteric sclera Mouth: No lip lesion, mucus membranes moist Cardiovascular: S1S2 reg, no murmur Lungs: CTA bilateral, no rhonchi, no rales, no accessory muscle use, supplemental oxygen Abdominal: Soft, nontender to palpation, no guarding, no appreciable organomegaly Ext: No gross muscle atrophy, no edema, no contractures Neuro: CN II-XI grossly intact, no focal neuro deficits Psych: Alert, oriented x 1, appropriate affect Data Reviewed Today: Pertinent Labs: WBC 12.1, hemoglobin 11.2, creatinine 0.68 Imaging: No imaging Assessment and Plan: Active: Severe sepsis secondary to aspiration pneumonia Acute hypoxic respiratory failure Lactic acidosis -Continue IV ceftriaxone 2 g every 24 hours, status post azithromycin -Wean oxygen -On ground diet -Aspiration precautions -Pulmonology note reviewed, continue current therapy -IV fluids discontinued Resolved: EDUAR Chronic: Parkinson's disease Dyslipidemia A-fib? Hypertension Chronic pain Cognitive disorder CAD history History of CVA/TIA HFrEF 30 to 35% DVT ppx: Eliquis Code status: Full code Anticipated discharge place: Pending clinical course Anticipated discharge time: Pending clinical course Objective - Vital Signs Vital signs: Vital Signs Temp 98.0 F 05/07/24 08:50 Pulse 78 05/07/24 12:40 Resp 17 05/07/24 12:40 BP 150/84 05/07/24 12:40 Pulse Ox 92 L 05/07/24 12:40 FiO2 Intake & Output 05/06/24 05/07/24 05/07/24 18:59 06:59 18:59 Intake Total 660 10 476 Output Total 0 Balance 660 10 476 Weight 65 kg Intake: IV 10 Invasive Line 1 10 Oral 660 476 Output: Gastric Drainage 0 Urine 0 Stool 0 Urine/Stool Mix 0 Emesis 0 Oral Regurgitation 0 Other 0 Other: Voiding Method Incontinent Incontinent # Voids 0 2 1 # Bowel Movements 3 1 - Labs CBC & Chem 7: 05/07/24 08:00 11/24/24 08:00 Labs: Abnormal Lab Results - Last 24 Hours (Table) 05/07/24 05/07/24 Range/Units 08:00 08:00 WBC 12.1 H (3.8-10.6) k/uL RBC 3.62 L (4.30-5.90) m/uL Hgb 11.2 L (13.0-17.5) gm/dL Hct 37.0 L (39.0-53.0) % MCV 102.2 H (80.0-100.0) fL MCHC 30.4 L (31.0-37.0) g/dL Neutrophils # 10.4 H (1.3-7.7) k/uL Chloride 112 H (98-107) mmol/L Glucose 124 H (74-99) mg/dL Microbiology - Last 24 Hours (Table) 05/04/24 15:48 Blood Culture - Preliminary Blood
[2024-05-08 07:18] LABS: Basophils % (A) 0 %; Eosinophils # (A) 0.2 k/uL (0-0.7); Eosinophils % (A) 1 %; HCT 36.7 % (39.0-53.0); HGB 11.4 gm/dL (13.0-17.5); Hypochromasia Moderate; Lymphocytes # (A) 1.1 k/uL (1.0-4.8); Lymphocytes % (A) 10 %; MCH 31.6 pg (25.0-35.0); MCHC 31.2 g/dL (31.0-37.0); MCV 101.3 fL (80.0-100.0); Macrocytosis Slight; Mean Platelet Volume 8.2; Monocytes # (A) 0.7 k/uL (0-1.0); Monocytes % (A) 6 %; Neutrophils # (A) 8.9 k/uL (1.3-7.7); Neutrophils % (A) 81 %; Platelet Count 213 k/uL (150-450); RBC 3.63 m/uL (4.30-5.90); RDW 13.9 % (11.5-15.5)
--- NOTE | 2024-05-08 07:38 | XR ---
EXAMINATION TYPE: XR chest 1V portable DATE OF EXAM: 05/08/2024 7:03 AM COMPARISON: 05/05/2024 CLINICAL INDICATION: Male, 79 years old with history of RUL pneumonia, , FINDINGS: Heart mildly enlarged. Hyperinflation. Patchy airspace opacity throughout the right lung persists, sl ight worsening at the midlung level and slight improvement at the right base. No pleural effusion. IMPRESSION: COPD with ongoing airspace is on the right. Slightly worsened at the right midlung and slightly impro sun at the right base. [facility], , 05/08/2024 7:36 AM
[2024-05-08 07:46] LABS: African American GFR (CKD) >90 (>60 ml/min/1.73 sqM); Anion Gap 7 mmol/L; Blood Urea Nitrogen 11 mg/dL (9-20); Calcium 8.5 mg/dL (8.4-10.2); Carbon Dioxide 24 mmol/L (22-30); Chloride 111 mmol/L (98-107); Glucose 116 mg/dL (74-99); Non-African American GFR(CKD) 87 (>60 ml/min/1.73 sqM); Potassium 3.6 mmol/L (3.5-5.1); Sodium 142 mmol/L (137-145)
--- NOTE | 2024-05-08 11:38 | P.PN ---
Subjective Progress Note Date: 05/08/24 Patient is a 79-year-old male with reduced ejection fraction CHF (30 to 35% EF in echo 04/20/2024 on GDMT), hyperlipidemia, CVA (on Eliquis), CAD who came in via EMS on nonrebreather for altered mental status. Per daughter, patient was having shortness of breath for the past 2 days and was being treated with breathing treatments at residential. However today, patient was short of breath with O2 saturations were at the 80s which led them to seek care. Per patient, he denied fevers, sweats, leg swelling, calf tenderness, productive cough, chest pain, palpitations, focal weakness, facial asymmetry, changes in vision, diarrhea, constipation, nausea or vomiting, or recent sick contacts. Patient was recently admitted in 04/15 for left femoral neck fracture which was complicated by hypoxia and aspiration pneumonia post left hip intertrochanteric nail placement which was treated with Zosyn empirically. In the ED, chest x-ray showed right midlung opacities and some congestion. EKG showed sinus rhythm with a rate of 64 with multiple PVCs prolonged AK interval of 154 MS and prolonged QRS interval of [address]-T changes WBC 9.8 hemoglobin 11.8 platelet count 2 56,000 PT 13.9 INR 1.3 PTT 31.9 sodium 135 potassium 5.8 BUN 62 creatinine 1.43 glucose 158 plasma lactic acid 3.2 calcium 0.8 magnesium 2.6 albumin 2.9. Influenza, RSV, COVID not detected On admission patient was afebrile at 98.6 pulse rate 62 respiratory rate 20 blood pressure 109/90 oxygen saturation 94% on nonrebreather 05/05/2024 patient seen and examined at bedside. Patient reported that he feels better and is more alert but still experiences pain on his left hip from recent surgery. Per daughter patient is more alert and wakeful. WBC 17.7 hemoglobin 13 platelet count 232,000 sodium 139 potassium 5 chloride 106 BUN 51 creatinine 1.05 glucose 118 lactic acid 2.2 calcium 8.5 magnesium 2.7 procalcitonin 10.2 05/06/2024 patient seen and examined at bedside. Patient reported that he feels the same as yesterday and his pain control has improved. Still requires 5 L of O2 support nasal cannula. WBC 12.4 hemoglobin 11 platelet count 215,000 sodium 142 potassium 4.1 chloride 110 bicarb 26 BUN 31 creatinine 0.81 glucose 152 calcium 8.4 05/07/2024 Patient seen and examined at bedside. No acute events overnight. WBC 12.1, hemoglobin 11.2, creatinine 0.68 05/08/2024 patient seen and examined at bedside. Patient reported no acute events overnight. Patient still requiring oxygen support currently at 2 L nasal cannula. WBC 11 neutrophilic, hemoglobin 11.4 Review of systems: Pertinent positives and negatives as discussed in HPI, a complete review of systems was performed and all other systems are negative. Pertinent imaging and labs reviewed. Physical examination: Vital signs reviewed General: non toxic, no distress, on 2 L nasal cannula Derm: no unusual rashes/lesions, warm Head: atraumatic, normocephalic, symmetric Eyes: EOMI, anicteric sclera, pupils equal round reactive to light ENT: Nose and ears atraumatic Neck: No cervical lymphadenopathy, trachea midline, supple Mouth: no lip lesion, mucus membranes moist Cardiovascular: S1S2 reg, no murmur Lungs: Bibasilar crackles, no rhonchi, no rales, no accessory muscle use Abdominal: soft, nontender to palpation, no guarding Ext: muscle strength 5 out of 5 in all 4 extremities grossly, no gross muscle atrophy, no contractures, positive dorsalis pedis pulse bilateral, no extremity edema Neuro: CN II-XI grossly intact, no gross focal neuro deficits Psych: Alert and oriented x3, appropriate affect and mood Assessment/Plan: 79-year-old male with history of aspiration pneumonia, reduced ejection fraction CHF and CVA (on Eliquis) who came in for sepsis secondary to aspiration pneumonia. #. Severe sepsis secondary to aspiration pneumonia #. Acute respiratory hypoxemic respiratory failure secondary to above #. Lactic acidosis secondary to above Cardiac monitoring Wean off oxygen as tolerated. Possible discharge with oxygenation. Chest x-ray showed right midlung opacities and some congestion. Blood cultures pending Urine Legionella negative CBC and BMP in the a.m. Procalcitonin 10.2 Echocardiogram done recently 0.9% normal saline 130 cc/h Azithromycin 500 mg IVPB and ceftriaxone 2 g IVPB daily initiated in the ED Status post Zithromax 500 mg IVPB daily Status post ceftriaxone 2 g IVPB daily Swallow evaluation done. Barium swallow was positive for aspiration Speech therapy following Pulmonology consulted #. Prerenal EDUAR secondary to above, resolved #. Debility likely due to underlying Parkinson PT OT ordered. Discharge tomorrow due to prior authorization Chronic Conditions: #. Parkinson's #. Reduced ejection fraction CHF (30 to 35% EF in echo 04/20/2024 on GDMT) #. History of CVA/TIA #. Hyperlipidemia #. History of CAD Unknown cause for use of Eliquis. But continue for now Hold furosemide 20 mg p.o. for now Hold magnesium oxide for now Continue with donepezil, and Aricept F: Oral intake E: None for now N: Ground diet A: Fall precaution. Needs assistance with ambulation DVT ppx: On Eliquis 5 mg p.o. GI ppx: Protonix 40 mg IV daily Margarette Gramajo MD PGY-1/[employer] Dictation was produced using [employer] dictation software. please excuse any grammatical, word or spelling errors. I have seen and evaluated the patient today. Discussed with the resident and agree with the residents finding and plan as documented in the resident's note. Changes highlighted in blue font. Objective - Vital Signs Vital signs: Vital Signs Temp 98.5 F 05/08/24 08:25 Pulse 50 L 05/08/24 08:25 Resp 18 05/08/24 08:25 BP 135/77 05/08/24 08:25 Pulse Ox 92 L 05/08/24 08:25 FiO2 Intake & Output 05/07/24 05/08/24 05/08/24 18:59 06:59 18:59 Intake Total 716 360 Output Total 200 Balance 516 360 Intake: Oral 716 360 Output: Urine 200 Other: Voiding Method Incontinent Incontinent Incontinent # Voids 1 1 # Bowel Movements 2 - Labs CBC & Chem 7: 05/08/24 06:45 05/08/24 06:45 Labs: Abnormal Lab Results - Last 24 Hours (Table) 05/08/24 05/08/24 Range/Units 06:45 06:45 WBC 11.0 H (3.8-10.6) k/uL RBC 3.63 L (4.30-5.90) m/uL Hgb 11.4 L (13.0-17.5) gm/dL Hct 36.7 L (39.0-53.0) % MCV 101.3 H (80.0-100.0) fL Neutrophils # 8.9 H (1.3-7.7) k/uL Chloride 111 H (98-107) mmol/L Glucose 116 H (74-99) mg/dL Microbiology - Last 24 Hours (Table) 05/04/24 15:48 Blood Culture - Preliminary Blood
--- NOTE | 2024-05-08 15:40 | P.PN ---
Subjective Progress Note Date: 05/08/24 On 05/08/2024, the patient is being seen for a follow-up. The patient presented to hospital with altered mentation and sepsis and pneumonia. The follow-up chest x-ray from 05/08/2024 showing COPD and ongoing airspace disease involving the right, slightly improved in the right lung base. Persistent in the right midlung area. The patient's white cell count is 11 with a hemoglobin 11.4 and a platelet count of 213. BUN is 11 with a creatinine of 0.7 and sodium is at 142. The patient's procalcitonin level at the time of admission was 10.2. Currently, the patient on 3 Suboxone by nasal cannula with a pulse ox of 95%. Comorbidities are multiple including CHF, CVA, Parkinson disease and dementia. The swallow evaluation was completed during this current admission and it shows aspiration with thin and nectar thick barium. Echocardiogram also showed reduced LV function with an ejection fraction of 30 to 35% based on echocardiogram that was done 04/20/2024. Objective - Vital Signs Vital signs: Vital Signs Temp 98.5 F 05/08/24 08:25 Pulse 50 L 05/08/24 08:25 Resp 18 05/08/24 08:25 BP 135/77 05/08/24 08:25 Pulse Ox 92 L 05/08/24 08:25 FiO2 Intake & Output 05/07/24 05/08/24 05/08/24 18:59 06:59 18:59 Intake Total 716 360 Output Total 200 Balance 516 360 Intake: Oral 716 360 Output: Urine 200 Other: Voiding Method Incontinent Incontinent Incontinent # Voids 1 1 1 # Bowel Movements 2 - Labs CBC & Chem 7: 05/08/24 06:45 05/08/24 06:45 Labs: Abnormal Lab Results - Last 24 Hours (Table) 05/08/24 05/08/24 Range/Units 06:45 06:45 WBC 11.0 H (3.8-10.6) k/uL RBC 3.63 L (4.30-5.90) m/uL Hgb 11.4 L (13.0-17.5) gm/dL Hct 36.7 L (39.0-53.0) % MCV 101.3 H (80.0-100.0) fL Neutrophils # 8.9 H (1.3-7.7) k/uL Chloride 111 H (98-107) mmol/L Glucose 116 H (74-99) mg/dL Microbiology - Last 24 Hours (Table) 05/04/24 15:48 Blood Culture - Preliminary Blood Assessment and Plan Plan: Acute mental status changes, improving Acute hypoxic respiratory failure, currently on 2 L of oxygen by nasal cannula Right lung pneumonia with secondary sepsis, procalcitonin level elevated above 10 at time of admission, rule out aspiration pneumonia. Patient had a modified barium that showed possible aspiration. History of coronary artery disease. History of CHF, impaired LV function with systolic heart failure and ejection fraction of 30 to 35% History of CVA. History of hyperlipidemia. History of Parkinson's disease. History of dementia. History of depression. Prior history of tobacco use. Plan: Continue IV Rocephin Titrate oxygen flow to maintain saturation above 90%, currently on 2 L Speech to follow on the swallow evaluation, awaiting further recommendations Continue IV Rocephin Repeat procalcitonin level in the morning Will repeat chest x-ray with next 24 to 48 hours Patient is on anticoagulants. Exact reason is not clear Will continue to follow
[2024-05-09 07:16] LABS: Basophils # (A) 0.1 k/uL (0-0.2); Basophils % (A) 0 %; Eosinophils # (A) 0.2 k/uL (0-0.7); Eosinophils % (A) 2 %; HCT 35.7 % (39.0-53.0); HGB 10.9 gm/dL (13.0-17.5); Hypochromasia Marked; Lymphocytes # (A) 1.6 k/uL (1.0-4.8); Lymphocytes % (A) 14 %; MCH 31.5 pg (25.0-35.0); MCHC 30.5 g/dL (31.0-37.0); Macrocytosis Slight; Mean Platelet Volume 9.5; Monocytes # (A) 0.9 k/uL (0-1.0); Monocytes % (A) 7 %; Neutrophils # (A) 8.7 k/uL (1.3-7.7); Neutrophils % (A) 75 %; Platelet Count 202 k/uL (150-450); RBC 3.46 m/uL (4.30-5.90); RDW 14.2 % (11.5-15.5); WBC 11.6 k/uL (3.8-10.6)
[2024-05-09 07:27] LABS: African American GFR (CKD) >90 (>60 ml/min/1.73 sqM); Anion Gap 4 mmol/L; Blood Urea Nitrogen 9 mg/dL (9-20); Calcium 8.2 mg/dL (8.4-10.2); Carbon Dioxide 27 mmol/L (22-30); Chloride 109 mmol/L (98-107); Glucose 103 mg/dL (74-99); Non-African American GFR(CKD) 85 (>60 ml/min/1.73 sqM); Potassium 3.6 mmol/L (3.5-5.1); Sodium 140 mmol/L (137-145)
[2024-05-09 10:30] VITALS: TEMP 98.4
--- NOTE | 2024-05-09 11:19 | P.PN ---
Subjective Progress Note Date: 05/09/24 Patient is a 79-year-old male with reduced ejection fraction CHF (30 to 35% EF in echo 04/20/2024 on GDMT), hyperlipidemia, CVA (on Eliquis), CAD who came in via EMS on nonrebreather for altered mental status. Per daughter, patient was having shortness of breath for the past 2 days and was being treated with breathing treatments at detention. However today, patient was short of breath with O2 saturations were at the 80s which led them to seek care. Per patient, he denied fevers, sweats, leg swelling, calf tenderness, productive cough, chest pain, palpitations, focal weakness, facial asymmetry, changes in vision, diarrhea, constipation, nausea or vomiting, or recent sick contacts. Patient was recently admitted in 04/15 for left femoral neck fracture which was complicated by hypoxia and aspiration pneumonia post left hip intertrochanteric nail placement which was treated with Zosyn empirically. In the ED, chest x-ray showed right midlung opacities and some congestion. EKG showed sinus rhythm with a rate of 64 with multiple PVCs prolonged AK interval of 154 MS and prolonged QRS interval of [address]-T changes WBC 9.8 hemoglobin 11.8 platelet count 2 56,000 PT 13.9 INR 1.3 PTT 31.9 sodium 135 potassium 5.8 BUN 62 creatinine 1.43 glucose 158 plasma lactic acid 3.2 calcium 0.8 magnesium 2.6 albumin 2.9. Influenza, RSV, COVID not detected On admission patient was afebrile at 98.6 pulse rate 62 respiratory rate 20 blood pressure 109/90 oxygen saturation 94% on nonrebreather 05/05/2024 patient seen and examined at bedside. Patient reported that he feels better and is more alert but still experiences pain on his left hip from recent surgery. Per daughter patient is more alert and wakeful. WBC 17.7 hemoglobin 13 platelet count 232,000 sodium 139 potassium 5 chloride 106 BUN 51 creatinine 1.05 glucose 118 lactic acid 2.2 calcium 8.5 magnesium 2.7 procalcitonin 10.2 05/06/2024 patient seen and examined at bedside. Patient reported that he feels the same as yesterday and his pain control has improved. Still requires 5 L of O2 support nasal cannula. WBC 12.4 hemoglobin 11 platelet count 215,000 sodium 142 potassium 4.1 chloride 110 bicarb 26 BUN 31 creatinine 0.81 glucose 152 calcium 8.4 05/07/2024 Patient seen and examined at bedside. No acute events overnight. WBC 12.1, hemoglobin 11.2, creatinine 0.68 05/08/2024 patient seen and examined at bedside. Patient reported no acute events overnight. Patient still requiring oxygen support currently at 2 L nasal cannula. WBC 11 neutrophilic, hemoglobin 11.4 05/09/2024 patient seen and examined at bedside. Patient has no complaints overnight. Patient still requiring oxygen support currently at 2 L nasal cannula. WBC 11.6 hemoglobin 10.9 platelet count 202,000 sodium 140 potassium 3.6 bicarb 27 BUN 9 creatinine 0.77 glucose 103 calcium 8.2 procalcitonin 0.77. Chest x-ray showed COPD slightly worsened at the right midlung and improved at the right base Review of systems: Pertinent positives and negatives as discussed in HPI, a complete review of systems was performed and all other systems are negative. Pertinent imaging and labs reviewed. Physical examination: Vital signs reviewed General: non toxic, no distress, on 2 L nasal cannula Derm: no unusual rashes/lesions, warm Head: atraumatic, normocephalic, symmetric Eyes: EOMI, anicteric sclera, pupils equal round reactive to light ENT: Nose and ears atraumatic Neck: No cervical lymphadenopathy, trachea midline, supple Mouth: no lip lesion, mucus membranes moist Cardiovascular: S1S2 reg, no murmur Lungs: CTA no rhonchi, no rales, no accessory muscle use Abdominal: soft, nontender to palpation, no guarding Ext: muscle strength 5 out of 5 in all 4 extremities grossly, no gross muscle atrophy, no contractures, positive dorsalis pedis pulse bilateral, no extremity edema Neuro: CN II-XI grossly intact, no gross focal neuro deficits Psych: Alert and oriented x3, appropriate affect and mood Assessment/Plan: 79-year-old male with history of aspiration pneumonia, reduced ejection fraction CHF and CVA (on Eliquis) who came in for sepsis secondary to aspiration pneumonia. #. Severe sepsis secondary to aspiration pneumonia, improved #. Acute respiratory hypoxemic respiratory failure secondary to above, improved #. Lactic acidosis secondary to above Cardiac monitoring Wean off oxygen as tolerated. Possible discharge with oxygenation. Chest x-ray showed right midlung opacities and some congestion. Blood cultures pending Urine Legionella negative CBC and BMP in the a.m. Procalcitonin 10.2. Repeat procalcitonin 0.77 Echocardiogram done recently Azithromycin 500 mg IVPB and ceftriaxone 2 g IVPB daily initiated in the ED Status post Zithromax 500 mg IVPB daily Status post ceftriaxone 2 g IVPB daily Swallow evaluation done. Barium swallow was positive for aspiration Speech therapy following Pulmonology consulted. Resumed IV Rocephin. Titrate O2 fluids to maintain sa turation above 90% #. Prerenal EDUAR secondary to above, resolved Continue with IV fluids BMP in the a.m. #. Debility likely due to underlying Parkinson PT OT ordered. Discharge tomorrow due to prior authorization Chronic Conditions: #. Parkinson's #. Reduced ejection fraction CHF (30 to 35% EF in echo 04/20/2024 on GDMT) #. History of CVA/TIA #. Hyperlipidemia #. History of CAD Unknown cause for use of Eliquis. But continue for now Hold furosemide 20 mg p.o. for now Hold magnesium oxide for now Continue with donepezil, and Aricept F: Oral intake E: None for now N: Ground diet A: Fall precaution. Needs assistance with ambulation DVT ppx: On Eliquis 5 mg p.o. GI ppx: Protonix 40 mg IV daily Margarette Gramajo MD PGY-1/Sr Risk Management Consultant Dictation was produced using voxapp dictation software. please excuse any grammatical, word or spelling errors. I have seen and evaluated the patient today. Discussed with the resident and agree with the residents finding and plan as documented in the resident's note. Changes highlighted in blue font. Objective - Vital Signs Vital signs: Vital Signs Temp 98.4 F 05/09/24 08:55 Pulse 61 05/09/24 08:55 Resp 18 05/09/24 08:55 BP 145/94 05/09/24 08:55 Pulse Ox 94 L 05/09/24 08:55 FiO2 Intake & Output 05/08/24 05/09/24 05/09/24 18:59 06:59 18:59 Intake Total 360 240 Output Total 550 Balance 360 -550 240 Weight 61.8 kg Intake: Oral 360 240 Output: Urine 550 Other: Voiding Method Incontinent Incontinent Incontinent # Voids 1 # Bowel Movements 1 1 1 - Labs CBC & Chem 7: 05/09/24 05:54 05/09/24 05:54 Labs: Abnormal Lab Results - Last 24 Hours (Table) 05/09/24 05/09/24 05/09/24 Range/Units 05:54 05:54 05:54 WBC 11.6 H (3.8-10.6) k/uL RBC 3.46 L (4.30-5.90) m/uL Hgb 10.9 L (13.0-17.5) gm/dL Hct 35.7 L (39.0-53.0) % MCV 103.0 H (80.0-100.0) fL MCHC 30.5 L (31.0-37.0) g/dL Neutrophils # 8.7 H (1.3-7.7) k/uL Chloride 109 H (98-107) mmol/L Glucose 103 H (74-99) mg/dL Calcium 8.2 L (8.4-10.2) mg/dL Procalcitonin 0.77 H (0.02-0.50) ng/mL
[2024-05-09 13:32] VITALS: RESP 17
--- NOTE | 2024-05-09 13:35 | P.PN ---
Subjective Progress Note Date: 05/09/24 On 05/08/2024, the patient is being seen for a follow-up. The patient presented to hospital with altered mentation and sepsis and pneumonia. The follow-up chest x-ray from 05/08/2024 showing COPD and ongoing airspace disease involving the right, slightly improved in the right lung base. Persistent in the right midlung area. The patient's white cell count is 11 with a hemoglobin 11.4 and a platelet count of 213. BUN is 11 with a creatinine of 0.7 and sodium is at 142. The patient's procalcitonin level at the time of admission was 10.2. Currently, the patient on 3 Suboxone by nasal cannula with a pulse ox of 95%. Comorbidities are multiple including CHF, CVA, Parkinson disease and dementia. The swallow evaluation was completed during this current admission and it shows aspiration with thin and nectar thick barium. Echocardiogram also showed reduced LV function with an ejection fraction of 30 to 35% based on echocardiogram that was done 04/20/2024. On 05/09/2024, the patient is more alert and communicating. Family at the bedside. The patient remains on IV Rocephin. The patient's procalcitonin level has dropped significantly and is currently down to 0.77 from a baseline level of 10.2. The white second 11.6 with a hemoglobin 10.9 and platelet count of 202. BUN is 9 with a creatinine of 0.77 and sodium levels at 140. The patient remains on DuoNeb nebulized treatments [id number]. Upon in inquiring about the use of anticoagulation, the daughter tells that the anticoagulation was started the patient has had a previous history of stroke. Noted his current cardiac rhythm is sinus with first-degree AV block. The patient has no other specific complaints. Objective - Vital Signs Vital signs: Vital Signs Temp 98.4 F 05/09/24 08:55 Pulse 61 05/09/24 08:55 Resp 18 05/09/24 08:55 BP 145/94 05/09/24 08:55 Pulse Ox 94 L 05/09/24 08:55 FiO2 Intake & Output 05/08/24 05/09/24 05/09/24 18:59 06:59 18:59 Intake Total 360 240 Output Total 550 Balance 360 -550 240 Weight 61.8 kg Intake: Oral 360 240 Output: Urine 550 Other: Voiding Method Incontinent Incontinent Incontinent # Voids 1 # Bowel Movements 1 1 1 - Exam No acute distress, resting comfortably in the chair, currently on 2L nasal cannula. HEENT examination is grossly unremarkable. Mucous membranes are moist. No oral lesions. Neck supple. Full range of motion. No adenopathy thyromegaly or neck vein distention. Cardiovascular examination reveals regular rhythm rate. S1-S2 normal. No S3 or S4. No discernible murmur noted. Heart sounds are distant. Lungs reveal bilateral scattered rhonchi. Minimal wheezes. No crackles. Breath sounds equal. Abdomen soft bowel sounds are heard. No masses or tenderness. Extremities are intact. No cyanosis clubbing or edema. Skin is without rash or lesion. Neurologic examination is brief but nonfocal. - Labs CBC & Chem 7: 05/09/24 05:54 05/09/24 05:54 Labs: Abnormal Lab Results - Last 24 Hours (Table) 05/09/24 05/09/24 05/09/24 Range/Units 05:54 05:54 05:54 WBC 11.6 H (3.8-10.6) k/uL RBC 3.46 L (4.30-5.90) m/uL Hgb 10.9 L (13.0-17.5) gm/dL Hct 35.7 L (39.0-53.0) % MCV 103.0 H (80.0-100.0) fL MCHC 30.5 L (31.0-37.0) g/dL Neutrophils # 8.7 H (1.3-7.7) k/uL Chloride 109 H (98-107) mmol/L Glucose 103 H (74-99) mg/dL Calcium 8.2 L (8.4-10.2) mg/dL Procalcitonin 0.77 H (0.02-0.50) ng/mL Assessment and Plan Plan: Acute mental status changes, improving Acute hypoxic respiratory failure, currently on 2 L of oxygen by nasal cannula Right lung pneumonia with secondary sepsis, procalcitonin level elevated above 10 at time of admission, rule out aspiration pneumonia. Patient had a modified barium that showed possible aspiration. The procalcitonin level has improved considerably and is currently down to 0.7 as the patient completed a course of antibiotics with IV Rocephin History of coronary artery disease. History of CHF, impaired LV function with systolic heart failure and ejection fraction of 30 to 35% History of CVA. History of hyperlipidemia. History of Parkinson's disease. History of dementia. History of depression. Prior history of tobacco use. Plan: Continue IV Rocephin Titrate oxygen flow to maintain saturation above 90%, currently on 2 L Speech to follow on the swallow evaluation, awaiting further recommendations Continue IV Rocephin Procalcitonin level is improving Will repeat chest x-ray with next 24 to 48 hours Patient is on anticoagulants. Exact reason is not clear, this was given to him for a previous history of CVA Will continue to follow
[2024-05-09 13:47] VITALS: BMI 20.7
--- NOTE | 2024-05-09 14:53 | P.DS ---
Providers Date of admission: 05/04/24 17:01 Expected date of discharge: 05/09/24 Attending physician: Ricco Davey Consults: 05/04/24 17:00 Consult Physician Routine Consulting Provider: Dallas Amaya Reason/Comments: PNA Do you want consulting provider notified?: Yes [facility] Course: Final Diagnosis: #. Severe sepsis secondary to aspiration pneumonia, resolved #. Acute respiratory hypoxemic respiratory failure secondary to above, resolved #. Lactic acidosis, resolved #. Prerenal EDUAR secondary to above, resolved #. Debility likely due to underlying Parkinson, stable Hospital Course: Patient is a 79-year-old male with reduced ejection fraction CHF (30 to 35% EF in echo 04/20/2024 on GDMT), hyperlipidemia, CVA (on Eliquis), CAD who came in via EMS on nonrebreather for altered mental status. Per daughter, patient was having shortness of breath for the past 2 days and was being treated with breathing treatments at care home. However today, patient was short of breath with O2 saturations were at the 80s which led them to seek care. Per patient, he denied fevers, sweats, leg swelling, calf tenderness, productive cough, chest pain, palpitations, focal weakness, facial asymmetry, changes in vision, diarrhea, constipation, nausea or vomiting, or recent sick contacts. Patient was recently admitted in 04/15 for left femoral neck fracture which was complicated by hypoxia and aspiration pneumonia post left hip intertrochanteric nail placement which was treated with Zosyn empirically. In the ED, chest x-ray showed right midlung opacities and some congestion. EKG showed sinus rhythm with a rate of 64 with multiple PVCs prolonged NE interval of 154 MS and prolonged QRS interval of [address]-T changes WBC 9.8 hemoglobin 11.8 platelet count 2 56,000 PT 13.9 INR 1.3 PTT 31.9 sodium 135 potassium 5.8 BUN 62 creatinine 1.43 glucose 158 plasma lactic acid 3.2 calcium 0.8 magnesium 2.6 albumin 2.9. Influenza, RSV, COVID not detected On admission patient was afebrile at 98.6 pulse rate 62 respiratory rate 20 blood pressure 109/90 oxygen saturation 94% on nonrebreather Patient was evaluated for severe sepsis secondary to aspiration pneumonia, debility, EDUAR, and acute hypoxemic respiratory failure. Pulmonary consulted and patient placed on IV fluids, oxygen support, azithromycin IV, and ceftriaxone IV. Blood cultures ordered and were found to be negative. Swallow evaluation ordered and patient was found to have aspiration on barium swallow. Patient finished 2 days of azithromycin IV and 5 days of ceftriaxone IV regimen for pneumonia. Patient O2 requirements decreased to 2 L nasal cannula and symptoms and mentation improved throughout hospital stay. PT OT ordered and patient was cleared for return to subacute rehab. Patient cleared to be discharged today with home oxygenation of 2 L nasal cannula to ECF with diet changed to dysphagia level 3 diet chopped with honey thickened liquids. Patient advised to see PCP on outpatient basis. Physical examination: Vital signs reviewed General: non toxic, no distress, appears at stated age, on 2L NC Derm: no unusual rashes/lesions, warm Head: atraumatic, normocephalic, symmetric Eyes: EOMI, no lid lag, anicteric sclera, pupils equal round reactive to light ENT: Nose and ears atraumatic Neck: No cervical lymphadenopathy, trachea midline, supple Mouth: no lip lesion, mucus membranes moist Cardiovascular: S1S2 reg, no murmur Lungs: CTA bilateral, no rhonchi, no rales, no accessory muscle use Abdominal: soft, nondistended, nontender to palpation, no guarding Ext: muscle strength 5 out of 5 in all 4 extremities grossly, no gross muscle atrophy, no contractures, positive dorsalis pedis pulse bilateral, no edema Neuro: CN II-XI grossly intact, no gross focal neuro deficits Psych: Alert, oriented, appropriate affect and mood A total of 36 minutes of time were spent preparing this complex discharge [facility]. Patient was discharged on 05/09/2024 at 1319. I have seen and evaluated the patient today. Discussed with the resident and agree with the residents finding and plan as documented in the resident's note. Changes highlighted in blue font. Patient Condition at Discharge: Stable Plan - Discharge Summary Discharge Rx Participant: Yes New Discharge Prescriptions: New Atorvastatin [Lipitor] 20 mg PO HS tab Continue Donepezil [Aricept] 10 mg PO HS Apixaban [Eliquis] 5 mg PO BID tab Gabapentin 600 mg PO HS #3 tab Carbidopa-Levodopa 25-250 mg [Sinemet 25-250 mg] 1 tab PO TID@0700,1300,1900 Metoprolol Succinate (ER) [Toprol XL] 25 mg PO DAILY tab Naloxone HCl 0.4 mg IM DIRECTED PRN PRN Reason: SUSPECTED OPIOID OVERDOSE Ipratropium-Albuterol Nebulize [Duoneb 0.5 mg-3 mg/3 ml Soln] 3 ml INHALATION RT-Q4H PRN PRN Reason: Shortness Of Breath Amino Acids/Protein Hydrolys [Pro-Stat Awc Liquid] 30 ml PO BID Diclofenac Sodium Gel [Voltaren 1% Gel] 2 - 4 gm TOPICAL QID PRN PRN Reason: Pain Magnesium Oxide [Mag-Ox] 400 mg PO BID tab polyethylene glycoL 3350 [Miralax] 17 gm PO DAILY packet lisinopriL [Zestril] 5 mg PO DAILY tab Naloxone HCl [Narcan] 4 mg NASAL DIRECTED PRN PRN Reason: SUSPECTED OPIOID OVERDOSE Sennosides-Docusate Sodium [Senokot-S] 2 tab PO HS Docusate [Colace] 100 mg PO DAILY Acetaminophen [Tylenol 8 Hour] 650 mg PO Q6H PRN PRN Reason: Pain Or Fever > 100.5 Discontinued HYDROcodone/APAP 10-325MG [Cromwell 10-325] 1 tab PO Q4-6H PRN #20 tab PRN Reason: Pain Furosemide [Lasix] 20 mg PO DAILY tab Potassium Chloride [Klor-Con M20] 20 meq PO DAILY tiZANidine [Zanaflex] 4 mg PO DAILY PRN PRN Reason: Muscle Spasm Discharge Medication List Diclofenac Sodium Gel [Voltaren 1% Gel] 2 - 4 gm TOPICAL QID PRN 09/07/22 [History] Donepezil [Aricept] 10 mg PO HS 09/07/22 [History] Apixaban [Eliquis] 5 mg PO BID tab 09/10/22 [Rx] Gabapentin 600 mg PO HS #3 tab 09/10/22 [Rx] Carbidopa-Levodopa 25-250 mg [Sinemet 25-250 mg] 1 tab PO TID@0700,1300,1900 05/12/23 [History] Magnesium Oxide [Mag-Ox] 400 mg PO BID tab 04/24/24 [Rx] Metoprolol Succinate (ER) [Toprol XL] 25 mg PO DAILY tab 04/24/24 [Rx] lisinopriL [Zestril] 5 mg PO DAILY tab 04/24/24 [Rx] polyethylene glycoL 3350 [Miralax] 17 gm PO DAILY packet 04/24/24 [Rx] Acetaminophen [Tylenol 8 Hour] 650 mg PO Q6H PRN 05/04/24 [History] Amino Acids/Protein Hydrolys [Pro-Stat Awc Liquid] 30 ml PO BID 05/04/24 [History] Docusate [Colace] 100 mg PO DAILY 05/04/24 [History] Ipratropium-Albuterol Nebulize [Duoneb 0.5 mg-3 mg/3 ml Soln] 3 ml INHALATION RT-Q4H PRN 05/04/24 [History] Naloxone HCl 0.4 mg IM DIRECTED PRN 05/04/24 [History] Naloxone HCl [Narcan] 4 mg NASAL DIRECTED PRN 05/04/24 [History] Sennosides-Docusate Sodium [Senokot-S] 2 tab PO HS 05/04/24 [History] Atorvastatin [Lipitor] 20 mg PO HS tab 05/09/24 [Rx] Follow up Appointment(s)/Referral(s): Charlie Yanez DO [Primary Care Provider] - 1-2 days Patient Instructions/Handouts: Aspiration Pneumonia (DC) Activity/Diet/Wound Care/Special Instructions: Dysphagia level 3 diet, chopped with honey thickened liquids. Please see your PCP. Discharge Disposition: TRANSFER TO SNF/ECF
[2024-05-09 16:26] VITALS: BP 148/83; PULSE 61
== END 2024-05-09 16:57 | DRG 871 ==
LOC: EC 15:29 → 3SCARD 17:01
PROVIDERS: ADMIT Student in an Organized Health Care Education/Training Program; ATTEND Student in an Organized Health Care Education/Training Program
PROC: F00ZHZZ Bedside Swallowing and Oral Function Assessment (ICD-10-PCS; principal; 2024-05-05)
DX: A41.89 Other specified sepsis (principal); J69.0 Pneumonitis due to inhalation of food and vomit; J96.01 Acute respiratory failure with hypoxia; F02.83 Dementia in other diseases classified elsewhere, unspecified severity, with mood disturbance; I50.20 Unspecified systolic (congestive) heart failure; N17.9 Acute kidney failure, unspecified; E87.20 Acidosis, unspecified; Z11.52 Encounter for screening for COVID-19; F05 Delirium due to known physiological condition; J44.0 Chronic obstructive pulmonary disease with (acute) lower respiratory infection; R65.20 Severe sepsis without septic shock; G20.A1 Parkinson's disease without dyskinesia, without mention of fluctuations; I11.0 Hypertensive heart disease with heart failure; S72.002D Fracture of unspecified part of neck of left femur, subsequent encounter for closed fracture with routine healing; R53.81 Other malaise; E78.5 Hyperlipidemia, unspecified; I25.10 Atherosclerotic heart disease of native coronary artery without angina pectoris; F32.A Depression, unspecified; Z87.891 Personal history of nicotine dependence; I44.0 Atrioventricular block, first degree; G89.29 Other chronic pain; Z74.01 Bed confinement status; Z79.01 Long term (current) use of anticoagulants; Z79.899 Other long term (current) drug therapy; Z86.73 Personal history of transient ischemic attack (TIA), and cerebral infarction without residual deficits; Z87.01 Personal history of pneumonia (recurrent)
CPT/HCPCS: 36415; 71045; 74230; 80048; 80053; 83605; 83735; 83880; 84145; 85025; 85610; 85730; 87040; 87449; 87636; 93005; 94640; 94760; 96361; 96365; 96366; 96367; 96368; 99291

== ENCOUNTER 2024-11-16 12:19 | Observation (INO) | payer MEDICARE ==
--- NOTE | 2024-11-16 12:56 | ED ---
General Adult HPI - General Chief complaint: Arrhythmia/Palpitations Stated complaint: Abn heart rate Time Seen by Provider: 11/16/24 12:34 Source: patient, family, RN notes reviewed Mode of arrival: wheelchair Limitations: no limitations - History of Present Illness Initial comments: Patient is an 79-year-old male present to the emergency department with concerns for low heart rate. Patient has been more fatigued recently. Patient went to therapy today and was advised to go to his doctor. Their heart rate was between 30 and 40 and patient was sent to the emergency department. Patient only complains of generalized fatigue. No chest pain or dyspnea. Family is present and provides majority of history. - Related Data Home Medications Medication Instructions Recorded Confirmed Diclofenac Sodium Gel [Voltaren 1% 2 - 4 gm TOPICAL QID PRN 09/07/22 05/04/24 Gel] Donepezil [Aricept] 10 mg PO HS 09/07/22 05/04/24 Carbidopa-Levodopa 25-250 mg 1 tab PO TID@0700,1300,1900 05/12/23 05/04/24 [Sinemet 25-250 mg] Acetaminophen [Tylenol 8 Hour] 650 mg PO Q6H PRN 05/04/24 05/04/24 Amino Acids/Protein Hydrolys 30 ml PO BID 05/04/24 05/04/24 [Pro-Stat Awc Liquid] Docusate [Colace] 100 mg PO DAILY 05/04/24 05/04/24 Ipratropium-Albuterol Nebulize 3 ml INHALATION RT-Q4H PRN 05/04/24 05/04/24 [Duoneb 0.5 mg-3 mg/3 ml Soln] Naloxone HCl 0.4 mg IM DIRECTED PRN 05/04/24 05/04/24 Naloxone HCl [Narcan] 4 mg NASAL DIRECTED PRN 05/04/24 05/04/24 Sennosides-Docusate Sodium 2 tab PO HS 05/04/24 05/04/24 [Senokot-S] Previous Rx's Medication Instructions Recorded Apixaban [Eliquis] 5 mg PO BID tab 09/10/22 Gabapentin 600 mg PO HS #3 tab 09/10/22 Magnesium Oxide [Mag-Ox] 400 mg PO BID tab 04/24/24 Metoprolol Succinate (ER) [Toprol 25 mg PO DAILY tab 04/24/24 XL] lisinopriL [Zestril] 5 mg PO DAILY tab 04/24/24 polyethylene glycoL 3350 [Miralax] 17 gm PO DAILY packet 04/24/24 Atorvastatin [Lipitor] 20 mg PO HS tab 05/09/24 Allergies Allergy/AdvReac Type Severity Reaction Status Date / Time No Known Allergies Allergy Verified 11/16/24 12:31 Review of Systems ROS Statement: Those systems with pertinent positive or pertinent negative responses have been documented in the HPI. ROS Other: All systems not noted in ROS Statement are negative. Constitutional: Denies: fever Eyes: Denies: eye pain ENT: Denies: ear pain Respiratory: Denies: dyspnea Cardiovascular: Denies: chest pain Endocrine: Reports: fatigue Musculoskeletal: Denies: back pain Past Medical History Past Medical History: Coronary Artery Disease (CAD), Heart Failure, CVA/TIA, Hyperlipidemia, Neurologic Disorder History of Any Multi-Drug Resistant Organisms: None Reported Past Surgical History: Back Surgery Past Anesthesia/Blood Transfusion Reactions: No Reported Reaction Past Psychological History: Depression Smoking Status: Former smoker Past Alcohol Use History: None Reported Past Drug Use History: Marijuana - Past Family History Father History Unknown: Yes Additional Family Medical History / Comment(s): pt and family is not aware of any past family medical history General Exam Limitations: no limitations General appearance: alert, in no apparent distress Head exam: Present: normocephalic Eye exam: Present: normal appearance Neck exam: Present: normal inspection Respiratory exam: Present: normal lung sounds bilaterally Cardiovascular Exam: Present: bradycardia, irregular rhythm GI/Abdominal exam: Present: soft. Absent: tenderness Extremities exam: Present: normal inspection. Absent: pedal edema, calf tenderness Neurological exam: Present: alert Psychiatric exam: Present: normal affect, normal mood Skin exam: Present: normal color Course Vital Signs 11/16/24 11/16/24 11/16/24 12:24 12:51 13:11 Temperature 97.8 F Pulse Rate 34 L 44 L Pulse Rate [ 38 L Left Supine Radial] Respiratory 16 17 Rate Blood Pressure 101/57 162/97 O2 Sat by Pulse 98 96 Oximetry 11/16/24 11/16/24 13:51 14:19 Temperature Pulse Rate 72 44 L Pulse Rate [ Left Supine Radial] Respiratory 18 22 Rate Blood Pressure 151/64 115/97 O2 Sat by Pulse 97 97 Oximetry EKG Findings - EKG Results: EKG: interpreted by BREANNAD (First-degree AV block with a IL of 245. Frequent PVCs. Left axis. Right bundle branch block. Nonspecific ST-T.), sinus rhythm Medical Decision Making - Medical Decision Making Heart sounds and pulse do not correlate with monitor reading of heart rate in the 70s or 80s. Patient's heart rate off heart sounds and pulse is approximately in the mid 40s. Was pt. sent in by a medical professional or institution (, PA, [facility], urgent care, hospital, or intermediate...) When possible be specific @ -Patient was sent in by primary care physician office Did you speak to anyone other than the patient for history (EMS, parent, family, police, friend...)? What history was obtained from this source @ -Family's present helps provide history as patient is a poor historian Did you review nursing and triage notes (agree or disagree)? Why? @ -I reviewed and agree with nursing and triage notes Were old charts reviewed (outside hosp., previous admission, EMS record, old EKG, old radiological studies, urgent care reports/EKG's, intermediate records)? Report findings @ -No old charts were reviewed Differential Diagnosis (chest pain, altered mental status, abdominal pain women, abdominal pain men, vaginal bleeding, weakness, fever, dyspnea, syncope, headache, dizziness, GI bleed, back pain, seizure, CVA, palpatations, mental health, musculoskeletal)? @ -Differential Palpitations Ventricular arrhythmias, atrial arrhythmias, myocardial infarction, anemia, thyrotoxicosis, electrolyte imbalance, hypokalemia, pulmonary embolism, pulmonary disease, drugs, alcohol, anxiety, stress.... This is not meant to be an all-inclusive list. EKG interpreted by me (3pts min.). @ -As above X-rays interpreted by me (1pt min.). @ -Chest x-ray shows chronic frequent changes. No acute abnormality CT interpreted by me (1pt min.). @ -None done U/S interpreted by me (1pt. min.). @ -None done What testing was considered but not performed or refused? (CT, X-rays, U/S, labs)? Why? @ -None What meds were considered but not given or refused? Why? @ -None Did you discuss the management of the patient with other professionals (professionals i.e. , PA, [employer], lab, RT, psych nurse, psychotherapist social worker, mobile patrol officer, teacher, chief administrative officer, immigration case worker)? Give summary @ -No Was smoking cessation discussed for >3mins.? @ -No Was critical care preformed (if so, how long)? @ -No Were there social determinants of health that impacted care today? How? (Homelessness, low income, unemployed, alcoholism, drug addiction, transportation, low edu. Level, literacy, decrease access to med. care, shelter, rehab)? @ -No Was there de-escalation of care discussed even if they declined (Discuss DNR or withdrawal of care, Hospice)? DNR status @ -No What co-morbidities impacted this encounter? (DM, HTN, Smoking, COPD, CAD, Cancer, CVA, ARF, Chemo, Hep., AIDS, mental health diagnosis, sleep apnea, morbid obesity)? @ -None Was patient admitted / discharged? Hospital course, mention meds given and route, prescriptions, significant lab abnormalities, going to OR and other pertinent info. @ -Patient presents with fatigue and bradycardia. Workup otherwise unremarkable. Blood pressure has been stable. Patient will be admitted with cardiac consult. Admission orders written. Patient reevaluated, patient and f amily updated. Undiagnosed new problem with uncertain prognosis? @ -No Drug Therapy requiring intensive monitoring for toxicity (Heparin, Nitro, Insulin, Cardizem)? @ -No Were any procedures done? @ -No Diagnosis/symptom? @ -Bradycardia Acute, or Chronic, or Acute on Chronic? @ -Acute Uncomplicated (without systemic symptoms) or Complicated (systemic symptoms)? @ -Default Side effects of treatment? @ -No Exacerbation, Progression, or Severe Exacerbation? @ -No Poses a threat to life or bodily function? How? (Chest pain, [place], [place], pneumonia, PE, COPD, DKA, ARF, appy, cholecystitis, CVA, Diverticulitis, Homicidal, Suicidal, threat to staff... and all critical care pts) @ -Threat to hemodynamic function - Lab Data Result diagrams: 11/16/24 12:55 11/16/24 12:55 Lab Results 11/16/24 11/16/24 11/16/24 Range/Units 12:55 12:55 12:55 WBC 9.03 (4.50-10.00) 10*3/uL RBC 4.64 (4.40-5.60) 10*6/uL Hgb 15.1 (13.0-17.0) g/dL Hct 45.9 (39.6-50.0) % MCV 98.9 H (80.0-97.0) fL MCH 32.5 H (27.0-32.0) pg MCHC 32.9 (32.0-37.0) g/dL Plt Count 135 L (140-440) 10*3/uL MPV 11.7 (9.5-12.2) fL Immature Gran % (Auto) 0.3 % Neutrophils % 73.0 % Lymphocytes % 18.6 % Monocytes % 6.6 % Eosinophils % 0.7 % Basophils % 0.8 % Immature Gran # 0.03 (0.00-0.04) 10*3/uL Neutrophils # 6.59 (1.80-7.70) 10*3/uL Lymphocytes # 1.68 (0.90-5.00) 10*3/uL Monocytes # 0.60 (0.20-1.00) 10*3/uL Eosinophils # 0.06 (0.04-0.35) 10*3/uL Basophils # 0.07 (0.00-0.10) 10*3/uL Immature Plt Fraction 4.8 (1.1-6.1) % PT 12.0 (10.0-12.5) sec INR 1.1 (<1.2) APTT 29.8 (22.0-30.0) sec Sodium 141 (137-145) mmol/L Potassium 4.8 (3.5-5.1) mmol/L Chloride 106 (98-107) mmol/L Carbon Dioxide 27 (22-30) mmol/L Anion Gap 8 mmol/L BUN 27 H (9-20) mg/dL Creatinine 1.20 (0.66-1.25) mg/dL Est GFR (CKD-EPI)AfAm 65 (>60 ml/min/1.73 sqM) Est GFR (CKD-EPI)NonAf 57 (>60 ml/min/1.73 sqM) Glucose 110 H (74-99) mg/dL Calcium 9.7 (8.4-10.2) mg/dL Magnesium 2.3 (1.6-2.3) mg/dL Total Bilirubin 1.0 (0.2-1.3) mg/dL AST 23 (17-59) U/L ALT 8 (4-49) U/L Alkaline Phosphatase 100 (38-126) U/L Troponin I (0.000-0.034) ng/mL Total Protein 7.1 (6.3-8.2) g/dL Albumin 4.2 (3.5-5.0) g/dL TSH 1.480 (0.465-4.680) mIU/L Free T4 1.32 (0.78-2.19) ng/dL 11/16/24 Range/Units 12:55 WBC (4.50-10.00) 10*3/uL RBC (4.40-5.60) 10*6/uL Hgb (13.0-17.0) g/dL Hct (39.6-50.0) % MCV (80.0-97.0) fL MCH (27.0-32.0) pg MCHC (32.0-37.0) g/dL Plt Count (140-440) 10*3/uL MPV (9.5-12.2) fL Immature Gran % (Auto) % Neutrophils % % Lymphocytes % % Monocytes % % Eosinophils % % Basophils % % Immature Gran # (0.00-0.04) 10*3/uL Neutrophils # (1.80-7.70) 10*3/uL Lymphocytes # (0.90-5.00) 10*3/uL Monocytes # (0.20-1.00) 10*3/uL Eosinophils # (0.04-0.35) 10*3/uL Basophils # (0.00-0.10) 10*3/uL Immature Plt Fraction (1.1-6.1) % PT (10.0-12.5) sec INR (<1.2) APTT (22.0-30.0) sec Sodium (137-145) mmol/L Potassium (3.5-5.1) mmol/L Chloride (98-107) mmol/L Carbon Dioxide (22-30) mmol/L Anion Gap mmol/L BUN (9-20) mg/dL Creatinine (0.66-1.25) mg/dL Est GFR (CKD-EPI)AfAm (>60 ml/min/1.73 sqM) Est GFR (CKD-EPI)NonAf (>60 ml/min/1.73 sqM) Glucose (74-99) mg/dL Calcium (8.4-10.2) mg/dL Magnesium (1.6-2.3) mg/dL Total Bilirubin (0.2-1.3) mg/dL AST (17-59) U/L ALT (4-49) U/L Alkaline Phosphatase (38-126) U/L Troponin I <0.012 (0.000-0.034) ng/mL Total Protein (6.3-8.2) g/dL Albumin (3.5-5.0) g/dL TSH (0.465-4.680) mIU/L Free T4 (0.78-2.19) ng/dL Disposition Clinical Impression: Bradycardia Disposition: ADMITTED IP TO THIS HOSP Is patient prescribed a controlled substance at d/c from ED?: No Referrals: Charlie Yanez DO [Primary Care Provider] - 1-2 days Time of Disposition: 14:45
[2024-11-16 13:06] LABS: Basophils # (A) 0.07 10*3/uL (0.00-0.10); Basophils % (A) 0.8 %; Eosinophils # (A) 0.06 10*3/uL (0.04-0.35); Eosinophils % (A) 0.7 %; HCT 45.9 % (39.6-50.0); HGB 15.1 g/dL (13.0-17.0); Immature Platelet Fraction 4.8 % (1.1-6.1); Lymphocytes # (A) 1.68 10*3/uL (0.90-5.00); Lymphocytes % (A) 18.6 %; MCH 32.5 pg (27.0-32.0); MCHC 32.9 g/dL (32.0-37.0); MCV 98.9 fL (80.0-97.0); Mean Platelet Volume 11.7 fL (9.5-12.2); Monocytes % (A) 6.6 %; Neutrophils # (A) 6.59 10*3/uL (1.80-7.70); Platelet Count 135 10*3/uL (140-440); RBC 4.64 10*6/uL (4.40-5.60); RDW 13.6 % (11.5-14.5); WBC 9.03 10*3/uL (4.50-10.00)
[2024-11-16 13:18] LABS: ALT 8 U/L (4-49); AST 23 U/L (17-59); African American GFR (CKD) 65 (>60 ml/min/1.73 sqM); Albumin 4.2 g/dL (3.5-5.0); Alkaline Phosphatase 100 U/L (38-126); Anion Gap 8 mmol/L; Blood Urea Nitrogen 27 mg/dL (9-20); Calcium 9.7 mg/dL (8.4-10.2); Carbon Dioxide 27 mmol/L (22-30); Chloride 106 mmol/L (98-107); Glucose 110 mg/dL (74-99); Magnesium 2.3 mg/dL (1.6-2.3); Non-African American GFR(CKD) 57 (>60 ml/min/1.73 sqM); Potassium 4.8 mmol/L (3.5-5.1); Sodium 141 mmol/L (137-145); Total Protein 7.1 g/dL (6.3-8.2)
--- NOTE | 2024-11-16 13:31 | XR ---
EXAMINATION TYPE: XR chest 2V DATE OF EXAM: 11/16/2024 CLINICAL INDICATION: Male, 79 years old with history of dysrhythmia, TECHNIQUE: Frontal and lateral views of the chest are obtained. COMPARISON: Chest x-ray May 08, 2024 FINDINGS: There is chronic parenchymal change bilaterally without suspicious focal air space opacity , pleural effusion, or pneumothorax seen. The cardiac silhouette size is upper limits of normal. Sco liosis near the thoracolumbar junction is present. IMPRESSION: Chronic parenchymal changes bilaterally without suspicious acute pulmonary process. [facility], , 11/16/2024 1:29 PM
[2024-11-16 13:34] LABS: T4, Free (Free Thyroxine) 1.32 ng/dL (0.78-2.19)
[2024-11-16 14:15] LABS: INR 1.1 (<1.2); Partial Thromboplastin Time 29.8 sec (22.0-30.0)
[2024-11-16] MEDS ORDERED: NALOXONE 0.4 MG/ML 1 ML VIAL IV PRN (14:45)
--- NOTE | 2024-11-16 16:30 | P.HPIM ---
History of Present Illness H&P Date: 11/16/24 Patient is a 79-year-old male with past medical history of HFrEF EF 30 to 35%, history of PVCs NSVT, HLD, CVA, history of PE on anticoagulation, CAD, Parkinson's, dementia, depression, who presented to the ER on 11/16/2024 with ongoing fatigue, he was noted to have low heart rate when he went to therapy today. Heart rate reported in 30s and 40s, thus, patient was sent to the ER. Patient denies any associated fevers, chills, shortness of breath, chest pain, abdominal pain, changes in bowel habits or dysuria. Patient's daughter came present during exam provides collateral history. She m entioned that yesterday patient was more fatigued, otherwise, no unusual symptoms On arrival afebrile, bradycardic at 44, blood pressure 162/97, SpO2 96% on room air. Lab work revealed normal WBC and hemoglobin, previously patient was anemic around 11 back in April 2024, platelet count 135, previously normal, normal coagulation panel, sodium, potassium, chloride, bicarb, creatinine normal, AST and ALT normal, troponin negative, TSH and free T4 WNL. EKG showed sinus rhythm with PVCs and first-degree AV block, heart rate on EKG 63. Patient does have previous history of third-degree AV block, PVCs. Patient will admitted for further evaluation of symptomatic bradycardia, cardiology consulted Pertinent positives and negatives as discussed in HPI, a complete review of systems was performed and all other systems are negative. Patient seen and examined at bedside. Vital signs reviewed General: nontoxic, no distress, appears at stated age Derm: warm, dry Head: atraumatic, normocephalic, symmetric Eyes: EOMI, no lid lag, anicteric sclera, pupils equal round reactive to light ENT: Nose and ears atraumatic Neck: No thyromegaly, supple Mouth: no lip lesion, mucus membranes moist Cardiovascular: S1S2 , no murmur, no edema Lungs: clear to auscultation bilateral, no rhonchi, no rales, no wheeze, no accessory muscle use Abdominal: soft, nontender to palpation, no guarding, no appreciable organomegaly Ext: no swelling Neuro: CN II-XII grossly intact Psych: Alert, oriented, Assessment/Plan: Symptomatic bradycardia Known history of first-degree AV block and PVCs - Continue telemetry -Thyroid function normal -Cardiology consulted, appreciate recommendations -Not on any AV blocking agents at home Hyperlipidemia: Continue home atorvastatin 20 mg daily Depression: Continue Cymbalta 90 mg daily Parkinson's: Continue Sinemet 25/250 3 times daily, donepezil 10 mg daily, Zanaflex 4 mg 3 times daily as needed History of PE on Eliquis, continue Eliquis 5 mg p.o. twice daily Chronic back pain, continue home [place] 5 scheduled twice daily, Mobic 755 p.o. twice daily, continue gabapentin 600 mg p.o. nightly, I will add Protonix 40 daily as patient is on NSAIDs and anticoagulation The patient is admitted with an anticipated greater than 2 midnight stay as inpatient status for evaluation of traumatic bradycardia. Surrogate decision-maker: Daughter CODE STATUS: Full code DVT prophylaxis: Eliquis Anticipated discharge date: TBD Anticipated discharge place: [facility] A total of 40 minutes was spent on the care of this complex patient more than 50% of the time was spent in counseling and care coordination. Past Medical History Past Medical History: Coronary Artery Disease (CAD), Heart Failure, CVA/TIA, Hyperlipidemia, Neurologic Disorder History of Any Multi-Drug Resistant Organisms: None Reported Past Surgical History: Back Surgery Past Anesthesia/Blood Transfusion Reactions: No Reported Reaction Past Psychological History: Depression Smoking Status: Former smoker Past Alcohol Use History: None Reported Past Drug Use History: Marijuana - Past Family History Father History Unknown: Yes Additional Family Medical History / Comment(s): pt and family is not aware of any past family medical history Medications and Allergies Home Medications Medication Instructions Recorded Confirmed Type Donepezil [Aricept] 10 mg PO DAILY 09/07/22 11/16/24 History Apixaban [Eliquis] 5 mg PO BID tab 09/10/22 11/16/24 Rx Gabapentin 600 mg PO HS #3 tab 09/10/22 11/16/24 Rx Carbidopa-Levodopa 25-250 mg 1 tab PO TID 05/12/23 11/16/24 History [Sinemet 25-250 mg] Atorvastatin [Lipitor] 20 mg PO HS tab 05/09/24 11/16/24 Rx DULoxetine HCL [Cymbalta] 90 mg PO DAILY 11/16/24 11/16/24 History HYDROcodone/APAP 5-325MG [[place] 1 tab PO BID 11/16/24 11/16/24 History 5-325] Meloxicam [Mobic] 7.5 mg PO BID 11/16/24 11/16/24 History Multivitamins, Thera [Multivitamin 1 tab PO DAILY 11/16/24 11/16/24 History (formulary)] tiZANidine [Zanaflex] 4 mg PO TID PRN 11/16/24 11/16/24 History Allergies Allergy/AdvReac Type Severity Reaction Status Date / Time No Known Allergies Allergy Verified 11/16/24 15:22 Physical Exam Vitals: Vital Signs Temp Pulse Pulse Resp BP Pulse Ox 11/16/24 14:19 44 L 22 115/97 97 11/16/24 13:51 72 18 151/64 97 11/16/24 13:11 38 L 11/16/24 12:51 44 L 17 162/97 96 11/16/24 12:24 97.8 F 34 L 16 101/57 98 Intake and Output 11/16/24 11/16/24 11/16/24 06:59 14:59 22:59 Other: Weight 64.41 kg Results CBC & Chem 7: 11/16/24 12:55 11/16/24 12:55 Labs: Abnormal Lab Results - Last 24 Hours (Table) 11/16/24 11/16/24 Range/Units 12:55 12:55 MCV 98.9 H (80.0-97.0) fL MCH 32.5 H (27.0-32.0) pg Plt Count 135 L (140-440) 10*3/uL BUN 27 H (9-20) mg/dL Glucose 110 H (74-99) mg/dL
[2024-11-16] MEDS: CARBIDOPA-LEVODOPA 25-250 MG 1 EACH TAB PO SCH (17:11)
[2024-11-16] MEDS: HYDROcodone/APAP 5-325MG 1 EACH TAB PO SCH (20:50)
[2024-11-16] MEDS: APIXABAN 5 MG TAB PO SCH (20:50)
[2024-11-16] MEDS: ATORVASTATIN 20 MG TAB PO SCH (20:51)
[2024-11-16] MEDS: GABAPENTIN 300 MG CAP PO SCH (20:52)
[2024-11-16] MEDS: MELOXICAM 7.5 MG TAB PO SCH (20:54)
[2024-11-17] MEDS: PANTOPRAZOLE 40 MG TABLET PO SCH (06:08)
[2024-11-17] MEDS: tiZANidine 4 MG TAB PO PRN (06:08)
[2024-11-17 07:35] LABS: Basophils # (A) 0.07 10*3/uL (0.00-0.10); Basophils % (A) 0.9 %; Eosinophils # (A) 0.15 10*3/uL (0.04-0.35); Eosinophils % (A) 1.9 %; HCT 42.2 % (39.6-50.0); HGB 13.7 g/dL (13.0-17.0); Immature Platelet Fraction 4.6 % (1.1-6.1); Lymphocytes # (A) 1.94 10*3/uL (0.90-5.00); Lymphocytes % (A) 24.5 %; MCH 32.9 pg (27.0-32.0); MCHC 32.5 g/dL (32.0-37.0); MCV 101.4 fL (80.0-97.0); Mean Platelet Volume 11.3 fL (9.5-12.2); Monocytes # (A) 0.61 10*3/uL (0.20-1.00); Monocytes % (A) 7.7 %; Neutrophils # (A) 5.13 10*3/uL (1.80-7.70); Neutrophils % (A) 64.7 %; Platelet Count 121 10*3/uL (140-440); RBC 4.16 10*6/uL (4.40-5.60); RDW 13.4 % (11.5-14.5); WBC 7.92 10*3/uL (4.50-10.00)
[2024-11-17 07:47] LABS: ALT 8 U/L (4-49); AST 22 U/L (17-59); African American GFR (CKD) 86 (>60 ml/min/1.73 sqM); Albumin 3.3 g/dL (3.5-5.0); Alkaline Phosphatase 90 U/L (38-126); Anion Gap 7 mmol/L; Blood Urea Nitrogen 24 mg/dL (9-20); Calcium 8.9 mg/dL (8.4-10.2); Carbon Dioxide 21 mmol/L (22-30); Chloride 107 mmol/L (98-107); Glucose 101 mg/dL (74-99); Non-African American GFR(CKD) 74 (>60 ml/min/1.73 sqM); Potassium 4.2 mmol/L (3.5-5.1); Sodium 135 mmol/L (137-145); Total Protein 5.9 g/dL (6.3-8.2)
--- NOTE | 2024-11-17 08:17 | P.CRDCN ---
History of Present Illness Consult date: 11/17/24 Reason for Consult (text): Bradycardia History of present illness: This is 79-year-old female patient of Dr. Slater with past medical history of cardiomyopathy unknown to be ischemic or nonischemic, valvular heart disease, PVCs and NSVT, diabetes, hyperlipidemia. We have been asked to evaluate the patient for bradycardia. Patient is not on any AV mary ann blocking agents. Patient has started physical therapy 3 times a week at home. Apparently yesterday he was getting off the elliptical and his heart rate was on the lower side. He went to see his PCP and was sent into the emergency center for further evaluation. Patient denies dizziness, lightheadedness, syncopal episodes. He denies chest pain. He has chronic shortness of breath that is unchanged. Regarding Eliquis, patient is on this for previous CVA. Blood pressure 111/67, heart rate 58, pulse ox 95% on room air. -EKG: Sinus rhythm with right bundle branch block with frequent PVCs -Chest x-ray: Chronic parenchymal changes bilaterally without acute pulmonary process. -Laboratory studies: WBC 9, hemoglobin 15.1, electrolytes are normal. BUN 27 creatinine 1.2. Troponin negative x 1. TSH 1.48. Magnesium 2.3. -Home cardiac medications: Eliquis 5 mg twice daily, atorvastatin 20 mg at bedtime. - Echocardiogram performed 04/19/2024 revealed EF of 35%, mild to moderate MR. Review Of Systems: At the time of my exam: CONSTITUTIONAL: Denies fever or chills. HEENT: Denies blurred vision, vision changes, or eye pain. Denies hemoptysis CARDIOVASCULAR: Denies chest pain. Denies orthopnea. Denies PND. Denies palpitations RESPIRATORY: Chronic shortness of breath. GASTROINTESTINAL: Denies abdominal pain. Denies nausea or vomiting. HEMATOLOGIC: Denies bleeding disorders. GENITOURINARY: Denies any blood in urine. SKIN: Denies puritis. Denies rash. Physical examination: Gen: This is an 79-year-old female in no acute distress VS: reviewed HEENT: Head is atraumatic, normocephalic. Pupils equal, round. Sclerae is anicteric. NECK: Supple. No JVD. LUNGS: Clear to auscultation. No wheezes or rhonchi. No intercostal retractions. HEART: Regular rate and rhythm. Systolic murmur at the right upper sternal border. ABDOMEN: Soft No tenderness. EXTREMITIES: No pedal edema. No calf tenderness. NEUROLOGICAL: Patient is awake, alert and oriented x3. Assessment: Bradycardia most likely miscounting due to frequent PVCs Cardiomyopathy unknown if ischemic or nonischemic Valvular heart disease PVCs and NSVT Plan: Continue patient's home cardiac medications No need to obtain echocardiogram Patient is cleared for discharge from cardiology and will follow-up with Dr. 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 Nurse practitioner note has been reviewed, I agree with documented findings and plan of care. Patient was seen and examined. Past Medical History Past Medical History: Coronary Artery Disease (CAD), Heart Failure, CVA/TIA, Hyperlipidemia, Neurologic Disorder History of Any Multi-Drug Resistant Organisms: None Reported Past Surgical History: Back Surgery Past Anesthesia/Blood Transfusion Reactions: No Reported Reaction Past Psychological History: Depression Smoking Status: Former smoker Past Alcohol Use History: None Reported Past Drug Use History: Marijuana - Past Family History Father History Unknown: Yes Additional Family Medical History / Comment(s): pt and family is not aware of any past family medical history Medications and Allergies Home Medications Medication Instructions Recorded Confirmed Type Donepezil [Aricept] 10 mg PO DAILY 09/07/22 11/16/24 History Apixaban [Eliquis] 5 mg PO BID tab 09/10/22 11/16/24 Rx Gabapentin 600 mg PO HS #3 tab 09/10/22 11/16/24 Rx Carbidopa-Levodopa 25-250 mg 1 tab PO TID 05/12/23 11/16/24 History [Sinemet 25-250 mg] Atorvastatin [Lipitor] 20 mg PO HS tab 05/09/24 11/16/24 Rx DULoxetine HCL [Cymbalta] 90 mg PO DAILY 11/16/24 11/16/24 History HYDROcodone/APAP 5-325MG [[place] 1 tab PO BID 11/16/24 11/16/24 History 5-325] Meloxicam [Mobic] 7.5 mg PO BID 11/16/24 11/16/24 History Multivitamins, Thera [Multivitamin 1 tab PO DAILY 11/16/24 11/16/24 History (formulary)] tiZANidine [Zanaflex] 4 mg PO TID PRN 11/16/24 11/16/24 History Allergies Allergy/AdvReac Type Severity Reaction Status Date / Time No Known Allergies Allergy Verified 11/16/24 15:22 Physical Exam Vitals: Vital Signs Temp Pulse Pulse Resp BP Pulse Ox 11/16/24 16:30 36 L 17 156/99 95 11/16/24 14:19 44 L 22 115/97 97 11/16/24 13:51 72 18 151/64 97 11/16/24 13:11 38 L 11/16/24 12:51 44 L 17 162/97 96 11/16/24 12:24 97.8 F 34 L 16 101/57 98 Intake and Output 11/16/24 11/16/24 11/16/24 06:59 14:59 22:59 Other: Weight 64.41 kg Results 11/17/24 07:00 11/17/24 07:00 Cardiac Enzymes 11/16/24 11/16/24 Range/Units 12:55 12:55 AST 23 (17-59) U/L Troponin I <0.012 (0.000-0.034) ng/mL Coagulation 11/16/24 Range/Units 12:55 PT 12.0 (10.0-12.5) sec APTT 29.8 (22.0-30.0) sec CBC 11/16/24 Range/Units 12:55 WBC 9.03 (4.50-10.00) 10*3/uL RBC 4.64 (4.40-5.60) 10*6/uL Hgb 15.1 (13.0-17.0) g/dL Hct 45.9 (39.6-50.0) % Plt Count 135 L (140-440) 10*3/uL Comprehensive Metabolic Panel 11/16/24 Range/Units 12:55 Sodium 141 (137-145) mmol/L Potassium 4.8 (3.5-5.1) mmol/L Chloride 106 (98-107) mmol/L Carbon Dioxide 27 (22-30) mmol/L BUN 27 H (9-20) mg/dL Creatinine 1.20 (0.66-1.25) mg/dL Glucose 110 H (74-99) mg/dL Calcium 9.7 (8.4-10.2) mg/dL AST 23 (17-59) U/L ALT 8 (4-49) U/L Alkaline Phosphatase 100 (38-126) U/L Total Protein 7.1 (6.3-8.2) g/dL Albumin 4.2 (3.5-5.0) g/dL Current Medications Generic Name Dose Route Start Last Admin Trade Name Freq PRN Reason Stop Dose Admin Hydrocodone Bitart/Acetaminophen 1 each 11/16/24 21:00 Hydrocodone/Apap 5-325mg 1 Each Tab PO BID [facility] Apixaban 5 mg 11/16/24 21:00 Apixaban 5 Mg Tab PO BID [facility] Protocol Atorvastatin Calcium 20 mg 11/16/24 21:00 Atorvastatin 20 Mg Tab PO HS [facility] Carbidopa/Levodopa 1 each 11/16/24 16:00 Carbidopa-Levodopa 25-250 Mg 1 Each Tab PO TID [facility] Donepezil HCl 10 mg 11/17/24 09:00 Donepezil 10 Mg Tab PO DAILY [facility] Duloxetine HCl 90 mg 11/17/24 09:00 Duloxetine Hcl 30 Mg Capsule.Dr PO DAILY [facility] Gabapentin 600 mg 11/16/24 21:00 Gabapentin 300 Mg Cap PO HS [facility] Meloxicam 7.5 mg 11/16/24 21:00 Meloxicam 7.5 Mg Tab PO BID [facility] Multivitamins 1 each 11/17/24 09:00 Multivitamins, Thera 1 Each Tab PO DAILY [facility] Naloxone HCl 0.2 mg 11/16/24 14:45 Naloxone 0.4 Mg/Ml 1 Ml Vial IV Q2M PRN Opioid Reversal Pantoprazole Sodium 40 mg 11/17/24 07:30 Pantoprazole 40 Mg Tablet PO AC-BRKFST [facility] Tizanidine HCl 4 mg 11/16/24 15:49 Tizanidine 4 Mg Tab PO TID PRN sciatica pain Intake and Output 11/16/24 11/16/24 11/16/24 06:59 14:59 22:59 Other: Weight 64.41 kg Patient Weight 11/17/24 06:59 Weight 64.41 kg 11/16/24 12:55 11/16/24 12:55
[2024-11-17] MEDS: ATROPINE SULFATE 0.1 MG/ML 10ML SYRINGE IV STA (08:38)
[2024-11-17 08:58] LABS: Basophils # (A) 0.05 10*3/uL (0.00-0.10); Basophils % (A) 0.6 %; Eosinophils # (A) 0.12 10*3/uL (0.04-0.35); Eosinophils % (A) 1.6 %; HCT 40.2 % (39.6-50.0); HGB 13.1 g/dL (13.0-17.0); Immature Platelet Fraction 5.1 % (1.1-6.1); Lymphocytes % (A) 20.8 %; MCH 32.4 pg (27.0-32.0); MCHC 32.6 g/dL (32.0-37.0); MCV 99.5 fL (80.0-97.0); Mean Platelet Volume 10.9 fL (9.5-12.2); Monocytes # (A) 0.56 10*3/uL (0.20-1.00); Monocytes % (A) 7.3 %; Neutrophils # (A) 5.35 10*3/uL (1.80-7.70); Neutrophils % (A) 69.4 %; Platelet Count 127 10*3/uL (140-440); RBC 4.04 10*6/uL (4.40-5.60); RDW 13.3 % (11.5-14.5)
[2024-11-17 09:09] LABS: African American GFR (CKD) 68 (>60 ml/min/1.73 sqM); Anion Gap 7 mmol/L; Blood Urea Nitrogen 24 mg/dL (9-20); Calcium 8.9 mg/dL (8.4-10.2); Carbon Dioxide 24 mmol/L (22-30); Chloride 106 mmol/L (98-107); Glucose 146 mg/dL (74-99); Magnesium 2.1 mg/dL (1.6-2.3); Non-African American GFR(CKD) 59 (>60 ml/min/1.73 sqM); Potassium 3.9 mmol/L (3.5-5.1); Sodium 137 mmol/L (137-145)
[2024-11-17] MEDS: DONEPEZIL 10 MG TAB PO SCH (09:24)
[2024-11-17] MEDS: MULTIVITAMINS, THERA 1 EACH TAB PO SCH (09:24)
[2024-11-17] MEDS: DULoxetine HCL 30 MG CAPSULE.DR PO SCH (09:24)
[2024-11-17] MEDS: SODIUM CHLORIDE 0.9% 500 ML 200 ML IV ONE (09:29)
--- NOTE | 2024-11-17 10:24 | P.DS ---
Providers Date of admission: 11/16/24 14:47 Attending physician: Ricco Davey Consults: 11/16/24 14:45 Consult Physician Urgent Consulting Provider: Atul Pro Consult Reason/Comments: bradycardia Do you want consulting provider notified?: Yes [facility] Course: Discharge Diagnosis: Bradycardia, per cardiology, possibly miscounting due to frequent PVCs Cardiomyopathy of unknown etiology ischemic versus nonischemic Bilateral heart disease Known PVCs and NSVT Depression Parkinson's History of PE on [facility] back [facility] Course: Patient is a 79-year-old male with past medical history of HFrEF EF 30 to 35%, history of PVCs NSVT, HLD, CVA, history of PE on anticoagulation, CAD, Parkinson's, dementia, depression, who presented to the ER on 11/16/2024 with ongoing fatigue, he was noted to have low heart rate when he went to therapy today. Heart rate reported in 30s and 40s, thus, patient was sent to the ER. Patient denies any associated fevers, chills, shortness of breath, chest pain, abdominal pain, changes in bowel habits or dysuria. Patient's daughter came present during exam provides collateral history. She mentioned that yesterday patient was more fatigued, otherwise, no unusual symptoms On arrival afebrile, bradycardic at 44, blood pressure 162/97, SpO2 96% on room air. Lab work revealed normal WBC and hemoglobin, previously patient was anemic around 11 back in April 2024, platelet count 135, previously normal, normal coagulation panel, sodium, potassium, chloride, bicarb, creatinine normal, AST and ALT normal, troponin negative, TSH and free T4 WNL. EKG showed sinus rhythm with PVCs and first-degree AV block, heart rate on EKG 63. Patient does have previous history of third-degree AV block, PVCs. Patient will admitted for further evaluation of symptomatic bradycardia, cardiology consulted, bradycardia is most likely miscounting due to frequent PVCs, patient was cleared for discharge, follow-up with cardiology in 4 weeks, patient to picker tender event monitor in the office. Discharge home with home care 11/17/2024 Patient seen and examined at bedside.[] Vital signs reviewed and stable. General: nontoxic, no distress, appears at stated age Derm: warm, dry Head: atraumatic, normocephalic, symmetric Eyes: EOMI, no lid lag, anicteric sclera, pupils equal round reactive to light ENT: Nose and ears atraumatic Neck: No thyromegaly, supple Mouth: no lip lesion, mucus membranes moist Cardiovascular: S1S2 , no murmur, no edema Lungs: clear to auscultation bilateral, no rhonchi, no rales, no wheeze, no accessory muscle use Abdominal: soft, nontender to palpation, no guarding, no appreciable organomegaly Ext: no swelling Neuro: CN II-XII grossly intact Psych: Alert, oriented, A total of 40 minutes of time were spent preparing this complex discharge summary. Plan - Discharge Summary Discharge Rx Participant: Yes New Discharge Prescriptions: New Pantoprazole [Protonix] 40 mg PO AC-BRKFST #30 tab Continue Donepezil [Aricept] 10 mg PO DAILY Apixaban [Eliquis] 5 mg PO BID tab Gabapentin 600 mg PO HS #3 tab Carbidopa-Levodopa 25-250 mg [Sinemet 25-250 mg] 1 tab PO TID Atorvastatin [Lipitor] 20 mg PO HS tab Meloxicam [Mobic] 7.5 mg PO BID tiZANidine [Zanaflex] 4 mg PO TID PRN PRN Reason: sciatica pain Multivitamins, Thera [Multivitamin (formulary)] 1 tab PO DAILY HYDROcodone/APAP 5-325MG [[place] 5-325] 1 tab PO BID DULoxetine HCL [Cymbalta] 90 mg PO DAILY Discharge Medication List Donepezil [Aricept] 10 mg PO DAILY 09/07/22 [History] Apixaban [Eliquis] 5 mg PO BID tab 09/10/22 [Rx] Gabapentin 600 mg PO HS #3 tab 09/10/22 [Rx] Carbidopa-Levodopa 25-250 mg [Sinemet 25-250 mg] 1 tab PO TID 05/12/23 [History] Atorvastatin [Lipitor] 20 mg PO HS tab 05/09/24 [Rx] DULoxetine HCL [Cymbalta] 90 mg PO DAILY 11/16/24 [History] HYDROcodone/APAP 5-325MG [[place] 5-325] 1 tab PO BID 11/16/24 [History] Meloxicam [Mobic] 7.5 mg PO BID 11/16/24 [History] Multivitamins, Thera [Multivitamin (formulary)] 1 tab PO DAILY 11/16/24 [History] tiZANidine [Zanaflex] 4 mg PO TID PRN 11/16/24 [History] Pantoprazole [Protonix] 40 mg PO AC-BRKFST #30 tab 11/17/24 [Rx] Follow up Appointment(s)/Referral(s): Mateo Slater MD [STAFF PHYSICIAN] - 4 Weeks Charlie Yanez DO [Primary Care Provider] - 1-2 days Activity/Diet/Wound Care/Special Instructions: 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
--- NOTE | 2024-11-17 12:39 | CA ---
Transthoracic Echo Report Name: Caesar Vines Age: 79 Gender: M : 1945 Exam Date: 11/17/2024 09:45 Exam Location: [place] [facility] Ht (in): 68 Wt (lb): 149 Ordering Physician: Mateo Slater MD ([id number]) Attending/Referring Phys: Gas Welder Apprentice Jolie Kiser RDCS Procedure CPT: Indications: Hypotension Cardiac Hx: Technical Quality: Fair Contrast 1: Total Dose (mL): Contrast 2: Total Dose (mL): MEASUREMENTS (Male / Female) Normal Values 2D ECHO LV Diastolic Diameter PLAX 5.8 cm 4.2 - 5.9 / 3.9 - 5.3 cm LV Systolic Diameter PLAX 4.0 cm IVS Diastolic Thickness 1.0 cm 0.6 - 1.0 / 0.6 - 0.9 cm LVPW Diastolic Thickness 1.2 cm 0.6 - 1.0 / 0.6 - 0.9 cm LV Relative Wall Thickness 0.4 RV Internal Dim ED PLAX 3.4 cm LA Systolic Diameter LX 3.3 cm 3.0 - 4.0 / 2.7 - 3.8 cm LV Diastolic Volume MOD 4C 100.9 cm??? LV Systolic Volume MOD 4C 71.8 cm??? LV Ejection Fraction MOD 4C 28.8 % LV Cardiac Index MOD 4C 1096.4 cm???/min???m??? LV Diastolic Length 4C 8.5 cm LV Systolic Length 4C 7.7 cm LV Diastolic Volume MOD 2C 105.8 cm??? LV Systolic Volume MOD 2C 75.2 cm??? LV Ejection Fraction MOD 2C 28.9 % LV Cardiac Index MOD 2C 1154.6 cm???/min???m??? LV Diastolic Length 2C 7.6 cm LV Systolic Length 2C 6.8 cm M-MODE Aortic Root Diameter MM 3.6 cm AV Cusp Separation MM 2.3 cm DOPPLER AV Peak Velocity 132.7 cm/s AV Peak Gradient 7.0 mmHg AI Peak Velocity 165.0 cm/s AI Peak Gradient 10.9 mmHg AI Pressure Half Time 1463.4 ms Mitral E Point Velocity 55.6 cm/s Mitral A Point Velocity 72.9 cm/s Mitral E to A Ratio 0.8 MV Deceleration Time 294.0 ms MV E' Velocity 5.0 cm/s Mitral E to MV E' Ratio 11.1 TR Peak Velocity 280.2 cm/s TR Peak Gradient 31.4 mmHg Right Ventricular Systolic Press 41.4 mmHg FINDINGS Left Ventricle Left ventricular ejection fraction is estimated at 25-30 %. Left ventricular cavity size normal. Left ventricular wall thickness normal. Right Ventricle Normal RV size and systolic function. Mild pulmonary hypertension. Right Atrium Normal right atrial size. No right atrial thrombus or mass seen. Left Atrium Normal left atrial size. No left atrial thrombus or mass present. Mitral Valve Structurally normal mitral valve. Mitral valve thickened. Trace mitral regurgitation. Aortic Valve Trileaflet aortic valve. No aortic valve stenosis or regurgitation. Tricuspid Valve Structurally normal tricuspid valve. Mild tricuspid regurgitation. Pulmonic Valve Pulmonic valve not well visualized. No pulmonic regurgitation. Pericardium No pericardial effusion. Aorta Normal size aortic root and proximal ascending aorta. CONCLUSIONS LVEF 25 to 30% Basal to mid inferior wall hypokinesia Normal RV size and systolic function with mild pulmonary hypertension. RVSP 41 mmHg No significant valvular dysfunction Previewed by: Dr Josh Sparrow (Electronically Signed) Final Date: 17 November 2024 12:38
--- NOTE | 2024-11-17 14:53 | P.PN ---
Subjective Progress Note Date: 11/17/24 Hospital Course: Patient is a 79-year-old male with past medical history of HFrEF EF 30 to 35%, history of PVCs NSVT, HLD, CVA, history of PE on anticoagulation, CAD, Parkinson's, dementia, depression, who presented to the ER on 11/16/2024 with ongoing fatigue, he was noted to have low heart rate when he went to therapy today. Heart rate reported in 30s and 40s, thus, patient was sent to the ER. Patient denies any associated fevers, chills, shortness of breath, chest pain, abdominal pain, changes in bowel habits or dysuria. Patient's daughter came present during exam provides collateral history. She mentioned that yesterday patient was more fatigued, otherwise, no unusual symptoms On arrival afebrile, bradycardic at 44, blood pressure 162/97, SpO2 96% on room air. Lab work revealed normal WBC and hemoglobin, previously patient was anemic around 11 back in April 2024, platelet count 135, previously normal, normal coagulation panel, sodium, potassium, chloride, bicarb, creatinine normal, AST and ALT normal, troponin negative, TSH and free T4 WNL. EKG showed sinus rhythm with PVCs and first-degree AV block, heart rate on EKG 63. Patient does have previous history of third-degree AV block, PVCs Patient will admitted for further evaluation of symptomatic bradycardia, cardio logy consulted.. Cardiology initially cleared patient for discharge with 4 weeks follow-up on event monitor for pickup in the office. Later on 11/17 he developed episode of hypotension 60s over 50s, cardiology ordered 1 dose of IV atropine, blood pressure in 90s over 60s, patient will be provided with 1 bolus of LR 500 cc and monitored further, repeat blood work in the morning. Discussed with cardiology, RN Pertinent positives and negatives as discussed above, a complete review of systems was performed and all other systems are negative. Vitals Signs Reviewed. General: nontoxic, no distress, appears at stated age Derm: warm, dry Head: atraumatic, normocephalic, symmetric Eyes: EOMI, no lid lag, anicteric sclera, pupils equal round reactive to light ENT: Nose and ears atraumatic Neck: No thyromegaly, supple Mouth: no lip lesion, mucus membranes moist Cardiovascular: S1S2 , no murmur, no edema Lungs: clear to auscultation bilateral, no rhonchi, no rales, no wheeze, no accessory muscle use Abdominal: soft, nontender to palpation, no guarding, no appreciable organomegaly Ext: no swelling Neuro: CN II-XII grossly intact Psych: Alert, oriented, Assessment/Plan: Symptomatic bradycardia Known history of first-degree AV block and PVCs - Continue telemetry -Thyroid function normal -Cardiology consulted, appreciate recommendations -Not on any AV blocking agents at home Hypotension -Possible autonomic instability due to Parkinson's, bolus of LR 500 cc order, monitor blood pressure closely Hyperlipidemia: Continue home atorvastatin 20 mg daily Depression: Continue Cymbalta 90 mg daily Parkinson's: Continue Sinemet 25/250 3 times daily, donepezil 10 mg daily, Zanaflex 4 mg 3 times daily as needed History of PE on Eliquis, continue Eliquis 5 mg p.o. twice daily Chronic back pain, continue home [place] 5 scheduled twice daily, Mobic 755 p.o. twice daily, continue gabapentin 600 mg p.o. nightly, I will add Protonix 40 daily as patient is on NSAIDs and anticoagulation CODE STATUS: Full code DVT prophylaxis: Eliquis Anticipated discharge date: TBD Anticipated discharge place: TBD Objective - Vital Signs Vital signs: Vital Signs Temp 98.2 F 11/17/24 11:24 Pulse 60 11/17/24 11:24 Resp 14 11/17/24 11:24 BP 86/47 11/17/24 14:40 Pulse Ox 95 11/17/24 11:24 FiO2 Intake & Output 11/16/24 11/17/24 11/17/24 18:59 06:59 18:59 Intake Total 540 Output Total 200 Balance 340 Weight 64.41 kg 68 kg Intake: Oral 540 Output: Urine 200 Other: Voiding Method External Catheter External Catheter - Labs CBC & Chem 7: 11/17/24 08:39 11/17/24 08:39 Labs: Abnormal Lab Results - Last 24 Hours (Table) 11/17/24 11/17/24 11/17/24 Range/Units 07:00 07:00 08:39 RBC 4.16 L 4.04 L (4.40-5.60) 10*6/uL MCV 101.4 H 99.5 H (80.0-97.0) fL MCH 32.9 H 32.4 H (27.0-32.0) pg Plt Count 121 L 127 L (140-440) 10*3/uL Sodium 135 L (137-145) mmol/L Carbon Dioxide 21 L (22-30) mmol/L BUN 24 H (9-20) mg/dL Glucose 101 H (74-99) mg/dL Total Protein 5.9 L (6.3-8.2) g/dL Albumin 3.3 L (3.5-5.0) g/dL /12/06 Range/Units 08:39 RBC (4.40-5.60) 10*6/uL MCV (80.0-97.0) fL MCH (27.0-32.0) pg Plt Count (140-440) 10*3/uL Sodium (137-145) mmol/L Carbon Dioxide (22-30) mmol/L BUN 24 H (9-20) mg/dL Glucose 146 H (74-99) mg/dL Total Protein (6.3-8.2) g/dL Albumin (3.5-5.0) g/dL
[2024-11-17] MEDS: LACTATED RINGERS 500 ML IV ONE (15:51)
[2024-11-18 08:48] LABS: Basophils # (A) 0.05 10*3/uL (0.00-0.10); Basophils % (A) 0.6 %; Eosinophils # (A) 0.17 10*3/uL (0.04-0.35); HCT 44.2 % (39.6-50.0); HGB 14.3 g/dL (13.0-17.0); Lymphocytes # (A) 1.84 10*3/uL (0.90-5.00); Lymphocytes % (A) 21.3 %; MCH 32.6 pg (27.0-32.0); MCHC 32.4 g/dL (32.0-37.0); MCV 100.9 fL (80.0-97.0); Mean Platelet Volume 11.8 fL (9.5-12.2); Monocytes # (A) 0.57 10*3/uL (0.20-1.00); Monocytes % (A) 6.6 %; Neutrophils % (A) 69.4 %; Platelet Count 127 10*3/uL (140-440); RBC 4.38 10*6/uL (4.40-5.60); RDW 13.4 % (11.5-14.5); WBC 8.64 10*3/uL (4.50-10.00)
[2024-11-18 09:01] LABS: African American GFR (CKD) 74 (>60 ml/min/1.73 sqM); Anion Gap 6 mmol/L; Blood Urea Nitrogen 25 mg/dL (9-20); Calcium 8.9 mg/dL (8.4-10.2); Carbon Dioxide 27 mmol/L (22-30); Chloride 104 mmol/L (98-107); Glucose 115 mg/dL (74-99); Non-African American GFR(CKD) 64 (>60 ml/min/1.73 sqM); Potassium 4.6 mmol/L (3.5-5.1); Sodium 137 mmol/L (137-145)
[2024-11-18 11:28] VITALS: RESP 16
--- NOTE | 2024-11-18 16:17 | P.DS ---
Providers Date of admission: 11/16/24 14:47 Attending physician: Ricco Davey Consults: 11/16/24 14:45 Consult Physician Urgent Consulting Provider: Atul Pro Consult Reason/Comments: bradycardia Do you want consulting provider notified?: Yes Primary care physician: Charlie Yanez [facility] Course: Discharge Diagnosis: Cardia likely due to miscountingatrial flutter frequent PVCs Known PVCs NSVT Known history of first-degree AV block Hypertension, transient, resolved Hyperlipidemia Depression Parkinson's History of PE on [facility] back [place] [facility] Course: Patient is a 79-year-old male with past medical history of HFrEF EF 30 to 35%, history of PVCs NSVT, HLD, CVA, history of PE on anticoagulation, CAD, Parkinson's, dementia, depression, who presented to the ER on 11/16/2024 with ongoing fatigue, he was noted to have low heart rate when he went to therapy today. Heart rate reported in 30s and 40s, thus, patient was sent to the ER. Patient denies any associated fevers, chills, shortness of breath, chest pain, abdominal pain, changes in bowel habits or dysuria. Patient's daughter came present during exam provides collateral history. She mentioned that yesterday patient was more fatigued, otherwise, no unusual symptoms On arrival afebrile, bradycardic at 44, blood pressure 162/97, SpO2 96% on room air. Lab work revealed normal WBC and hemoglobin, previously patient was anemic around 11 back in April 2024, platelet count 135, previously normal, normal coagulation panel, sodium, potassium, chloride, bicarb, creatinine normal, AST and ALT normal, troponin negative, TSH and free T4 WNL. EKG showed sinus rhythm with PVCs and first-degree AV block, heart rate on EKG 63. Patient does have previous history of third-degree AV block, PVCs Patient will admitted for further evaluation of symptomatic bradycardia, cardiology consulted.. Cardiology initially cleared patient for discharge with 4 weeks follow-up on event monitor for pickup in the office. Later on 11/17 he developed episode of hypotension 60s over 50s, cardiology ordered 1 dose of IV atropine, blood pressure in 90s over 60s, patient will be provided with 1 bolus of LR 500 cc and monitored further, repeat blood work in the morning showed no acute abnormalities, hemoglobin stable, kidney function normal, no electrolyte abnormalities. Patient blood pressure stabilized, he feels well, discharged on 11/18/2024.. Patient seen and examined at bedside.[] Vital signs reviewed and stable. General: nontoxic, no distress, appears at stated age Derm: warm, dry Head: atraumatic, normocephalic, symmetric Eyes: EOMI, no lid lag, anicteric sclera, pupils equal round reactive to light ENT: Nose and ears atraumatic Neck: No thyromegaly, supple Mouth: no lip lesion, mucus membranes moist Cardiovascular: S1S2 , no murmur, no edema Lungs: clear to auscultation bilateral, no rhonchi, no rales, no wheeze, no accessory muscle use Abdominal: soft, nontender to palpation, no guarding, no appreciable organomegaly Ext: no swelling Neuro: CN II-XII grossly intact Psych: Alert, oriented, A total of 40 minutes of time were spent preparing this complex discharge summary. Plan - Discharge Summary Discharge Rx Participant: Yes New Discharge Prescriptions: New Pantoprazole [Protonix] 40 mg PO AC-BRKFST #30 tab Continue Donepezil [Aricept] 10 mg PO DAILY Apixaban [Eliquis] 5 mg PO BID tab Gabapentin 600 mg PO HS #3 tab Carbidopa-Levodopa 25-250 mg [Sinemet 25-250 mg] 1 tab PO TID Atorvastatin [Lipitor] 20 mg PO HS tab Meloxicam [Mobic] 7.5 mg PO BID tiZANidine [Zanaflex] 4 mg PO TID PRN PRN Reason: sciatica pain Multivitamins, Thera [Multivitamin (formulary)] 1 tab PO DAILY HYDROcodone/APAP 5-325MG [[place] 5-325] 1 tab PO BID DULoxetine HCL [Cymbalta] 90 mg PO DAILY Discharge Medication List Donepezil [Aricept] 10 mg PO DAILY 09/07/22 [History] Apixaban [Eliquis] 5 mg PO BID tab 09/10/22 [Rx] Gabapentin 600 mg PO HS #3 tab 09/10/22 [Rx] Carbidopa-Levodopa 25-250 mg [Sinemet 25-250 mg] 1 tab PO TID 05/12/23 [History] Atorvastatin [Lipitor] 20 mg PO HS tab 05/09/24 [Rx] DULoxetine HCL [Cymbalta] 90 mg PO DAILY 11/16/24 [History] HYDROcodone/APAP 5-325MG [[place] 5-325] 1 tab PO BID 11/16/24 [History] Meloxicam [Mobic] 7.5 mg PO BID 11/16/24 [History] Multivitamins, Thera [Multivitamin (formulary)] 1 tab PO DAILY 11/16/24 [History] tiZANidine [Zanaflex] 4 mg PO TID PRN 11/16/24 [History] Pantoprazole [Protonix] 40 mg PO AC-BRKFST #30 tab 11/17/24 [Rx] Follow up Appointment(s)/Referral(s): Mateo Slater MD [STAFF PHYSICIAN] - 4 Weeks Charlie Yanez DO [Primary Care Provider] - 1-2 days Activity/Diet/Wound Care/Special Instructions: Patient will excelsior picker event monitor at [facility] office Discharge/Stand Alone Forms: Who Do I Call? Discharge Disposition: HOME WITH HOME HEALTH SERVICES
[2024-11-18 16:21] VITALS: BP 141/85; PULSE 55; TEMP 98
== END 2024-11-18 18:44 | disposition home or self-care (01) ==
LOC: EC 12:19 → INTOOBSV 14:47 → 3SCARD 14:47
PROVIDERS: ADMIT Student in an Organized Health Care Education/Training Program; ATTEND Student in an Organized Health Care Education/Training Program
DX: R00.1 Bradycardia, unspecified (principal); I50.20 Unspecified systolic (congestive) heart failure; I49.3 Ventricular premature depolarization; I44.0 Atrioventricular block, first degree; R03.0 Elevated blood-pressure reading, without diagnosis of hypertension; I25.10 Atherosclerotic heart disease of native coronary artery without angina pectoris; E11.9 Type 2 diabetes mellitus without complications; E78.5 Hyperlipidemia, unspecified; I42.9 Cardiomyopathy, unspecified; F32.A Depression, unspecified; G20.A1 Parkinson's disease without dyskinesia, without mention of fluctuations; G89.29 Other chronic pain; M54.9 Dorsalgia, unspecified; Z86.711 Personal history of pulmonary embolism; Z86.73 Personal history of transient ischemic attack (TIA), and cerebral infarction without residual deficits; Z87.891 Personal history of nicotine dependence; Z79.01 Long term (current) use of anticoagulants; Z79.899 Other long term (current) drug therapy
CPT/HCPCS: 96374; 99285; 36415; 93005; 93306; 84439; 84481; 80053 ×2; 80048 ×2; 83735 ×2; 84443; 84484; 85025 ×3; 85610; 85730; 71046; G0378 ×3; J0461